=== PATIENT | female | born 1950 | race Hispanic/Latino ===

== ENCOUNTER 2019-09-03 17:10 | Emergency (ER) | payer OTHER ==
--- NOTE | 2019-09-03 18:06 | ER ---
Nurse's Notes [facility] Name: Jill Das Age: 68 yrs Sex: Female : 1950 Arrival Date: 09/03/2019 Time: 17:12 Bed 19 Private MD: Diagnosis: Cellulitis of right upper limb Presentation: 09/02 17:27 Chief complaint: Patient states: cellulitis to RFA X 1 week, started as a small sore on iw her arm, went to urgent care and was given cephalexin and ointment , has gotten worse throughout the day today , no fever. Coronavirus screen: Proceed with normal triage. Patient denies a cough. Patient denies shortness of breath or difficulty breathing. Patient denies measured and/or subjective temperature greater than 100.4F prior to today's visit. Patient denies travel on a cruise ship or to a country the [facility] currently lists as an affected area. Patient denies contact with known and/or suspected case of COVID-19. Ebola Screen: Patient negative for fever greater than or equal to 101.5 degrees Fahrenheit, and additional compatible Ebola Virus Disease symptoms Patient denies exposure to infectious person. Patient denies travel to an Ebola-affected area in the 21 days before illness onset. No symptoms or risks identified at this time. Initial Sepsis Screen: Does the patient meet any 2 criteria? No. Patient's initial sepsis screen is negative. Does the patient have a suspected source of infection? No. Patient's initial sepsis screen is negative. Risk Assessment: Do you want to hurt yourself or someone else? Patient reports no desire to harm self or others. Onset of symptoms was August 27, 2019. 17:27 Method Of Arrival: Ambulatory iw 17:27 Acuity: ZURDO 3 iw Triage Assessment: 18:10 General: Appears in no apparent distress. comfortable, Behavior is calm, cooperative. ls4 Pain: Denies pain. Neuro: No deficits noted. Cardiovascular: No deficits noted. Respiratory: No deficits noted. GI: No deficits noted. : No deficits noted. No signs and/or symptoms were reported regarding the genitourinary system. Derm: Skin is pink, warm \T\ dry. Rash noted that is red, on dorsal aspect of right forearm. Musculoskeletal: No deficits noted. No signs and/or symptoms reported regarding the musculoskeletal system. Historical: - Allergies: 17:31 No Known Allergies; iw - Home Meds: 17:31 metformin 500 mg Oral tab 1 tab 2 times per day [Active]; amlodipine 5 mg tab 1 tab iw once daily [Active]; rosuvastatin 20 mg oral tab 1 tab once daily [Active]; Victoza 2-Brien 0.6 mg/0.1 mL (18 mg/3 mL) subcutaneous pnij 0.2 mL once daily [Active]; - PMHx: 17:31 Anxiety; Depression; Diabetes - NIDDM; GERD; High Cholesterol; Hypertension; Myocardial iw infarction; - PSHx: 17:31 Hysterectomy; iw - Immunization history:: Adult Immunizations not up to date. - Social history:: Smoking status: Patient reports the use of cigarette tobacco products, smokes one-half pack cigarettes per day. Screenin:20 Abuse screen: Denies threats or abuse. Denies injuries from another. Nutritional ls4 screening: No deficits noted. Tuberculosis screening: No symptoms or risk factors identified. Fall Risk None identified. Assessment: 18:11 General: Appears in no apparent distress. comfortable, Behavior is calm, cooperative, . ls4 SEE TRIAGE ASSESSMENT. Vital Signs: 17:27 BP 141 / 77; Pulse 71; Resp 16; Pulse Ox 98% on R/A; Weight 72.57 kg; Height 5 ft. 4 iw in. (162.56 cm); Pain 0/10; 17:54 Temp 98.3(O); rb1 17:27 Body Mass Index 27.46 (72.57 kg, 162.56 cm) iw ED Course: 17:12 Patient arrived in ED. as 17:20 Patient has correct armband on for positive identification. Bed in low position. Call ls4 light in reach. Side rails up X 1. Pulse ox on. NIBP on. Verbal reassurance given. 17:20 No provider procedures requiring assistance completed. IV discontinued, intact, ls4 bleeding controlled, No redness/swelling at site. Pressure dressing applied. 17:21 Jimy Allen PA is PHCP. [facility] 17:21 Jose Trinidad MD is Attending Physician. [facility] 17:29 Triage completed. iw 17:31 Arm band placed on. iw 17:38 Letitia Sibley, MILLI is Primary Nurse. ls4 Administered Medications: No medications were administered Outcome: 18:05 Discharge ordered by MD. boswell 18:16 Patient left the ED. ls4 Signatures: Jimy Allen PA PA jmm Martinez, Amelia as Williams, Irene RN RN iw Edel Najera, RN RN rb1 Letitia Sibley RN RN ls4
--- NOTE | 2019-09-03 18:06 | EDPHYS ---
Physician Documentation [facility] Name: Jill Das Age: 68 yrs Sex: Female : 1950 Arrival Date: 09/03/2019 Time: 17:12 Bed 19 Private MD: ED Physician Jose Trinidad HPI: 09/02 17:33 This 68 yrs old Female presents to ER via Ambulatory with complaints of Wound jmm Check. 17:33 Patient presents to ED for recheck of: cellulitis. The affected area is on the right jmm arm. This is a 68 year old female with a history of DM, depression, that presents to the ED with complaints of right arm pain and swelling beginning approx 1 week ago. Patient states she was prescribed bactrim, cephalexin, and bactroban oint and began taking medication today. Patient is concerned due to increased swelling today. Denies fever. . Historical: - Allergies: 17:31 No Known Allergies; iw - Home Meds: 17:31 metformin 500 mg Oral tab 1 tab 2 times per day [Active]; amlodipine 5 mg tab 1 tab iw once daily [Active]; rosuvastatin 20 mg oral tab 1 tab once daily [Active]; Victoza 2-Brien 0.6 mg/0.1 mL (18 mg/3 mL) subcutaneous pnij 0.2 mL once daily [Active]; - PMHx: 17:31 Anxiety; Depression; Diabetes - NIDDM; GERD; High Cholesterol; Hypertension; Myocardial iw infarction; - PSHx: 17:31 Hysterectomy; iw - Immunization history:: Adult Immunizations not up to date. - Social history:: Smoking status: Patient reports the use of cigarette tobacco products, smokes one-half pack cigarettes per day. ROS: 17:33 Constitutional: Negative for fever, chills, and weight loss, Cardiovascular: Negative jmm for chest pain, palpitations, and edema, Respiratory: Negative for shortness of breath, cough, wheezing, and pleuritic chest pain. 17:33 Skin: Positive for cellulitis, swelling. 17:33 All other systems are negative. Exam: 17:33 Constitutional: This is a well developed, well nourished patient who is awake, alert, jmm and in no acute distress. Head/Face: atraumatic. Eyes: EOMI, no conjunctival erythema appreciated ENT: Moist Mucus Membranes Neck: Trachea midline, Supple Chest/axilla: Normal chest wall appearance and motion. Cardiovascular: Regular rate and rhythm. No edema appreciated Respiratory: Normal respirations, no respiratory distress appreciated Abdomen/GI: Non distended, soft Back: Normal ROM 17:33 Skin: erythema noted to the right forearm, mildly ttp, no streaking. 17:33 Neuro: Orientation: is normal, Mentation: is normal, Memory: is normal. 17:33 Psych: Behavior/mood is pleasant, cooperative. Vital Signs: 17:27 BP 141 / 77; Pulse 71; Resp 16; Pulse Ox 98% on R/A; Weight 72.57 kg; Height 5 ft. 4 iw in. (162.56 cm); Pain 0/10; 17:54 Temp 98.3(O); rb1 17:27 Body Mass Index 27.46 (72.57 kg, 162.56 cm) iw MDM: 17:33 Patient medically screened. [facility] 18:04 Data reviewed: vital signs, nurses notes. Counseling: I had a detailed discussion with andreia the patient and/or guardian regarding: the historical points, exam findings, and any diagnostic results supporting the discharge/admit diagnosis, radiology results, the need for outpatient follow up, to return to the emergency department if symptoms worsen or persist or if there are any questions or concerns that arise at home. ED course: Patient is alert and non toxic in appearance in the ED. Patient advised to continue oral abx. Patient is otherwise given strict return precautions. Patient understood and agrees with the plan of care. . 09/02 17:36 Order name: [facility]. Order: need temp; Complete Time: 17:54 [facility] Administered Medications: No medications were administered Disposition: 18:18 Co-signature as Attending Physician, Jose Trinidad MD. rn Disposition: 09/03/19 18:05 Discharged to Home. Impression: Cellulitis of right upper limb. - Condition is Stable. - Discharge Instructions: Cellulitis, Adult. - Medication Reconciliation Form, Thank You Letter, Antibiotic Education, Prescription Opioid Use form. - Follow up: Private Physician; When: 2 - 3 days; Reason: Recheck today's complaints, Continuance of care, Re-evaluation by your physician. Signatures: Mickail, Jimy, PA PA jmm Glynn, Casie, Jose Meza RN, MD MD rn Stewart, Lisa, RN RN ls4 Corrections: (The following items were deleted from the chart) 18:16 18:05 09/03/2019 18:05 Discharged to Home. Impression: Cellulitis of right upper limb. ls4 Condition is Stable. Forms are Medication Reconciliation Form, Thank You Letter, Antibiotic Education, Prescription Opioid Use. Follow up: Private Physician; When: 2 - 3 days; Reason: Recheck today's complaints, Continuance of care, Re-evaluation by your physician. david
[2019-09-03 18:22] VITALS: BP 141/77; O2SAT 98
[2019-09-03 18:24] VITALS: TEMP 98.3
== END 2019-09-03 18:16 | disposition home or self-care (01) ==
LOC: ER 17:10
DX: L03.113 Cellulitis of right upper limb (principal); I10 Essential (primary) hypertension; E11.9 Type 2 diabetes mellitus without complications; F34.1 Dysthymic disorder; E78.00 Pure hypercholesterolemia, unspecified; I25.2 Old myocardial infarction; F17.210 Nicotine dependence, cigarettes, uncomplicated
CPT/HCPCS: 99282

== ENCOUNTER 2023-11-10 09:41 | Emergency (ER) | payer OTHER ==
--- OUTSIDE RECORDS SUMMARY | 2023-11-10 09:45 | XMS REPORT | Continuity of Care Document ---
Author Name Unknown Address [address] [facility] [place] [address] [facility] Address [address] [facility] [address] [place] [address] Care Team Providers Care Bladder Tier Name Role Phone PCP, PATIENT DOES NOT HAVE A Primary Care Physic lynnette Unavailable Ioana Pineda Attending Clinician Unavailable CHRISTOPH HUITRON Attending Clinician Unavailable IOANA PINEDA Attending Clinician Unavailable MARICHUY ARCOS Attending Clinician Unavailable CONFERENCE, LDC Attending Clinician Unavailable LAB90 Attending Clinician Unavailable SCOT SERNA Attending Clinician Unavailable [email or web address] Attending Clinician UnavailRAFAELA Owens Attending Clinician UnaRADHA Machado Attending Clinician UnavailGRACIE Spivey Attending Clinician Unavailable GREGORIO THOMPSON Attending Clinician Unavailable Radha Mac MD Attending Clinician [phone] Doctor Unassigned, [place] Attending Clinician U Tre Garland MD Attending Clinician [phone] Chely Santiago Attending Clinician Lab, Adc Fam Pob I Attending Clinician Unavailab CHELY Gandhi Attending Clinician Unavailable Ioana Pineda Admitting Clinician Unavailable [email or web address] Admitting Clinician UnavailRADHA Sanchez Admitting Clinician Unavailabl e Payers Payer Name Policy Type Policy Number Effective Date Expirati on Date Source [facility] [id number] 2021 00:00:00 [employer] HMO-POS 16 [id number] 00:00:00 [facility] (MEDICARE REPLACEMENT HMO) [id number] [employer] [place]) [id number] [facility] [place] ([place]IC[place] REPLACEMENT/[place] - HMO) [id number] [facility] [id number] 00:00:00 Problems Condition Name Condition Details Condition Category Status Onset Date Resolution Date Last Treatment Date Treating Clinician Comments Source Tobacco use Tobacco use Disease Active 4-17 00:00: 00 Becca San - Externa catherine Hypothyroi dism Hypothyroi dism Disease Active 2022-05 0-12 00:00: 00 Becca Elizaldeold - Externa l DM type 2 with diabetic mixed hyperlipid emia (multi HCC) DM type 2 with diabetic mixed hyperlipid emia (multi HCC) Disease Active 8-16 00:00: 00 Becca San - Externa l Delayed gastric emptying Delayed gastric emptying Disease Active 816 00:00: 00 Becca San - Externa l Immunodefi ciency due to conditions classified elsewhere (multi HCC) Immunodefi ciency due to conditions classified elsewhere (multi HCC) Disease Active 2-07 00:00: 00 Becca San - Externa l Chronic obstructiv e pulmonary disease, unspecifie d COPD type (multi HCC) Chronic obstructiv e pulmonary disease, unspecifie d COPD type (multi HCC) Disease Active 2021-05 0-26 00:00: 00 Becca Ko Externa catherine Recurrent major depressive disorder, in partial remission Recurrent major depressive disorder, in partial remission Disease Active 2021-05 0- 00:00: 00 Becca alexander Encounter for screening for vascular disease Encounter for screening for vascular disease Disease Active 01-21 00:00: 00 Becca Patela catherine Type 2 diabetes mellitus without complicati on, without long-term current use of insulin (multi HCC) Type 2 diabetes mellitus without complicati on, without long-term current use of insulin (multi HCC) Disease Active 01-21 00:00: 00 Becca alexander Hyperlipid emia Hyperlipid emia Disease Active 01-21 00:00: 00 Becca Patela catherine Primary hypertensi on Primary hypertensi on Disease Active 01-21 00:00: 00 Becca Patela catherine OAB (overactiv e bladder) OAB (overactiv e bladder) Disease Active 01-21 00:00: 00 Becca Patela catherine Gastroesop hageal reflux disease without esophagiti s Gastroesop hageal reflux disease without esophagiti s Disease Active 01-21 00:00: 00 Becca alexander PVD (periphera l vascular disease) PVD (periphera l vascular disease) Disease Active 01-21 00:00: 00 Becca Patela catherine Vitamin D deficiency Vitamin D deficiency Disease Active 01-21 00:00: 00 Becca alexander [id number] Detrusor instabilit y Problem Common [facility] [id number] Urge incontinen ce Problem Common [facility] Urgent desire to urinate Urinary urgency Problem [facility] Spasm of bladder Bladder spasms Problem [facility] [id number] Urinary incontinen ce, unspecifie d type Problem [facility] [id number] Microhemat uria Problem [facility] [id number] Sciatica of left side Problem [facility] [id number] Sciatica of right side Problem [facility] [id number] Piriformis syndrome, right Problem [facility] [id number] Piriformis syndrome of left side Problem [facility] No known active problems No known active problems Disease [facility] Allergies, Adverse Reactions, Alerts Allergy Name Allergy Type Status Severity Reaction(s) Onset Date Inactive Date Treating Clinician Comments Source NO KNOWN ALLERGIE S Drug Class Active [facility] Social History Social Habit Start Date Stop Date Quantity Comments Source Sex Assigned At [facility] History of tobacco use Cigarette Smoker Becca lópez - External Gender identity Claire San - External Sexual orientation Josiah San - External Exposure to SARS-CoV-2 (event) Not sure [facility] Cigarettes smoked current (pack per day) - Reported 2023-09-01 00:00:00 2023-09-01 00:00:00 Becca San - External Cigarette pack-years 2023-09-01 00:00:00 2023-09-01 00:00:00 Becca San - External Tobacco use and exposure 2023-09-01 00:00:00 2023-09-01 00:00:00 Smokeless tobacco non-user Becca San - External Alcoholic beverage intake 2023-09-01 00:00:00 2023-09-01 00:00:00 Lifetime non-drinker (finding) Becca San - External Alcohol intake 2023-06-30 00:00:00 2023-06-30 00:00:00 Lifetime non-drinker (finding) Becca San - External History of Social function 2023-01-21 00:00:00 2023-01-21 00:00:00 Becca San - External Smoking Status Start Date Stop Date Source Smokes tobacco daily 2023-09-01 00:00:00 Becca San - External Unknown if ever smoked [facility] Medications Ordered Medication Name Filled Medication Name Start Date Stop Date Current Medication? Ordering Clinician Indication Dosage Frequency Signature (SIG) Comments Components Source Semaglutide , 2 MG/DOSE, (Ozempic, 2 MG/DOSE,) subcutaneou s 08-31 08:24: 13 08-31 00:00 :00 No 2mg Inject 2 mg into the skin once a week. Becca alexander Nitrofurant oin Monohyd Macro 100 MG oral Capsule 08-31 08:08: 15 08-31 00:00 :00 No 100mg Take 1 capsule (100 mg total) by mouth 2 times daily. Becca alexander Microlet Lancets does not apply Misc 08-31 08:07: 47 Yes [id number] See Admin Instructio ns Becca alexander Nicotine 7 MG/24HR transdermal PATCH 24 HR 08-31 08:07: 47 Yes [id number] 1{patch } Place 1 patch onto the skin every 24 hours. Becca alexander Tirzepatide (Mounjaro) 10 MG/0.5ML subcutaneou s Solution Pen-injecto r 08-31 00:00: 00 Yes [id number] 3 10mg Inject 0.5 mL (10 mg total) into the skin once a week. Becca alexander Propranolol HCl 10 MG oral Tablet 08-31 00:00: 00 Yes [id number] 10mg [id number] 3D Take 1 tablet (10 mg total) by mouth 3 times daily as needed. Becca alexander Tirzepatide (Mounjaro) 10 MG/0.5ML subcutaneou s Solution Pen-injecto r 08-20 00:00: 00 08-31 00:00 :00 No [id number] 3 10mg Inject 0.5 mL (10 mg total) into the skin once a week. Becca alexander Amlodipine Besylate (NORVASC) 5 MG oral Tablet 20 00:00: 00 Yes [id number] 5mg Take 1 tablet (5 mg total) by mouth daily. Becca alexander Bupropion HCL XL 150 MG OR TB24 -14 00:00: 00 08-31 00:00 :00 No 150mg Take 1 tablet (150 mg total) by mouth daily. Becca alexander Fluzone High-Dose Quadrivalen t 0.7 ML Fluzone High-Dose Quadrivalen t 0.7 ML 4-0 3-12 00:00: 00 No Fluzone High-Dose Quadrivale nt 0.7 ML Levothyroxi ne Sodium 50 MCG Levothyroxi ne Sodium 50 MCG 2023-0 3-12 00:00: 00 No QD Levothyrox ine Sodium 50 MCG Constulose 10 GM/15ML Constulose 10 GM/15ML 2023-0 3-12 00:00: 00 No 15{ml_a s_neede d} QD Constulose 10 GM/15ML Lubiproston e 24 MCG Lubiproston e 24 MCG 2023-0 3-12 00:00: 00 No BID Lubiprosto ne 24 MCG Doxycycline Hyclate 100 MG Doxycycline Hyclate 100 MG 2023-0 3-12 00:00: 00 No 1{capsu le} QD Doxycyclin e Hyclate 100 MG Fluzone High-Dose Quadrivalen t 0.7 ML Fluzone High-Dose Quadrivalen t 0.7 ML 2023-0 -12 00:00: 00 No Fluzone High-Dose Quadrivale nt 0.7 ML Levothyroxi ne Sodium 50 MCG Levothyroxi ne Sodium 50 MCG 2023-0 -12 00:00: 00 No QD Levothyrox ine Sodium 50 MCG Constulose 10 GM/15ML Constulose 10 GM/15ML 2023-0 3-12 00:00: 00 No 15{ml_a s_neede d} QD Constulose 10 GM/15ML Lubiproston e 24 MCG Lubiproston e 24 MCG 2023-0 3-12 00:00: 00 No BID Lubiprosto ne 24 MCG Doxycycline Hyclate 100 MG Doxycycline Hyclate 100 MG 2023-0 3-12 00:00: 00 No 1{capsu le} QD Doxycyclin e Hyclate 100 MG Doxycycline Hyclate 100 MG oral Capsule 2023-0 3-12 00:00: 00 08-31 00:00 :00 No 100mg 1 capsule (100 mg total) every 24 hours. Becca alexander Comirnaty 30 MCG/0.3ML intramuscul ar Suspension Prefilled Syringe 3-10 00:00: 00 Yes .3mL Inject 0.3 mL into the muscle once. Becca alexander Amoxicillin -Pot Clavulanate 875-125 MG oral Tablet 3-06 00:00: 00 08-31 00:00 :00 No [id number] 1{tbl} Take 1 tablet by mouth 2 times daily. Becca alexander Microlet Lancets does not apply Misc 14 08:25: 05 Yes [id number] See Admin Instructio ns Becca alexander Tirzepatide (Mounjaro) 10 MG/0.5ML subcutaneou s Solution Pen-injecto r 14 00:00: 00 Yes [id number] 3 10mg Inject 0.5 mL (10 mg total) into the skin once a week. Becca alexander BUPROPION HCL SR 150 MG OR TB12 14 00:00: 00 Yes [id number] 150mg Take 1 tablet (150 mg total) by mouth 2 times daily. Becca alexander Doxycycline Hyclate 100 MG oral Tablet 14 00:00: 00 Yes [id number] 100mg Take 1 tablet (100 mg total) by mouth 2 times daily. Becca alexander Constulose 10 GM/15ML oral Solution 06-17 00:00: 00 Yes 10g Take 15 mL (10 g total) by mouth nightly. Becca alexander Liraglutide (Victoza) 18 MG/3ML subcutaneou s Solution Pen-injecto r -15 16:05: 16 05-31 00:00 :00 No See Admin Instructio ns. Becca alexander Microlet Lancets does not apply Misc -15 15:48: 42 Yes [id number] See Admin Instructio ns Becca alexander Tirzepatide (Mounjaro) 10 MG/0.5ML subcutaneou s Solution Pen-injecto r 05-31 00:00: 00 Yes [id number] 3 10mg Inject 0.5 mL (10 mg total) into the skin once a week. Becca alexander BUPROPION HCL SR 150 MG OR TB12 05-31 00:00: 00 Yes [id number] 150mg Take 1 tablet (150 mg total) by mouth 2 times daily. Becca alexander Lubiproston e 24 MCG oral Capsule 05-31 00:00: 00 08-31 00:00 :00 No [id number] 24ug Take 1 capsule (24 mcg total) by mouth in the morning and 1 capsule (24 mcg total) in the evening. Take with meals. Becca alexander ESTRADIOL VAGINAL 0.1 MG/GM vaginal Cream 2022-05 00:00: [address] 1 g vaginally three times a week. Becca alexander Oxybutynin Chloride 10 MG oral TABLET SR 24 HR 2022-05 00:00: 00 Yes 10mg Take 1 tablet (10 mg total) by mouth daily. Becca alexander linaCLOtide (Linzess) 145 MCG oral Capsule 2022-05 00:00: 00 05-31 00:00 :00 No [id number] 145ug Take 1 capsule (145 mcg total) by mouth daily. Becca alexander Liraglutide (Victoza) 18 MG/3ML subcutaneou s Solution Pen-injecto r 2022-05 09:09: 30 02-25 00:00 :00 No as directed Subcutaneo us Becca alexander Microlet Lancets does not apply Misc 2022-05 08:40: 53 Yes [id number] See Admin Instructio ns Becca alexander Nicotine 21-14-7 MG/24HR transdermal Kit 2022-05 00:00: 00 Yes [id number] 1{patch } Place 1 patch onto the skin every 24 hours. Becca alexander Lubiproston e 24 MCG oral Capsule 2022-05 0-12 00:00: 00 Yes [id number] 24ug Take 1 capsule (24 mcg total) by mouth in the morning and 1 capsule (24 mcg total) in the evening. Take with meals. Becca alexander Microlet Lancets does not apply Misc 01-21 13:27: 00 Yes [id number] See Admin Instructio ns Becca alexander Semaglutide (2 mg/dose) 8 mg/3 mL SQ Solution Pen-Injecto r 01-21 00:00: 00 05-31 00:00 :00 No [id number] 3 2mg Inject 2 mg into the skin once a week. Becca alexander Oxybutynin Chloride 5 MG oral TABLET SR 24 HR 01-17 00:00: 00 05-31 00:00 :00 No 5mg Take 1 tablet (5 mg total) by mouth daily. Becca alexander Rosuvastati n Calcium 20 MG oral Tablet 01-15 00:00: 00 Yes [id number] 20mg TAKE ONE (1) TABLET(S) BY MOUTH ONCE A DAY. Becca alexander TRIMETHOPRI M-SULFAMETH OXAZOLE (BACTRIM DS) 800-160 MG oral Tablet 8-30 00:00: 00 01-21 00:00 :00 No 1{tbl} Take 1 tablet by mouth 2 times daily. Becca alexander OZEMPIC (1 mg/dose) 4 mg/3 mL SQ Solution Pen-Injecto r 5-02 00:00: 00 01-21 00:00 :00 No [id number] INJECT ONE (1) MG INTO THE SKIN ONCE A WEEK. Becca alexander oxyBUTYnin Chloride ER 5 MG oxyBUTYnin Chloride ER 5 MG 09-02 00:00: 00 No 1{table t} BID oxyBUTYnin Chloride ER 5 MG oxyBUTYnin Chloride ER 5 MG oxyBUTYnin Chloride ER 5 MG 09-02 00:00: 00 No 1{table t} BID oxyBUTYnin Chloride ER 5 MG oxyBUTYnin Chloride ER 5 MG oxyBUTYnin Chloride ER 5 MG 4-19 00:00: 00 No 1{table t} BID oxyBUTYnin Chloride ER 5 MG oxyBUTYnin Chloride ER 5 MG oxyBUTYnin Chloride ER 5 MG 0 4-19 00:00: 00 No 1{table t} BID oxyBUTYnin Chloride ER 5 MG oxyBUTYnin Chloride ER 5 MG oxyBUTYnin Chloride ER 5 MG 2022- 4-19 00:00: 00 No 1{table t} BID oxyBUTYnin Chloride ER 5 MG Microlet Lancets does not apply [facility] 07-23 12:54: 06 Yes [id number] See Admin Instructio ns Becca alexander OZEMPIC (1 mg/dose) 4 mg/3 mL SQ Solution Pen-Injecto r 07-23 00:00: 00 Yes [id number] 1mg Inject 1 mg into the skin once a week Becca alexander Pantoprazol e Sodium 40 MG oral Tablet Delayed Response 07-23 00:00: 00 Yes [id number] 40mg Take 1 tablet (40 mg total) by mouth daily Becca alexander Albuterol HFA 108 (90 Base) MCG/ACT IN AERS 07-23 00:00: 00 Yes [id number] 2{puff} Q.25D Inhale 2 puffs into the lungs every 6 hours as needed for wheezing Becca alexander OZEMPIC (0.25 or 0.5 mg/dose) 2 mg/1.5 mL SQ Solution Pen-Injecto r 1-24 00:00: 00 07-23 00:00 :00 No [id number] .5mg Inject 0.5 mg into the skin once a week Becca alexander Sucralfate 1 g oral Tablet 18 00:00: 00 Yes [id number] 1g Take 1 tablet (1 g total) by mouth 4 times daily Becca alexander Pantoprazol e Sodium 20 MG oral Tablet Delayed Response 06-03 00:00: 00 07-23 00:00 :00 No 20mg Take 20 mg by mouth daily Becca alexander Plenvu 140 g oral Recon Soln 2021-05 00:00: 00 07-23 00:00 :00 No TAKE DIRECTED BY PHYSICIAN OFFICE. Becca alexander Microlet Lancets does not apply [facility] 2021-05 10:35: 37 Yes [id number] See Admin Instructio ns Becca alexander OZEMPIC (0.25 or 0.5 mg/dose) 2 mg/1.5 mL SQ Solution Pen-Injecto r 2021-05 00:00: 00 Yes [id number] .5mg Inject 0.5 mg into the skin once a week Becca alexander Microlet Lancets does not apply [facility] 2021-05 08:08: 06 Yes [id number] See Admin Instructio ns Becca alexander Pantoprazol e Sodium 20 MG oral Tablet Delayed Response 2021-05 00:00: 00 Yes [id number] 20mg Take 1 tablet (20 mg total) by mouth daily Becca alexander Albuterol HFA 108 (90 Base) MCG/ACT IN AERS 2021-05 00:00: 00 07-23 00:00 :00 No [id number] 2{puff} Q.25D Inhale 2 puffs into the lungs every 6 hours as needed for wheezing Becca alexander OZEMPIC (0.25 or 0.5 mg/dose) 2 mg/1.5 mL SQ Solution Pen-Injecto r 2021-05 017 00:00: 00 Yes [id number] .25mg Inject 0.25 mg into the skin once a week Becca alexander Escitalopra m Oxalate 5 MG oral Tablet 2021-05 00:00: 00 Yes 5mg Take 1 tablet (5 mg total) by mouth daily. Becca alexander Lisinopril 10 MG oral Tablet 2021-05 00:00: 03-11 00:00 :00 No [id number] 10mg Take 1 tablet (10 mg total) by mouth daily Becca alexander Fluzone High-Dose Quadrivalen t 0.7 ML intramuscul ar Suspension Prefilled Syringe 2021-05 00:00: 00 Yes Becca alexander Fluzone High-Dose Quadrivalen t 0.7 ML intramuscul ar Suspension Prefilled Syringe 2021-05 00:00: 00 08-31 00:00 :00 No Becca alexander Levothyroxi ne Sodium 50 MCG oral Tablet 01-28 00:00: 00 Yes TAKE ONE (1) TABLET(S) BY MOUTH EVERY MORNING ON AN EMPTY STOMACH. Becca alexander Oxybutynin Chloride 5 MG oral Tablet 01-21 00:00: 00 Yes [id number] 5mg Take 1 tablet (5 mg total) by mouth 2 times daily Becca alexander rosuvastati n calcium (CRESTOR ORAL) 09-02 15:39: 05 Yes Take by mouth. [facility] metformin HCl (METFORMIN ORAL) 09-02 15:39: 05 Yes Take by mouth. [facility] liraglutide (VICTOZA 2-GENOVEVA SC) 09-02 15:39: 05 Yes inject under the skin. [facility] amlodipine besylate (AMLODIPINE ORAL) 09-02 15:39: 05 Yes Take by mouth. [facility] metformin HCl (METFORMIN ORAL) 09-02 10:39: 05 Yes Take by mouth. [facility] liraglutide (VICTOZA 2-GENOVEVA SC) 09-02 10:39: 05 Yes inject under the skin. [facility] Lisinopril 40 MG Lisinopril 40 MG No Lisinopril 40 MG metFORMIN HCl 500 MG metFORMIN HCl 500 MG No metFORMIN HCl 500 MG Albuterol Sulfate HFA 108 (90 Base) MCG/ACT Albuterol Sulfate HFA 108 (90 Base) MCG/ACT No Albuterol Sulfate HFA 108 (90 Base) MCG/ACT Estradiol 0.1 MG/GM Estradiol 0.1 MG/GM No Estradiol 0.1 MG/GM Lisinopril 40 MG Lisinopril 40 MG No Lisinopril 40 MG metFORMIN HCl 500 MG metFORMIN HCl 500 MG No metFORMIN HCl 500 MG Nicotine 7 MG/24HR Nicotine 7 MG/24HR No Nicotine 7 MG/24HR Ozempic (2 MG/DOSE) 8 MG/3ML Ozempic (2 MG/DOSE) 8 MG/3ML No Ozempic (2 MG/DOSE) 8 MG/3ML amLODIPine Besylate 5 MG amLODIPine Besylate 5 MG No amLODIPine Besylate 5 MG Pantoprazol e Sodium 40 MG Pantoprazol e Sodium 40 MG No Pantoprazo le Sodium 40 MG buPROPion HCl ER (XL) 150 MG buPROPion HCl ER (XL) 150 MG No buPROPion HCl ER (XL) 150 MG Rosuvastati n Calcium 20 MG Rosuvastati n Calcium 20 MG No Rosuvastat in Calcium 20 MG Sucralfate 1 GM Sucralfate 1 GM No Sucralfate 1 GM Nitrofurant oin Monohyd Macro 100 MG Nitrofurant oin Monohyd Macro 100 MG No Nitrofuran toin Monohyd Macro 100 MG metFORMIN HCl ER 500 MG metFORMIN HCl ER 500 MG No 1{table t_with_ evening _meal} QD metFORMIN HCl ER 500 MG amLODIPine Besylate 5 MG amLODIPine Besylate 5 MG No 1{table t} QD amLODIPine Besylate 5 MG Rosuvastati n Calcium 20 MG Rosuvastati n Calcium 20 MG No 1{table t} QD Rosuvastat in Calcium 20 MG Omeprazole 40 MG Omeprazole 40 MG No QD Omeprazole 40 MG metFORMIN HCl ER 500 MG metFORMIN HCl ER 500 MG No 1{table t_with_ evening _meal} QD metFORMIN HCl ER 500 MG amLODIPine Besylate 5 MG amLODIPine Besylate 5 MG No 1{table t} QD amLODIPine Besylate 5 MG Rosuvastati n Calcium 20 MG Rosuvastati n Calcium 20 MG No 1{table t} QD Rosuvastat in Calcium 20 MG Omeprazole 40 MG Omeprazole 40 MG No QD Omeprazole 40 MG metFORMIN HCl ER 500 MG metFORMIN HCl ER 500 MG No 1{table t_with_ evening _meal} QD metFORMIN HCl ER 500 MG amLODIPine Besylate 5 MG amLODIPine Besylate 5 MG No 1{table t} QD amLODIPine Besylate 5 MG Rosuvastati n Calcium 20 MG Rosuvastati n Calcium 20 MG No 1{table t} QD Rosuvastat in Calcium 20 MG Omeprazole 40 MG Omeprazole 40 MG No QD Omeprazole 40 MG metFORMIN HCl ER 500 MG metFORMIN HCl ER 500 MG No 1{table t_with_ evening _meal} QD metFORMIN HCl ER 500 MG amLODIPine Besylate 5 MG amLODIPine Besylate 5 MG No 1{table t} QD amLODIPine Besylate 5 MG Rosuvastati n Calcium 20 MG Rosuvastati n Calcium 20 MG No 1{table t} QD Rosuvastat in Calcium 20 MG Omeprazole 40 MG Omeprazole 40 MG No QD Omeprazole 40 MG metFORMIN HCl ER 500 MG metFORMIN HCl ER 500 MG No 1{table t_with_ evening _meal} QD metFORMIN HCl ER 500 MG amLODIPine Besylate 5 MG amLODIPine Besylate 5 MG No 1{table t} QD amLODIPine Besylate 5 MG Rosuvastati n Calcium 20 MG Rosuvastati n Calcium 20 MG No 1{table t} QD Rosuvastat in Calcium 20 MG Omeprazole 40 MG Omeprazole 40 MG No QD Omeprazole 40 MG oxyBUTYnin Chloride ER 10 MG oxyBUTYnin Chloride ER 10 MG No oxyBUTYnin Chloride ER 10 MG Albuterol Sulfate HFA 108 (90 Base) MCG/ACT Albuterol Sulfate HFA 108 (90 Base) MCG/ACT No Albuterol Sulfate HFA 108 (90 Base) MCG/ACT Immunizations Ordered Immunization Name Filled Immunization Name Date Status Comments Source Shingles IM (Shingrix) 2022-12-09 00:00:00 Completed Becca San - External Shingles IM (Shingrix) 2022-10-06 00:00:00 Completed Becca Vázquez Pneumococcal Vaccine, Conjugate 20 2022-10-06 00:00:00 Completed Becca Vázquez Influenza Virus Vaccine, Quadrivalent, High Dose, Age 65 And Up 2022-02-15 00:00:00 Completed Becca Ko External Influenza Virus Vaccine, High Dose, Age 65 And Up 2022-02-15 00:00:00 Completed Becca Ko External Influenza Virus Vaccine, Quadrivalent, High Dose, Age 65 And Up 2022-02-15 00:00:00 Completed Becca Seybold - External Influenza Virus Vaccine, High Dose, Age 65 And Up 2022-02-15 00:00:00 Completed Becca Seybold - External Influenza Virus Vaccine, Quadrivalent, High Dose, Age 65 And Up 2022-02-15 00:00:00 Completed Becca Seybold - External Influenza Virus Vaccine, High Dose, Age 65 And Up 2022-02-15 00:00:00 Completed Becca Seybold - External Influenza Virus Vaccine, Quadrivalent, High Dose, Age 65 And Up 2022-02-15 00:00:00 Completed Becca Seybold - External Influenza Virus Vaccine, High Dose, Age 65 And Up 2022-02-15 00:00:00 Completed Becca Seybold - External Covid-19 Vaccine ([employer]), Mrna-lnp, Froilan Protein, Pf, 30mcg/0.3ml,IM 2021-02-12 00:00:00 Completed Becca Seybold - External Covid-19 Vaccine (Pfizer), Mrna-lnp, Froilan Protein, Pf, 30mcg/0.3ml,IM 2021-02-12 00:00:00 Completed Becca Seybold - External Covid-19 Vaccine (Pfizer), Mrna-lnp, Froilan Protein, Pf, 30mcg/0.3ml,IM 2021-02-12 00:00:00 Completed Becca Seybold - External Covid-19 Vaccine (Pfizer), Mrna-lnp, Froilan Protein, Pf, 30mcg/0.3ml,IM 2021-02-12 00:00:00 Completed Becca Seybold - External Covid-19 Vaccine (Pfizer), Mrna-lnp, Froilan Protein, Pf, 30mcg/0.3ml,IM Unknown Completed Becca Elizaldeol d - External Influenza Virus Vaccine, Quadrivalent, High Dose, Age 65 And Up Unknown Completed Becca Cam eybold - External Influenza Virus Vaccine, High Dose, Age 65 And Up Unknown Completed Becca Fairybold - External Shingles IM (Shingrix) Unknown Completed Becca Seybold - External Shingles IM (Shingrix) Unknown Completed Becca ybold - External Pneumococcal Vaccine, Conjugate 20 Unknown Completed Becca Seybold - External COVID-19 Vaccine(Pfizer)(fal l 2022)(12yrs+) Unknown Completed Becca Fairybo ld - External Influenza Virus Vaccine, Quadrivalent, High Dose, Age 65 And Up Unknown Completed Becca S eybold - External RSV, Arexvy Unknown Completed Becca S eybold - External Covid-19 Vaccine (Pfizer), Mrna-lnp, Froilan Protein, Pf, 30mcg/0.3ml,IM Unknown Completed Becca Seybol d - External Influenza Virus Vaccine, Quadrivalent, High Dose, Age 65 And Up Unknown Completed Becca S eybold - External Influenza Virus Vaccine, High Dose, Age 65 And Up Unknown Completed Becca Seybold - External Shingles IM (Shingrix) Unknown Completed Becca Seybold - External Shingles IM (Shingrix) Unknown Completed Becca Seybold - External Pneumococcal Vaccine, Conjugate 20 Unknown Completed Becca Seybold - External COVID-19 Vaccine(Pfizer)([facility] 2022)(12yrs+) Unknown Completed Becca Seybo ld - External Influenza Virus Vaccine, Quadrivalent, High Dose, Age 65 And Up Unknown Completed Becca S eybold - External RSV, Arexvy Unknown Completed Becca S eybold - External Influenza Virus Vaccine, High Dose, Age 65 And Up Unknown Completed Becca Seybold - External Covid-19 Vaccine (Pfizer), Mrna-lnp, Froilan Protein, Pf, 30mcg/0.3ml,IM Unknown Completed Becca Fairybol d - External Influenza Virus Vaccine, Quadrivalent, High Dose, Age 65 And Up Unknown Completed Becca S eybold - External Influenza Virus Vaccine, High Dose, Age 65 And Up Unknown Completed Becca Seybold - External Shingles IM (Shingrix) Unknown Completed Becca Seybold - External Shingles IM (Shingrix) Unknown Completed Becca Seybold - External Pneumococcal Vaccine, Conjugate 20 Unknown Completed Becca Seybold - External COVID-19 Vaccine(Pfizer)([facility] 2022)(12yrs+) Unknown Completed Becca Seybo ld - External Influenza Virus Vaccine, Quadrivalent, High Dose, Age 65 And Up Unknown Completed Becca S eybold - External RSV, Arexvy Unknown Completed Becca S eybold - External Influenza Virus Vaccine, High Dose, Age 65 And Up Unknown Completed Becca Seybold - External Covid-19 Vaccine ([employer]), Mrna-lnp, Froilan Protein, Pf, 30mcg/0.3ml,IM Unknown Completed Becca Soriano d - External Influenza Virus Vaccine, Quadrivalent, High Dose, Age 65 And Up Unknown Completed Becca clarkbold - External Influenza Virus Vaccine, High Dose, Age 65 And Up Unknown Completed Becca Elizaldeold - External Shingles IM (Shingrix) Unknown Completed Becca San - External Shingles IM (Shingrix) Unknown Completed Becca Elizaldeold - External Pneumococcal Vaccine, Conjugate 20 Unknown Completed Becca San - External COVID-19 Vaccine([employer])(fal l 2022)(12yrs+) Unknown Completed Becca Solares ld - External Influenza Virus Vaccine, Quadrivalent, High Dose, Age 65 And Up Unknown Completed Becca clarkbold - External RSV, Arexvy Unknown Completed Becca Cam eybold - External Influenza Virus Vaccine, High Dose, Age 65 And Up Unknown Completed Becca San - External Vital Signs Vital Name Observation Time Observation Value Comments S ource Systolic blood pressure 2023-09-01 13:04:00 136 mm[Hg] Becca Elizaldeo ld - External Diastolic blood pressure 2023-09-01 13:04:00 62 mm[Hg] Becca Elizaldeo ld - External Heart rate 2023-09-01 13:04:00 69 /min Dereck San - External Body temperature 2023-09-01 13:04:00 36 Marina Becca Elizaldeold - External Respiratory rate 2023-09-01 13:04:00 14 /min Becca Fairybold - External Body height 2023-09-01 13:04:00 162.6 cm Claire clark Seybold - External Body weight 2023-09-01 13:04:00 68.947 kg Claire ey Seybold - External BMI 2023-09-01 13:04:00 26.09 kg/m2 Claire ey Seybold - External height 2023-07-29 08:00:00 64 [in_i] Commo n [facility] weight 2023-07-29 08:00:00 153.2 [lb_av] Co mmon [facility] bmi 2023-07-29 08:00:00 26.29 kg/m2 Comm [facility] blood pressure systolic 2023-07-29 08:00:00 132 mm[Hg] [facility] blood pressure diastolic 2023-07-29 08:00:00 68 mm[Hg] [facility] Systolic blood pressure 2023-06-30 14:21:00 132 mm[Hg] Becca Seybo ld - External Diastolic blood pressure 2023-06-30 14:21:00 64 mm[Hg] Becca Seybo ld - External Heart rate 2023-06-30 14:21:00 75 /min Kelse y Seybold - External Body temperature 2023-06-30 14:21:00 36.11 Marina Becca Seybold - External Respiratory rate 2023-06-30 14:21:00 14 /min Becca Seybold - External Body height 2023-06-30 14:21:00 162.6 cm Claire ey Seybold - External Body weight 2023-06-30 14:21:00 73.483 kg Claire ey Seybold - External BMI 2023-06-30 14:21:00 27.81 kg/m2 Claire ey Seybold - External Systolic blood pressure 2023-05-31 21:45:00 132 mm[Hg] Becca Seybo ld - External Diastolic blood pressure 2023-05-31 21:45:00 72 mm[Hg] Becca Seybo ld - External Heart rate 2023-05-31 21:45:00 96 /min Kelse y Seybold - External Body temperature 2023-05-31 21:45:00 35.89 Marina Becca Seybold - External Respiratory rate 2023-05-31 21:45:00 14 /min Becca Seybold - External Body height 2023-05-31 21:45:00 162.6 cm Claire ey Seybold - External Body weight 2023-05-31 21:45:00 71.668 kg Claire ey Seybold - External BMI 2023-05-31 21:45:00 27.12 kg/m2 Claire ey Seybold - External height 2023-03-10 16:15:00 64 [in_i] Commo n [facility] weight 2023-03-10 16:15:00 149.4 [lb_av] Co mmon [facility] temperature 2023-03-10 16:15:00 97.4 [degF] Com mon [facility] bmi 2023-03-10 16:15:00 25.64 kg/m2 Comm on [facility] oximetry 2023-03-10 16:15:00 99 % Commo n [facility] respiratory rate 2023-03-10 16:15:00 18 /min Common [facility] blood pressure systolic 2023-03-10 16:15:00 132 mm[Hg] Common [facility] blood pressure diastolic 2023-03-10 16:15:00 68 mm[Hg] Common [facility] Systolic blood pressure 2023-02-25 13:37:00 146 mm[Hg] Becca Seybo ld - External Diastolic blood pressure 2023-02-25 13:37:00 64 mm[Hg] Becca Seybo ld - External Heart rate 2023-02-25 13:37:00 97 /min Kelse y Seybold - External Body temperature 2023-02-25 13:37:00 35.83 Marina Becca Seybold - External Respiratory rate 2023-02-25 13:37:00 15 /min Becca Seybold - External Body height 2023-02-25 13:37:00 162.6 cm Claire ey Seybold - External Body weight 2023-02-25 13:37:00 68.493 kg Claire ey Seybold - External BMI 2023-02-25 13:37:00 25.92 kg/m2 Claire ey Seybold - External Systolic blood pressure 2023-01-21 18:24:00 128 mm[Hg] Becca Seybo ld - External Diastolic blood pressure 2023-01-21 18:24:00 58 mm[Hg] Becca Seybo ld - External Heart rate 2023-01-21 18:24:00 74 /min Kelse y Seybold - External Body temperature 2023-01-21 18:24:00 36.17 Marina Becca Seybold - External Respiratory rate 2023-01-21 18:24:00 14 /min Becca Seybold - External Body height 2023-01-21 18:24:00 162.6 cm Claire clark Seybold - External Body weight 2023-01-21 18:24:00 68.947 kg Claire clark Seybold - External BMI 2023-01-21 18:24:00 26.09 kg/m2 Claire clark Seybold - External height 2022-10-08 09:15:00 64 [in_i] Commo n [facility] weight 2022-10-08 09:15:00 154 [lb_av] Comm on [facility] temperature 2022-10-08 09:15:00 97.2 [degF] Com [facility] bmi 2022-10-08 09:15:00 26.43 kg/m2 Comm on [facility] oximetry 2022-10-08 09:15:00 99 % Commo n [facility] respiratory rate 2022-10-08 09:15:00 18 /min Common [facility] blood pressure systolic 2022-10-08 09:15:00 132 mm[Hg] Common [facility] blood pressure diastolic 2022-10-08 09:15:00 68 mm[Hg] Common [facility] height 2022-09-02 10:45:00 64 [in_i] Commo n [facility] weight 2022-09-02 10:45:00 155.2 [lb_av] Co mmon [facility] temperature 2022-09-02 10:45:00 97.4 [degF] Com [facility] bmi 2022-09-02 10:45:00 26.64 kg/m2 Comm on [facility] oximetry 2022-09-02 10:45:00 95 % Commo n [facility] respiratory rate 2022-09-02 10:45:00 18 /min [facility] blood pressure systolic 2022-09-02 10:45:00 110 mm[Hg] [facility] blood pressure diastolic 2022-09-02 10:45:00 60 mm[Hg] [facility] Systolic blood pressure 2022-07-23 18:51:00 112 mm[Hg] Becca Seybo ld - External Diastolic blood pressure 2022-07-23 18:51:00 50 mm[Hg] Becca Seybo ld - External Heart rate 2022-07-23 18:51:00 70 /min Kelse y Seybold - External Body temperature 2022-07-23 18:51:00 36.39 Marina Becca Seybold - External Respiratory rate 2022-07-23 18:51:00 14 /min Becca Seybold - External Body height 2022-07-23 18:51:00 162.6 cm Claire ey Seybold - External Body weight 2022-07-23 18:51:00 70.308 kg Claire ey Seybold - External BMI 2022-07-23 18:51:00 26.61 kg/m2 Claire ey Seybold - External Systolic blood pressure 2022-03-25 16:32:00 135 mm[Hg] Becca Seybo ld - External Diastolic blood pressure 2022-03-25 16:32:00 67 mm[Hg] Becca Seybo ld - External Heart rate 2022-03-25 16:32:00 79 /min Kelse y Seybold - External Body temperature 2022-03-25 16:32:00 36.39 Marina Becca Seybold - External Respiratory rate 2022-03-25 16:32:00 14 /min Becca Seybold - External Body height 2022-03-25 16:32:00 162.6 cm Claire ey Seybold - External Body weight 2022-03-25 16:32:00 73.936 kg Claire ey Seybold - External BMI 2022-03-25 16:32:00 27.98 kg/m2 Claire ey Seybold - External Oxygen saturation in Arterial blood by Pulse oximetry 2022-03-25 16:32:00 99 /min Becca Solares ld - External Systolic blood pressure 2022-03-11 13:06:00 159 mm[Hg] Becca Solares ld - External Diastolic blood pressure 2022-03-11 13:06:00 89 mm[Hg] Becca Solares ld - External Heart rate 2022-03-11 13:06:00 73 /min Dereck y ybold - External Body temperature 2022-03-11 13:06:00 36.56 Marina Becca Fairybold - External Respiratory rate 2022-03-11 13:06:00 14 /min Becca Elizaldeold - External Body height 2022-03-11 13:06:00 162.6 cm Claire clark Seybold - External Body weight 2022-03-11 13:06:00 74.39 kg Claire clark Seybold - External BMI 2022-03-11 13:06:00 28.15 kg/m2 Claire clark Seybold - External Oxygen saturation in Arterial blood by Pulse oximetry 2022-03-11 13:06:00 99 /min Becca Solares ld - External Procedures Procedure Date / Time Performed Performing Clinicia n Source ASSIGNMENT OF BENEFITS 2021-08-27 13:47:00 Docto r Unassigned, [place] [facility] Encounters Start Date/Time End Date/Time Encounter Type Admission Type Attending [facility] Care Department Encounter ID Source 2023-10-27 15:07:00 [facility] [id number] [facility] 2023-07-30 07:29:00 [facility] [id number] [facility] 2023-07-14 09:19:00 [facility] [id number] [facility] 2023-07-07 09:57:00 [facility] [id number] [facility] 2022-09-02 10:30:01 [facility] [id number] [facility] 2022-05-01 08:39:03 Outpatient Ioana Pineda STLMLC ST[facility] [id number] [facility] 2022-03-25 14:13:02 Outpatient STLMLC STLMLC [id number] [facility] 2021-12-12 08:36:03 Outpatient STLMLC STLMLC [id number] [facility] 2021-11-07 12:42:56 Outpatient CHRISTOPH HUITRON [facility] [id number] [facility] 2021-10-30 13:19:03 Outpatient STLMLC STLMLC [id number] [facility] 2021-10-01 11:33:08 Outpatient STLMLC STLMLC [id number] [facility] 2021-06-16 13:38:10 Outpatient CHRISTOPH HUITRON [facility] [id number] [facility] 2021-06-11 14:02:42 Outpatient STLMLC STLMLC [id number] [facility] 2024-03-02 08:00:00 2024-03-02 08:00:00 Outpatient EDWIN IOANA WOOD [id number] Becca [facility] 2024-01-14 08:00:00 2024-01-14 08:00:00 Outpatient BECCA WOOD [id number] [facility] 2023-11-04 00:00:00 2023-11-04 00:00:00 Outpatient GIDEONCatherine IOANA WOOD [id number] Becca [facility] 2023-10-22 00:00:00 2023-10-22 00:00:00 Outpatient MARICHUY ARCOS [id number] Becca [facility] 2023-10-22 00:00:00 2023-10-22 00:00:00 Outpatient IOANA PINEDA [id number] [facility] 2023-10-22 00:00:00 2023-10-22 00:00:00 Outpatient IOANA PINEDASEY [id number] Becca Mena 2023-10-21 08:05:00 2023-10-21 08:05:00 Outpatient CONFERENCE, [facility] BECCA WOOD [id number] Becca Mena 2023-10-21 00:00:00 2023-10-21 00:00:00 Outpatient [facility]FERENCE, [facility] BECCA WOOD [id number] Becca Mena 2023-10-14 14:00:00 2023-10-14 14:00:00 Outpatient BECCA WOOD [id number] Becca Mena 2023-10-14 10:30:00 2023-10-14 10:30:00 Outpatient BECCA WOOD [id number] Becca ybmaribel 2023-10-14 00:00:00 2023-10-14 00:00:00 Outpatient IOANA PINEDA [id number] Becca Mena 2023-10-06 00:00:00 2023-10-06 00:00:00 Outpatient IOANA PINEDA [id number] Becca Mena 2023-10-05 00:00:00 2023-10-05 00:00:00 Outpatient IOANA PINEDA [id number] Becca Mena 2023-09-22 00:00:00 2023-09-22 00:00:00 [facility] [id number] [facility] 2023-09-01 08:00:00 2023-09-01 08:00:00 Outpatient IOANA PINEDA [id number] Becca ybmaribel 2023-08-21 00:00:00 2023-08-21 00:00:00 Outpatient IOANA PINEDA [id number] Becca San 2023-08-19 08:05:00 2023-08-19 08:05:00 Outpatient LAB90 BECCA WOOD [id number] Becca Fairybmaribel 2023-08-17 00:00:00 2023-08-17 00:00:00 Outpatient SCOT SERNA [id number] Becca Seybmaribel 2023-08-13 00:00:00 2023-08-13 00:00:00 Outpatient PRESCOT ZAMORA BECCA [id number] Becca Fairmaribel 2023-08-12 08:30:00 2023-08-12 08:30:00 Outpatient LAB90 BECCA BECCA [id number] Becca Fairybmaribel 2023-08-08 00:00:00 2023-08-08 00:00:00 Outpatient SCOT SERNA BECCA BECCA [id number] [facility] 2023-08-03 00:00:00 2023-08-03 00:00:00 Outpatient IOANA PINEDA [id number] Becca [facility] 2023-07-29 15:25:00 2023-07-29 15:25:00 Outpatient LAB90 BECCA WOOD [id number] [facility] 2023-07-29 00:00:00 2023-07-29 00:00:00 Outpatient IOANA PINEDA [id number] [facility] 2023-07-29 00:00:00 2023-07-29 00:00:00 Outpatient IOANA PINEDA [id number] [facility] 2023-07-29 00:00:00 2023-07-29 00:00:00 (TEL) [facility] [id number] [facility] 2023-07-29 00:00:00 2023-07-29 00:00:00 OFFICE V[facility]IT [facility] [id number] [facility] 2023-07-28 00:00:00 2023-07-28 00:00:00 Outpatient PREECTORTutuSCOT BECCA WOOD [id number] [facility] 2023-07-21 00:00:00 2023-07-21 00:00:00 Outpatient IOANA PINEDA [id number] [facility] 2023-07-20 00:00:00 2023-07-20 00:00:00 Outpatient IOANA PINEDA [id number] [facility] 2023-07-19 08:20:00 2023-07-19 08:20:00 Outpatient CONFERENCE, [facility] BECCA WOOD [id number] Becca lexie 2023-07-16 10:30:00 2023-07-16 10:30:00 Outpatient BECCA WOOD [id number] Becca Seybmaribel 2023-07-16 00:00:00 2023-07-16 00:00:00 Outpatient IOANA PINEDA [id number] Becca Seybmaribel 2023-07-07 00:00:00 2023-07-07 00:00:00 (TEL) STLMLC STL[facility]C [id number] [facility] 2023-07-06 00:00:00 2023-07-06 00:00:00 Outpatient HUNDCatherine, IOANA WOOD [id number] Becca Seybmaribel 2023-07-01 00:00:00 2023-07-01 00:00:00 Outpatient EDWIN, IOANA WOOD [id number] Becca Seybmaribel 2023-06-30 08:30:00 2023-06-30 08:30:00 Outpatient HUNDL, IOANA WOOD [id number] Becca Seybold 2023-06-27 00:00:00 2023-06-27 00:00:00 Outpatient SCOT SERNA [id number] Becca Seybmaribel 2023-06-17 00:00:00 2023-06-17 00:00:00 Outpatient IOANA PINEDA [id number] eBcca Seybold 2023-06-03 00:00:00 2023-06-03 00:00:00 Outpatient HUNDIOANA Alexander [id number] Becca Seybold 2023-06-02 00:00:00 2023-06-02 00:00:00 Outpatient IOANA PINEDA [id number] Becca Seybmaribel 2023-05-31 16:00:00 2023-05-31 16:00:00 Outpatient HUNDLIOANA [id number] Becca Seybmaribel 2023-05-29 00:00:00 2023-05-29 00:00:00 Outpatient GC_GCBZW_Ka diyala_S PRIV PRIV [id number] [facility] 2023-05-28 00:00:00 2023-05-28 00:00:00 Outpatient SCOT SERNA BECCA WOOD [id number] [facility] 2023-05-27 09:00:00 2023-05-27 09:00:00 Outpatient GIDEONCatherine IOANA WOOD [id number] [facility] 2023-05-17 00:00:00 2023-05-17 00:00:00 Outpatient SCOT SERNA BECCA WOOD [id number] [facility] 2023-05-06 00:00:00 2023-05-06 00:00:00 Outpatient GIDEONCatherine IOANA WOOD [id number] [facility] 2023-05-01 00:00:00 2023-05-01 00:00:00 Outpatient GC_GCBZW_Ka diyala_S PRIV PRIV [id number] [facility] 2023-04-27 00:00:00 2023-04-27 00:00:00 Outpatient EDWIN IOANA WOOD [id number] [facility] 2023-04-03 00:00:00 2023-04-03 00:00:00 Outpatient GC_GCBZW_Ka diyala_S PRIV PRIV [id number] [facility] 2023-03-31 00:00:00 2023-03-31 00:00:00 Outpatient EDWIN IOANA WOOD [id number] [facility] 2023-03-29 00:00:00 2023-03-29 00:00:00 Outpatient IOANA PINEDA [id number] [facility] 2023-03-11 00:00:00 2023-03-11 00:00:00 Outpatient GC_GCBZW_Ka diyala_S PRIV PRIV [id number] [facility] 2023-03-10 00:00:00 2023-03-10 00:00:00 Outpatient GC_GCBZW_Ka diyala_S PRIV PRIV [id number] [facility] 2023-03-10 00:00:00 2023-03-10 00:00:00 OFFICE VISIT ESTAB PT LEVEL [address] [facility] [facility] [id number] [facility] 2023-03-09 00:00:00 2023-03-09 00:00:00 Outpatient IOANA PINEDA [id number] [facility] 2023-03-07 00:00:00 2023-03-07 00:00:00 Outpatient IOANA PINEDA [id number] Becca [facility] 2023-03-01 00:00:00 2023-03-01 00:00:00 Outpatient IOANA PINEDA [id number] [facility] 2023-02-26 00:00:00 2023-02-26 00:00:00 Outpatient IOANA PINEDA [id number] [facility] 2023-02-25 09:45:00 2023-02-25 09:45:00 Outpatient HEAVEN WOOD [id number] [facility] 2023-02-25 08:30:00 2023-02-25 08:30:00 Outpatient IOANA PINEDA [id number] [facility] 2023-02-23 00:00:00 2023-02-23 00:00:00 Outpatient IOANA PINEDA [id number] [facility] 2023-02-08 00:00:00 2023-02-08 00:00:00 Outpatient GC_GCBZW_Ka diyala_S PRIV PRIV [id number] [facility] 2023-01-21 13:30:00 2023-01-21 13:30:00 Outpatient IOANA PINEDA [id number] [facility] 2023-01-21 00:00:00 2023-01-21 00:00:00 Outpatient RAFAELA HAWTHORNE [id number] Becca [facility] 2023-01-15 00:00:00 2023-01-15 00:00:00 Outpatient HUNDL, IOANA WOOD [id number] [facility] 2023-01-08 00:00:00 2023-01-08 00:00:00 Outpatient GIDEONCatherine IOANA WOOD [id number] [facility] 2023-01-06 00:00:00 2023-01-06 00:00:00 Outpatient EDWIN IOANA WOOD [id number] [facility] 2022-12-30 08:00:00 2022-12-30 08:00:00 Outpatient GIDEONCatherine IOANA WOOD [id number] [facility] 2022-12-22 00:00:00 2022-12-22 00:00:00 Outpatient SCOT SERNA [id number] [facility] 2022-11-19 00:00:00 2022-11-19 00:00:00 Outpatient RADHA MORAN [facility] [id number] [facility] 2022-10-08 00:00:00 2022-10-08 00:00:00 OFFICE VISIT ESTAB PT LEVEL 4 STLMLC STLMLC [id number] [facility] 2022-10-05 08:40:00 2022-10-05 08:40:00 Outpatient LAB90 BECCA WOOD [id number] Becca [facility] 2022-09-30 00:00:00 2022-09-30 00:00:00 Outpatient IOANA PINEDA [id number] Becca [facility] 2022-09-16 00:00:00 2022-09-16 00:00:00 (PROC) Procedure STLMLC STLMLC [id number] [facility] 2022-09-13 00:00:00 2022-09-13 00:00:00 Outpatient IOANA PINEDA [id number] [facility] 2022-09-02 00:00:00 2022-09-02 00:00:00 OFFICE VISIT ESTAB PT LEVEL 3 STLMLC STLMLC [id number] [facility] 2022-08-28 00:00:00 2022-08-28 00:00:00 Outpatient PRESCOT ZAMORA BECCA WOOD [id number] Becca Seybold 2022-07-31 00:00:00 2022-07-31 00:00:00 Outpatient PREZASCOT Cam BECCA WOOD [id number] Becca Seybold 2022-07-23 13:00:00 2022-07-23 13:00:00 Outpatient HUNDL, IOANA WOOD [id number] Becca Seybold 2022-07-08 00:00:00 2022-07-08 00:00:00 Outpatient HUNDL, IOANA WOOD [id number] Becca Seybold 2022-06-26 00:00:00 2022-06-26 00:00:00 Outpatient PREZASCOT Cam BECCA WOOD [id number] Becca Seybold 2022-06-24 12:15:00 2022-06-24 12:15:00 Outpatient GRACIE MENEZES BECCA WOOD [id number] Becca Seybold 2022-06-09 00:00:00 2022-06-09 00:00:00 Outpatient RAFAELA HAWTHORNE BECCA WOOD [id number] Becca Seybold 2022-06-09 00:00:00 2022-06-09 00:00:00 Outpatient HUNDL, IOANA WOOD [id number] Becca Seybold 2022-06-02 00:00:00 2022-06-02 00:00:00 Outpatient HUNDL, IOANA WOOD [id number] Becca Seybold 2022-05-31 00:00:00 2022-05-31 00:00:00 Outpatient HUNDL, IOANA WOOD [id number] Becca Seybold 2022-05-22 00:00:00 2022-05-22 00:00:00 Outpatient HUNDL, IOANA WOOD [id number] Becca Seybold 2022-04-16 00:00:00 2022-04-16 00:00:00 Outpatient HUNDL, IOANA WOOD [id number] Becca Seybold 2022-03-26 00:00:00 2022-03-26 00:00:00 Outpatient IOANA PINEDA BECCA [id number] Becca San 2022-03-25 10:30:00 2022-03-25 10:30:00 Outpatient IOANA PINEDA BECCA [id number] Becca San 2022-03-11 08:00:00 2022-03-11 08:00:00 Outpatient IOANA PINEDA BECCA WOOD [id number] Becca San 2022-03-02 00:00:00 2022-03-02 00:00:00 Outpatient IOANA PINEDA BECCA [id number] Becca San 2022-02-26 00:00:00 2022-02-26 00:00:00 Outpatient IOANA PINEDA BECCA WOOD [id number] Becca San 2022-02-25 09:30:00 2022-02-25 09:30:00 Outpatient LAB90 BECCA WOOD [id number] Becca San 2022-02-25 08:30:00 2022-02-25 08:30:00 Outpatient IOANA PINEDA BECCA WOOD [id number] Becca San 2022-02-19 08:40:00 2022-02-19 08:40:00 Outpatient BECCA WOOD [id number] Becca Fairybmaribel 2022-02-19 08:00:00 2022-02-19 08:00:00 Outpatient BECCA WOOD [id number] Becca ybmaribel 2022-02-18 08:00:00 2022-02-18 08:00:00 Outpatient IOANA PINEDA BECCA WOOD [id number] Becca San 2022-01-21 09:45:00 2022-01-21 09:45:00 Outpatient LAB90 BECCA WOOD [id number] Becca Seybmaribel 2022-01-21 08:30:00 2022-01-21 08:30:00 Office Visit IOANA PINEDA [id number] Becca ybmaribel 2022-01-15 00:00:00 2022-01-15 00:00:00 Outpatient GREGORIO THOMPSON BECCA [id number] [facility] 2022-01-14 08:30:00 2022-01-14 08:30:00 Outpatient SCOT SERNA BECCA [id number] Becca San 2021-08-27 08:50:03 2021-08-27 23:59:[address] [facility] [id number] [facility] 2021-08-27 08:50:03 2021-08-27 23:59:00 [facility] [id number] [id number] [facility] 2021-08-27 00:00:00 2021-08-27 00:00:00 Orders Only Doctor Unassigned, [place] [facility] 1.84.114 [id number] [facility] 2021-08-20 00:00:00 2021-08-20 00:00:00 Outpatient [place] [facility] RAD [id number] [facility] 2020-05-12 00:00:00 2020-05-12 00:00:00 Telephone Tre Baker [facility] 1..114 350.1.13.10 4.2.7.2.686 [id number] [facility] 2020-05-12 00:00:00 2020-05-12 00:00:00 Telephone Chely Valdez [facility] 1.84.114 350.1.13.10 4.2.7.2.686 [id number] [facility] 2020-05-12 00:00:00 2020-05-12 00:00:00 Telephone Lab, Adc Fam Pob I [facility] 1..840.114 350.1.13.10 4.2.7.2.686 [id number] [facility] 2020-05-11 19:00:00 2020-05-11 19:00:00 Outpatient R CHELY VALDEZ [facility] [id number] [facility] 2020-05-11 12:32:24 2020-05-11 12:52:24 Laboratory Only Lab, [facility] I Efra [facility] 1..840.114 350.1.13.10 4.2.7.2.686 [id number] [facility] Notes Date/Time Note Provider Source 2023-09-01 08:08:19 [id number]:08:19F ormatting of this note is different from the original.Chief ComplaintPatient presents withDiabetesDi[place] [address]-3Lovvf GxzqRZ1943-56-53I83:08:54Nurse NoteTXT1.2.840.447464.1.13.131.2.7.2. [id number] for patient jgvz85510-3Rhrhq NoteLNNARRATIVEFormatted C-CDA narrative textADALMarymount Hospital[address] [facility] [id number] 8228-58-77M64:08:541.2.840.212988.1.7 2.3.15|1.2.840.581415.1.13.131.2.7.2. [id number] [facility] 2023-06-30 08:25:10 8428-97-12O38:25:10F ormatting of this note is different from the original.Chief ComplaintPatient presents withNicotine DependenceShe would like to discuss something to help [place] [id number] [id number]:27:18Nurse [id number]. [id number] for patient nclg75623-6Jwkoi NoteLNNARRATIVEFormatted C-CDA narrative textMarissa Ville [id number] [facility] [id number] [id number]:27:181.2.840.128336.1.7 2.3.15|1.2.840.241196.1.13.131.2.7.2. [id number] [facility] 2023-05-31 15:48:44 [id number]:48:44F ormatting of this note is different from the original.Chief ComplaintPatient presents withDiabetes3 month [place] [id number] [id number]:49:00Nurse [id number]. [id number] for patient tova43761-4Wpuqa NoteLNNARRATIVEFormatted C-CDA narrative textRiver [facility]– [place] [facility] [id number] [id number]:49:001.2.840.924969.1.7 2.3.15|1.2.840.634749.1.13.131.2.7.2. [id number] [facility] 2023-01-21 13:27:09 [id number]:27:09F ormatting of this note is different from the original.Chief Complaint Patient presents with Diabetes 6 [place] [id number] MjtoVL3588-67-24E81:27:33Nurse NoteTXT1.2.840.074290.1.13.131.2.7.2. [id number] for patient vzxi33262-8Ofqbz NoteLNRiver Woods Urgent Care Center– [place]2727 [facility].[id number] [id number]:27:331.2.840.552357.1.7 2.3.15|1.2.840.875018.1.13.131.2.7.2. [id number] [facility]"
[2023-11-10] MEDS ORDERED: TRAMADOL HCL 50 MG TAB ONE (10:07)
--- NOTE | 2023-11-10 10:55 | RAD REPORT ---
EXAM DESCRIPTION: RAD - Shoulder Right 2 View - 11/10/2023 10:34 am CLINICAL HISTORY: Right shoulder pain FINDINGS: Comminuted fracture mid right clavicle with marked displacement of fracture fragments. Two of the fragments are vertical No dislocation
--- NOTE | 2023-11-10 10:56 | RAD REPORT ---
EXAM DESCRIPTION: RAD - Humerus Right - 11/10/2023 10:34 am CLINICAL HISTORY: Right arm pain status post fall FINDINGS: No humeral fracture seen
--- NOTE | 2023-11-10 10:56 | RAD REPORT ---
EXAM DESCRIPTION: RAD - Clavicle Right - 11/10/2023 10:34 am CLINICAL HISTORY: Right shoulder pain FINDINGS: Comminuted fracture mid right clavicle with marked displacement of fracture fragments. Two of the fragments are vertical No dislocation
--- NOTE | 2023-11-10 12:16 | EDPHYS ---
Physician Documentation [facility] Name: Jill Newsome Age: 72 yrs Sex: Female : 1950 Arrival Date: 11/10/2023 Time: 09:41 Bed 11 Private MD: Timothy Arambula ED Physician Jose Trinidad HPI: 11/09 10:06 This 72 yrs old Female presents to ER via Ambulatory with complaints of Fall rn Injury, Arm Pain, Shoulder Pain. 10:06 Details of fall: The patient fell from an upright position, while walking. Onset: The rn symptoms/episode began/occurred this morning. Associated injuries: The patient sustained Right arm and shoulder. Severity of symptoms: At their worst the symptoms were moderate, in the emergency department the symptoms are unchanged. The patient has not experienced similar symptoms in the past. The patient has not recently seen a physician. 10:06 Patient reports fall while walking, thinks she tripped. Tried to catch herself and rn injured right shoulder and collarbone. No head injury or LOC. No back pain. No injury of hips or pelvis.. Historical: - Allergies: 09:49 No Known Allergies; iw - PMHx: 09:49 Diabetes - NIDDM; Depression; Anxiety; High Cholesterol; GERD; Hypertension; Myocardial iw infarction; - PSHx: 09:49 cardiac stents; hysterectomy; iw - Immunization history:: Adult Immunizations not up to date. - Infectious Disease History:: Denies. - Family history:: not pertinent. - Hospitalizations: : No recent hospitalization is reported. - Social history:: Smoking status: Patient reports the use of cigarette tobacco products. ROS: 10:07 Constitutional: Negative for fever, chills, and weight loss, Eyes: Negative for injury, rn pain, redness, and discharge, ENT: Negative for injury, pain, and discharge, Neck: Negative for injury, pain, and swelling, Cardiovascular: Negative for chest pain, palpitations, and edema, Respiratory: Negative for shortness of breath, cough, wheezing, and pleuritic chest pain, Abdomen/GI: Negative for abdominal pain, nausea, vomiting, diarrhea, and constipation, Back: Negative for injury and pain, MS/Extremity: Positive for right shoulder and clavicle pain Skin: Negative for injury, rash, and discoloration, Neuro: Negative for headache, weakness, numbness, tingling, and seizure, Exam: 10:07 Constitutional: This is a well developed, well nourished patient who is awake, alert, consumer attorney to triage without assistance or distress. Holding left arm/shoulder with opposite hand Head/Face: Normocephalic, atraumatic. Neck: No midline cervical tenderness Chest/axilla: No rib tenderness or crepitus Cardiovascular: Regular rate and rhythm. No pulse deficits. Respiratory: No increased work of breathing, no retractions or nasal flaring. Abdomen/GI: Soft, non-tender Back: No spinal tenderness. No costovertebral tenderness. Full range of motion. MS/ Extremity: Pulses equal, no cyanosis. Neurovascular intact. Tenderness right mid clavicular shaft with deformity. No open wounds. No skin tenting. Mild tenderness at proximal right shoulder as well. Neuro: Awake and alert, GCS 15, oriented to person, place, time, and situation. Cranial nerves II-XII grossly intact. Motor strength 5/5 in all extremities. Sensory grossly intact. Cerebellar exam normal. Normal gait. Vital Signs: 09:48 BP 140 / 71; Pulse 67; Resp 16; Temp 97.8; Pulse Ox 97% on R/A; Weight 66.68 kg; Height iw 5 ft. 4 in. ; Pain 10/10; 12:24 BP 137 / 82; Pulse 69; Resp 18; Pulse Ox 99% ; as6 09:48 Body Mass Index 25.23 (66.68 kg, 162.56 cm) iw 09:48 Pain Scale: Adult iw MDM: 09:42 Patient medically screened. rn 12:14 Differential diagnosis: contusion, fracture. Data reviewed: vital signs, nurses notes, rn radiologic studies, plain films, and as a result, I will discharge patient. Management of patient was discussed with the following: Yeast Fermentation Attendant: Case discussed with Dr. Slade, states patient can go home and follow-up as an outpatient. No indication for emergent surgery at this time.. Counseling: I had a detailed discussion with the patient and/or guardian regarding the historical points, exam findings, and any diagnostic results supporting the discharge/admit diagnosis, radiology results, the need for outpatient follow up, to return to the emergency department if symptoms worsen or persist or if there are any questions or concerns that arise at home. Special discussion: I discussed with the patient/guardian in detail that at this point there is no indication for admission to the hospital. It is understood, however, that if the symptoms persist or worsen the patient needs to return immediately for re-evaluation. Based on the history and exam findings, there is no indication for further emergent testing or inpatient evaluation. I discussed with the patient/guardian the need to see the orthopedic surgeon for further evaluation of the symptoms. 11/09 09:52 Order name: XRAY Clavicle RIGHT; Complete Time: 10:58 rn 11/09 09:52 Order name: XRAY Shoulder RIGHT 2 view; Complete Time: :58 rn 11/09 09:52 Order name: XRAY Humerus RIGHT; Complete Time: :58 rn 11/09 09:52 Order name: Sling; Complete Time: 10:59 rn Administered Medications: 10:12 Drug: traMADol PO 50 mg PO once Route: PO; iw 12:07 Follow up: Response: No adverse reaction as6 Disposition Summary: 11/10/23 12:15 Discharge Ordered Notes: Location: Home rn Problem: new rn Symptoms: have improved rn Condition: Stable rn Diagnosis - Displaced fracture of shaft of right clavicle rn Followup: rn - With: Brian Slade MD - When: 5 - 6 days - Reason: Recheck today's complaints, Re-evaluation by your physician Discharge Instructions: - Discharge Summary Sheet rn - Clavicle Fracture rn - How to Use a Sling rn Forms: - Work release form iw - Medication Reconciliation Form rn - Antibiotic travel rn or - Prescription Opioid Use rn - Patient Portal Instructions rn - Leadership Thank You Letter rn Prescriptions: - Tramadol 50 mg Oral tablet - take 1 tablet ORAL route every 8 hours As needed as needed; 15 tablet; Refills: rn 0, Product Selection Permitted Signatures: Dispatcher [employer] Casie Florentino RN RN iw Jose Trinidad MD MD rn Slawson, Ashby, RN RN as6 Corrections: (The following items were deleted from the chart) 09:50 09:49 PSHx: hysterectomy (Myocardial infarction);
--- NOTE | 2023-11-10 12:16 | ER ---
Nurse's Notes [facility] Name: Jill Newsome Age: 72 yrs Sex: Female : 1950 Arrival Date: 11/10/2023 Time: 09:41 Bed 11 Private MD: Timothy Arambula Diagnosis: Displaced fracture of shaft of right clavicle Presentation: 11/09 09:47 Chief complaint: Patient states: fall on right shoulder today, pain to collar bone and iw shoulder, swelling noted. 09:47 Acuity: ZURDO 3 iw 09:48 Coronavirus screen: At this time, the client does not indicate any symptoms associated iw with coronavirus-19. Risk Assessment: Do you want to hurt yourself or someone else? Patient reports no desire to harm self or others. Onset of symptoms was November 10, 2023. 09:48 Method Of Arrival: Ambulatory iw 12:17 Ebola Screen: No symptoms or risks identified at this time. Initial Sepsis Screen: Does as6 the patient meet any 2 criteria? No. Patient's initial sepsis screen is negative. Does the patient have a suspected source of infection? No. Patient's initial sepsis screen is negative. Historical: - Allergies: 09:49 No Known Allergies; iw - PMHx: 09:49 Diabetes - NIDDM; Depression; Anxiety; High Cholesterol; GERD; Hypertension; Myocardial iw infarction; - PSHx: 09:49 cardiac stents; hysterectomy; iw - Immunization history:: Adult Immunizations not up to date. - Infectious Disease History:: Denies. - Family history:: not pertinent. - Hospitalizations: : No recent hospitalization is reported. - Social history:: Smoking status: Patient reports the use of cigarette tobacco products. Screenin:16 [facility] ED Fall Risk Assessment (Adult) History of falling in the last 3 months, as6 including since admission Yes- single mechanical fall (1 pt) Confusion or Disorientation No (0 pts) Intoxicated or Sedated No (0 pts) Impaired Gait No (0 pts) Mobility Assist Device Used No (0 pt) Altered Elimination No (0 pt) Score/Fall Risk Level 0 - 2 = Low Risk Oriented to surroundings, Maintained a safe environment, Educated pt \T\ family on fall prevention, incl call for assistance when getting out of bed, Assessed \T\ reinforced patient's understanding of fall precautions. Abuse screen: Denies threats or abuse. Denies injuries from another. Nutritional screening: No deficits noted. Tuberculosis screening: No symptoms or risk factors identified. Assessment: 12:15 General: Appears in no apparent distress. Behavior is calm, cooperative. Pain: as6 Complains of pain in right clavicle. Musculoskeletal: Range of motion: limited in right shoulder. Vital Signs: 09:48 BP 140 / 71; Pulse 67; Resp 16; Temp 97.8; Pulse Ox 97% on R/A; Weight 66.68 kg; Height iw 5 ft. 4 in. ; Pain 10/10; 12:24 BP 137 / 82; Pulse 69; Resp 18; Pulse Ox 99% ; as6 09:48 Body Mass Index 25.23 (66.68 kg, 162.56 cm) iw 09:48 Pain Scale: Adult iw ED Course: 09:42 Patient arrived in ED. am2 09:42 Jose Trinidad MD is Attending Physician. rn 09:42 Timothy Arambula DO is Private Physician. am2 09:48 Triage completed. iw 09:54 Casie Maki, RN is Primary Nurse. iw 10:35 XRAY Clavicle RIGHT In Process Unspecified. EDMS 10:35 XRAY Shoulder RIGHT 2 view In Process Unspecified. EDMS 10:35 XRAY Humerus RIGHT In Process Unspecified. EDMS 12:16 Brian Kennedy MD is Referral Physician. rn 12:16 Bed in low position. Call light in reach. Provided Education on: follow up. as6 12:16 No provider procedures requiring assistance completed. Patient did not have IV access as6 during this emergency room visit. Sling applied to right arm. 12:17 Arm band placed on. as6 Administered Medications: 10:12 Drug: traMADol PO 50 mg PO once Route: PO; iw 12:07 Follow up: Response: No adverse reaction as6 Medication: 12:16 VIS not applicable for this client. as6 Outcome: 12:15 Discharge ordered by . rn 12:16 Discharged to home ambulatory, as6 12:16 Condition: stable 12:24 Discharge instructions given to patient, Instructed on discharge instructions, follow as6 up and referral plans. medication usage, Demonstrated understanding of instructions, follow-up care, medications, Prescriptions given X 1, 12:24 Patient left the ED. as6 Signatures: Dispatcher [employer] EDDaysi Lazone, RN RN iw Jose Trinidad MD MD rn Moreno, Amanda am2 Slawson, Ashby, RN RN as6 Corrections: (The following items were deleted from the chart) 09:50 09:49 PSHx: hysterectomy (Myocardial infarction); [facility]
[2023-11-10 12:41] VITALS: BP 137/82; TEMP 97.8; O2SAT 99
== END 2023-11-10 12:24 | disposition home or self-care (01) ==
LOC: ER 09:41
DX: S42.021A Displaced fracture of shaft of right clavicle, initial encounter for closed fracture (principal); W18.30XA Fall on same level, unspecified, initial encounter
CPT/HCPCS: 99283

== ENCOUNTER 2024-03-28 15:46 | Emergency (ER) | payer MEDICAID ==
--- OUTSIDE RECORDS SUMMARY | 2024-03-28 16:16 | XMS REPORT | Continuity of Care Document ---
Author Name Unknown Address [address] [facility]. [address] [place] [address] [facility] thconnect Address [address] [facility]. [address] [place] [address] Care Team Providers Care Pharmacovigilance Scientist Name Role Phone IOANA PINEDA Primary Care Physician Unavailab Ioana Torres Attending Clinician Unavailable CHRISTOPH HUITRON Attending Clinician Unavailable IOANA PINEDA Attending Clinician Unavailable LAB90 Attending Clinician Unavailable PROVIDER, CAMPAIGNS Attending Clinician UnavailSHANDA Perez Attending Clinician Unavailable Shanda Kauffman Attending Clinician [phone] [facility] Attending Clinician Unavailable MD IVETTE Attending Clinician UnavailTONJA Smith BREWSTER Attending Clinician UnavailCAROLA Pfeiffer Attending Clinician Unavailab ALISON Sosa Attending Clinician Unavailable ASHTYN LINDA Attending Clinician Unavaila bora ARCOS, MARICHUY Attending Clinician Unavailable SCOT SERNA Attending Clinician Unavailable [email or web address] Attending Clinician UnavailRAFAELA Owens Attending Clinician UnaRADHA Machado Attending Clinician Unavailabl GRACIE Hayward Attending Clinician Unavailable GREGORIO THOMPSON Attending Clinician Unavailable Bubba DORSEY, Radha Attending Clinician [phone] Doctor Unassigned, [facility] Attending Clinician U lukasz Baker MD, Tre Brooks Attending Clinician [phone] Chely Santiago Attending Clinician [phone] Lab, Adc Fam Pob I Attending Clinician UnavailCHELY Kimball Attending Clinician Unavailable Ioana Pineda Admitting Clinician Unavailable SHANDA CAPELLAN Admitting Clinician Unavailable [email or web address] Admitting Clinician UnavailRADHA Sanchez Admitting Clinician Unavailrenuka block Payers Payer Name Policy Type Policy Number Effective Date Expirati on Date Source [facility] [id number] 2021 00:00:00 [employer] H[employer]-POS 16 [id number] [facility]:00[id number]22 00:00:[address] [facility] (MEDICARE REPLACEMENT HMO) [id number] [facility] (HMO) [id number] [facility] (MEDICARE REPLACEMENT/[place] [facility] - HMO) [id number] [facility] [id number] 00:00:00 Problems Condition Name Condition Details Condition Category Status Onset Date Resolution Date Last Treatment Date Treating Clinician Comments Source At risk for falls At risk for falls Disease Active 2023-05 0 00:00: 00 Becca alexander Repeated falls Repeated falls Disease Active 2023-05 0 00:00: 00 Becca alexander Hospital discharge follow-up Hospital discharge follow-up Disease Active 8- 00:00: 00 Becca Seybold - Externa l Status post fall Status post fall Disease Active 816 00:00: 00 Becca Elizaldeold - Externa l Fracture of right clavicle Fracture of right clavicle Disease Active 816 00:00: 00 Becca Elizaldeold - Externa l Cellulitis of right arm Cellulitis of right arm Disease Active 816 00:00: 00 Becca Elizaldeold - Externa l Tobacco use Tobacco use Disease Active 4-17 00:00: 00 Becca Elizaldeold - Externa l Hypothyroi dism Hypothyroi dism Disease Active 2022-05 0-12 00:00: 00 Becca Elizaldeold - Externa l DM type 2 with diabetic mixed hyperlipid emia (multi HCC) DM type 2 with diabetic mixed hyperlipid emia (multi HCC) Disease Active 12-30 00:00: 00 Becca Elizaldeold - Externa l Delayed gastric emptying Delayed gastric emptying Disease Active 12-30 00:00: 00 Becca San - Externa l Immunodefi ciency due to conditions classified elsewhere (multi HCC) Immunodefi ciency due to conditions classified elsewhere (multi HCC) Disease Active 06-23 00:00: 00 Becca Elizaldeold - Externa l Chronic obstructiv e pulmonary disease, unspecifie d COPD type (multi HCC) Chronic obstructiv e pulmonary disease, unspecifie d COPD type (multi HCC) Disease Active 2021-05 0 00:00: 00 Becca San - Externa l Recurrent major depressive disorder, in partial remission Recurrent major depressive disorder, in partial remission Disease Active 2021-05 0 00:00: 00 Becca San - Externa l Encounter for screening for vascular disease Encounter for screening for vascular disease Disease Active 01-21 00:00: 00 Becca San - Externa l Type 2 diabetes mellitus without complicati on, without long-term current use of insulin (multi HCC) Type 2 diabetes mellitus without complicati on, without long-term current use of insulin (multi HCC) Disease Active 01-21 00:00: 00 Becca San - Externa catherine Hyperlipid emia Hyperlipid emia Disease Active 01-21 00:00: 00 Becca Elizaldeold - Externa catherine Primary hypertensi on Primary hypertensi on Disease Active 01-21 00:00: 00 Becca San - Externa l Gastroesop hageal reflux disease without esophagiti s Gastroesop hageal reflux disease without esophagiti s Disease Active 01-21 00:00: 00 Becca San - Externa l Atheroscle rotic PVD with intermitte nt claudicati on Atheroscle rotic PVD with intermitte nt claudicati on Disease Active 01-21 00:00: 00 Becca San - Externa catherine Vitamin D deficiency Vitamin D deficiency Disease Active 01-21 00:00: 00 Becca San - Externa catherine No known active problems No known active problems Disease [facility] [id number] Detrusor instabilit y Problem [facility] [id number] Urge incontinen ce Problem [facility] Urgent desire to urinate Urinary urgency Problem [facility] [id number] Closed displaced fracture of shaft of right clavicle, initial encounter Problem [facility] [id number] Pain of right clavicle Problem [facility] Spasm of bladder Bladder spasms Problem [facility] [id number] Urinary incontinen ce, unspecifie d type Problem [facility] Overactive bladder Overactive bladder Problem [facility] OAB (overactiv e bladder) OAB (overactiv e bladder) Problem [facility] [id number] Microhemat uria Problem [facility] [id number] Sciatica of left side Problem [facility] [id number] Sciatica of right side Problem [facility] [id number] Piriformis syndrome, right Problem [facility] [id number] Piriformis syndrome of left side Problem [facility] Allergies, Adverse Reactions, Alerts Allergy Name Allergy Type Status Severity Reaction(s) Onset Date Inactive Date Treating Clinician Comments Source NO KNOWN ALLERGIE S Drug Class Active [facility] Social History Social Habit Start Date Stop Date Quantity Comments Source History of tobacco use 1970-07-26 00:00:00 Cigarette Smoker Bceca San - External Exposure to SARS-CoV-2 (event) Not sure [facility] Sexual orientation [facility] Sex Assigned [facility] Gender identity Claire San - External ASSERTION Not Becca San - External Cigarettes smoked current (pack per day) - Reported 2024-03-02 00:00:00 2024-03-02 00:00:00 Becca San - External Cigarette pack-years 2024-03-02 00:00:00 2024-03-02 00:00:00 Becca San - External Tobacco use and exposure 2024-03-02 00:00:00 2024-03-02 00:00:00 Smokeless tobacco non-user Becca San - External Alcoholic beverage intake 2024-03-02 00:00:00 2024-03-02 00:00:00 Lifetime non-drinker (finding) Becca San - External Alcohol intake 2023-06-30 00:00:00 2023-06-30 00:00:00 Lifetime non-drinker (finding) Becca San - External History of Social function 2023-01-21 00:00:00 2023-01-21 00:00:00 Becca San - External Sex 2022-01-06 07:42:56 2022-01-06 07:42:56 Female (finding) Becca San - External Smoking Status Start Date Stop Date Source Smokes tobacco daily 2024-03-02 00:00:00 Becca San - External Tobacco smoking consumption unknown [facility] Medications Ordered Medication Name Filled Medication Name Start Date Stop Date Current Medication? Ordering Clinician Indication Dosage Frequency Signature (SIG) Comments Components Source Microlet Lancets does not apply [facility] 2023-05 08:07: 30 Yes [id number] See Admin Instructio ns Becca San - Externa l Guaifenesin (Mucinex) 600 MG oral Tablet 12 Hour Sustained Release 2023-05 08:07: 30 Yes 600mg Q.5D Take 1 tablet (600 mg total) by mouth 2 times daily. Becca alexander Cetirizine (ZYRTEC) 10 MG oral Tablet 2023-05 08:06: 26 Yes 10mg QD Take 1 tablet (10 mg total) by mouth daily. Becca alexander Trospium Chloride 20 MG Trospium Chloride 20 MG 2023-05 00:00: 00 No 1{table t_at_be dtime_o n_an_em pty_sto mach} QD Trospium Chloride 20 MG KCL (KLOR-CON M20) tablet 40 mEq 2023-05 21:30: 00 02-26 21:31 :00 No 40meq 40 mEq, Oral, ONCE, 1 dose, On 02/27/24 at 1630, RAUDEL [facility] rosuvastati n calcium (CRESTOR ORAL) 2023-05 15:26: 24 Yes Take by mouth. [facility] Cefdinir 300 MG oral Capsule 2023-05 00:00: 00 03-06 04:59 :00 Yes [id number] 300mg Take 1 capsule (300 mg total) by mouth every 12 hours. Becca alexander Microlet Lancets does not apply [facility] 2023-05 13:55: 43 Yes [id number] See Admin Instructio ns Becca alexander Guaifenesin (Mucinex) 600 MG oral Tablet 12 Hour Sustained Release 2023-05 13:55: 24 Yes 600mg Q.5D Take 1 tablet (600 mg total) by mouth 2 times daily. Becca alexander Cetirizine (ZYRTEC) 10 MG oral Tablet 2023-05 13:55: 24 Yes 10mg QD Take 1 tablet (10 mg total) by mouth daily. Becca alexander Metformin HCl 500 MG oral Tablet 2023-05 13:54: 53 02-23 00:00 :00 No TAKE ONE (1) TABLET(S) BY MOUTH EVERY MORNING AND EVENING WITH MEALS. Oral for 45 Days Becca alexander Albuterol HFA 108 (90 Base) MCG/ACT IN AERS 2023-05 00:00: 00 Yes [id number] 2{puff} Q.25D Inhale 2 puffs into the lungs every 6 hours as needed for wheezing. Becca alexander Semaglutide , 2 MG/DOSE, (Ozempic, 2 MG/DOSE,) subcutane s 2023-05 00:00: 00 Yes [id number] 3 2mg Q1W Inject 2 mg into the skin once a week. Becca alexander Lisinopril 20 MG oral Tablet 2023-05 00:00: 00 02-23 00:00 :00 No 20mg QD Take 1 tablet (20 mg total) by mouth daily. Becca alexander Rosuvastati n Calcium 20 MG oral Tablet 01-16 00:00: 00 Yes [id number] 20mg QD take one (1) tablet(s) by mouth once a day. Becca alexander Semaglutide , 2 MG/DOSE, (Ozempic, 2 MG/DOSE,) [facility] 01-05 00:00: 00 02-23 00:00 :00 No [id number] 3 2mg Q1W Inject 2 mg into the skin once a week. Becca alexander Comirnaty 30 MCG/0.3ML intramuscul ar Suspension Prefilled Syringe 12-30 08:34: 52 No .3mL Inject 0.3 mL into the muscle once. Becca alexander Nicotine 7 MG/24HR transdermal PATCH 24 HR 12-30 08:34: 18 12-30 00:00 :00 No [id number] 1{patch } Place 1 patch onto the skin every 24 hours. Becca alexander Microlet Lancets does not apply Misc 12-29 16:05: 01 Yes [id number] See Admin Instructio ns Becca alexander Guaifenesin (Mucinex) 600 MG oral Tablet 12 Hour Sustained Release 12-29 16:05: 01 Yes 600mg Q.5D Take 1 tablet (600 mg total) by mouth 2 times daily. Becca alexander Cetirizine (ZYRTEC) 10 MG oral Tablet 12-29 16:05: 01 Yes 10mg QD Take 1 tablet (10 mg total) by mouth daily. Becca alexander Metformin HCl 500 MG oral Tablet 12-29 16:05: 01 Yes TAKE ONE (1) TABLET(S) BY MOUTH EVERY MORNING AND EVENING WITH MEALS. Oral for 45 Days Becca alexander Semaglutide , 2 MG/DOSE, (Ozempic, 2 MG/DOSE,) subcutaneou s 12-29 16:05: 01 Yes INJECT 2 MG INTO THE SKIN ONCE A WEEK. Subcutaneo us for 28 Days Becca alexander Doxycycline Hyclate 100 MG oral Tablet 12-29 00:00: 00 03-02 00:00 :00 No [id number] 100mg Q.5D Take 1 tablet (100 mg total) by mouth 2 times daily Please take medication with food. Becca alexander Propranolol HCl 10 MG oral Tablet 12-19 00:00: 00 02-23 00:00 :00 No [id number] 10mg Q.[id number] 3D TAKE ONE (1) TABLET(S) BY MOUTH THREE TIMES A DAY NEEDED. Becca alexander Tramadol HCl (ULTRAM) 50 MG oral Tablet 11-30 00:00: 00 02-23 00:00 :00 No TAKE ONE (1) TABLET(S) BY MOUTH EVERY FOUR HOURS NEEDED. Becca alexander Acetaminoph en (TYLENOL) 325 MG oral Tablet tablet 11-23 00:00: 00 03-02 00:00 :00 No 650mg 2 tablets (650 mg total). Becca alexander HYDROcodone -Acetaminop hen 10-325 MG oral Tablet 11-23 00:00: 00 02-23 00:00 :00 No 1{tbl} 1 tablet. Becca alexander Mounjaro 10 MG/0.5ML subcutaneou s Solution Pen-injecto r 10-23 00:00: 00 Yes [id number] 3 Inject 1 injection into the skin once a week for 4 weeks Becca alexander BUPROPION HCL SR 150 MG OR TB12 10-23 00:00: 00 Yes [id number] 150mg Q.5D TAKE ONE (1) TABLET BY MOUTH 2 TIMES DAILY. Becca alexander Semaglutide , 2 MG/DOSE, (Ozempic, 2 MG/DOSE,) [...] not apply Misc 08-31 08:07: 47 Yes [id number] See Admin Instructio ns Becca alexander Nicotine 7 MG/24HR transdermal PATCH 24 HR 08-31 08:07: 47 Yes [id number] 1{patch } Place 1 patch onto the skin every 24 hours. Becca alexander Tirzepatide (Mounjaro) 10 MG/0.5ML subcutaneou s Solution Pen-injecto r 08-31 00:00: 00 Yes [id number] 3 10mg Inject 0.5 mL (10 mg total) into the skin once a week. Becca alexander Propranolol HCl 10 MG oral Tablet 08-31 00:00: 00 Yes [id number] 10mg Q.[id number] 3D Take 1 tablet (10 mg total) by mouth 3 times daily as needed. Becca alexander Tirzepatide (Mounjaro) 10 MG/0.5ML subcutaneou s Solution Pen-injecto r 4-06 00:00: 00 08-31 00:00 :00 No [id number] 3 10mg Inject 0.5 mL (10 mg total) into the skin once a week. Becca alexander Amlodipine Besylate (NORVASC) 5 MG oral Tablet 20 00:00: 00 12-30 00:00 :00 No [id number] 5mg QD Take 1 tablet (5 mg total) by mouth daily. Becca alexander Bupropion HCL XL 150 MG OR TB24 -14 00:00: 00 08-31 00:00 :00 No 150mg Take 1 tablet (150 mg total) by mouth daily. Becca alexander Levothyroxi ne Sodium 50 MCG Levothyroxi ne Sodium 50 MCG 07-26 00:00: 00 No QD Levothyrox ine Sodium 50 MCG Constulose 10 GM/15ML Constulose 10 GM/15ML 07-26 00:00: 00 No 15{ml_a s_neede d} QD Constulose 10 GM/15ML Lubiproston e 24 MCG Lubiproston e 24 MCG 07-26 00:00: 00 No BID Lubiprosto ne 24 MCG Doxycycline Hyclate 100 MG Doxycycline Hyclate 100 MG 07-26 00:00: 00 No 1{capsu le} QD Doxycyclin e Hyclate 100 MG Fluzone High-Dose Quadrivalen t 0.7 ML Fluzone High-Dose Quadrivalen t 0.7 ML 07-26 00:00: 00 No Fluzone High-Dose Quadrivale nt 0.7 ML Doxycycline Hyclate 100 MG oral Capsule 07-26 00:00: 00 08-31 00:00 :00 No 100mg 1 capsule (100 mg total) every 24 hours. Becca alexander Comirnaty 30 MCG/0.3ML intramuscul ar Suspension Prefilled Syringe 07-24 00:00: 00 Yes .3mL Inject 0.3 mL into the muscle once. Becca alexander Amoxicillin -Pot Clavulanate 875-125 MG oral Tablet 3-06 00:00: 00 08-31 00:00 :00 No [id number] 1{tbl} Take 1 tablet by mouth 2 times daily. Becca alexander Microlet Lancets does not apply Misc 06-30 08:25: 05 Yes [id number] See Admin Instructio ns Becca alexander Tirzepatide (Mounjaro) 10 MG/0.5ML subcutaneou s Solution Pen-injecto r 06-30 00:00: 00 Yes [id number] 3 10mg Inject 0.5 mL (10 mg total) into the skin once a week. Becca alexander BUPROPION HCL SR 150 MG OR TB12 06-30 00:00: 00 Yes [id number] 150mg Take 1 tablet (150 mg total) by mouth 2 times daily. Becca alexander Semaglutide , 2 MG/DOSE, (Ozempic, 2 MG/DOSE,) subcutaneou s 06-30 00:00: 00 Yes [id number] 3 2mg Inject 2 mg into the skin once a week. Becca alexander Metformin HCl 500 MG oral Tablet 06-30 00:00: 00 Yes [id number] 3 TAKE ONE (1) TABLET(S) BY MOUTH EVERY MORNING AND EVENING WITH MEALS.. Becca alexander Doxycycline Hyclate 100 MG oral Tablet 06-30 00:00: 00 Yes [id number] 100mg Take 1 tablet (100 mg total) by mouth 2 times daily. Becca alexander Bupropion HCL XL 150 MG OR TB24 06-28 00:00: 00 06-30 00:00 :00 No 150mg Take 1 tablet (150 mg total) by mouth daily. Becca alexander Lisinopril 40 MG oral Tablet 06-18 00:00: 00 Yes [id number] 40mg QD Take 1 tablet (40 mg total) by mouth daily. Becca alexander Constulose 10 GM/15ML oral Solution 06-17 00:00: 00 12-30 00:00 :00 No 10g QD Take 15 mL (10 g total) by mouth nightly. Becca alexander Semaglutide , 2 MG/DOSE, (Ozempic, 2 MG/DOSE,) subcutaneou s 06-03 00:00: 00 06-30 00:00 :00 No [id number] 3 2mg Inject 2 mg into the skin once a week. Becca alexander Liraglutide (Victoza) 18 MG/3ML subcutaneou s Solution Pen-injecto r 05-31 16:05: 16 05-31 00:00 :00 No See Admin Instructio ns. Becca alexander Microlet Lancets does not apply Misc 05-31 15:48: 42 Yes [id number] See Admin Instructio ns Becca alexander Tirzepatide (Mounjaro) 10 MG/0.5ML subcutaneou s Solution Pen-injecto r 05-31 00:00: 00 Yes [id number] 3 10mg Inject 0.5 mL (10 mg total) into the skin once a week. Becca alexander BUPROPION HCL SR 150 MG OR TB12 05-31 00:00: 00 Yes [id number] 150mg Take 1 tablet (150 mg total) by mouth 2 times daily. Becca alexander Lubiproston e 24 MCG oral Capsule 05-31 00:00: 00 08-31 00:00 :00 No [id number] 24ug Take 1 capsule (24 mcg total) by mouth in the morning and 1 capsule (24 mcg total) in the evening. Take with meals. Becca alexander Bupropion HCL XL 150 MG OR TB24 05-18 00:00: 00 05-31 00:00 :00 No 150mg Take 1 tablet (150 mg total) by mouth daily. Becca alexander Nicotine 7 MG/24HR transdermal PATCH 24 HR 2022-05-15 00:00: 00 05-31 00:00 :00 No 1{patch } Place 1 patch onto the skin every 24 hours. Becca alexander ESTRADIOL VAGINAL 0.1 MG/GM vaginal Cream 2022-05 0-28 00:00: 00 02-23 00:00 :[address] 1 g vaginally three times a week. Becca alexander Oxybutynin Chloride 10 MG oral TABLET SR 24 HR 2022-05 0-26 00:00: 00 Yes 10mg QD Take 1 tablet (10 mg total) by mouth daily. Becca alexander Nitrofurant oin Monohyd Macro (Macrobid) 100 MG oral Capsule 2022-05 0-16 00:00: 00 05-31 00:00 :00 No [id number] 100mg Take 1 capsule (100 mg total) by mouth 2 times daily. Becca alexander Metformin HCl 500 MG oral Tablet 2022-05 00:00: 00 Yes TAKE ONE (1) TABLET(S) BY MOUTH EVERY MORNING AND EVENING WITH MEALS. Becca alexander linaCLOtide (Linzess) 145 MCG oral Capsule 2022-05 0-13 00:00: 00 05-31 00:00 :00 No [id number] 145ug Take 1 capsule (145 mcg total) by mouth daily. Becca alexander Liraglutide (Victoza) 18 MG/3ML subcutaneou s Solution Pen-injecto r 2022-05 012 09:09: 30 02-25 00:00 :00 No as directed Subcutaneo us Becca alexander Microlet Lancets does not apply Misc 2022-05 08:40: 53 Yes [id number] See Admin Instructio ns Becca alexander Metformin HCl 500 MG oral Tablet 2022-05 012 08:40: 53 02-25 00:00 :00 No every 24 hours. Becca alexander Nicotine 21-14-7 MG/24HR transdermal Kit 2022-05 012 00:00: 00 Yes [id number] 1{patch } Place 1 patch onto the skin every 24 hours. Becca alexander Lubiproston e 24 MCG oral Capsule 2022-05 00:00: 00 Yes [id number] 24ug Take 1 capsule (24 mcg total) by mouth in the morning and 1 capsule (24 mcg total) in the evening. Take with meals. Becca alexander Microlet Lancets does not apply Misc 01-21 13:27: 00 Yes [id number] See Admin Instructio ns Becca alexander Semaglutide (2 mg/dose) 8 mg/3 mL SQ Solution Pen-Injecto r 01-21 00:00: 00 05-31 00:00 :00 No [id number] 3 2mg Inject 2 mg into the skin once a week. Becca alexander Oxybutynin Chloride 5 MG oral TABLET SR 24 HR 01-17 00:00: 00 05-31 00:00 :00 No 5mg Take 1 tablet (5 mg total) by mouth daily. Becca alexander Rosuvastati n Calcium 20 MG oral Tablet 01-15 00:00: 00 Yes [id number] 20mg QD TAKE ONE (1) TABLET(S) BY MOUTH ONCE A DAY. Becca alexander TRIMETHOPRI M-SULFAMETH OXAZOLE (BACTRIM DS) 800-160 MG oral Tablet 01-13 00:00: 00 01-21 00:00 :00 No 1{tbl} Take 1 tablet by mouth 2 times daily. Becca alexander Bupropion HCL XL 150 MG OR TB24 12-22 00:00: 00 Yes 150mg TAKE ONE (1) TABLET BY MOUTH DAILY. Becca alexander OZEMPIC (1 mg/dose) 4 mg/3 mL SQ Solution Pen-Injecto r 5-02 00:00: 00 01-21 00:00 :00 No [id number] INJECT ONE (1) MG INTO THE SKIN ONCE A WEEK. Becca alexander Microlet Lancets does not apply Misc 07-23 12:54: 06 Yes [id number] See Admin Instructio ns Becca alexander OZEMPIC (1 mg/dose) 4 mg/3 mL SQ Solution Pen-Injecto r 07-23 00:00: 00 Yes [id number] 1mg Inject 1 mg into the skin once a week Becca alexander Pantoprazol e Sodium 40 MG oral Tablet Delayed Response 07-23 00:00: 00 Yes [id number] 40mg QD Take 1 tablet (40 mg total) by mouth daily Becca alexander Albuterol HFA 108 (90 Base) MCG/ACT IN AERS 07-23 00:00: 00 02-23 00:00 :00 No [id number] 2{puff} Q.25D Inhale 2 puffs into the lungs every 6 hours as needed for wheezing Becca alexander Bupropion HCL XL 150 MG OR TB24 06-26 00:00: 00 Yes TAKE ONE (1) TABLET(S) BY MOUTH ONCE A DAY. Becca alexander OZEMPIC (0.25 or 0.5 mg/dose) 2 mg/1.5 mL SQ Solution Pen-Injecto r 06-09 00:00: 00 07-23 00:00 :00 No [id number] .5mg Inject 0.5 mg into the skin once a week Becca alexander Metformin HCl 500 MG oral Tablet 06-03 00:00: 00 Yes [id number] 500mg Take 1 tablet (500 mg total) by mouth in the morning and 1 tablet (500 mg total) in the evening. Take with meals. Becca alexander Sucralfate 1 g oral Tablet 06-03 00:00: 00 Yes [id number] 1g Q.25D Take 1 tablet (1 g total) by mouth 4 times daily Becca alexander Pantoprazol e Sodium 40 MG oral Tablet Delayed Response 06-03 00:00: 00 07-23 00:00 :00 No [id number] 40mg Take 1 tablet (40 mg total) by mouth daily Becca alexander Pantoprazol e Sodium 20 MG oral Tablet Delayed Response 06-03 00:00: 00 07-23 00:00 :00 No 20mg Take 20 mg by mouth daily Becca alexander Amlodipine Besylate 5 MG oral Tablet 16 00:00: 00 Yes [id number] TAKE ONE (1) TABLET(S) BY MOUTH DAILY. Becca alexander Nitrofurant oin Monohyd Macro 100 MG oral Capsule 2021-05 00:00: 00 07-23 00:00 :00 No 1{capsu le} Take 1 capsule by mouth 2 times daily Becca alexander Plenvu 140 g oral Recon Soln 2021-05 00:00: 00 07-23 00:00 :00 No TAKE DIRECTED BY PHYSICIAN OFFICE. Becca alexander Microlet Lancets does not apply [facility] 2021-05 10:35: 37 Yes [id number] See Admin Instructio ns Becca alexander Lisinopril 40 MG oral Tablet 2021-05 00:00: 00 Yes [id number] 40mg Take 1 tablet (40 mg total) by mouth daily Becca alexander OZEMPIC (0.25 or 0.5 mg/dose) 2 mg/1.5 mL SQ Solution Pen-Injecto r 2021-05 00:00: 00 Yes [id number] .5mg Inject 0.5 mg into the skin once a week Becca alexander Amlodipine Besylate 5 MG oral Tablet 2021-05 00:00: 00 Yes [id number] 5mg Take 1 tablet (5 mg total) by mouth daily Becca alexander Microlet Lancets does not apply [facility] 2021-05 0 08:08: 06 Yes [id number] See Admin Instructio ns Becca alexander Lisinopril 40 MG oral Tablet 2021-05 00:00: 00 Yes [id number] 40mg Take 1 tablet (40 mg total) by mouth daily Becca alexander Pantoprazol e Sodium 20 MG oral Tablet Delayed Response 2021-05 00:00: 00 Yes [id number] 20mg Take 1 tablet (20 mg total) by mouth daily Becca alexander Albuterol HFA 108 (90 Base) MCG/ACT IN AERS 2021-05 00:00: 00 07-23 00:00 :00 No [id number] 2{puff} Q.25D Inhale 2 puffs into the lungs every 6 hours as needed for wheezing Becca alexander OZEMPIC (0.25 or 0.5 mg/dose) 2 mg/1.5 mL SQ Solution Pen-Injecto r 2021-05 00:00: 00 Yes [id number] .25mg Inject 0.25 mg into the skin once a week Becca alexander Amlodipine Besylate 5 MG oral Tablet 2021-05 00:00: 00 Yes [id number] 5mg Take 1 tablet (5 mg total) by mouth daily Becca alexander Bupropion HCL XL 150 MG OR TB24 2021-05 00:00: 00 Yes 150mg Take 1 tablet (150 mg total) by mouth daily Becca alexander Nitrofurant oin Monohyd Macro (Macrobid) 100 MG oral Capsule 2021-05 00:00: 00 Yes [id number] 100mg Take 1 capsule (100 mg total) by mouth 2 times daily Becca alexander Escitalopra m Oxalate 5 MG oral Tablet 2021-05 00:00: 00 02-23 00:00 :00 No 5mg QD Take 1 tablet (5 mg total) by mouth daily. Becca alexander Lisinopril 10 MG oral Tablet 2021-05 00:00: 00 03-11 00:00 :00 No [id number] 10mg Take 1 tablet (10 mg total) by mouth daily Becca alexander Fluzone High-Dose Quadrivalen t 0.7 ML intramuscul ar Suspension Prefilled Syringe 2021-05 00:00: 00 Yes Becca Fairlexie alexander Fluzone High-Dose Quadrivalen t 0.7 ML intramuscul ar Suspension Prefilled Syringe 2021-05 00:00: 00 08-31 00:00 :00 No Becca alexander Levothyroxi ne Sodium 50 MCG oral Tablet 01-28 00:00: 00 Yes TAKE ONE (1) TABLET(S) BY MOUTH EVERY MORNING ON AN EMPTY STOMACH. Becca alexander Oxybutynin Chloride 5 MG oral Tablet 01-21 00:00: 00 Yes [id number] 5mg Take 1 tablet (5 mg total) by mouth 2 times daily Becca alexander Rosuvastati n Calcium 20 MG oral Tablet 01-21 00:00: 00 Yes [id number] 20mg Take 1 tablet (20 mg total) by mouth daily Becca alexander Metformin HCl 500 MG oral Tablet 01-21 00:00: 00 Yes [id number] 500mg Take 1 tablet (500 mg total) by mouth in the morning and 1 tablet (500 mg total) in the evening. Take with meals. Becca alexander rosuvastati n calcium (CRESTOR ORAL) 09-02 15:39: 05 Yes Take by mouth. [facility] metformin HCl (METFORMIN ORAL) 09-02 15:39: 05 Yes Take by mouth. [facility] liraglutide (VICTOZA 2-GENOVEVA SC) 09-02 15:39: 05 Yes inject under the skin. [facility] amlodipine besylate (AMLODIPINE ORAL) 09-02 15:39: 05 Yes Take by mouth. [facility] metformin HCl (METFORMIN ORAL) 09-02 10:39: 05 Yes Take by mouth. [facility] liraglutide (VICTOZA 2-GENOVEVA SC) 09-02 10:39: 05 Yes inject under the skin. [facility] Albuterol Sulfate HFA 108 (90 Base) MCG/ACT Albuterol Sulfate HFA 108 (90 Base) MCG/ACT No Albuterol Sulfate HFA 108 (90 Base) MCG/ACT Cefdinir 300 MG Cefdinir 300 MG No Cefdinir 300 MG Immunizations Ordered Immunization Name Filled Immunization Name Date Status Comments Source Shingles IM (Shingrix) 2022-12-09 00:00:00 Completed Becca Seybold - External Shingles IM (Shingrix) 2022-10-06 00:00:00 Completed Becca Seybold - External Pneumococcal Vaccine, Conjugate 20 2022-10-06 00:00:00 Completed Becca Seybold - External Influenza [...] 65 And Up 2022-02-15 00:00:00 Completed Becca Elizaldeold - External Covid-19 Vaccine (Socialinus), Mrna-lnp, Froilan Protein, Pf, 30mcg/0.3ml,IM 2021-02-12 00:00:00 Completed Becca Seybold - External Covid-19 Vaccine (Socialinus), Mrna-lnp, Froilan Protein, Pf, 30mcg/0.3ml,IM 2021-02-12 00:00:00 [...] Unknown Completed Becca Seybold - External COVID-19 Vaccine(Pfizer)([facility] 2022)(12yrs+) Unknown Completed Becca Seybo ld - External RSV, Arexvy Unknown Completed Becca [...] Unknown Completed Becca Seybold - External COVID-19 Vaccine(Pfizer)([facility] 20[facility])(12yrs+) Unknown Completed Becca Seybo ld - External RSV, Arexvy Unknown Completed Becca S eybold - External Covid-19 Vaccine (Pfizer), Mrna-lnp, Froilan Protein, Pf, 30mcg/0.3ml,IM Unknown Completed Becca Seybol d - External Influenza Virus Vaccine, Quadrivalent, High Dose, Age 65 And Up Unknown Completed Becca S eybold - External Influenza Virus Vaccine, High Dose, Age 65 And Up Unknown Completed Becca Seybold - External Shingles IM (Shingrix) Unknown Completed [facility] - External Pneumococcal Vaccine, Conjugate 20 [facility](Pf[facility] 2022)(12yrs+) Unknown Completed Becca Fairo ld - External RSV, Arexvy Unknown Completed [facility] eybold - External Covid-19 Vaccine (Pfizer), Mrna-lnp, Froilan Protein, Pf, 30mcg/0.3ml,IM Unknown [facility] Influenza Virus Vaccine, Quadrivalent, High Dose, Age 65 And Up Unknown Completed Becca S eybold - External Influenza Virus Vaccine, High Dose, Age 65 And Up Unknown [facility] Shingles IM (Shingrix) Unknown [facility] - External Pneumococcal Vaccine, Conjugate 20 Unknown Completed [facility] - External COVID-19 Vaccine(Pfizer)([facility] 2022)(12yrs+) Unknown [facility] RSV, Arexvy [facility] Cov[facility] Vaccine (Pfizer), Mrna-lnp, Froilan Protein, Pf, 30mcg/0.3ml,IM Unknown [facility] - External Influenza Virus Vaccine, Quadrivalent, High Dose, Age 65 And Up Unknown Completed Becca S bold - External Influenza Virus Vaccine, High Dose, Age 65 And Up Unknown Completed [facility] - External Shingles IM (Shingrix) Unknown Completed [facility] - External Pneumococcal Vaccine, Conjugate 20 Unknown Completed [facility] - External COVID-19 Vaccine(Pfizer)([facility] 2022)(12yrs+) Unknown [facility] RSV, Arexvy Unknown [facility] - External Tdap- (Boostrix, Adacel) Unknown Completed [facility] - External Covid-19 Vaccine (Pfizer), Mrna-lnp, Froilan Protein, Pf, 30mcg/0.3ml,IM Unknown [facility] - External Influenza Virus Vaccine, Quadrivalent, High Dose, Age 65 And Up Unknown Completed Becca S eybold - External Influenza Virus Vaccine, High Dose, Age 65 And Up Unknown Completed Becca Elizaldeold - External Shingles IM (Shingrix) Unknown Completed Becca Fairybold - External Pneumococcal Vaccine, Conjugate 20 Unknown Completed Becca Elizaldeold - External COVID-19 Vaccine(Pfizer)(12y rs+) Unknown Completed Becca San - External RSV, Arexvy Unknown Completed Becca clarkbold - External Tdap- (Boostrix, Adacel) Unknown Completed Becca Fariybold - External Covid-19 Vaccine (Socialinus), Mrna-lnp, Froilan Protein, Pf, 30mcg/0.3ml,IM Unknown Completed Becca Elizaldeol d - External Influenza Virus Vaccine, Quadrivalent, High Dose, Age 65 And Up Unknown Completed Becca Cam eybold - External Influenza Virus Vaccine, High Dose, Age 65 And Up Unknown Completed Becca San - External Shingles IM (Shingrix) Unknown Completed Becca Elizaldeold - External Pneumococcal Vaccine, Conjugate 20 Unknown Completed Becca Fairybold - External COVID-19 Vaccine(Socialinus)(12y rs+) Unknown Completed Becca San - External RSV, Arexvy Unknown Completed Becca clarkbold - External Tdap- (Boostrix, Adacel) Unknown Completed Becca Elizaldeold - External Vital Signs Vital Name Observation Time Observation Value Comments S ource Systolic blood pressure 2024-03-02 13:02:00 144 mm[Hg] Becca Elizaldeo ld - External Diastolic blood pressure 2024-03-02 13:02:00 72 mm[Hg] Becca Fairybo ld - External Heart rate 2024-03-02 13:02:00 86 /min Dereck lewis Seybmaribel - External Body temperature 2024-03-02 13:02:00 35.61 Marina Becca Fairybold - External Respiratory rate 2024-03-02 13:02:00 14 /min Becca Fairybold - External Body height 2024-03-02 13:02:00 162.6 cm Claire clark Seybold - External Body weight 2024-03-02 13:02:00 70.035 kg Claire clark Seybold - External BMI 2024-03-02 13:02:00 26.50 kg/m2 Claire clark Seybold - External height 2024-03-01 08:00:00 64 [in_i] Commo n [facility] weight 2024-03-01 08:00:00 153 [lb_av] Comm on [facility] temperature 2024-03-01 08:00:00 97.6 [degF] Com mon [facility] bmi 2024-03-01 08:00:00 26.26 kg/m2 Comm on [facility] oximetry 2024-03-01 08:00:00 99 % Commo n [facility] respiratory rate 2024-03-01 08:00:00 18 /min Common [facility] blood pressure systolic 2024-03-01 08:00:00 136 mm[Hg] [facility] blood pressure diastolic 2024-03-01 08:00:00 65 mm[Hg] [facility] Systolic blood pressure 2024-02-27 23:00:00 141 mm[Hg] [facility] Diastolic blood pressure 2024-02-27 23:00:00 70 mm[Hg] [facility] Heart rate 2024-02-27 23:00:00 77 /min [facility] Body temperature 2024-02-27 23:00:00 36.94 Marina [facility] Respiratory rate 2024-02-27 23:00:00 18 /min [facility] Oxygen saturation in Arterial blood by Pulse oximetry 2024-02-27 23:00:00 97 /min [facility] Body height 2024-02-27 20:25:00 162.6 cm [facility] Body weight 2024-02-27 20:25:00 69.854 kg [facility] BMI 2024-02-27 20:25:00 26.43 kg/m2 [facility] Systolic blood pressure 2024-02-24 18:52:00 124 mm[Hg] Becca Solares ld - External Diastolic blood pressure 2024-02-24 18:52:00 62 mm[Hg] Becca lo - External Heart rate 2024-02-24 18:52:00 92 /min Kelse y Seybold - External Body temperature 2024-02-24 18:52:00 36.56 Marina Becca Seybold - External Respiratory rate 2024-02-24 18:52:00 14 /min Becca Seybold - External Body height 2024-02-24 18:52:00 162.6 cm Claire ey Seybold - External Body weight 2024-02-24 18:52:00 71.215 kg Claire ey Seybold - External BMI 2024-02-24 18:52:00 26.95 kg/m2 Claire ey Seybold - External Systolic blood pressure 2023-12-30 20:55:00 128 mm[Hg] Becca Seybo ld - External Diastolic blood pressure 2023-12-30 20:55:00 78 mm[Hg] Becca ybo ld - External Heart rate 2023-12-30 20:55:00 68 /min Kelse y Seybold - External Respiratory rate 2023-12-30 20:55:00 20 /min Becca Seybold - External Body height 2023-12-30 20:55:00 162.6 cm Claire ey Seybold - External Body weight 2023-12-30 20:55:00 73.029 kg Claire ey Seybold - External BMI 2023-12-30 20:55:00 27.64 kg/m2 Claire ey Seybold - External Oxygen saturation in Arterial blood by Pulse oximetry 2023-12-30 20:55:00 98 /min Becca Fairybo ld - External height 2023-12-27 08:45:00 64 [in_i] Commo n [facility] weight 2023-12-27 08:45:00 150.2 [lb_av] Co mmon [facility] bmi 2023-12-27 08:45:00 25.78 kg/m2 Comm on [facility] blood pressure systolic 2023-12-27 08:45:00 143 mm[Hg] Common [facility] blood pressure diastolic 2023-12-27 08:45:00 73 mm[Hg] Common [facility] height 2023-12-08 10:00:00 64 [in_i] Commo n [facility] weight 2023-12-08 10:00:00 150.2 [lb_av] Co mmon [facility] temperature 2023-12-08 10:00:00 98.0 [degF] Com mon [facility] bmi 2023-12-08 10:00:00 25.78 kg/m2 Comm on [facility] blood pressure systolic 2023-12-08 10:00:00 120 mm[Hg] [facility] blood pressure diastolic 2023-12-08 10:00:00 64 mm[Hg] [facility] Systolic blood pressure 2023-09-01 13:04:00 136 mm[Hg] Becca Seybo ld - External Diastolic blood pressure 2023-09-01 13:04:00 62 mm[Hg] Becca Seybo ld - External Heart rate 2023-09-01 13:04:00 69 /min Kelse y Seybold - External Body temperature 2023-09-01 13:04:00 36 Marina Becca Seybold - External Respiratory rate 2023-09-01 13:04:00 14 /min Becca Seybold - External Body height 2023-09-01 13:04:00 162.6 cm Claire ey Seybold - External Body weight 2023-09-01 13:04:00 68.947 kg Claire ey Seybold - External BMI 2023-09-01 13:04:00 26.09 kg/m2 Claire ey Seybold - External height 2023-07-29 08:00:00 64 [in_i] Commo n [facility] weight 2023-07-29 08:00:00 153.2 [lb_av] Co mmon [facility] bmi 2023-07-29 08:00:00 26.29 kg/m2 Comm on [facility] blood pressure systolic 2023-07-29 08:00:00 132 mm[Hg] [facility] blood pressure diastolic 2023-07-29 08:00:00 68 mm[Hg] [facility] Systolic blood pressure 2023-06-30 14:21:00 132 mm[Hg] [...] height 2023-03-10 16:15:00 64 [in_i] Commo n [facility] weight 2023-03-10 16:15:00 149.4 [lb_av] Co mmon [facility] temperature 2023-03-10 16:15:00 97.4 [degF] Com mon [facility] bmi 2023-03-10 16:15:00 25.64 kg/m2 Comm on [facility] oximetry 2023-03-10 16:15:00 99 % Commo n [facility] respiratory rate 2023-03-10 16:15:00 18 /min Common [facility] blood pressure systolic 2023-03-10 16:15:00 132 mm[Hg] Common [facility] blood pressure diastolic 2023-03-10 16:15:00 68 mm[Hg] Common [facility] Systolic blood pressure 2023-02-25 13:37:00 146 mm[Hg] [...] Body height 2023-01-21 18:24:00 162.6 cm Claire ey Seybold - External Body weight 2023-01-21 18:24:00 68.947 kg Claire ey Seybold - External BMI 2023-01-21 18:24:00 26.09 kg/m2 Claire eduardo Fairybold - External height 2022-10-08 09:15:00 64 [in_i] Commo n [facility] weight 2022-10-08 09:15:00 154 [lb_av] Comm on [facility] temperature 2022-10-08 09:15:00 97.2 [degF] Com mon [facility] bmi 2022-10-08 09:15:00 26.43 kg/m2 Comm on [facility] oximetry 2022-10-08 09:15:00 99 % Commo n [facility] respiratory rate 2022-10-08 09:15:00 18 /min [facility] blood pressure systolic 2022-10-08 09:15:00 132 mm[Hg] [facility] blood pressure diastolic 2022-10-08 09:15:00 68 mm[Hg] Common [facility] height 2022-09-02 10:45:00 64 [in_i] Commo n [facility] weight 2022-09-02 10:45:00 155.2 [lb_av] Co mmon [facility] temperature 2022-09-02 10:45:00 97.4 [degF] Com mon [facility] bmi 2022-09-02 10:45:00 26.64 kg/m2 Comm on [facility] oximetry 2022-09-02 10:45:00 95 % Commo n [facility] respiratory rate 2022-09-02 10:45:00 18 /min Common [facility] blood pressure systolic 2022-09-02 10:45:00 110 mm[Hg] [facility] blood pressure diastolic 2022-09-02 10:45:00 60 mm[Hg] Common [facility] Systolic blood pressure 2022-07-23 18:51:00 112 mm[Hg] [...] Pulse oximetry 2022-03-25 16:32:00 99 /min Becca Seybo ld - External Systolic blood pressure 2022-03-11 13:06:00 159 mm[Hg] Becca Seybo ld - External Diastolic blood pressure 2022-03-11 13:06:00 89 mm[Hg] Becca Seybo ld - External Heart rate 2022-03-11 13:06:00 73 /min Kelse y Seybold - External Body temperature 2022-03-11 13:06:00 36.56 Marina Becca San - External Respiratory rate 2022-03-11 13:06:00 14 /min Becca San - External Body height 2022-03-11 13:06:00 162.6 cm Claire San - External Body weight 2022-03-11 13:06:00 74.39 kg Claire clark Seybmaribel - External BMI 2022-03-11 13:06:00 28.15 kg/m2 Claire San - External Oxygen saturation in Arterial blood by Pulse oximetry 2022-03-11 13:06:00 99 /min Becca Fairlizajacky ld - External Procedures Procedure Date / Time Performed Performing Clinicia n Source PVR 2024-03-01 00:00:00 Common [facility] URINALYSIS 2024-02-27 22:40:00 Shanda Capellan [facility] XR CHEST 1 VW 2024-02-27 20:58:00 Shanda Capellan [facility] CREATINE KINASE 2024-02-27 20:36:00 Shanda Capellan [facility] LIPASE 2024-02-27 20:36:00 Shanda Capellan [facility] MAGNESIUM 2024-02-27 20:36:00 Marilia [facility] TROPONIN I 2024-02-27 20:36:00 Shanda Capellan [facility] COMP. METABOLIC PANEL ([id number]) 2024-02-27 20:36:00 Shanda Capellan [facility] CBC WITH DIFF 2024-02-27 20:36:00 [facility] ASSIGNMENT OF BENEFITS 2021-08-27 13:47:00 Docto r Unassigned, [facility] Encounters Start Date/Time End Date/Time Encounter Type Admission Type Attending [facility] Care Facility Care Department Encounter ID Source 2023-12-08 13:32:00 Out[facility] [id number] [facility] 2023-10-27 15:07:00 Outpatient Ioana Pineda [facility] [id number] [facility] 2023-07-30 07:29:00 Outpatient Ioana Pineda [facility] [id number] [facility] 2023-07-14 09:19:00 Outpatient Ioana Pineda [facility] [id number] [facility] 2023-07-07 09:57:00 Outpatient Ioana Pineda [facility] [id number] [facility] 2022-09-02 10:30:01 Outpatient Ioana Pineda [facility] [id number] [facility] 2022-05-01 08:39:03 Outpatient Ioana Pineda [facility] [id number] [facility] 2022-03-25 14:13:02 Outpatient [facility] [id number] [facility] 2021-12-12 08:36:03 Outpatient [facility] [id number] [facility] 2021-11-07 12:42:56 Outpatient CHRISTOPH HUITRON [facility] [id number] [facility] 2021-10-30 13:19:03 Outpatient [facility] [id number] [facility] 2021-10-01 11:33:08 Outpatient [facility] [id number] [facility] 2021-06-16 13:38:10 Outpatient CHRISTOPH HUITRON [facility] [id number] [facility] 2021-06-11 14:02:42 Outpatient [facility] [id number] [facility] 2024-07-20 09:00:00 2024-07-20 09:00:00 Outpatient BECCA WOOD [id number] Becca Mena 2024-06-02 08:30:00 2024-06-02 08:30:00 Outpatient IOANA PINEDA [id number] Becca Mena 2024-03-28 15:05:00 2024-03-28 15:05:00 Outpatient LAB90 BECCA WOOD [id number] Becca ybmaribel 2024-03-28 00:00:00 2024-03-28 00:00:00 Outpatient IOANA PINEDA [id number] Becca Seybmaribel 2024-03-27 00:00:00 2024-03-27 00:00:00 Outpatient PROVIDERALFREDO [id number] Becca Fairybmaribel 2024-03-25 00:00:00 2024-03-25 00:00:00 Outpatient EBCCA WOOD [id number] Becca Seybold 2024-03-25 00:00:00 2024-03-25 00:00:00 Outpatient BECCA WOOD [id number] Becca Seybmaribel 2024-03-23 00:00:00 2024-03-23 00:00:00 Outpatient BECCA WOOD [id number] Becca Seybmaribel 2024-03-09 00:00:00 2024-03-09 00:00:00 Outpatient IOANA PINEDA [id number] Becca ybmaribel 2024-03-08 00:00:00 2024-03-08 00:00:00 Outpatient IOANA PINEDA [id number] Becca Seybmaribel 2024-03-07 00:00:00 2024-03-07 00:00:00 Outpatient BECCA WOOD [id number] Becca Seybmaribel 2024-03-03 00:00:00 2024-03-03 00:00:00 Outpatient IOANA PINEDA [id number] Becca Seybmaribel 2024-03-02 09:15:00 2024-03-02 09:15:00 Outpatient LABEren BECCA WOOD [id number] Becca ybmaribel 2024-03-02 08:00:00 2024-03-02 08:00:00 Outpatient TERESSA PINEDAY BECCA WOOD [id number] Becca San 2024-03-01 00:00:00 2024-03-01 00:00:00 Outpatient BECCA WOOD [id number] Becca Mena 2024-03-01 00:00:00 2024-03-01 00:00:00 OFFICE VISIT ESTAB PT LEVEL 4 [facility] [id number] [facility] 2024-02-27 15:18:00 2024-02-27 18:42:00 Emergency X SHANDA CAPELLAN [facility] ERT [id number] [facility] 2024-02-27 15:18:00 2024-02-27 18:42:00 Emergency Shanda Capellan [facility] [id number] [facility] 2024-02-24 13:30:00 2024-02-24 13:30:00 Outpatient EDWIN IOANA [facility] [id number] [facility] 00:00:00 2024-02-20 00:00:00 Outpatient BECCA WOOD [id number] [facility] 2024-02-17 00:00:00 2024-02-17 00:00:00 Outpatient BECCA WOOD [id number] Becca Mena 2024-02-16 08:05:00 2024-02-16 08:05:00 Outpatient LAB90 BECCA WOOD [id number] Becca maribel 2024-02-10 00:00:00 2024-02-10 00:00:00 Outpatient BECCA WOOD [id number] Becca maribel 2024-01-28 00:00:00 2024-01-28 00:00:00 Outpatient BECCA WOOD [id number] Becca maribel 2024-01-18 00:00:00 2024-01-18 00:00:00 Outpatient IOANA PINEDA [id number] [facility] 2024-01-18 00:00:00 2024-01-18 00:00:00 Outpatient DERRICK PANIAGUA BECCA WOOD [id number] Becca Seybmaribel 2024-01-18 00:00:00 2024-01-18 00:00:00 Outpatient MD BECCA QUINTANILLA [id number] Becca Seybmaribel 2024-01-15 00:00:00 2024-01-15 00:00:00 Outpatient IOANA PINED[facility] [id number] [facility] 2024-01-14 08:00:00 2024-01-14 08:00:00 Outpatient BECCA WOOD [id number] Becca ybmaribel 2024-01-14 00:00:00 2024-01-14 00:00:00 Outpatient BECCA WOOD [id number] [facility] 2024-01-06 08:30:00 2024-01-06 08:30:00 Outpatient TONJA ESCOBEDO [id number] [facility] 2024-01-06 00:00:00 2024-01-06 00:00:00 Outpatient CAROLA BRAR [id number] [facility] 2023-12-30 16:45:00 2023-12-30 16:45:00 Outpatient HEAVEN WOOD [id number] [facility] 2023-12-30 16:00:00 2023-12-30 16:00:00 Outpatient CAROLA BRAR [id number] [facility] 2023-12-29 11:00:00 2023-12-29 11:00:00 Outpatient IOANA PINEDA [id number] [facility] 2023-12-29 00:00:00 2023-12-29 00:00:00 Outpatient ALISON COTA [id number] [facility] 2023-12-27 00:00:00 2023-12-27 00:00:00 (F/U) Follow Up Visit [facility] ST[facility] [id number] [facility] 2023-12-22 10:00:00 2023-12-22 10:00:00 Outpatient CAROLA BRAR [id number] [facility] 2023-12-14 00:00:00 2023-12-14 00:00:00 Outpatient IOANA PINEDA [id number] [facility] 2023-12-08 00:00:00 2023-12-08 00:00:00 (ESTPT) Establishe d Patient [facility] [id number] 2023-12-06 00:00:00 2023-12-06 00:00:00 (TEL) [facility] [id number] [facility] 2023-12-02 00:00:00 2023-12-02 00:00:00 Outpatient PROVIDERALFREDO [id number] [facility] 2023-11-17 10:30:00 2023-11-17 10:30:00 Outpatient ASHTYN LINDA [id number] [facility] 2023-11-10 00:00:00 2023-11-10 00:00:00 Outpatient IOANA PINEDA [id number] [facility] 2023-11-04 00:00:00 2023-11-04 00:00:00 Outpatient IOANA PINEDA [id number] [facility] 2023-10-22 00:00:00 2023-10-22 00:00:00 Outpatient MARICHUY ARCOS [id number] [facility] 2023-10-22 00:00:00 2023-10-22 00:00:00 Outpatient IOANA PINEDA [id number] [facility] 2023-10-22 00:00:00 2023-10-22 00:00:00 Outpatient IOANA PINEDA [id number] [facility] 2023-10-21 08:05:00 2023-10-21 08:05:00 Outpatient CONFERENCE, [facility] BECCA WOOD [id number] Becca lexie 2023-10-21 00:00:00 2023-10-21 00:00:00 Outpatient CONFERENCE, [facility] BECCA WOOD [id number] Becca Fairybmaribel 2023-10-14 14:00:00 2023-10-14 14:00:00 Outpatient BECCA WOOD [id number] Becca Fairybmaribel 2023-10-14 10:30:00 2023-10-14 10:30:00 Outpatient BECCA WOOD [id number] Becca Fairybmaribel 2023-10-14 00:00:00 2023-10-14 00:00:00 Outpatient IOANA PINEDA BECCA WOOD [id number] Becca Fairybmaribel 2023-10-06 00:00:00 2023-10-06 00:00:00 Outpatient HUNDCatherine, IOANA BECCA WOOD [id number] Becca Seybmaribel 2023-10-05 00:00:00 2023-10-05 00:00:00 Outpatient HUNDCatherine, IOANACrispin WOOD [id number] Becca Fairybmaribel 2023-09-22 00:00:00 2023-09-22 00:00:00 (TEL) [facility] [id number] [facility] 2023-09-01 08:00:00 2023-09-01 08:00:00 Outpatient EDWIN, IOANA BECCA WOOD [id number] Becca Fairybmaribel 2023-08-21 00:00:00 2023-08-21 00:00:00 Outpatient IOANA PINEDA BECCA WOOD [id number] Becca Fairybmaribel 2023-08-19 08:05:00 2023-08-19 08:05:00 Outpatient LAB90 BECCA WOOD [id number] Becca Seybold 2023-08-17 00:00:00 2023-08-17 00:00:00 Outpatient SCOT SERNA BECCA WOOD [id number] Becca Seybold 2023-08-13 00:00:00 2023-08-13 00:00:00 Outpatient PREZATutu SCOT BECCA WOOD [id number] Becca Seybold 2023-08-12 08:30:00 2023-08-12 08:30:00 Outpatient LAB90 BECCA WOOD [id number] Becca Seybold 2023-08-08 00:00:00 2023-08-08 00:00:00 Outpatient PRESCOT ZAMORA BECCA WOOD [id number] Becca [facility] 2023-08-03 00:00:00 2023-08-03 00:00:00 Outpatient EDWIN IOANA BECCA WOOD [id number] Becca [facility] 2023-07-29 15:25:00 2023-07-29 15:25:00 Outpatient LAB90 BECCA WOOD [id number] [facility] 2023-07-29 00:00:00 2023-07-29 00:00:00 Outpatient EDWIN IOANA WOOD [id number] Becca maribel 2023-07-29 00:00:00 2023-07-29 00:00:00 Outpatient IOANA PINEDA [id number] [facility] 2023-07-29 00:00:00 2023-07-29 00:00:00 (TEL) STLMLC STLMLC [id number] [facility] 2023-07-29 00:00:00 2023-07-29 00:00:00 OFFICE VISIT NEW PT LEVEL 3 STLMLC STLMLC [id number] [facility] 2023-07-28 00:00:00 2023-07-28 00:00:00 Outpatient SCOT SERNA BECCA WOOD [id number] Becca maribel 2023-07-21 00:00:00 2023-07-21 00:00:00 Outpatient EDWIN IOANA WOOD [id number] [facility] 2023-07-20 00:00:00 2023-07-20 00:00:00 Outpatient IOANA PINEDA [id number] Becca ybmaribel 2023-07-19 08:20:00 2023-07-19 08:20:00 Outpatient [facility] BECCA WOOD [id number] Becac ybmaribel 2023-07-16 10:30:00 2023-07-16 10:30:00 Outpatient BECCA WOOD [id number] [facility] San 2023-07-16 00:00:00 2023-07-16 00:00:00 Outpatient EDWIN IOANA WOOD [id number] [facility] 2023-07-07 00:00:00 2023-07-07 00:00:00 (TEL) [facility] [id number] [facility] 2023-07-06 00:00:00 2023-07-06 00:00:00 Outpatient EDWIN IOANA WOOD [id number] [facility] 2023-07-01 00:00:00 2023-07-01 00:00:00 Outpatient HUNDCatherine IOANA WOOD [id number] [facility] 2023-06-30 08:30:00 2023-06-30 08:30:00 Outpatient EDWIN, IOANA WOOD [id number] [facility] 2023-06-27 00:00:00 2023-06-27 00:00:00 Outpatient SCOT SERNA [id number] [facility] 2023-06-17 00:00:00 2023-06-17 00:00:00 Outpatient EDWIN IOANA WOOD [id number] [facility] 2023-06-03 00:00:00 2023-06-03 00:00:00 Outpatient EDWIN IOANA WOOD [id number] [facility] 2023-06-02 00:00:00 2023-06-02 00:00:00 Outpatient EDWIN IOANA WOOD [id number] [facility] 2023-05-31 16:00:00 2023-05-31 16:00:00 Outpatient HUNDL IOANA WOOD [id number] [facility] 2023-05-29 00:00:00 2023-05-29 00:00:00 Outpatient GC_GCBZW_Ka diyala_S [facility] [id number] [facility] 2023-05-28 00:00:00 2023-05-28 00:00:00 Outpatient SCOT SERNA [id number] [facility] 2023-05-27 09:00:00 2023-05-27 09:00:00 Outpatient IOANA PINEDA BECCA WOOD [id number] [facility] 2023-05-17 00:00:00 2023-05-17 00:00:00 Outpatient SCOT SERNA BECCA WOOD [id number] [facility] 2023-05-06 00:00:00 2023-05-06 00:00:00 Outpatient EDWIN IOANA WOOD [id number] [facility] 2023-05-01 00:00:00 2023-05-01 00:00:00 Outpatient GC_GCBZW_Ka diyala_S PRIV PRIV [id number] [facility] 2023-04-27 00:00:00 2023-04-27 00:00:00 Outpatient IOANA PINEDA [id number] [facility] 2023-04-03 00:00:00 2023-04-03 00:00:00 Outpatient GC_GCBZW_Ka diyala_S PRIV PRIV [id number] [facility] 2023-03-31 00:00:00 2023-03-31 00:00:00 Outpatient EDWIN IOANA WOOD [id number] [facility] 2023-03-29 00:00:00 2023-03-29 00:00:00 Outpatient IOANA PINEDA [id number] [facility] 2023-03-11 00:00:00 2023-03-11 00:00:00 Outpatient GC_GCBZW_Ka diyala_S PRIV PRIV [id number] [facility] 2023-03-10 00:00:00 2023-03-10 00:00:00 Outpatient GC_GCBZW_Ka diyala_S PRIV PRIV [id number] [facility] 2023-03-10 00:00:00 2023-03-10 00:00:00 OFFICE VISIT ESTAB PT LEVEL 3 [facility] [id number] [facility] 2023-03-09 00:00:00 2023-03-09 00:00:00 Outpatient HUNDL, IOANA BECCA WOOD [id number] [facility] 2023-03-07 00:00:00 2023-03-07 00:00:00 Outpatient HUNDL, IOANA WOOD [id number] [facility] 2023-03-01 00:00:00 2023-03-01 00:00:00 Outpatient HUNDL, IOANA WOOD [id number] [facility] 2023-02-26 00:00:00 2023-02-26 00:00:00 Outpatient HUNDL, IOANA WOOD [id number] [facility] 2023-02-25 09:45:00 2023-02-25 09:45:00 Outpatient HEAVEN BECCA WOOD [id number] [facility] 2023-02-25 08:30:00 2023-02-25 08:30:00 Outpatient HUNDL, IOANA WOOD [id number] [facility] 2023-02-23 00:00:00 2023-02-23 00:00:00 Outpatient HUNDL, IOANA WOOD [id number] [facility] 2023-02-08 00:00:00 2023-02-08 00:00:00 Outpatient GC_GCBZW_Ka diyala_S PRIV PRIV [id number] [facility] 2023-01-21 13:30:00 2023-01-21 13:30:00 Outpatient HUNDL, IOANA WOOD [id number] [facility] 2023-01-21 00:00:00 2023-01-21 00:00:00 Outpatient RAFAELA HAWTHORNE [id number] [facility] 2023-01-15 00:00:00 2023-01-15 00:00:00 Outpatient HUNDL, IOANA WOOD [id number] [facility] 2023-01-08 00:00:00 2023-01-08 00:00:00 Outpatient HUNDL, IOANA WOOD [id number] [facility] 2023-01-06 00:00:00 2023-01-06 00:00:00 Outpatient HUNDL, IOANA WOOD [id number] [facility] 2022-12-30 08:00:00 2022-12-30 08:00:00 Outpatient EDWIN IOANA WOOD [id number] [facility]cca maribel 2022-12-22 00:00:00 2022-12-22 00:00:00 Outpatient SCOT SERNA [id number] [facility] 2022-11-19 00:00:00 2022-11-19 00:00:00 Outpatient RADHA MORAN [facility] [id number] [facility] 2022-10-08 00:00:00 2022-10-08 00:00:00 OFFICE VISIT ESTAB PT LEVEL 4 STLMLC STLMLC [id number] [facility] 2022-10-05 08:40:00 2022-10-05 08:40:00 Outpatient LAB90 BECCA WOOD [id number] [facility] 2022-09-30 00:00:00 2022-09-30 00:00:00 Outpatient EDWIN IOANA WOOD [id number] [facility] 2022-09-16 00:00:00 2022-09-16 00:00:00 (PROC) Procedure STLMLC STLMLC [id number] [facility] 2022-09-13 00:00:00 2022-09-13 00:00:00 Outpatient IOANA PINEDA [id number] [facility] 2022-09-02 00:00:00 2022-09-02 00:00:00 OFFICE VISIT ESTAB PT LEVEL 3 STLMLC STLMLC [id number] [facility] 2022-08-28 00:00:00 2022-08-28 00:00:00 Outpatient SCOT SERNA [id number] [facility] 2022-07-31 00:00:00 2022-07-31 00:00:00 Outpatient SCOT SERNA [id number] [facility] 2022-07-23 13:00:00 2022-07-23 13:00:00 Outpatient HUNDL, IOANA WOOD [id number] [facility] 2022-07-08 00:00:00 2022-07-08 00:00:00 Outpatient HUNDL, IOANA WOOD [id number] [facility] 2022-06-26 00:00:00 2022-06-26 00:00:00 Outpatient SCOT SERNA BECCA WOOD [id number] [facility] 2022-06-24 12:15:00 2022-06-24 12:15:00 Outpatient GRACIE MENEZES BECCA WOOD [id number] [facility] 2022-06-09 00:00:00 2022-06-09 00:00:00 Outpatient CHRISTOPHRAFAELA BENJAMIN BECCA WOOD [id number] [facility] 2022-06-09 00:00:00 2022-06-09 00:00:00 Outpatient HUNDL, IOANA WOOD [id number] [facility] 2022-06-02 00:00:00 2022-06-02 00:00:00 Outpatient HUNDL, IOANA WOOD [id number] [facility] 2022-05-31 00:00:00 2022-05-31 00:00:00 Outpatient HUNDL, IOANA WOOD [id number] [facility] 2022-05-22 00:00:00 2022-05-22 00:00:00 Outpatient HUNDL, IOANA WOOD [id number] [facility] 2022-04-16 00:00:00 2022-04-16 00:00:00 Outpatient HUNDL, IOANA WOOD [id number] [facility] Seybold 2022-03-26 00:00:00 2022-03-26 00:00:00 Outpatient HUNDL, IOANA WOOD [id number] [facility] Seybold 2022-03-25 10:30:00 2022-03-25 10:30:00 Outpatient HUNDL, IOANA WOOD [id number] [facility] Seybold 2022-03-11 08:00:00 2022-03-11 08:00:00 Outpatient HUNDL, IOANA GALEASSEY BECCA [id number] [facility] 2022-03-02 00:00:00 2022-03-02 00:00:00 Outpatient IOANA PINEDA BECCA [id number] [facility] 2022-02-26 00:00:00 2022-02-26 00:00:00 Outpatient IOANA PINEDA BECCA WOOD [id number] [facility] 2022-02-25 09:30:00 2022-02-25 09:30:00 Outpatient LAB90 BECCA WOOD [id number] [facility] 2022-02-25 08:30:00 2022-02-25 08:30:00 Outpatient IOANA PINEDA BECCA WOOD [id number] [facility] 2022-02-19 08:40:00 2022-02-19 08:40:00 Outpatient BECCA WOOD [id number] [facility] 2022-02-19 08:00:00 2022-02-19 08:00:00 Outpatient BECCA WOOD [id number] [facility] 2022-02-18 08:00:00 2022-02-18 08:00:00 Outpatient IOANA PINEDA BECCA WOOD [id number] [facility] 2022-01-21 09:45:00 2022-01-21 09:45:00 Outpatient LAB90 BECCA WOOD [id number] [facility] 2022-01-21 08:30:00 2022-01-21 08:30:00 Office Visit IOANA PINEDA [facility] [id number] [id number] [id number] [facility]ena 2022-01-15 00:00:00 2022-01-15 00:00:00 Outpatient JAY GREGORIO WOOD [id number] [facility] ybmaribel 2022-01-14 08:30:00 2022-01-14 08:30:00 Outpatient SCOT SERNA [id number] [facility] ybmaribel 2021-08-27 08:50:03 2021-08-27 23:59:00 [facility] [id number] 2021-08-27 08:50:03 2021-08-27 23:59:00 [facility] [id number] 350.1.13.10 [id number] [id number] [facility] 2021-08-27 00:00:00 2021-08-27 00:00:00 Orders Only Doctor Unassigned, [facility] 1.840.114 350.1.13.10 [id number] [id number] [facility] 2021-08-20 00:00:00 2021-08-20 00:00:00 Outpatient R BUBBA [facility] [id number] [facility] 2020-05-12 00:00:00 2020-05-12 00:00:00 Telephone Tre Baker [facility] 1.840.114 350.1.13.10 4.2.7.2.686 [id number] [facility] 2020-05-12 00:00:00 2020-05-12 00:00:00 Telephone Efra Chely [facility] 1.840.114 350.1.13.10 4.2.7.2.686 [id number] [facility] 2020-05-12 00:00:00 2020-05-12 00:00:00 Telephone Lab, Adc Arron Heath I [facility] [id number] 350.1.13.10 4.2.7.2.686 [id number] [facility] 2020-05-11 19:00:00 2020-05-11 19:00:00 Outpatient Akosua [facility] [id number] [facility] 2020-05-11 12:32:24 2020-05-11 12:52:24 Laboratory Only Lab, Adc Fam Pob [facility] [id number] 350.1.13.10 4.2.7.2.686 [id number] [facility] Results Test Description Test Time Test Comments Results Resul t Comments Source XR CHEST 1 VW 2024-02-15 3 22:06:46 XR CHEST 1 VW HISTORY: ?Chest pain after fall COMPARISON: None. Technical quality: adequate TECHNIQUE: 1 view(s) radiographs of the XR CHEST 1 VW FINDINGS: ?Age indeterminate displaced fracture of the mid right clavicle. Theremaining osseous structures appear intact. There are left lung granulomas.No pneumothorax or pleural effusion. The cardiac silhouette is normal.There are aortic knob atherosclerotic calcifications. [facility] Notes Date/Time Note Provider Source 2024-03-02 08:07:31 Chief Complaint Patient presents with Physical Patient is fasting. No other issues to discuss Dahiana Baca MA II T [facility] 2024-02-27 18:41:02 Written/verbal d/c instructions, out of er no distress T [facility] 2024-02-27 17:35:19 Pt ambulatory pushing wheelchair to bathroom without difficulty. Janeth Vazquez RN [facility] 2024-02-27 17:00:00 Resting with eyes closed T [facility] 2024-02-27 15:23:32 Cliofas V Jerod is a 73 year old female c/o walking around at the [facility], states her legs felt weak and fell down, no LOC, no neck or back pain, no chest pain, resp even u/l, lscta, BGL 127 T Cindy Espinal RN [facility] 2024-02-24 13:57:56 Chief Complaint Patient presents with Follow-up Follow up from fall in November. She fell down the stairs at home. Fractured rib, collar bone and stitches in head. She states she's doing well, has some tenderness in head where the stitches were. Dahiana Baca MA II [facility] 2023-12-30 16:05:14 Chief Complaint Patient presents with Follow-up Hospitalization Fell and had a clavicle fracture, Red arm is red a swollen. Lisa Bear LVN [facility] 2023-09-01 08:08:19 Chief Complaint Patient presents with Diabetes Diabetic follow up Dahiana Baca MA II [facility] 2023-06-30 08:25:10 Chief Complaint Patient presents with Nicotine Dependence She would like to discuss something to help her quit. Dahiana Baca MA II [facility] 2023-05-31 15:48:44 Chief Complaint Patient presents with Diabetes 3 month follow up on diabetes Dahiana Baca MA II [facility] [employer] [facility] 2023-01-21 13:27:09 Formatting of this n ote is different from the original. Chief Complaint Patient presents with Diabetes 6 month follow up Dahiana Baca MA II [facility]
[2024-03-28 17:18] LABS: Absolute Basophils 0.1 K/uL (0-0.5); Absolute Eosinophils 0.1 K/uL (0-0.5); Absolute Lymphocytes (CBC) 0.6 K/uL (0.7-4.9); Absolute Monocytes 0.5 K/uL (0.1-1.3); Basophils % 0.7 % (0-1.3); Eosinophils % 0.9 % (0-4.4); Lymphocytes % 7.9 % (15.3-44.8); MCH 27.8 pg (27.0-35.0); MCHC 32.4 g/dL (32.0-36.0); MPV 7.3 fL (7.6-11.3); Monocytes % 6.8 % (3.3-12.3); Neutrophils % 83.7 % (41.7-73.7); Platelets 266 thou/uL (152-406); RBC Red Blood Cell Count 4.31 M/uL (3.86-4.86); Red Cell Distribution Width 16.2 % (12.1-15.2)
[2024-03-28 17:37] LABS: Albumin 3.5 g/dL (3.4-5.0); Albumin/Globulin Ratio 0.9 (1.1-1.8); Anion Gap 10.8 mEq/L (5.0-15.0); Globulin 3.9 g/dL (2.3-3.5); Potassium 3.8 mEq/L (3.5-5.1); Protein, Total 7.4 g/dL (6.4-8.2)
--- NOTE | 2024-03-28 17:43 | RAD REPORT ---
EXAMINATION: CT ABDOMEN AND PELVIS WITHOUT CONTRAST CLINICAL INDICATION: urinary retention TECHNIQUE: CT abdomen and pelvis was performed, without IV contrast, as per department protocol. Axia l, sagittal and coronal reconstructions were obtained. One or more of the following dose reduction techniques were used: Automated exposure control, adjustment of the mA and kV according to the patien t size, and iterative reconstruction. Unless otherwise specified, incidental findings do not require dedicated imaging follow-up. COMPARISON: 05/15/2016 FINDINGS: The lack of intravenous contrast limits the sensitivity of this exam for evaluation of solid visceral organs, vascular structures, and retroperitoneum. LOWER CHEST: The visualized lung bases are clear. LIVER:Normal in size and contour. No focal lesion. Cholecystectomy clips. SPLEEN: Normal size. No focal lesion. PANCREAS: No mass, ductal dilation, or kaleigh-pancreatic fluid. ADRENALS: Normal; no mass. KIDNEYS AND URETERS: Normal size and contour. No hydronephrosis. URINARY BLADDER: Normal contour. GASTROINTESTINAL TRACT: No evidence of bowel obstruction, significant free fluid, free air or abscess . APPENDIX: Normal appendix. LYMPH NODES: No lymphadenopathy. MUSCULOSKELETAL: No acute or suspicious osseous abnormality. ADDITIONAL FINDINGS: There is significant air seen in the wall of the urinary bladder compatible with emphysematous cystitis. IMPRESSION: Emphysematous cystitis.
--- NOTE | 2024-03-28 18:29 | ER ---
Nurse's Notes [facility] Name: Jill Newsome Age: 73 yrs Sex: Female : 1950 Arrival Date: 03/28/2024 Time: 15:46 Bed 25 Private MD: Diagnosis: Cystitis, unspecified with hematuria-Emphysematous Presentation: 03/28 15:55 Chief complaint: Patient states: Difficulty urinating x approx 1 hour, states, " I keep ph feeling like I have to pee and when I do only a little comes out and I still feel like I need to go." States that she went to PCP but was unable to provide urine sample so they instructed her to come to the ED. Coronavirus screen: Vaccine status: Patient reports receiving the 2nd dose of the covid vaccine. Ebola Screen: No symptoms or risks identified at this time. Initial Sepsis Screen: Does the patient meet any 2 criteria? No. Patient's initial sepsis screen is negative. Does the patient have a suspected source of infection? No. Patient's initial sepsis screen is negative. Risk Assessment: Do you want to hurt yourself or someone else? Patient reports no desire to harm self or others. Onset of symptoms was March 28, 2024. 15:55 Method Of Arrival: Ambulatory ph 15:55 Acuity: ZURDO 3 ph Triage Assessment: 15:58 General: Appears in no apparent distress. uncomfortable, Behavior is calm, cooperative. ph Pain: Complains of pain in suprapubic area. Neuro: Level of Consciousness is awake, alert, obeys commands, Oriented to person, place, time, situation. : Reports burning with urination, inability to void, urinary frequency. Historical: - Allergies: 15:57 No Known Allergies; ph - PMHx: 15:57 Anxiety; Depression; Diabetes - NIDDM; GERD; High Cholesterol; Hypertension; Myocardial ph infarction; - PSHx: 15:57 cardiac stents; hysterectomy; ph Screenin:[address] [facility] ED Fall Risk Assessment (Adult) History of falling in the last 3 months, jb4 including since admission No falls in past 3 months (0 pts) Confusion or Disorientation No (0 pts) Intoxicated or Sedated No (0 pts) Impaired Gait No (0 pts) Mobility Assist Device Used No (0 pt) Altered Elimination No (0 pt) Score/Fall Risk Level 0 - 2 = Low Risk. 23:31 Abuse screen: Denies threats or abuse. Nutritional screening: No deficits noted. jb4 Tuberculosis screening: No symptoms or risk factors identified. Assessment: 16:45 General: Appears in no apparent distress. uncomfortable, Behavior is calm, cooperative, jb4 appropriate for age. Pain: Complains of pain in suprapubic area Pain does not radiate. Pain currently is 6 out of 10 on a pain scale. Neuro: Level of Consciousness is awake, alert, obeys commands, Oriented to person, place, time, situation. Cardiovascular: Patient's skin is warm and dry. Respiratory: Airway is patent Respiratory effort is even, unlabored, Respiratory pattern is regular, symmetrical. : Reports inability to void, pain in suprapubic area. Derm: Skin is intact, Skin is pink, warm \\T\\ dry. 18:16 Reassessment: Patient appears in no apparent distress at this time. Patient and/or jb4 family updated on plan of care and expected duration. Pain level reassessed. Patient is alert, oriented x 3, equal unlabored respirations, skin warm/dry/pink. 19:36 Reassessment: Patient appears in no apparent distress at this time. Patient and/or jb4 family updated on plan of care and expected duration. Pain level reassessed. Patient is alert, oriented x 3, equal unlabored respirations, skin warm/dry/pink. Patient states feeling better. Vital Signs: 15:55 BP 163 / 80; Pulse 93; Resp 18; Temp 97.9; Pulse Ox 100% on R/A; Weight 69.4 kg; Height ph 5 ft. 4 in. ; 18:17 BP 144 / 94; Pulse 86; Resp 16; Pulse Ox 96% on R/A; jb4 19:36 BP 144 / 88; Pulse 84; Resp 16; Pulse Ox 100% ; jb4 22:48 BP 125 / 56; Pulse 88; Resp 16; Pulse Ox 98% on R/A; jb4 15:55 Body Mass Index 26.26 (69.40 kg, 162.56 cm) ph ED Course: 15:48 Patient arrived in ED. ra3 15:52 [facility]cos[facility]C [facility] kb 15:52 Latrell Nguyen MD is Attending Physician. kb 15:57 Triage completed. ph 15:58 Arm band placed on Patient placed in waiting room, Patient notified of wait time. ph 17:13 Initial lab(s) drawn, by me, sent to lab. Inserted saline lock: 22 gauge in left tm3 antecubital area, using aseptic technique. 17:28 CT [facility] Protocol In Process Unspecified. EDMS 18:28 Joe Garcia is Hospitalizing Provider. kb 18:40 Zaki Canales, RN is Primary Nurse. jb4 21:45 Initiated transfer with Remigio at [facility]. rv1 22:[address] Hensley to [facility] ER. Report #[id number]. rv1 23:31 Patient has correct armband on for positive identification. Bed in low position. Call jb4 light in reach. Side rails up X 1. Provided Education on: need for transfer. 23:31 No provider procedures requiring assistance completed. Patient transferred, IV remains jb4 in place. Administered Medications: 22:45 Drug: Rocephin IV 1 grams IV at calculated rate once; Given slow IV push per pharmacy jb4 instructions Route: IV; Rate: calculated rate; Site: left antecubital; 22:50 Follow up: Response: No adverse reaction; IV Status: Completed infusion; IV Intake: [id number] Medication: 18:16 VIS not applicable for this client. jb4 Intake: 22:50 IV: 10ml; Total: 10ml. jb4 Outcome: 18:29 Decision to Hospitalize by Provider. kb 22:19 ER care complete, transfer ordered by MD. kb 23:31 Transferred to other acute care facility: [facility]. jb4 23:31 Condition: stable 23:31 Discharge instructions given to patient, family, Instructed on the need for transfer, Demonstrated understanding of instructions, 23:33 Patient left the ED. jb4 Signatures: Dispatcher [employer] EDMT Tricia Moscoso, ELECTRONIC ENGINEERING TECHNICIANCamilo ELECTRONIC ENGINEERING TECHNICIAN-[place] tm3 Melissa Robb RN RN Zaki Canales, MILLI RN jb4 Edel Perez rv1 Mary Montgomery ra3 Corrections: (The following items were deleted from the chart) 18:17 18:16 Reassessment: Patient appears in no apparent distress at this time. Patient jb4 and/or family updated on plan of care and expected duration. Pain level reassessed. Patient is alert/active/playful, equal unlabored respirations, skin warm/dry/pink. jb4
--- NOTE | 2024-03-28 18:29 | EDPHYS ---
Physician Documentation [facility] Name: Jill Newsome Age: 73 yrs Sex: Female : 1950 Arrival Date: 03/28/2024 Time: 15:46 Bed 25 Private MD: ED Physician Latrell Nguyen HPI: 03/28 18:39 This 73 yrs old Female presents to ER via Ambulatory with complaints of kb Urinary Problem. 18:39 Pt is a 73 year old female who presents for difficulty urinating that started kb yesterday. states she is only able to urinate small amounts at a time, but feels like her bladder is full. Denies any precipitating events/symptoms. Denies fever, abd pain. Historical: - Allergies: 15:57 No Known Allergies; ph - PMHx: 15:57 Anxiety; Depression; Diabetes - NIDDM; GERD; High Cholesterol; Hypertension; Myocardial ph infarction; - PSHx: 15:57 cardiac stents; hysterectomy; ph ROS: 18:37 Constitutional: As per HPI kb Exam: 18:37 Constitutional: This is a well developed, well nourished patient who is awake, alert, kb and in no acute distress. Head/Face: Normocephalic, atraumatic. ENT: Moist Mucous membranes Cardiovascular: Regular rate Respiratory: Respirations even and unlabored. No increased work of breathing. Talking in full sentences Abdomen/GI: Soft, non-tender. No distention Skin: Warm, dry with normal turgor. Normal color. MS/ Extremity: Pulses equal, no cyanosis. Neurovascular intact. Full, normal range of motion. Neuro: Awake and alert, GCS 15, oriented to person, place, time, and situation. Vital Signs: 15:55 BP 163 / 80; Pulse 93; Resp 18; Temp 97.9; Pulse Ox 100% on R/A; Weight 69.4 kg; Height ph 5 ft. 4 in. ; 18:17 BP 144 / 94; Pulse 86; Resp 16; Pulse Ox 96% on R/A; jb4 19:36 BP 144 / 88; Pulse 84; Resp 16; Pulse Ox 100% ; jb4 22:48 BP 125 / 56; Pulse 88; Resp 16; Pulse Ox 98% on R/A; jb4 15:55 Body Mass Index 26.26 (69.40 kg, 162.56 cm) ph MDM: 15:53 Medical Screening Exam initiated kb 18:38 Differential diagnosis: uti, pyelonephritis, kidney stone. Data reviewed: vital signs, kb nurses notes. Consideration of Admission/Observation Patient was admitted/placed on observation. Escalation of care including admission/observation considered. 22:16 ED course: Discussed case with hospitalist who saw the patient. Hospitalist request kb consult to cardiology due to recent stent placement, on Wednesday, by Dr. Flores at [facility] and patient is currently on Brilinta and wearing a lifepak. Dr. Flores consulted and recommends transfer back to [facility].. 22:18 Counseling: I had a detailed discussion with the patient and/or guardian regarding the kb historical points, exam findings, and any diagnostic results supporting the discharge/admit diagnosis, lab results, radiology results, the need to transfer to another facility, for higher level of care. ED course: Discussed case with Dr. Hensley, emergency physician at [facility] who accepts patient for transfer. Dr. Hensley wanted urology consulted as well, spoke to urologist who states they are on auto accept. . 03/28 16:58 Order name: CBC with Diff; Complete Time: 17:22 kb 03/28 16:58 Order name: CMP; Complete Time: 17:37 kb 03/28 16:58 Order name: Lipase; Complete Time: 17:37 kb 03/28 16:58 Order name: Urinalysis w/ reflexes; Complete Time: 18:49 kb 03/28 18:50 Order name: Urine Culture EDNH 03/28 16:58 Order name: CT Stone Protocol; Complete Time: 17:44 kb 03/28 16:58 Order name: IV Saline Lock; Complete Time: 17:17 kb 03/28 16:58 Order name: Labs collected and sent; Complete Time: 17:17 kb 03/28 18:20 Order name: Flores; Complete Time: 18:20 jb4 Administered Medications: 22:45 Drug: Rocephin IV 1 grams IV at calculated rate once; Given slow IV push per pharmacy jb4 instructions Route: IV; Rate: calculated rate; Site: left antecubital; 22:50 Follow up: Response: No adverse reaction; IV Status: Completed infusion; IV Intake: [id number] Disposition Summary: 03/28/24 22:19 Transfer Ordered Notes: Transfer Location: [facility] kb Reason: Higher level of care kb Condition: Stable(03/28/24 22:19) kb Problem: new(03/28/24 22:19) kb Symptoms: are unchanged(03/28/24 22:19) kb Accepting Physician: Dr Hensley(03/28/24 23:33) jb4 Diagnosis - Cystitis, unspecified with hematuria - Emphysematous(03/28/24 22:19) kb Forms: - Medication Reconciliation Form kb - SBAR form kb Signatures: Dispatcher [employer] EDMS Tricia Moscoso, PLANT SECURITY GUARD-C Melissa Jesus RN RN Yoly Dick RN RN Zaki Tellez RN RN jb4 Corrections: (The following items were deleted from the chart) 18:20 16:58 Bladder Scanner ordered. estephania jb4 19:35 18:29 Telemetry/MedSurg (Inpatient) kb cg 19:35 18:29 kb cg 21:41 18:38 Management of patient was discussed with the following: Hospitalist: Hospitalistestephania pt accepted for admission under Dr Garcia. kb 21:41 18:38 Counseling: I had a detailed discussion with the patient and/or guardian estephania regarding the historical points, exam findings, and any diagnostic results supporting the discharge/admit diagnosis, lab results, radiology results, the need for further work-up and treatment in the hospital, kb 21:41 18:29 Inpatient Admission kb kb 21:41 18:29 Joe Garcia kb 21:41 18:29 Stable kb kb 21:41 18:29 new kb kb 21:41 18:29 are unchanged kb kb 21:41 18:29 Standard kb kb 21:41 18:29 Cystitis, unspecified with hematuria - Emphysematous kb kb 21:41 19:35 [facility] ER HOLD cg kb 21:41 19:35 ERHOLD- cg kb 23:33 22:19 Dr Hensley kb jb4
[2024-03-28 18:40] LABS: Specific Gravity 1.015 (1.005-1.030); Sqamous Epithelial None Seen /HPF (None Seen); Urine Bacteria <20 /HPF (<20); Urine Bilirubin NEGATIVE (Negative); Urine Blood 3+ (OVER) (Negative); Urine Clarity Extremely Turbid (Clear); Urine Color Light-Red (Yellow); Urine Culture Reflex Order REFLEXED; Urine Glucose 4+ (Over) (Negative); Urine Ketones NEGATIVE (Negative); Urine Microscopic Reflex YN ORDER UMIC; Urine Nitrite NEGATIVE (Negative); Urine Protein 2+ (Negative); Urine RBC >50 /HPF (None Seen); Urine Urobilinogen Normal (Normal); Urine WBC >50 /HPF (<5)
[2024-03-28] MEDS ORDERED: CEFTRIAXONE 1000 MG/VIAL ONE (22:20)
[2024-03-29 00:24] VITALS: TEMP 97.9
[2024-03-29 00:28] VITALS: BP 125/56; O2SAT 98
== END 2024-03-28 23:33 | disposition short-term general hospital (02) ==
LOC: ER 15:46
DX: N30.81 Other cystitis with hematuria (principal); Z95.818 Presence of other cardiac implants and grafts
CPT/HCPCS: 87088; 85025; 81001; 87086; 36415; 83690; 80053; 76377; 74176; J0696

== ENCOUNTER 2024-05-25 10:50 | Day surgery (SDC) | payer MEDICAID ==
[2024-05-23 15:15] LABS: Absolute Eosinophils 0.3 K/uL (0-0.5); Absolute Monocytes 0.4 K/uL (0.1-1.3); Absolute Neutrophil 2.3 K/uL (1.8-8.0); Basophils % 0.9 % (0-1.3); Eosinophils % 6.9 % (0-4.4); Hematocrit 41.9 % (36.0-45.0); Hemoglobin 13.6 g/dL (12.0-15.0); Lymphocytes % 25.6 % (15.3-44.8); MCH 28.6 pg (27.0-35.0); MCHC 32.5 g/dL (32.0-36.0); MCV 88.2 fL (80-100); MPV 6.8 fL (7.6-11.3); Monocytes % 9.4 % (3.3-12.3); Neutrophils % 57.2 % (41.7-73.7); Platelets 245 thou/uL (152-406); RBC Red Blood Cell Count 4.75 M/uL (3.86-4.86); Red Cell Distribution Width 15.7 % (12.1-15.2)
[2024-05-23 15:27] LABS: PT Prothrombin Time 11.5 SECONDS (9.4-12.5); PTT, Activated Partial Thromb 37.9 SECONDS (24.3-36.9); Protime INR 1.03
[2024-05-23 15:30] LABS: Anion Gap 7.8 mEq/L (5.0-15.0); Potassium 3.8 mEq/L (3.5-5.1)
[2024-05-25] MEDS ORDERED: NA CHLORIDE 0.9% 500 ML ONE (11:34)
[2024-05-25] MEDS ORDERED: HEPA 1000U/500MLS 1,000 UNIT/500 ML BAG IV ONE (12:32)
[2024-05-25] MEDS ORDERED: VERAPAMIL HCL 10 MG/4 ML VIAL IV ONE (12:32)
[2024-05-25] MEDS ORDERED: HEPARIN 10,000 UNIT/10 ML VIAL IV ONE (12:32)
[2024-05-25] MEDS ORDERED: MIDAZOLAM HCL 2 MG/2 ML INJ ONE (12:33)
[2024-05-25] MEDS ORDERED: TICAGRELOR 90 MG TABLET PO ONE (12:33)
[2024-05-25] MEDS ORDERED: CLOPIDOGREL 75 MG TABLET ONE (12:33)
[2024-05-25] MEDS ORDERED: HEPARIN 5000 UNIT/ML 1 ML VIAL ONE (12:33)
[2024-05-25] MEDS ORDERED: ATROPINE SULF 1 MG/10 ML SYR IV ONE (12:33)
[2024-05-25] MEDS ORDERED: ASPIRIN 325 MG TAB ONE (12:34)
[2024-05-25] MEDS ORDERED: FENTANYL CITR 100 MCG/2 ML ONE (12:34)
[2024-05-25] MEDS ORDERED: LIDOCAINE 1% 20 ML MDV ONE (12:41)
[2024-05-25 13:17] VITALS: TEMP 97.1
[2024-05-25] MEDS ORDERED: ONDANSETRON 4 MG/2 ML VIAL ONE (14:16)
[2024-05-25 17:36] VITALS: O2SAT 100
[2024-05-25 18:04] VITALS: BP 107/55
--- NOTE | 2024-05-29 11:03 | EKG ---
Test Date: 2024-05-23 Test Time: 15:56:46 Research And Development Researcher: JOHN MEASUREMENT RESULTS: Intervals: Rate: 73 WV: 224 QRSD: 124 QT: 414 QTc: 456 [place]: P: 54 WV: 224 QRS: -38 T: 105 INTERPRETIVE STATEMENTS: Sinus rhythm with 1st degree AV block Left axis deviation Left ventricular hypertrophy with QRS widening and repolarization abnormality Cannot rule out Septal infarct, age undetermined Abnormal ECG Compared to ECG 04/07/2024 10:50:24 First degree AV block now present Left-axis deviation now present Ventricular premature complex(es) no longer present Myocardial infarct finding still present Electronically Signed On 05-29-24 10:57:30 CRATE REPAIRER by Armand Solomon
--- NOTE | 2024-06-12 23:19 | OP ---
Date of Procedure: 05/25/2024 Surgeon: PEMA JENSEN Procedures Performed: 1.Selective coronary angiogram. 2.Left heart catheterization. 3.Shockwave lithotripsy of mid LAD severe stenosis. I used a 3.5 shockwave balloon. 4.PCI of mid LAD severe stenosis. I used a 3.0 x 60 mm Synergy drug-eluting stent. Indication: Unstable angina. Access: 1.Right radial artery 6-Martiniquais closed with TR band. 2.Right common femoral artery 6-Martiniquais closed with Mynx closure device. Complications: None. Bleeding: Less than 50 mL. Anesthesia: Total sedation time was 1 hour and 10 minutes. Used fentanyl and Versed. Description Of Procedure: After risks, benefits, and alternatives were explained, the patient agreed to procedure and signed informed consent. The patient was brought into cardiac catheterization labo ratory, prepped and draped in a sterile fashion. Then, I accessed right radial artery using micropun cture kit and ultrasound guidance, placed 6-Martiniquais Mccracken sheath, and tried to obtain coronary [place] ogram through the radial; however, there was significant tortuosity and could not obtain good view, s o I accessed the right common femoral artery using micropuncture kit, ultrasound guidance, and fluoro scopy and placed 6-Martiniquais Mccracken sheath and took 6-Martiniquais JL4 catheter into the aortic root over J- wire, engaged left main, took standard views, and exchanged for 6-Martiniquais JR4 catheter, engaged the RC A and took standard views, and then gave systemic heparin to assure ACT level above 250 throughout th e procedure and took 6-Martiniquais EBU3.5 guide into the aortic root, engaged left main, took Runthrough w meredith into the left main and the LAD, placed it distally, and we gave systemic heparin to assure ACT le moises above 250 throughout this procedure and took a 3.5 shockwave balloon and did shockwave lithotrips y of the mid LAD severe in-stent restenosis and then subsequently followed by placement of a stent wi 3.0 x 60 mm Synergy drug-eluting stent, excellent results, and then removed the wire. Final angio gram was satisfactory. I removed the guide and the sheath. A Mynx closure device was used for closu re of the groin and the radial sheath was removed and TR band was placed with good hemostasis. Findings: 1.Left main widely patent stent. 2.LAD patent proximal stent and the stent in the midsegment. In the mid LAD, there is 80% stent res tenosis, status post shockwave lithotripsy and PCI as above. Mid LAD free of disease. Distal LAD, t here is 60% to 70% stenosis, but very small diagonal branches with luminal irregularities. 3.Left circumflex ostial 60% and then widely patent stent into the OM. The rest of the circumflex i s normal. 4.RCA; it is a dominant circulation proximal 40%, mid 20%, and the PDA has 90% in 2 consecutive lesi ons, but the vessel is very small less than 1 mm. Conclusion: 1.Severe mid LAD in-stent restenosis, status post successful shockwave lithotripsy and PCI as above. 2.Severe disease of the PDA, which is not amenable to intervention and moderate disease of the dista l LAD. Plan: Aspirin, Plavix, high-dose statin. Follow up with me in the office in 1-2 weeks post procedmj finley SR/CLAUDE Voice ID: [id number] Report ID: [id number]
== END 2024-05-25 18:00 | disposition home or self-care (01) ==
LOC: CCL 10:50
PROVIDERS: ATTEND Internal Medicine
DX: I25.110 Atherosclerotic heart disease of native coronary artery with unstable angina pectoris (principal); T82.855A Stenosis of coronary artery stent, initial encounter; I35.0 Nonrheumatic aortic (valve) stenosis; I70.223 Atherosclerosis of native arteries of extremities with rest pain, bilateral legs; I65.29 Occlusion and stenosis of unspecified carotid artery; I11.0 Hypertensive heart disease with heart failure; I50.20 Unspecified systolic (congestive) heart failure; E11.9 Type 2 diabetes mellitus without complications; E78.5 Hyperlipidemia, unspecified; F17.210 Nicotine dependence, cigarettes, uncomplicated; Z79.02 Long term (current) use of antithrombotics/antiplatelets; Z79.82 Long term (current) use of aspirin; Z79.899 Other long term (current) drug therapy
CPT/HCPCS: 36415; 76937; 80048; 82947; 85025; 85347; 85610; 85730; 92928; 92972; 93005; 93454; 99152; 99153; C1725; C1760; C1893; C9600; J0461; J1644; J2003; J2250; J2405; J3010; J7040; Q9966

== ENCOUNTER 2024-07-08 09:19 | Emergency (ER) | payer MEDICAID, OTHER ==
--- OUTSIDE RECORDS SUMMARY | 2024-07-08 09:26 | XMS REPORT | Continuity of Care Document ---
Author Name Unknown Address [address] [facility] [place] [address] [facility] thconnect Address [address] [facility] [address] [place] [address] Care Team Providers Care Ophthalmic Nurse Name Role Phone IOANA PINEDA Primary Care Physician Unavailab sonia No, PCP Attending Clinician Unavailable Ioana Pineda Attending Clinician Unavailable CHRISTOPH HUITRON Attending Clinician Unavailable IOANA PINEDA Attending Clinician Unavailable LAB90 Attending Clinician Unavailable ALISON COTA Attending Clinician Unavailable JUSTIN GARVIN Attending Clinician Unavailab sonia STEELE MD Attending Clinician Unavailab Errol Erickson Attending Clinician Unavailable PROVIDER, CAMPAIGNS Attending Clinician UnavailBARNEY Perez Attending Clinician Unavailable Kojo NURSE FIRST AID, Barney Attending Clinician [phone] [facility] Attending Clinician Unavailable TONJA ESCOBEDO Attending Clinician Unavailabl CAROLA Acevedo Attending Clinician Unavailab ASHTYN العراقي Attending Clinician Unavaila MARICHUY Espinoza Attending Clinician Unavailable SCOT SERNA Attending Clinician Unavailable [email or web address] Attending Clinician Unavaila RAFAELA Freitas Attending Clinician UnaRADHA Machado Attending Clinician UnavailGRACIE Spivey Attending Clinician Unavailable GREGORIO THOMPSON Attending Clinician Unavailable Briana DORSEY, Radha Attending Clinician [phone] Doctor Unassigned, Tolar Attending Clinician U lukasz Baker MD, Tre Brooks Attending Clinician [phone] Olayinka Santiago Attending Clinician [phone] Lab, Adc Fam Pob I Attending Clinician Unavailab OLAYINKA Gandhi Attending Clinician Unavailable Ioana Pineda Admitting Clinician Unavailable Errol Bautista Admitting Clinician Unavailable Physician, No Primary or Family Admitting Clinic lynnette Unavailable KOJO, BARNEY Admitting Clinician Unavailable [email or web address]_S Admitting Clinician UnavailRADHA Sanchez Admitting Clinician Unavailabl umair Payers Payer Name Policy Type Policy Number Effective Date Expirati on Date Source ERIS [id number] 2021 00:00:00 TREVOR GONZALES HMO-POS 16 [id number] 00:00:00 ERISANA/O 2 [id number] 2024 00:00:00 MORENITA WOODALL [id number] 2022 00:00:00 [facility] SAN IPA - [place] [employer] (MEDICARE REPLACEMENT HMO) [id number] [facility] [place] ([place]) [id number] [facility] (MEDICARE REPLACEMENT/[place] GE - HMO) [id number] [facility] [id number] 00:00:00 Problems Condition Name Condition Details Condition Category Status Onset Date Resolution Date Last Treatment Date Treating Clinician Comments Source Type 2 diabetes mellitus Type 2 Diabetes Mellitus Problem Active 2-20 00:00: 00 [facility] Postmenopa usal osteopenia Postmenopa usal Osteopenia Problem Active 2-20 00:00: 00 [facility] At risk for falls At risk for falls Disease Active 2023-05 0-17 00:00: 00 [facility] - Externa c[facility] Repeated falls Repeated falls Disease Active 2023-05 017 00:00: 00 [facility] - Externa l Hospital discharge follow-up Hospital discharge follow-up Disease Active 8-16 00:00: 00 [facility] - Externa catherine Status post fall Status post fall Disease Active 816 00:00: 00 [facility] - Externa l Fracture of right clavicle Fracture of right clavicle Disease Active 8-16 00:00: 00 [facility] - Externa catherine Cellulitis of right arm Cellulitis of right arm Disease Active 816 00:00: 00 [facility] - Extern[facility] l Tobacco use Tobacco use Disease Active 4-17 00:00: 00 [facility] - [facility] l Atrophic vaginitis Atrophic Vaginitis Problem Active 2022-05 0-26 00:00: 00 [facility] Overactive urinary bladder Overactive Urinary Bladder Problem Active 2022-05 0-26 00:00: 00 [facility] Hypothyroi dism Hypothyroi dism Disease Active 2022-05 0-12 00:00: 00 [facility] Elizaldeold - Externa catherine DM type 2 with diabetic mixed hyperlipid emia (multi HCC) DM type 2 with diabetic mixed hyperlipid emia (multi HCC) Disease Active 8-16 00:00: 00 [facility] - Externa l Delayed gastric emptying Delayed gastric emptying Disease Active 8-16 00:00: 00 [facility] Seybold - Externa l Immunodefi ciency due to conditions classified elsewhere (multi HCC) Immunodefi ciency due to conditions classified elsewhere (multi HCC) Disease Active 06-23 00:00: 00 [facility] - Externa catherine Chronic obstructiv e pulmonary disease, unspecifie d COPD type (multi HCC) Chronic obstructiv e pulmonary disease, unspecifie d COPD type (multi HCC) Disease Active 2021-05 00:00: 00 [facility] Ko Externa catherine Recurrent major depressive disorder, in partial remission Recurrent major depressive disorder, in partial remission Disease Active 2021-05 00:00: 00 [facility] Encounter for screening for vascular disease Encounter for screening for vascular disease Disease Active 01-21 00:00: 00 [facility] - Externa catherine Type 2 diabetes mellitus without complicati on, without long-term current use of insulin (multi HCC) Type 2 diabetes mellitus without complicati on, without long-term current use of insulin (multi HCC) Disease Active 01-21 00:00: 00 [facility] - Externa catherine Hyperlipid emia Hyperlipid emia Disease Active 01-21 00:00: 00 [facility] - Externa catherine Primary hypertensi on Primary hypertensi on Disease Active 01-21 00:00: 00 [facility] - Externa catherine OAB (overactiv e bladder) OAB (overactiv e bladder) Disease Active 01-21 00:00: 00 [facility] - Ex[facility] Gastroesop hageal reflux disease without esophagiti s Gastroesop hageal reflux disease without esophagiti s Disease Active 01-21 00:00: 00 [facility] - Externa catherine Atheroscle rotic PVD with intermitte nt claudicati on Atheroscle rotic PVD with intermitte nt claudicati on Disease Active 01-21 00:00: 00 [facility] - Extern[facility] Vitamin D deficiency Vitamin D deficiency Disease Active 01-21 00:00: 00 [facility] Ex[facility] Superficia l pain on intercours e Superficia l Pain on Intercours e Problem Active 5-11 00:00: 00 [facility] Urge incontinen ce of urine Urge Incontinen ce of Urine Problem Active 2-09 00:00: 00 [facility] Nicotine dependence Nicotine Dependence Problem Active 06-06 00:00: 00 [facility] Essential hypertensi on Essential Hypertensi on Problem Active 06-06 00:00: 00 [facility] Genuine stress incontinen ce Genuine Stress Incontinen ce Problem Active 06-06 00:00: 00 [facility] Family history of breast cancer Family History of Breast Cancer Problem Active 06-06 00:00: 00 [facility] Fibrocysti c change of right breast Fibrocysti c Change of Right Breast Problem Active 06-06 00:00: 00 [facility] Gynecologi joselyn examinatio n abnormal Gynecologi joselyn Examinatio n Abnormal Problem Active 06-06 00:00: 00 [facility] No known active problems No known active problems Disease [facility] [id number] Detrusor instabilit y Problem [facility] Urgent desire to urinate Urinary urgency Problem [facility] [id number] Closed displaced fracture of shaft of right clavicle, initial encounter Problem [facility] [id number] Pain of right clavicle Problem [facility] Spasm of bladder Bladder spasms Problem [facility] [id number] Urinary incontinen ce, unspecifie d type Problem [facility] OAB (overactiv e bladder) OAB (overactiv e bladder) Problem [facility] [id number] Microhemat uria Problem [facility] [id number] Gross hematuria Problem [facility] [id number] Recurrent UTI Problem [facility] [id number] Sciatica of left side Problem [facility] [id number] Sciatica of right side Problem [facility] [id number] Piriformis syndrome, right Problem [facility] [id number] Piriformis syndrome of left side Problem [facility] Allergies, Adverse Reactions, Alerts Allergy Name Allergy Type Status Severity Reaction(s) Onset Date Inactive Date Treating Clinician Comments Source No Known Allergie s DA Active U 2023-05 00:00: 00 [facility] KNOWN ALLERGIE S Drug Class Active [facility] Social History Social Habit Start Date Stop Date Quantity Comments Source Exposure to SARS-CoV-2 (event) Not sure [facility] Sexual orientation U [facility] Sex Assigned At [facility] Gender identity Claire San - External ASSERTION Not [facility] San - External Cigarettes smoked current (pack per day) - Reported 2024-06-02 00:00:00 2024-06-02 00:00:00 [facility] - External Cigarette pack-years 2024-06-02 00:00:00 2024-06-02 00:00:00 [facility] - External Tobacco use and exposure 2024-06-02 00:00:00 2024-06-02 00:00:00 Smokeless tobacco non-user [facility] - External Alcoholic beverage intake 2024-06-02 00:00:00 2024-06-02 00:00:00 Lifetime non-drinker (finding) [facility] - External History of tobacco use 1970-07-26 00:00:00 2023-12-23 00:00:00 Cigarette Smoker [facility] - External Alcohol intake 2023-06-30 00:00:00 2023-06-30 00:00:00 Lifetime non-drinker (finding) [facility] - External History of Social function 2023-01-21 00:00:00 2023-01-21 00:00:00 [facility] - External Sex 2022-01-06 07:42:56 2022-01-06 07:42:56 Female (finding) [facility] - External Smoking Status Start Date Stop Date Source Former Smoker [email or web address] Smokes tobacco daily 2024-03-02 00:00:00 [facility] San - External Tobacco smoking consumption unknown [facility] Medications Ordered Medication Name Filled Medication Name Start Date Stop Date Current Medication? Ordering Clinician Indication Dosage Frequency Signature (SIG) Comments Components Source Nitrofurant oin Monohyd Macro 100 MG Nitrofurant oin Monohyd Macro 100 MG 2- 00:00: 00 No 1{capsu le_with _food} QD Nitrofuran toin Monohyd Macro 100 MG levoFLOXaci n 500 MG levoFLOXaci n 500 MG 2- 00:00: 00 No 1{table t} QD levoFLOXac in 500 MG Amlodipine Besylate (NORVASC) 5 MG oral Tablet 06-02 08:56: 30 06-02 00:00 :00 No 1{tbl} QD Take 1 tablet (5 mg total) by mouth daily. Becca alexander Metformin HCl 500 MG oral Tablet 06-02 08:56: 30 06-02 00:00 :00 No TAKE ONE (1) TABLET(S) BY MOUTH EVERY MORNING AND EVENING WITH MEALS. Becca alexander Tramadol HCl (ULTRAM) 50 MG oral Tablet 06-02 08:56: 30 06-02 00:00 :00 No TAKE ONE (1) TABLET(S) BY MOUTH EVERY FOUR HOURS NEEDED. Becca alexander Lactulose (Constulose ) 10 GM/15ML oral Solution 06-02 08:37: 42 Yes TAKE 30 ML(S) BY MOUTH ONCE DAILY. Becca alexadner linaCLOtide (Linzess) 145 MCG oral Capsule 06-02 08:37: 42 Yes 145ug QD Take 1 capsule (145 mcg total) by mouth daily. Becca alexander Guaifenesin (Mucinex) 600 MG oral Tablet 12 Hour Sustained Release 06-02 08:35: 57 Yes 600mg Q.5D Take 1 tablet (600 mg total) by mouth 2 times daily. Becca alexander Cetirizine (ZYRTEC) 10 MG oral Tablet 06-02 08:35: 57 Yes 10mg QD Take 1 tablet (10 mg total) by mouth daily. Becca alexander Calcium Carb-Cholec alciferol (CALCIUM 500 +D OR) 06-02 08:35: 57 Yes Take by mouth. Becca alexander Tirzepatide (Mounjaro) 10 MG/0.5ML subcutaneou s Solution Auto-inject or 06-02 08:35: 57 06-02 00:00 :00 No Inject 1 injection into the skin once a week for 4 weeks Becca alexander Microlet Lancets does not apply Misc 06-02 08:32: 45 06-02 00:00 :00 No [id number] See Admin Instructio ns Becca alexander Lisinopril 2.5 MG oral Tablet 06-02 00:00: 00 Yes [id number] 2.5mg QD Take 1 tablet (2.5 mg total) by mouth daily. Becca alexander Fluticasone Furoate-Sylvia anterol 100-25 MCG/ACT inhalation AEROSOL POWDER, BREATH ACTIVATED 06-02 00:00: 00 Yes [id number] 1{puff} QD Inhale 1 puff into the lungs daily. Becca alexander Empaglifloz in (Jardiance) 25 MG oral Tablet 06-02 00:00: 00 Yes [id number] 3 25mg QD Take 1 tablet (25 mg total) by mouth daily. Becca alexander Nicotine 7 MG/24HR transdermal PATCH 24 HR 05-26 16:32: [address] ONE (1) PATCH ONTO THE SKIN EVERY 24 HOURS. Becca alexander Lisinopril 2.5 MG oral Tablet 2023-05 00:00: 00 06-02 00:00 :00 No 2.5mg QD Take 1 tablet (2.5 mg total) by mouth daily. Becca alexander Atorvastati n Calcium 40 MG oral Tablet 2023-05 00:00: 00 Yes 40mg QD Take 1 tablet (40 mg total) by mouth daily. Becca alexander Metoprolol Succinate 25 MG oral TABLET SR 24 HR 2023-05 00:00: 00 Yes 25mg QD Take 1 tablet (25 mg total) by mouth daily. Becca alexander Farxiga 10 MG oral Tablet 2023-05 00:00: 00 06-02 00:00 :00 No 1{tbl} QD Take 1 tablet by mouth daily. Becca alexander Brilinta 90 MG oral Tablet 2023-05 00:00: 00 06-02 00:00 :00 No 1{tbl} Take 1 tablet by mouth every 12 hours. Becca alexander Lisinopril 10 MG oral Tablet 2023-05 00:00: 00 06-02 00:00 :00 No 10mg QD Take 1 tablet (10 mg total) by mouth daily. Becca alexander Microlet Lancets does not apply [facility] 2023-05 08:07: 30 Yes [id number] See Admin Instructio ns Becca alexander Guaifenesin (Mucinex) 600 MG oral Tablet 12 Hour Sustained Release 2023-05 08:07: 30 Yes 600mg Q.5D Take 1 tablet (600 mg total) by mouth 2 times daily. Becca alexander Cetirizine (ZYRTEC) 10 MG oral Tablet 2023-05 08:06: 26 Yes 10mg QD Take 1 tablet (10 mg total) by mouth daily. Becca alexander Trospium Chloride 20 MG oral Tablet 2023-0516 00:00: 00 06-02 00:00 :00 No [id number] Becca alexander KCL (KLOR-CON M20) tablet 40 mEq 2023-05 21:30: 00 02-26 21:31 :00 No 40meq 40 mEq, Oral, ONCE, 1 dose, On 02/27/24 at 1630, RAUDEL [facility] rosuvastati n calcium (CRESTOR ORAL) 2023-05 15:26: 24 Yes Take by mouth. [facility] Microlet Lancets does not apply [facility] 2023-05 13:55: 43 Yes [id number] See Admin Instructio ns Becca alexander Guaifenesin [...] 2 MG/DOSE, (Ozempic, 2 MG/DOSE,) subcutaneou s 2023-05 00:00: 00 Yes [id number] 3 2mg Q1W Inject 2 mg into the skin once a week. Becca alexander Rosuvastati n Calcium 20 MG oral Tablet 01-16 00:00: 00 06-02 00:00 :00 No [id number] 20mg QD take one (1) tablet(s) by mouth once a day. Becca alexander Comirnaty 30 MCG/0.3ML intramuscul ar Suspension Prefilled Syringe 12-30 08:34: 52 No .3mL Inject 0.3 mL into the muscle once. Becca alexander Nicotine 7 MG/24HR transdermal PATCH 24 HR 12-30 08:34: 18 12-30 00:00 :00 No [id number] 1{patch } Place 1 patch onto the skin every 24 hours. Becca alexander Microlet Lancets does not apply Misc 12-29 16:05: 01 Yes [id number] See Admin Instructio ns Becca alexander Guaifenesin [...] MEALS. Oral for 45 Days Becca alexander Doxycycline Hyclate 100 MG oral Tablet 12-29 00:00: 00 03-02 00:00 :00 No [id number] 100mg Q.5D Take 1 tablet (100 mg total) by mouth 2 times daily Please take medication with food. Becca alexander Tramadol HCl (ULTRAM) 50 MG [...] Solution Pen-injecto r 10-23 00:00: 00 Yes [id number] 3 Inject 1 injection into the skin once a week for 4 weeks Becca alexander Nitrofurant oin Monohyd Macro 100 MG oral Capsule 17 08:08: 15 08-31 00:00 :00 No 100mg Take 1 capsule (100 mg total) by mouth 2 times daily. Becca alexander Microlet Lancets does not apply Misc 08-31 08:07: 47 Yes [id number] See Admin Instructio ns Becca alexander Nicotine 7 MG/24HR transdermal PATCH 24 HR 08-31 08:07: 47 Yes [id number] 1{patch } Place 1 patch onto the skin every 24 hours. Becca alexander Tirzepatide (Mounjaro) 10 MG/0.5ML subcutaneou s Solution Pen-injecto r 08-31 00:00: 00 Yes [id number] 3 10mg Inject 0.5 mL (10 mg total) into the skin once a week. Becca alexander Tirzepatide (Mounjaro) 10 MG/0.5ML subcutaneou s Solution Pen-injecto r 08-20 00:00: 00 08-31 00:00 :00 No [id number] 3 10mg Inject 0.5 mL (10 mg total) into the skin once a week. Becca alexander Amlodipine Besylate (NORVASC) 5 MG oral Tablet 08-03 00:00: 00 12-30 00:00 :00 No [id number] 5mg QD Take 1 tablet (5 mg total) by mouth daily. Becca alexander Bupropion HCL XL 150 MG OR TB24 14 00:00: 00 08-31 00:00 :00 No 150mg Take 1 tablet (150 mg total) by mouth daily. Becca alexander Levothyroxi ne Sodium 50 MCG Levothyroxi ne Sodium 50 MCG -12 00:00: 00 No QD Levothyrox ine Sodium 50 MCG Constulose 10 GM/15ML Constulose 10 GM/15ML -12 00:00: 00 No 15{ml_a s_neede d} QD Constulose 10 GM/15ML Lubiproston e 24 MCG Lubiproston e 24 MCG 3-12 00:00: 00 No BID Lubiprosto ne [...] Amoxicillin -Pot Clavulanate 875-125 MG oral Tablet 07-20 00:00: 00 08-31 00:00 :00 No [id number] 1{tbl} Take 1 tablet by mouth 2 times daily. Becca alexander Microlet Lancets does not apply Misc 06-30 08:25: 05 Yes [id number] See Admin Instructio ns Becca alexander Tirzepatide (Mounjaro) 10 MG/0.5ML subcutaneou s Solution Pen-injecto r 06-30 00:00: 00 Yes [id number] 3 10mg Inject 0.5 mL (10 mg total) into the skin once a week. Becca alexander Metformin HCl 500 MG oral Tablet 06-30 00:00: 00 Yes [id number] 3 TAKE ONE (1) TABLET(S) BY MOUTH EVERY MORNING AND EVENING WITH MEALS.. Becca alexander Doxycycline Hyclate 100 MG oral Tablet 06-30 00:00: 00 Yes [id number] 100mg Take 1 tablet (100 mg total) by mouth 2 times daily. Becca alexander Bupropion HCL XL 150 MG OR TB24 06-28 00:00: 00 06-30 00:00 :00 No 150mg Take 1 tablet (150 mg total) by mouth daily. Becca alexander Lisinopril 40 MG oral Tablet 06-18 00:00: 00 06-02 00:00 :00 No [id number] 40mg QD Take 1 tablet (40 mg [...] not apply Misc 05-31 15:48: 42 Yes [id number] See Admin Instructio ns Becca alexander Tirzepatide (Mounjaro) 10 MG/0.5ML subcutaneou s Solution Pen-injecto r 05-31 00:00: 00 Yes [id number] 3 10mg Inject 0.5 mL (10 mg total) into the skin once a week. Becca alexander Lubiproston e 24 MCG oral Capsule 05-31 00:00: 00 08-31 00:00 :00 No [id number] 24ug Take 1 capsule (24 mcg total) by mouth in the morning and 1 capsule (24 mcg total) in the evening. Take with meals. Becca alexander Bupropion HCL XL 150 MG OR TB24 - 00:00: 00 05-31 00:00 :00 No 150mg Take 1 tablet (150 mg total) by mouth daily. Becca alexander Nicotine 7 MG/24HR transdermal PATCH 24 HR 2022-05 00:00: 00 05-31 00:00 :00 No 1{patch [...] Macro (Macrobid) 100 MG oral Capsule 2022-05 016 00:00: 00 05-31 00:00 :00 No [id number] 100mg Take 1 capsule (100 mg total) by mouth 2 times daily. Becca alexander Metformin HCl 500 MG oral Tablet 2022-05 00:00: 00 Yes TAKE ONE (1) TABLET(S) BY MOUTH EVERY MORNING AND EVENING WITH MEALS. Becca alexander linaCLOtide (Linzess) 145 MCG oral Capsule 2022-05 00:00: 00 05-31 00:00 :00 No [id number] 145ug Take 1 capsule (145 mcg total) by mouth daily. Becca alexander Liraglutide (Victoza) 18 MG/3ML subcutaneou s Solution Pen-injecto r 2022-05 09:09: 30 02-25 00:00 :00 No as directed Subcutaneo us Becca alexander Microlet Lancets does not apply [facility] 2022-05 08:40: 53 Yes [id number] See Admin Instructio ns Becca alexander Metformin HCl 500 MG oral Tablet 2022-05 08:40: 53 02-25 00:00 :00 No every 24 hours. Becca alexander Nicotine 21-14-7 MG/24HR transdermal Kit 2022-0512 00:00: 00 Yes [id number] 1{patch } Place 1 patch onto the skin every 24 hours. Becca alexander Lubiproston e 24 MCG oral Capsule 2022-05 00:00: 00 Yes [id number] 24ug Take 1 capsule (24 mcg total) by mouth in the morning and 1 capsule (24 mcg total) in the evening. Take with meals. Becca alexander Microlet Lancets does not apply Misc 01-21 13:27: 00 Yes [id number] See Admin Instructio ns Becca alexander Semaglutide (2 mg/dose) 8 mg/3 mL SQ Solution Pen-Injecto r 01-21 00:00: 00 05-31 00:00 :00 No [id number] 3 2mg Inject 2 mg into the skin once a week. Becca alexander Oxybutynin Chloride 5 MG oral TABLET SR 24 HR 01-17 00:00: 00 05-31 00:00 :00 No 5mg Take 1 tablet (5 mg total) by mouth daily. Becca alexander Rosuvastati n Calcium 20 MG oral Tablet 01-15 00:00: 00 Yes [id number] 20mg QD TAKE ONE (1) TABLET(S) BY [...] 4 mg/3 mL SQ Solution Pen-Injecto r 09-15 00:00: 00 01-21 00:00 :00 No [id number] INJECT ONE (1) MG INTO THE SKIN ONCE A WEEK. Becca alexander Microlet Lancets does not apply Misc - 12:54: 06 Yes [id number] See Admin Instructio ns Becca alexander OZEMPIC (1 mg/dose) 4 mg/3 mL SQ Solution Pen-Injecto r 3-09 00:00: 00 Yes [id number] 1mg Inject 1 mg into the skin once a week Becca alexander Pantoprazol e Sodium 40 MG oral Tablet Delayed Response 3- 00:00: 00 Yes [id number] 40mg Take 1 tablet (40 mg total) by mouth daily Becca alexander Bupropion HCL XL 150 MG OR TB24 2-10 00:00: 00 Yes TAKE ONE (1) TABLET(S) BY MOUTH ONCE A DAY. Becca alexander OZEMPIC (0.25 or 0.5 mg/dose) 2 mg/1.5 mL SQ Solution Pen-Injecto r 1-24 00:00: 00 07-23 00:00 :00 No [id number] .5mg Inject 0.5 mg into the skin once a week Becca alexander Metformin HCl 500 MG oral Tablet -18 00:00: 00 Yes [id number] 500mg Take 1 tablet (500 mg total) by mouth in the morning and 1 tablet (500 mg total) in the evening. Take with meals. Becca alexander Sucralfate 1 g oral Tablet -18 00:00: 00 Yes [id number] 1g Take 1 tablet (1 g total) by mouth 4 times daily Becca alexander Pantoprazol e Sodium 20 MG oral Tablet Delayed Response 1-18 00:00: 00 07-23 00:00 :00 No 20mg Take 20 mg by mouth daily Becca alexander Amlodipine Besylate 5 MG oral Tablet 1-16 00:00: 00 Yes [id number] TAKE ONE (1) TABLET(S) BY MOUTH DAILY. Becca alexander Nitrofurant oin Monohyd Macro 100 MG oral Capsule 2021-05 2-14 00:00: 00 07-23 00:00 :00 No 1{capsu le} Take 1 capsule by mouth 2 times daily Becca Seybold - Externa l Plenvu 140 g oral Recon Soln 2021-05 00:00: 00 07-23 00:00 :00 No TAKE DIRECTED BY PHYSICIAN OFFICE. Becca Ko Externa l Microlet Lancets does not apply [facility] 2021-05 10:35: 37 Yes [id number] See Admin Instructio ns Becca San - Externa catherine Lisinopril 40 MG oral Tablet 2021-05 00:00: 00 Yes [id number] 40mg Take 1 tablet (40 mg total) by mouth daily Becca Patela actherine OZEMPIC (0.25 or 0.5 mg/dose) 2 mg/1.5 mL SQ Solution Pen-Injecto r 2021-05 00:00: 00 Yes [id number] .5mg Inject 0.5 mg into the skin once a week Becca Patela catherine Amlodipine Besylate 5 MG oral Tablet 2021-05 00:00: 00 Yes [id number] 5mg Take 1 tablet (5 mg total) by mouth daily Becca Patela catherine Microlet Lancets does not apply [facility] 2021-05 08:08: 06 Yes [id number] See Admin Instructio ns Becca San - Amandaa l Lisinopril 40 MG oral Tablet 2021-05 00:00: 00 Yes [id number] 40mg Take 1 tablet (40 mg total) by mouth daily Becca Patela catherine Pantoprazol e Sodium 20 MG oral Tablet Delayed Response 2021-05 00:00: 00 Yes [id number] 20mg Take 1 tablet (20 mg total) by mouth daily Becca Patela catherine OZEMPIC (0.25 or 0.5 mg/dose) 2 mg/1.5 mL SQ Solution Pen-Injecto r 2021-05 00:00: 00 Yes [id number] .25mg Inject 0.25 mg into the skin once a week Becca Ko Externa catherine Amlodipine Besylate 5 MG oral Tablet 2021-05 012 00:00: 00 Yes [id number] 5mg Take 1 tablet (5 mg total) by mouth daily Becca alexander Bupropion HCL XL 150 MG OR TB24 2021-05 00:00: 00 Yes 150mg Take 1 tablet (150 mg total) by mouth daily Becca alexander Nitrofurant oin Monohyd Macro (Macrobid) 100 MG oral Capsule 2021-05 00:00: 00 Yes [id number] 100mg Take 1 capsule (100 mg total) by mouth 2 times daily Becca alexander Escitalopra m Oxalate 5 MG oral Tablet 2021-05 00:00: 00 02-23 00:00 :00 No 5mg QD Take 1 tablet (5 mg total) by mouth daily. Becca alexander Lisinopril 10 MG oral Tablet 2021-05 00:00: 00 03-11 00:00 :00 No [id number] 10mg Take 1 tablet (10 mg total) [...] MG oral Tablet 01-21 00:00: 00 Yes [id number] 5mg Take 1 tablet (5 mg total) by mouth 2 times daily Becca alexander Rosuvastati n Calcium 20 MG oral Tablet 01-21 00:00: 00 Yes [id number] 20mg Take 1 tablet (20 mg total) by mouth daily Becca alexander Metformin HCl 500 MG oral Tablet 01-21 00:00: 00 Yes [id number] 500mg Take 1 tablet (500 mg total) by mouth in the morning and 1 tablet (500 mg total) in the evening. Take with meals. Becca alexander rosuvastcha n calcium (CRESTOR ORAL) 09-02 15:39: 05 Yes Take by mouth. [facility] metformin HCl (METFORMIN ORAL) 09-02 15:39: 05 Yes Take by mouth. [facility] liraglutide (VICTOZA 2-GENOVEVA SC) 09-02 15:39: 05 Yes inject under the skin. [facility] amlodipine besylate (AMLODIPINE ORAL) 09-02 15:39: 05 Yes Take by mouth. [facility] metformin HCl (METFORMIN ORAL) 09-02 10:39: 05 Yes Take by mouth. [facility] liraglutide (VICTOZA 2-GENOVEVA SC) 09-02 10:39: 05 Yes inject under the skin. [facility] Albuterol Sulfate HFA 108 (90 Base) MCG/ACT Albuterol Sulfate HFA 108 (90 Base) MCG/ACT No Albuterol Sulfate HFA 108 (90 Base) MCG/ACT Cefdinir 300 MG Cefdinir 300 MG No Cefdinir 300 MG albuterol sulfate HFA 90 mcg/actuati on aerosol inhaler INHALE TWO (2) PUFFS INTO THE LUNGS EVERY 6 HOURS NEEDED FOR WHEEZING. albuterol sulfate HFA 90 mcg/actuati on aerosol inhaler INHALE TWO (2) PUFFS INTO THE LUNGS EVERY 6 HOURS NEEDED FOR WHEEZING. No albuterol sulfate HFA 90 mcg/actuat ion aerosol inhaler INHALE TWO (2) PUFFS INTO THE LUNGS EVERY 6 HOURS NEEDED FOR WHEEZING. [facility] bupropion HCl SR 150 mg tablet,12 hr sustained-r elease TAKE ONE (1) TABLET BY MOUTH 2 TIMES DAILY. bupropion HCl SR 150 mg tablet,12 hr sustained-r elease TAKE ONE (1) TABLET BY MOUTH 2 TIMES DAILY. No bupropion HCl SR 150 mg tablet,12 hr sustained- release TAKE ONE (1) TABLET BY MOUTH 2 TIMES DAILY. [facility] cefdinir 300 mg capsule TAKE ONE (1) CAPSULE(S) BY MOUTH EVERY TWELVE HOURS FOR 3 DAYS. cefdinir 300 mg capsule TAKE ONE (1) CAPSULE(S) BY MOUTH EVERY TWELVE HOURS FOR 3 DAYS. No cefdinir 300 mg capsule TAKE ONE (1) CAPSULE(S) BY MOUTH EVERY TWELVE HOURS FOR 3 DAYS. [facility] clopidogrel 75 mg tablet TAKE 1 TABLET AT BEDTIME clopidogrel 75 mg tablet TAKE 1 TABLET AT BEDTIME No clopidogre l 75 mg tablet TAKE 1 TABLET AT BEDTIME [facility] estradiol 0.01% (0.1 mg/gram) vaginal cream Insert 0.5 g 3 times a week by vaginal route at bedtime for 30 days. estradiol 0.01% (0.1 mg/gram) vaginal cream Insert 0.5 g 3 times a week by vaginal route at bedtime for 30 days. No .5g Q56H estradiol 0.01% (0.1 mg/gram) vaginal cream Insert 0.5 g 3 times a week by vaginal route at bedtime for 30 days. [facility] lisinopril 20 mg tablet TAKE ONE (1) TABLET(S) BY MOUTH ONCE A DAY. lisinopril 20 mg tablet TAKE ONE (1) TABLET(S) BY MOUTH ONCE A DAY. No lisinopril 20 mg tablet TAKE ONE (1) TABLET(S) BY MOUTH ONCE A DAY. [facility] metoprolol succinate metoprolol succinate No metoprolol succinate [facility] Ozempic 2 mg/dose (8 mg/3 mL) subcutaneou s pen injector INJECT 2 MG INTO THE SKIN ONCE A WEEK. Ozempic 2 mg/dose (8 mg/3 mL) subcutaneou s pen injector INJECT 2 MG INTO THE SKIN ONCE A WEEK. No Ozempic 2 mg/dose (8 mg/3 mL) subcutaneo us pen injector INJECT 2 MG INTO THE SKIN ONCE A WEEK. [facility] pantoprazol e 40 mg tablet,yoly yed release TAKE ONE (1) TABLET(S) BY MOUTH DAILY. pantoprazol e 40 mg tablet,yoly yed release TAKE ONE (1) TABLET(S) BY MOUTH DAILY. No pantoprazo le 40 mg tablet,del ayed release TAKE ONE (1) TABLET(S) BY MOUTH DAILY. [facility] propranolol 10 mg tablet TAKE ONE (1) TABLET(S) BY MOUTH THREE TIMES A DAY NEEDED. propranolol 10 mg tablet TAKE ONE (1) TABLET(S) BY MOUTH THREE TIMES A DAY NEEDED. No propranolo l 10 mg tablet TAKE ONE (1) TABLET(S) BY MOUTH THREE TIMES A DAY NEEDED. [facility] spironolact one 25 mg tablet TAKE 1 TABLET EVERY DAY spironolact one 25 mg tablet TAKE 1 TABLET EVERY DAY No spironolac tone 25 mg tablet TAKE 1 TABLET EVERY DAY [facility] sucralfate 1 gram tablet TAKE ONE (1) TABLET(S) BY MOUTH AT BEDTIME. sucralfate 1 gram tablet TAKE ONE (1) TABLET(S) BY MOUTH AT BEDTIME. No sucralfate 1 gram tablet TAKE ONE (1) TABLET(S) BY MOUTH AT BEDTIME. [facility] trospium 20 mg tablet TAKE ONE (1) TABLET(S) BY MOUTH DAILY. trospium 20 mg tablet TAKE ONE (1) TABLET(S) BY MOUTH DAILY. No trospium 20 mg tablet TAKE ONE (1) TABLET(S) BY MOUTH DAILY. [facility] Immunizations Ordered Immunization Name Filled Immunization Name Date Status Comments Source Shingles IM (Shingrix) 2022-12-09 00:00:00 Completed Becca Seybold - External Shingles IM (Shingrix) 2022-10-06 00:00:00 Completed Becca San - External Pneumococcal Vaccine, Conjugate 20 2022-10-06 00:00:00 Completed Becca Fairybold - External Influenza Virus Vaccine, Quadrivalent, High Dose, Age 65 And Up 2022-02-15 00:00:00 Completed Becca ybold - External Influenza Virus Vaccine, High Dose, [...] Completed Becca Seybold - External Covid-19 Vaccine (Qinging Weekly Flower Delivery), Mrna-lnp, Froilan Protein, Pf, 30mcg/0.3ml,IM 2021-02-12 00:00:00 Completed Becca Seybold - External Covid-19 Vaccine (Qinging Weekly Flower Delivery), Mrna-lnp, Froilan Protein, Pf, 30mcg/0.3ml,IM 2021-02-12 00:00:00 Completed Becca Seybold - External Covid-19 Vaccine (Qinging Weekly Flower Delivery), Mrna-lnp, Froilan Protein, Pf, 30mcg/0.3ml,IM 2021-02-12 00:00:00 Completed Becca Seybold - External Covid-19 Vaccine (Qinging Weekly Flower Delivery), Mrna-lnp, Froilan Protein, Pf, 30mcg/0.3ml,IM 2021-02-12 00:00:00 Completed Becca Seybold - External Influenza Virus Vaccine, High Dose, Age 65 And Up Unknown [facility] (Shingrix) Unknown Com[facility] External Pneumococcal Vaccine, Conjugate 20 Unknown [facility](Qinging Weekly Flower Delivery)(12y rs+) Unknown Completed [facility] - External RSV, Arexvy Unknown Completed [facility] eybo - External Tdap- (Boostrix, Adacel) Unknown [facility] Vaccine ([facility]), Mrna-lnp, Froilan Protein, Pf, 30mcg/0.3ml,IM Unknown Com[facility] Influenza Virus Vaccine, Quadrivalent, High Dose, Age 65 And Up Unknown Completed Becca S eybold - External Influenza Virus Vaccine, High Dose, Age 65 And Up Unknown Completed Becca ybold - External Shingles IM (Shingrix) Unknown [facility] Pneumococcal Vaccine, Conjugate 20 Unknown [facility] COVID-19 Vaccine([facility])(12y rs+) Unknown Completed Becca Seybold - External RSV, Arexvy Unknown Completed Becca S eybold - External Tdap- (Boostrix, Adacel) Unknown Completed Becca Seybold - External Covid-19 [...] Unknown Completed Becca Seybold - External COVID-19 Vaccine(Pfizer)(12y rs+) Unknown Completed Becca Seybold - External RSV, Arexvy Unknown Completed Becca S eybold - External Tdap- (Boostrix, Adacel) Unknown Completed Becca Fairybold - External Covid-19 Vaccine (Pfizer), Mrna-lnp, Froilan [...] Unknown Completed Becca Fairybold - External COVID-19 Vaccine(Pfizer)(fal l 2022)(12yrs+) Unknown Completed Becca Elizaldeo ld - External RSV, Arexvy Unknown Completed [...] COVID-19 Vaccine(Pfizer)(fal l 2022)(12yrs+) Unknown Completed Becca Seybo ld [...] Unknown Completed Becca Seybold - External COVID-19 Vaccine(Pfizer)([facility] 2022)(12yrs+) Unknown Completed Becca Seybo ld [...] Unknown Completed Becca Seybold - External COVID-19 Vaccine(Pfizer)([facility] 2022)(12yrs+) Unknown Completed Becca Seybo ld [...] Unknown Completed Becca Seybold - External COVID-19 Vaccine(Pfizer)([facility] 2022)(12yrs+) Unknown Completed Becca Seybo ld - External RSV, Arexvy Unknown Completed Becca martinez - External Tdap- (Boostrix, Adacel) Unknown Completed Becca San - External Covid-19 Vaccine (Qinging Weekly Flower Delivery), Mrna-lnp, Froilan Protein, Pf, 30mcg/0.3ml,IM Unknown Completed Becca Soriano d - External Influenza Virus Vaccine, Quadrivalent, High Dose, Age 65 And Up Unknown Completed Becca martinez - External Vital Signs Vital Name Observation Time Observation Value Comments S ource Height 2024-07-06 00:00:00 64 [in_i] [facility] BP Diastolic 2024-07-06 00:00:00 48 mm[Hg] [facility] Weight 2024-07-06 00:00:00 158 [lb_av] [facility] BP Systolic 2024-07-06 00:00:00 92 mm[Hg] [facility] BMI (Body Mass Index) 2024-07-06 00:00:00 27.1 kg/m2 [facility] height 2024-06-14 11:45:00 64 [in_i] [facility] weight 2024-06-14 11:45:00 155 [lb_av] [facility] temperature 2024-06-14 11:45:00 98.6 [degF] Com [facility] bmi 2024-06-14 11:45:00 26.6 kg/m2 [facility] oximetry 2024-06-14 11:45:00 99 % [facility] respiratory rate 2024-06-14 11:45:00 18 /min [facility] blood pressure systolic 2024-06-14 11:45:00 121 mm[Hg] [facility] blood pressure diastolic 2024-06-14 11:45:00 64 mm[Hg] [facility] Systolic blood pressure 2024-06-02 14:27:00 140 mm[Hg] Becca Solares ld - External Diastolic blood pressure 2024-06-02 14:27:00 74 mm[Hg] Becca Seybo ld - External Heart rate 2024-06-02 14:27:00 71 /min Laurise y Seybold - External Body temperature 2024-06-02 14:27:00 35.61 Marina Becca Seybold - External Respiratory rate 2024-06-02 14:27:00 15 /min Becca Fairybold - External Body height 2024-06-02 14:27:00 162.6 cm Claire clark Seybold - External Body weight 2024-06-02 14:27:00 68.947 kg Claire ey Seybold - External BMI 2024-06-02 14:27:00 26.09 kg/m2 Claire ey Seybold - External Oxygen saturation in Arterial blood by Pulse oximetry 2024-06-02 14:27:00 100 /min Becca Elizaldeo ld - External Systolic blood pressure 2024-03-02 13:02:00 144 mm[Hg] Becca Fairybo ld - External Diastolic blood pressure 2024-03-02 13:02:00 72 mm[Hg] Becca Elizaldeo ld - External Heart rate 2024-03-02 13:02:00 86 /min Dereck lewis Seybold - External Body temperature 2024-03-02 13:02:00 35.61 Marina Becca Fairybold - External Respiratory rate 2024-03-02 13:02:00 14 /min Becca Fairybold - External Body height 2024-03-02 13:02:00 162.6 cm Claire clark Seybold - External Body weight 2024-03-02 13:02:00 70.035 kg Claire ey Seybold - External BMI 2024-03-02 13:02:00 26.50 kg/m2 Claire ey Seybold - External height 2024-03-01 08:00:00 64 [in_i] [facility] weight 2024-03-01 08:00:00 153 [lb_av] [facility] temperature 2024-03-01 08:00:00 97.6 [degF] Com [facility] bmi 2024-03-01 08:00:00 26.26 kg/m2 [facility] oximetry 2024-03-01 08:00:00 99 % [facility] respiratory rate 2024-03-01 08:00:00 18 /min [facility] blood pressure systolic 2024-03-01 08:00:00 136 mm[Hg] [facility] blood pressure diastolic 2024-03-01 08:00:00 65 mm[Hg] [facility] Systolic blood pressure 2024-02-27 23:00:00 141 mm[Hg] [facility] Diastolic blood pressure 2024-02-27 23:00:00 70 mm[Hg] [facility] Heart rate 2024-02-27 23:00:00 77 /min [facility] Body temperature 2024-02-27 23:00:00 36.94 Marina [facility] Respiratory rate 2024-02-27 23:00:00 18 /min [facility] Oxygen saturation in Arterial blood by Pulse oximetry 2024-02-27 23:00:00 97 /min [facility] Body height 2024-02-27 20:25:00 162.6 cm [facility] Body weight 2024-02-27 20:25:00 69.854 kg [facility] BMI 2024-02-27 20:25:00 26.43 kg/m2 [facility] Systolic blood pressure 2024-02-24 18:52:00 124 mm[Hg] Becca Seybo ld - External Diastolic blood pressure 2024-02-24 18:52:00 62 mm[Hg] Becca Seybo ld - External Heart rate 2024-02-24 18:52:00 92 [...] blood pressure 2023-12-30 20:55:00 128 mm[Hg] Becca Elizaldeo ld - External Diastolic blood pressure 2023-12-30 20:55:00 78 mm[Hg] Becca Elizaldeo ld - External Heart rate 2023-12-30 20:55:00 68 /min Kel y Seybold - External Respiratory rate 2023-12-30 20:55:00 20 /min Becca Seybold - External Body height 2023-12-30 20:55:00 162.6 cm Claire ey Seybold - External Body weight 2023-12-30 20:55:00 73.029 kg Claire ey Seybold - External BMI 2023-12-30 20:55:00 27.64 kg/m2 Claire clark Seybold - External Oxygen saturation in Arterial blood by Pulse oximetry 2023-12-30 20:55:00 98 /min Becca Elizaldeo ld - External height 2023-12-27 08:45:00 64 [in_i] [facility] weight 2023-12-27 08:45:00 150.2 [lb_av] Co mmon [facility] bmi 2023-12-27 08:45:00 25.78 kg/m2 [facility] blood pressure systolic 2023-12-27 08:45:00 143 mm[Hg] [facility] blood pressure diastolic 2023-12-27 08:45:00 73 mm[Hg] [facility] height 2023-12-08 10:00:00 64 [in_i] [facility] weight 2023-12-08 10:00:00 150.2 [lb_av] Co [facility] temperature 2023-12-08 10:00:00 98.0 [degF] Com mon [facility] bmi 2023-12-08 10:00:00 25.78 kg/m2 [facility] blood pressure systolic 2023-12-08 10:00:00 120 mm[Hg] [facility] blood pressure diastolic 2023-12-08 10:00:00 64 mm[Hg] [facility] Systolic blood pressure 2023-09-01 13:04:00 136 [...] height 2023-07-29 08:00:00 64 [in_i] [facility] weight 2023-07-29 08:00:00 153.2 [lb_av] Co [facility] bmi 2023-07-29 08:00:00 26.29 kg/m2 [facility] blood pressure systolic 2023-07-29 08:00:00 132 mm[Hg] [facility] blood pressure diastolic 2023-07-29 08:00:00 68 mm[Hg] [facility] Systolic blood pressure 2023-06-30 14:21:00 132 [...] External Heart rate 2023-05-31 21:45:00 96 /min Dereck y Seybold - External Body temperature 2023-05-31 21:45:00 35.89 Marina Becca Seybold - External Respiratory rate 2023-05-31 21:45:00 14 /min Becca Seybold - External Body height 2023-05-31 21:45:00 162.6 cm Claire ey Seybold - External Body weight 2023-05-31 21:45:00 71.668 kg Claire ey Seybold - External BMI 2023-05-31 21:45:00 27.12 kg/m2 Claire ey Seybold - External height 2023-03-10 16:15:00 64 [in_i] [facility] weight 2023-03-10 16:15:00 149.4 [lb_av] Co [facility] temperature 2023-03-10 16:15:00 97.4 [degF] Com mon [facility] bmi 2023-03-10 16:15:00 25.64 kg/m2 [facility] oximetry 2023-03-10 16:15:00 99 % [facility] respiratory rate 2023-03-10 16:15:00 18 /min [facility] blood pressure systolic 2023-03-10 16:15:00 132 mm[Hg] Common [facility] blood pressure diastolic 2023-03-10 16:15:00 68 mm[Hg] [facility] Systolic blood pressure 2023-02-25 13:37:00 146 [...] External BMI 2023-01-21 18:24:00 26.09 kg/m2 Claire ey Seybold - External height 2022-10-08 09:15:00 64 [in_i] [facility] weight 2022-10-08 09:15:00 154 [lb_av] [facility] temperature 2022-10-08 09:15:00 97.2 [degF] Com mon [facility] bmi 2022-10-08 09:15:00 26.43 kg/m2 [facility] oximetry 2022-10-08 09:15:00 99 % [facility] respiratory rate 2022-10-08 09:15:00 18 /min [facility] blood pressure systolic 2022-10-08 09:15:00 132 mm[Hg] [facility] blood pressure diastolic 2022-10-08 09:15:00 68 mm[Hg] [facility] height 2022-09-02 10:45:00 64 [in_i] [facility] weight 2022-09-02 10:45:00 155.2 [lb_av] [facility] temperature 2022-09-02 10:45:00 97.4 [degF] Com mon [facility] bmi 2022-09-02 10:45:00 26.64 kg/m2 [facility] oximetry 2022-09-02 10:45:00 95 % [facility] respiratory rate 2022-09-02 10:45:00 18 /min [facility] blood pressure systolic 2022-09-02 10:45:00 110 mm[Hg] [facility] blood pressure diastolic 2022-09-02 10:45:00 60 mm[Hg] [facility] Systolic blood pressure 2022-07-23 18:51:00 112 mm[Hg] Becca Solares ld - External Diastolic blood pressure 2022-07-23 18:51:00 50 mm[Hg] Becca ybo ld - External Heart rate 2022-07-23 18:51:00 70 /min Kelse joshua Elizaldeold - External Body temperature 2022-07-23 18:51:00 36.39 [...] Body temperature 2022-03-11 13:06:00 36.56 Marina Becca Seybold - External Respiratory rate 2022-03-11 13:06:00 14 /min Becca Seybold - External Body height 2022-03-11 13:06:00 162.6 cm Claire ey Seybold - External Body weight 2022-03-11 13:06:00 74.39 kg Claire ey Seybold - External BMI 2022-03-11 13:06:00 28.15 kg/m2 Claire ey Seybold - External Oxygen saturation in Arterial blood by Pulse oximetry 2022-03-11 13:06:00 99 /min Becca Solares ld - External Procedures Procedure Date / Time Performed Performing Clinician Source MAMMO, screening, digital, bilateral 2024-07-06 00:00:00 [facility] PVR 2024-06-14 00:00:00 Common S pirit [facility] [id number] 2024-03-24 00:00:00 [facility] [id number] 2024-03-24 00:00:00 [facility] [id number] 2024-03-24 00:00:00 [facility] [id number] 2024-03-24 00:00:00 [facility] [id number] 2024-03-24 00:00:00 [facility] [id number] 2024-03-22 00:00:00 [facility] [id number] 2024-03-22 00:00:00 [facility] [id number] 2024-03-22 00:00:00 [facility] [id number] 2024-03-22 00:00:00 [facility] PVR 2024-03-01 00:00:00 [facility] S pirit [facility] URINALYSIS 2024-02-27 22:40:00 Barney Varma [facility] XR CHEST 1 VW 2024-02-27 20:58:00 Barney Varma [facility] CREATINE KINASE 2024-02-27 20:36:00 Barney Varma [facility] LIPASE 2024-02-27 20:36:00 Barney Varma [facility] MAGNESIUM 2024-02-27 20:36:00 Barney Varma [facility] TROPONIN I 2024-02-27 20:36:00 Barney Varma [facility] COMP. METABOLIC PANEL ([id number]) 2024-02-27 20:36:00 Barney Varma [facility] CBC WITH DIFF 2024-02-27 20:36:00 Barney Varma [facility] ASSIGNMENT OF BENEFITS 2021-08-27 13:47:00 Docto r Unassigned, [place] [facility] Cardiac - Coronary Artery Stent [facility] Hyste[facility] Encounters Start Date/Time End Date/Time Encounter Type Admission Type Attending Clinicians Care Facility Care Department Encounter ID Source 2024-06-20 15:43:01 Outpatient No, PCP CLS [facility] [id number] [facility] 2024-06-14 11:12:00 Outpatient Edwin Ioana STLMLC STLMLC [id number] [facility] 2023-12-08 13:32:00 Outpatient Hundl Ioana STLMLC STLMLC [id number] [facility] 2023-10-27 15:07:00 Outpatient Hundl, Ioana STLMLC STLMLC [id number] [facility] 2023-07-30 07:29:00 Outpatient Gideonl Ioana STLMLC STLMLC [id number] [facility] 2023-07-14 09:19:00 Outpatient Gideonl Ioana STLMLC STLMLC [id number] [facility] 2023-07-07 09:57:00 Outpatient Gideonl Ioana STLMLC STLMLC [id number] [facility] 2022-09-02 10:30:01 Outpatient Gideonl Ioana STLMLC STLMLC [id number] [facility] 2022-05-01 08:39:03 Outpatient Gideonl Ioana STLMLC STLMLC [id number] [facility] 2022-03-25 14:13:02 Outpatient STLMLC STLMLC [id number] [facility] 2021-12-12 08:36:03 Outpatient STLMLC STLMLC [id number] [facility] 2021-11-07 12:42:56 Outpatient CHRISTOPH HUITRON [facility] [id number] [facility] 2021-10-30 13:19:03 Outpatient STLMLC STLMLC [id number] [facility] 2021-10-01 11:33:08 Outpatient STLMLC STLMLC [id number] [facility] 2021-06-16 13:38:10 Outpatient CHRISTOPH HUITRON [facility] [id number] [facility] 2021-06-11 14:02:42 Outpatient STLMLC STLC [id number] [facility] 2024-07-31 13:00:00 2024-07-31 13:00:00 Outpatient OIANA PINEDA [id number] [facility] 2024-07-20 09:00:00 2024-07-20 09:00:00 Outpatient BECCA WOOD [id number] [facility] 2024-07-06 00:00:00 2024-07-06 00:00:00 Ivy Israel, NURSE FIRST AID: [address], [place] [address], [place] [address] , Ph. [facility] - GC_GCBZW_[facility]* [id number] [facility] 2024-06-29 08:30:00 2024-06-29 08:30:00 Outpatient LAB90 BECCA WOOD [id number] [facility] 2024-06-29 00:00:00 2024-06-29 00:00:00 Outpatient IOANA PINEDA [id number] [facility] 2024-06-28 09:35:00 2024-06-28 09:35:00 Outpatient LAB90 BECCA WOOD [id number] Becca Elizaldeold 2024-06-21 00:00:00 2024-06-21 00:00:00 Outpatient IOANA PINEDA [id number] Becca maribel 2024-06-20 00:00:00 2024-06-20 00:00:00 (TEL) STLMLC STLMLC [id number] [facility] 2024-06-15 00:00:00 2024-06-15 00:00:00 [facility] [id number] [facility]-14 00:00:00 2024-06-14 00:00:00 OFFICE VISIT ESTAB PT LEVEL 4 STLMLC STLC [id number] [facility] 2024-06-13 00:00:00 2024-06-13 00:00:00 Outpatient IOANA PINEDA [id number] [facility] 2024-06-08 00:00:00 2024-06-08 00:00:00 Outpatient ALISON COTA [id number] [facility] 2024-06-07 00:00:00 2024-06-07 00:00:00 Outpatient IOANA PINEDA [id number] [facility] 2024-06-06 00:00:00 2024-06-06 00:00:00 Outpatient IOANA PINEDA [id number] [facility] 2024-06-06 00:00:00 2024-06-06 00:00:00 Outpatient MOTIWJUSTIN DE LA PAZ [id number] [facility] 2024-06-05 00:00:00 2024-06-05 00:00:00 Outpatient IOANA PINEDA [id number] [facility] 2024-06-02 09:15:00 2024-06-02 09:15:00 Outpatient HEAVEN WOOD [id number] Becca Seybmaribel 2024-06-02 08:30:00 2024-06-02 08:30:00 Outpatient IOANA PINEDA [id number] [facility] 2024-05-05 00:00:00 2024-05-05 00:00:00 Outpatient EDWINIOANA BECCA WOOD [id number] [facility] 2024-04-25 00:00:00 2024-04-25 00:00:00 Outpatient SONIAALISON [facility] [id number] [facility] 2024-04-12 00:00:00 2024-04-12 00:00:00 Outpatient BECCA WOOD [id number] [facility] 2024-04-06 00:00:00 2024-04-06 00:00:00 Outpatient BECCA WOOD [id number] [facility] 2024-04-03 00:00:00 2024-04-03 00:00:00 Outpatient MD BECCA QUINTANILLA [id number] [facility] 2024-03-29 01:03:00 2024-04-01 15:28:00 Inpatient Errol Jimenes HCACL MEDI.01 [id number] [facility] 2024-04-01 00:00:00 2024-04-01 00:00:00 Outpatient BECCA WOOD [id number] [facility] 2024-03-31 00:00:00 2024-03-31 00:00:00 Outpatient BECCA WOOD [id number] [facility] 2024-03-28 15:05:00 2024-03-28 15:05:00 Outpatient LAB90 BECCA WOOD [id number] [facility] 2024-03-28 00:00:00 2024-03-28 00:00:00 Outpatient EDWIN IOANA [facility] [id number] [facility] 2024-[facility]-27 00:00:00 2024-03-27 00:00:00 Outpatient ALFREDO MAE [id number] [facility] 12:03:00 2024-03-26 19:00:00 Inpatient Errol Whitley HCACL INTE [id number] [facility] 2024-03-25 00:00:00 2024-03-25 00:00:00 Outpatient BECCA WOOD [id number] [facility] Mena 2024-03-25 00:00:00 2024-03-25 00:00:00 Outpatient BECCA WOOD [id number] [facility] Mena 2024-03-23 00:00:00 2024-03-23 00:00:00 Outpatient BECCA WOOD [id number] [facility] Mena 2024-03-20 08:00:00 2024-03-20 16:00:00 Outpatient Errol Whitley HCACL 3DAY [id number] [facility] 2024-03-09 00:00:00 2024-03-09 00:00:00 Outpatient IOANA PINEDA [id number] [facility]24-03-08 00:00:00 2024-03-08 00:00:00 Outpatient IOANA PINEDA [id number] [facility] 2024-03-07 00:00:00 2024-03-07 00:00:00 Outpatient BECCA WOOD [id number] [facility] San 2024-03-03 00:00:00 2024-03-03 00:00:00 Outpatient IOANA PINEDA [id number] [facility] Mena 2024-03-02 09:15:00 2024-03-02 09:15:00 Outpatient LAB90 BECCA WOOD [id number] [facility] Mena 2024-03-02 08:00:00 2024-03-02 08:00:00 Outpatient IOANA PINEDA [id number] [facility] Mena 2024-03-01 00:00:00 2024-03-01 00:00:00 Outpatient BECCA WOOD [id number] [facility] Mena 2024-03-01 00:00:00 2024-03-01 00:00:00 OFFICE VISIT ESTAB PT LEVEL 4 STLMLC STLMLC [id number] [facility] 2024-02-27 15:18:00 2024-02-27 18:42:00 Emergency X BARNEY VARMA [facility] ERT [id number] [facility] 2024-02-27 15:18:00 2024-02-27 18:42:00 Emergency Barney Varma [facility] CAT [id number] 350.1.13.10 4.2.7.2.686 [id number] [facility] 2024-02-24 13:30:00 2024-02-24 13:30:00 Outpatient IOANA PINEDA [id number] [facility]cca lexie 2024-02-20 00:00:00 2024-02-20 00:00:00 Outpatient BECCA WOOD [id number] [facility]cca lexie 2024-02-17 00:00:00 2024-02-17 00:00:00 Outpatient BECCA WOOD [id number] Becca lxeie 2024-02-16 08:05:00 2024-02-16 08:05:00 Outpatient LAB90 BECCA WOOD [id number] [facility]cca maribel 2024-02-10 00:00:00 2024-02-10 00:00:00 Outpatient BECCA WOOD [id number] [facility]cca maribel 2024-01-28 00:00:00 2024-01-28 00:00:00 Outpatient BECCA WOOD [id number] [facility]cca lexie 2024-01-18 00:00:00 2024-01-18 00:00:00 Outpatient IOANA PINEDA [id number] [facility] lexie 2024-01-18 00:00:00 2024-01-18 00:00:00 Outpatient DARSHAN PANIAGUA [id number] [facility] lexie 2024-01-18 00:00:00 2024-01-18 00:00:00 Outpatient MD BECCA QUINTANILLA [id number] [facility] 2024-01-15 00:00:00 2024-01-15 00:00:00 Outpatient IOANA PINEDA [id number] [facility] 2024-01-14 08:00:00 2024-01-14 08:00:00 Outpatient BECCA WOOD [id number] [facility] 2024-01-14 00:00:00 2024-01-14 00:00:00 Outpatient BECCA WOOD [id number] [facility] 2024-01-06 08:30:00 2024-01-06 08:30:00 Outpatient TONJA ESCOBEDO BECCA WOOD [id number] [facility] 2024-01-06 00:00:00 2024-01-06 00:00:00 Outpatient CAROLA BRAR [id number] [facility] 2023-12-30 16:45:00 2023-12-30 16:45:00 Outpatient HEAVEN BECCA WOOD [id number] [facility] 2023-12-30 16:00:00 2023-12-30 16:00:00 Outpatient CAROLA BRAR [id number] [facility] 2023-12-29 11:00:00 2023-12-29 11:00:00 Outpatient IOANA PINEDA [id number] [facility] 2023-12-29 00:00:00 2023-12-29 00:00:00 Outpatient SONIA ALISON BECCA WOOD [id number] [facility] 2023-12-27 00:00:00 2023-12-27 00:00:00 (F/U) Follow Up Visit STLMLC STLMLC [id number] [facility] 2023-12-22 10:00:00 2023-12-22 10:00:00 Outpatient CAROLA BRAR [id number] [facility] 2023-12-14 00:00:00 2023-12-14 00:00:00 Outpatient IOANA PINEDA [id number] [facility] 2023-12-08 00:00:00 2023-12-08 00:00:00 (ESTPT) Establishe d Patient STLMLC STLMLC [id number] [facility] 2023-12-06 00:00:00 2023-12-06 00:00:00 (TEL) STLMLC STLMLC [id number] [facility] 2023-12-02 00:00:00 2023-12-02 00:00:00 Outpatient ALFREDO MAE [id number] [facility] 2023-11-17 10:30:00 2023-11-17 10:30:00 Outpatient MADDIASHTYN YANG BECCA WOOD [id number] [facility] 2023-11-10 00:00:00 2023-11-10 00:00:00 Outpatient IOANA PINEDA [id number] [facility] 2023-11-04 00:00:00 2023-11-04 00:00:00 Outpatient IOANA PINEDA [id number] [facility] 2023-10-22 00:00:00 2023-10-22 00:00:00 Outpatient MARICHUY ARCOS [id number] [facility] 2023-10-22 00:00:00 2023-10-22 00:00:00 Outpatient IOANA PINEDA [id number] [facility] 2023-10-22 00:00:00 2023-10-22 00:00:00 Outpatient IOANA PINEDA [id number] [facility] 2023-10-21 08:05:00 2023-10-21 08:05:00 Outpatient CONFERENCE, [facility] BECCA WOOD [id number] [facility] 2023-10-21 00:00:00 2023-10-21 00:00:00 Outpatient CONFERENCE, [facility] BECCA WOOD [id number] [facility] 2023-10-14 14:00:00 2023-10-14 14:00:00 Outpatient BECCA WOOD [id number] [facility] 2023-10-14 10:30:00 2023-10-14 10:30:00 Outpatient BECCA WOOD [id number] [facility] 2023-10-14 00:00:00 2023-10-14 00:00:00 Outpatient IOANA PINEDA [id number] [facility] 2023-10-06 00:00:00 2023-10-06 00:00:00 Outpatient IOANA PINEDA BECCA WOOD [id number] [facility] Seybmaribel 2023-10-05 00:00:00 2023-10-05 00:00:00 Outpatient GIDEONCatherine IOANA WOOD [id number] [facility] Seybmaribel 2023-09-22 00:00:00 2023-09-22 00:00:00 [facility] [id number] [facility] 2023-09-01 08:00:00 2023-09-01 08:00:00 Outpatient GIDEONCatherine IOANA WOOD [id number] [facility] Seybold 2023-08-21 00:00:00 2023-08-21 00:00:00 Outpatient EDWIN IOANA WOOD [id number] [facility] Seybmaribel 2023-08-19 08:05:00 2023-08-19 08:05:00 Outpatient LAB90 [facility]CCA WOOD [id number] [facility] 2023-08-17 00:00:00 2023-08-17 00:00:00 Outpatient PRESCOT ZAMORA BECCA WOOD [id number] [facility] Seybold 2023-08-13 00:00:00 2023-08-13 00:00:00 Outpatient PREOSMANY ZAMORAVIKTORIA WOOD [id number] [facility] Seybold 2023-08-12 08:30:00 2023-08-12 08:30:00 Outpatient LAB90 BECCA WOOD [id number] [facility] Seybold 2023-08-08 00:00:00 2023-08-08 00:00:00 Outpatient SCOT SERNA BECCA WOOD [id number] [facility] Seybold 2023-08-03 00:00:00 2023-08-03 00:00:00 Outpatient EDWIN IOANA WOOD [id number] [facility] Seybold 2023-07-29 15:25:00 2023-07-29 15:25:00 Outpatient LAB90 BECCA WOOD [id number] [facility] Seybold 2023-07-29 00:00:00 2023-07-29 00:00:00 Outpatient IOANA PINEDA [id number] [facility] 2023-07-29 00:00:00 2023-07-29 00:00:00 Outpatient IOANA PINEDA [id number] [facility] 2023-07-29 00:00:00 2023-07-29 00:00:00 (TEL) STLMLC STLMLC [id number] [facility] 2023-07-29 00:00:00 2023-07-29 00:00:00 OFFICE VISIT NEW PT LEVEL 3 STLMLC STLMLC [id number] [facility] 2023-07-28 00:00:00 2023-07-28 00:00:00 Outpatient SCOT SERNA [id number] [facility] 2023-07-21 00:00:00 2023-07-21 00:00:00 Outpatient IOANA PINEDA [id number] [facility] 2023-07-20 00:00:00 2023-07-20 00:00:00 Outpatient IOANA PINEDA [id number] [facility] 2023-07-19 08:20:00 2023-07-19 08:20:00 Outpatient SIVA [facility] BECCA WOOD [id number] [facility] 2023-07-16 10:30:00 2023-07-16 10:30:00 Outpatient BECCA WOOD [id number] [facility] 2023-07-16 00:00:00 2023-07-16 00:00:00 Outpatient IO[facility] PINED[facility] [id number] [facility]23-[facility]-07 00:00:00 2023-07-07 00:00:00 (TEL) STLMLC STLC [id number] [facility] 2023-07-06 00:00:00 2023-07-06 00:00:00 Outpatient IOANA PINEDA [id number] [facility] 2023-07-01 00:00:00 2023-07-01 00:00:00 Outpatient IOANA PINEDA [id number] [facility] 2023-06-30 08:30:00 2023-06-30 08:30:00 Outpatient HUNDL, IOANA WOOD [id number] [facility] 2023-06-27 00:00:00 2023-06-27 00:00:00 Outpatient PREZAS, SCOT BECCA WOOD [id number] [facility] 2023-06-17 00:00:00 2023-06-17 00:00:00 Outpatient HUNDL, IOANA WOOD [id number] [facility] 2023-06-03 00:00:00 2023-06-03 00:00:00 Outpatient HUNDL, IOANA WOOD [id number] [facility] 2023-06-02 00:00:00 2023-06-02 00:00:00 Outpatient HUNDL, IOANA WOOD [id number] [facility] 2023-05-31 16:00:00 2023-05-31 16:00:00 Outpatient HUNDL, IOANA WOOD [id number] [facility] 2023-05-29 00:00:00 2023-05-29 00:00:00 Outpatient GC_GCBZW_Ka diyala_S [facility] [id number] [facility] 2023-05-28 00:00:00 2023-05-28 00:00:00 Outpatient PREZAS SCOT WOOD [id number] [facility] 2023-05-27 09:00:00 2023-05-27 09:00:00 Outpatient HUNDL, IOANA WOOD [id number] [facility] 2023-05-17 00:00:00 2023-05-17 00:00:00 Outpatient PREZAS SCOT WOOD [id number] [facility] 2023-05-06 00:00:00 2023-05-06 00:00:00 Outpatient HUNDL, IOANA WOOD [id number] [facility] 2023-05-01 00:00:00 2023-05-01 00:00:00 Outpatient GC_GCBZW_Ka diyala_S PRIV PRIV [id number] [facility] 2023-04-27 00:00:00 2023-04-27 00:00:00 Outpatient IOANA PINEDA [id number] [facility] 2023-04-03 00:00:00 2023-04-03 00:00:00 Outpatient GC_GCBZW_Ka diyala_S PRIV PRIV [id number] [facility] 2023-03-31 00:00:00 2023-03-31 00:00:00 Outpatient IOANA PINEDA [id number] [facility] 2023-03-29 00:00:00 2023-03-29 00:00:00 Outpatient IOANA PINEDA [id number] [facility] 2023-03-11 00:00:00 2023-03-11 00:00:00 Outpatient GC_GCBZW_Ka diyala_S PRIV PRIV [id number] [facility] 2023-03-10 00:00:00 2023-03-10 00:00:00 Outpatient GC_GCBZW_Ka diyala_S PRIV PRIV [id number] [facility] 2023-03-10 00:00:00 2023-03-10 00:00:00 OFFICE VISIT ESTAB PT LEVEL 3 [facility] [id number] [facility] 2023-03-09 00:00:00 2023-03-09 00:00:00 Outpatient IOANA PINEDA [id number] [facility] 2023-03-07 00:00:00 2023-03-07 00:00:00 Outpatient IOANA PINEDA [id number] [facility] 2023-03-01 00:00:00 2023-03-01 00:00:00 Outpatient IOANA PINEDA [id number] [facility] 2023-02-26 00:00:00 2023-02-26 00:00:00 Outpatient IOANA PINEDA [id number] [facility] 2023-02-25 09:45:00 2023-02-25 09:45:00 Outpatient LAB90 BECCA WOOD [id number] [facility] 2023-02-25 08:30:00 2023-02-25 08:30:00 Outpatient HUNDL, IOANA WOOD [id number] [facility] 2023-02-23 00:00:00 2023-02-23 00:00:00 Outpatient HUNDL, IOANA WOOD [id number] [facility] 2023-02-08 00:00:00 2023-02-08 00:00:00 Outpatient GC_GCBZW_Ka diyala_S PRIV [facility] [id number] [facility] 2023-01-21 13:30:00 2023-01-21 13:30:00 Outpatient HUNDL, IOANA WOOD [id number] [facility] 2023-01-21 00:00:00 2023-01-21 00:00:00 Outpatient RAFAELA HAWTHORNE [id number] [facility] 2023-01-15 00:00:00 2023-01-15 00:00:00 Outpatient HUNDL, IOANA WOOD [id number] [facility] 2023-01-08 00:00:00 2023-01-08 00:00:00 Outpatient HUNDL, IOANA WOOD [id number] [facility] 2023-01-06 00:00:00 2023-01-06 00:00:00 Outpatient HUNDL, IOANA WOOD [id number] [facility] 2022-12-30 08:00:00 2022-12-30 08:00:00 Outpatient HUNDL, IOANA WOOD [id number] [facility] 2022-12-22 00:00:00 2022-12-22 00:00:00 [facility] SCOT SERNA [id number] [facility]-19 00:00:00 2022-11-19 00:00:00 Outpatient RADHA MORAN [facility] [id number] [facility] 2022-10-08 00:00:00 2022-10-08 00:00:00 OFFICE VISIT ESTAB PT LEVEL 4 STLMLC STLMLC [id number] [facility] 2022-10-05 08:40:00 2022-10-05 08:40:00 Outpatient LAB90 BECCA WOOD [id number] [facility] 2022-09-30 00:00:00 2022-09-30 00:00:00 Outpatient IOANA PINEDA [id number] [facility] 2022-09-16 00:00:00 2022-09-16 00:00:00 (PROC) Procedure STLMLC STLMLC [id number] [facility] 2022-09-13 00:00:00 2022-09-13 00:00:00 Outpatient IOANA PINEDA [id number] [facility] 2022-09-02 00:00:00 2022-09-02 00:00:00 OFFICE VISIT ESTAB PT LEVEL 3 STLMLC STLMLC [id number] [facility] 2022-08-28 00:00:00 2022-08-28 00:00:00 Outpatient SCOT SERNA [id number] [facility] 2022-07-31 00:00:00 2022-07-31 00:00:00 Outpatient SCOT SERNA [id number] [facility] 2022-07-23 13:00:00 2022-07-23 13:00:00 Outpatient IOANA PINEDA [id number] [facility] 2022-07-08 00:00:00 2022-07-08 00:00:00 Outpatient IOANA PINEDA [id number] [facility] 2022-06-26 00:00:00 2022-06-26 00:00:00 Outpatient SCOT SERNA [id number] [facility]-24 12:15:00 2022-06-24 12:15:00 Outpatient GRACIE MENEZES [id number] [facility] Sey[facility] 2022-06-09 00:00:00 2022-06-09 00:00:00 Outpatient RAFAELA HAWTHORNE BECCA WOOD [id number] [facility] 2022-06-09 00:00:00 2022-06-09 00:00:00 Outpatient HUNDL, IOANA WOOD [id number] [facility] 2022-06-02 00:00:00 2022-06-02 00:00:00 Outpatient HUNDL, IOANA WOOD [id number] [facility] 2022-05-31 00:00:00 2022-05-31 00:00:00 Outpatient HUNDL, IOANA WOOD [id number] [facility] 2022-05-22 00:00:00 2022-05-22 00:00:00 Outpatient HUNDL, IOANA WOOD [id number] [facility] 2022-04-16 00:00:00 2022-04-16 00:00:00 Outpatient HUNDL, IOANA WOOD [id number] [facility] 2022-03-26 00:00:00 2022-03-26 00:00:00 Outpatient HUNDL, IOANA WOOD [id number] [facility] 2022-03-25 10:30:00 2022-03-25 10:30:00 Outpatient HUNDL, IOANA WOOD [id number] [facility] 2022-03-11 08:00:00 2022-03-11 08:00:00 Outpatient HUNDL, IOANA WOOD [id number] [facility] 2022-03-02 00:00:00 2022-03-02 00:00:00 Outpatient HUNDL, IOANA WOOD [id number] [facility] 2022-02-26 00:00:00 2022-02-26 00:00:00 Outpatient HUNDL, IOANA WOOD [id number] [facility] 2022-02-25 09:30:00 2022-02-25 09:30:00 Outpatient LAB90 BECCA WOOD [id number] [facility] 2022-02-25 08:30:00 2022-02-25 08:30:00 Outpatient IOANA PINEDA [facility] [id number] [facility] 2022-02-19 08:40:00 2022-02-19 08:40:00 Outpatient BECCA BECCA [id number] [facility] 2022-02-19 08:00:00 2022-02-19 08:00:00 Outpatient BECCA BECCA [id number] [facility] 2022-02-18 08:00:00 2022-02-18 08:00:00 Outpatient IOANA PINEDA [facility] [id number] [facility] 2022-01-21 09:45:00 2022-01-21 09:45:00 Outpatient HEAVEN WOOD [facility]CCA [id number] [facility] 2022-01-21 08:30:00 2022-01-21 08:30:00 Office Visit IOANA PINEDA [place] [id number] 350.1.13.13 [id number] [id number] [facility] 2022-01-15 00:00:00 2022-01-15 00:00:00 Outpatient GREGORIO THOMPSON BECCA WOOD [id number] [facility] 2022-01-14 08:30:00 2022-01-14 08:30:00 Outpatient SCOT SERNA BECCA WOOD [id number] [facility] 2021-08-27 08:50:03 2021-08-27 23:59:00 Outpatient R RADHA WARREN [facility] [id number] [facility] 2021-08-27 08:50:03 2021-08-27 23:59:00 Hospital Encounter Radha [facility] 1.2.840.114 350.1.13.10 4.2.7.2.686 [id number] [facility] 2021-08-27 00:00:00 2021-08-27 00:00:00 Orders Only Doctor Unassigned, Tolar [facility] 1.20.114 350.1.13.10 4.2.7.2.686 [id number] [facility] 2021-08-20 00:00:00 2021-08-20 00:00:00 Outpatient Akosua RADHA WARREN [facility] RAD [id number] [facility] 2020-05-12 00:00:00 2020-05-12 00:00:00 Telephone Samuel Tre Brooks [facility] 1..114 350.1.13.10 4.2.7.2.686 [id number] [facility] 2020-05-12 00:00:00 2020-05-12 00:00:00 Telephone Efra [facility] 1..114 350.1.13.10 4.2.7.2.686 [id number] [facility] 2020-05-12 00:00:00 2020-05-12 00:00:00 Telephone Lab, Adc Fam Ivana Mayco [facility] 1.2.114 350.1.13.10 4.2.7.2.686 [id number] [facility] 2020-05-11 19:00:00 2020-05-11 19:00:00 Outpatient Akosua [facility] [id number] [facility] 2020-05-11 12:32:24 2020-05-11 12:52:24 Laboratory Only Lab, Adc Fam Pob I [facility] 1..114 350.1.13.10 4.2.7.2.686 [id number] [facility] Results Test Description Test Time Test Comments Results Result Co mments Source [facility] [id number] 00:00:00* Test Item Value Reference Range Interpretation Comme nts CULTURE, URINE (test code = 630-4) SPECIMEN NUMBER: [id number] GLUCOSE [id number] 12:19:00* Test Item Value Reference Range Interpretation Comme nts GLUCOSE BEDSIDE (test code = GLUBED) 98 MG/DL 70-110 N Performed by cer tified decker operator at [facility] GLUCOSE [id number] 08:10:00* Test Item Value Reference Range Interpretation Comme nts GLUCOSE BEDSIDE (test code = GLUBED) 102 MG/DL 70-110 N Performed by cer tified decker operator at [facility] BASIC METABOLIC [id number] 06:45:00* Test Item Value Reference Range Interpretation Comme nts SODIUM (test code = NA) 143 mEq/L 134-147 N POTASSIUM (test code = K) 4.0 mEq/L 3.4-5.0 N CHLORIDE (test code = CL) 109 mEq/L 100-108 H CARBON DIOXIDE (test code = CO2) 24 mEq/l 21-33 N ANION GAP (test code = GAP) 14 0-20 N GLUCOSE (test code = GLU) 96 mg/dL 77-141 BLOOD UREA NITROGEN (test code = BUN) 18 mg/dL 7-25 N GLOMERULAR FILTRATION RATE (test code = GFR) 66.7 70-80 L The Glomerular Filtration Rate is a calculated parameterbased on serum Creatinine, patient age and sex. GFR valuesless than 60 mL/min/1.73 square meters are indicative ofChronic Kidney Disease. Values less than 15 mL/min/1.73square meters indicate Kidney failure. The calculation forGFR is based on the CKD-EPI (202) calculation. This formulais race indifferent and is the recommended formula for GFRby the National Kidney Foundation for Adults.The GFR will not calculate if the sex is unknown or if thepatient's age is <18 years. CREATININE (test code = CREAT) 0.9 mg/dL 0.6-1.3 N CALCIUM (test code = CA) 9.3 mg/dL 8.0-10.5 N CBC W/AUTO [id number] 06:13:00* Test Item Value Reference Range Interpretation Comme nts WHITE BLOOD CELL (test code = WBC) 4.4 x10 3/uL 4.5-11.0 L RED BLOOD CELL (test code = RBC) 3.73 x10 6/uL 3.54-5.02 N HEMOGLOBIN (test code = HGB) 10.3 g/dL 11.0-15.0 L HEMATOCRIT (test code = HCT) 32.7 % 33.0-45.0 L MEAN CELL VOLUME (test code = MCV) 87.7 fL 81.0-99.0 N MEAN CELL HGB (test code = MCH) 27.6 pg 27.0-33.0 N MEAN CELL HGB CONCETRATION (test code = MCHC) 31.5 g/dL 33.0-37.0 L RED CELL DISTRIBUTION WIDTH CV (test code = RDW) 15.5 % 11.5-14.5 H RED CELL DISTRIBUTION WIDTH SD (test code = RDW-SD) 49.4 fL 37.0-54.0 N PLATELET COUNT (test code = PLT) 279 x10 3/uL 150-400 N MEAN PLATELET VOLUME (test c ode = MPV) 9.3 fL 7.0-9.0 H NEUTROPHIL % (test code = NT%) 57.9 % 56.0-77.0 N IMMATURE GRANULOCYTE % (test code = IG%) 0.5 % 0.0-2.0 N LYMPHOCYTE % (test code = LY%) 25.5 % 14.0-32.0 N MONOCYTE % (test code = MO%) 9.2 % 4.8-9.0 H EOSINOPHIL % (test code = EO%) 6.2 % 0.3-3.7 H BASOPHIL % (test code = BA%) 0.7 % 0.0-2.0 N NUCLEATED RBC % (test code = NRBC%) 0.0 % 0-0 N NEUTROPHIL # (test code = NT#) 2.53 x10 3/uL 2.0-7.6 N IMMATURE GRANULOCYTE # (test code = IG#) 0.02 x10 3/uL 0.00-0.03 N LYMPHOCYTE # (test code = LY#) 1.11 x10 3/uL 1.0-3.8 N MONOCYTE # (test code = MO#) 0.40 x10 3/uL 0.1-0.8 N EOSINOPHIL # (test code = EO#) 0.27 x10 3/uL 0.0-0.2 H BASOPHIL # (test code = BA#) 0.03 x10 3/uL 0.0-0.2 N NUCLEATED RBC # (test code = NRBC#) 0.00 x10 3/uL 0.0-0.1 N GLUCOSE [id number] 20:14:00* Test Item Value Reference Range Interpretation Comme nts GLUCOSE BEDSIDE (test code = GLUBED) 110 MG/DL 70-110 N Performed by cer tified decker operator at [facility] GLUCOSE [id number] 17:35:00* Test Item Value Reference Range Interpretation Comme nts GLUCOSE BEDSIDE (test code = GLUBED) 101 MG/DL 70-110 N Performed by cer tified decker operator at [facility] GLUCOSE [id number] 12:07:00* Test Item Value Reference Range Interpretation Comme nts GLUCOSE BEDSIDE (test code = GLUBED) 118 MG/DL 70-110 H Performed by cer tified decker operator at [facility] GLUCOSE [id number] 20:30:00* Test Item Value Reference Range Interpretation Comme nts GLUCOSE BEDSIDE (test code = GLUBED) 134 MG/DL 70-110 H Performed by cer tified decker operator at [facility] GLUCOSE [id number] 17:06:00* Test Item Value Reference Range Interpretation Comme nts GLUCOSE BEDSIDE (test code = GLUBED) 102 MG/DL 70-110 N Performed by cer tified decker operator at [facility] GLUCOSE [id number] 12:41:00* Test Item Value Reference Range Interpretation Comme nts GLUCOSE BEDSIDE (test code = GLUBED) 115 MG/DL 70-110 H Performed by cer tified decker operator at [facility] GLUCOSE [id number] 10:09:00* Test Item Value Reference Range Interpretation Comme nts GLUCOSE BEDSIDE (test code = GLUBED) 113 MG/DL 70-110 H Performed by cer tified decker operator at [facility] BASIC METABOLIC [id number] 07:49:00* Test Item Value Reference Range Interpretation Comme nts SODIUM (test code = NA) 143 mEq/L 134-147 N POTASSIUM (test code = K) 4.0 mEq/L 3.4-5.0 N CHLORIDE (test code = CL) 108 mEq/L 100-108 N CARBON DIOXIDE (test code = CO2) 27 mEq/l 21-33 N ANION GAP (test code = GAP) 12 0-20 N GLUCOSE (test code = GLU) 70 mg/dL 77-141 L BLOOD UREA NITROGEN (test code = BUN) 23 mg/dL 7-25 N GLOMERULAR FILTRATION RATE (test code = GFR) 76.8 70-80 N The Glomerular Filtration Rate is a calculated parameterbased on serum Creatinine, patient age and sex. GFR valuesless than 60 mL/min/1.73 square meters are indicative ofChronic Kidney Disease. Values less than 15 mL/min/1.73square meters indicate Kidney failure. The calculation forGFR is based on the CKD-EPI (2020) calculation. This formulais race indifferent and is the recommended formula for GFRby the National Kidney Foundation for Adults.The GFR will not calculate if the sex is unknown or if thepatient's age is <18 years. CREATININE (test code = CREAT) 0.8 mg/dL 0.6-1.3 N CALCIUM (test code = CA) 9.6 mg/dL 8.0-10.5 N [id number] 07:49:00* Test Item Value Reference Range Interpretation Comme nts MAGNESIUM (test code = MAG) 2.11 mg/dL 1.6-2.6 N CBC W/AUTO [id number] 07:40:00* Test Item Value Reference Range Interpretation Comme nts WHITE BLOOD CELL (test code = WBC) 5.1 x10 3/uL 4.5-11.0 N RED BLOOD CELL (test code = RBC) 3.53 x10 6/uL 3.54-5.02 L HEMOGLOBIN (test code = HGB) 9.7 g/dL 11.0-15.0 L HEMATOCRIT (test code = HCT) 31.1 % 33.0-45.0 L MEAN CELL VOLUME (test code = MCV) 88.1 fL 81.0-99.0 N MEAN CELL HGB (test code = MCH) 27.5 pg 27.0-33.0 N MEAN CELL HGB CONCETRATION (test code = MCHC) 31.2 g/dL 33.0-37.0 L RED CELL DISTRIBUTION WIDTH CV (test code = RDW) 15.9 % 11.5-14.5 H RED CELL DISTRIBUTION WIDTH SD (test code = RDW-SD) 50.2 fL 37.0-54.0 N PLATELET COUNT (test code = PLT) 240 x10 3/uL 150-400 N MEAN PLATELET VOLUME (test c ode = MPV) 9.6 fL 7.0-9.0 H NEUTROPHIL % (test code = NT%) 60.8 % 56.0-77.0 N IMMATURE GRANULOCYTE % (test code = IG%) 0.4 % 0.0-2.0 N LYMPHOCYTE % (test code = LY%) 23.5 % 14.0-32.0 N MONOCYTE % (test code = MO%) 10.6 % 4.8-9.0 H EOSINOPHIL % (test code = EO%) 4.3 % 0.3-3.7 H BASOPHIL % (test code = BA%) 0.4 % 0.0-2.0 N NUCLEATED RBC % (test code = NRBC%) 0.0 % 0-0 N NEUTROPHIL # (test code = NT#) 3.11 x10 3/uL 2.0-7.6 N IMMATURE GRANULOCYTE # (test code = IG#) 0.02 x10 3/uL 0.00-0.03 N LYMPHOCYTE # (test code = LY#) 1.20 x10 3/uL 1.0-3.8 N MONOCYTE # (test code = MO#) 0.54 x10 3/uL 0.1-0.8 N EOSINOPHIL # (test code = EO#) 0.22 x10 3/uL 0.0-0.2 H BASOPHIL # (test code = BA#) 0.02 x10 3/uL 0.0-0.2 N NUCLEATED RBC # (test code = NRBC#) 0.00 x10 3/uL 0.0-0.1 N COAGULATION TIME [id number] 22:48:00* Test Item Value Reference Range Interpretation Comme nts COAGULATION TIME ACTIVATED (test code = ACT) 350 SECONDS Performed by certified decker operator at [facility] COAGULATION TIME [id number] 22:48:00* Test Item Value Reference Range Interpretation Comme nts COAGULATION TIME ACTIVATED (test code = ACT) 244 SECONDS Performed by certified decker operator at [facility] COAGULATION TIME [id number] 22:48:00* Test Item Value Reference Range Interpretation Comme nts COAGULATION TIME ACTIVATED (test code = ACT) 239 SECONDS Performed by certified decker operator at [facility] COAGULATION TIME [id number] 22:48:00* Test Item Value Reference Range Interpretation Comme nts COAGULATION TIME ACTIVATED (test code = ACT) 380 SECONDS Performed by certified decker operator at [facility] COAGULATION TIME [id number] 22:48:00* Test Item Value Reference Range Interpretation Comme nts COAGULATION TIME ACTIVATED (test code = ACT) 170 SECONDS Performed by certified decker operator at [facility] GLUCOSE [id number] 20:24:00* Test Item Value Reference Range Interpretation Comme nts GLUCOSE BEDSIDE (test code = GLUBED) 153 MG/DL 70-110 H Performed by cer tified decker operator at [facility] GLUCOSE [id number] 11:16:00* Test Item Value Reference Range Interpretation Comme nts GLUCOSE BEDSIDE (test code = GLUBED) 74 MG/DL 70-110 N Performed by cer tified decker operator at [facility] CBC W/AUTO [id number] 11:15:00* Test Item Value Reference Range Interpretation Comme nts WHITE BLOOD CELL (test code = WBC) 5.7 x10 3/uL 4.5-11.0 N RED BLOOD CELL (test code = RBC) 3.41 x10 6/uL 3.54-5.02 L HEMOGLOBIN (test code = HGB) 9.5 g/dL 11.0-15.0 L HEMATOCRIT (test code = HCT) 29.7 % 33.0-45.0 L MEAN CELL VOLUME (test code = MCV) 87.1 fL 81.0-99.0 N MEAN CELL HGB (test code = MCH) 27.9 pg 27.0-33.0 N MEAN CELL HGB CONCETRATION (test code = MCHC) 32.0 g/dL 33.0-37.0 L RED CELL DISTRIBUTION WIDTH CV (test code = RDW) 15.7 % 11.5-14.5 H RED CELL DISTRIBUTION WIDTH SD (test code = RDW-SD) 49.8 fL 37.0-54.0 N PLATELET COUNT (test code = PLT) 225 x10 3/uL 150-400 N MEAN PLATELET VOLUME (test c ode = MPV) 9.7 fL 7.0-9.0 H NEUTROPHIL % (test code = NT%) 73.1 % 56.0-77.0 N IMMATURE GRANULOCYTE % (test code = IG%) 0.2 % 0.0-2.0 N LYMPHOCYTE % (test code = LY%) 16.1 % 14.0-32.0 N MONOCYTE % (test code = MO%) 6.8 % 4.8-9.0 N EOSINOPHIL % (test code = EO%) 3.3 % 0.3-3.7 N BASOPHIL % (test code = BA%) 0.5 % 0.0-2.0 N NUCLEATED RBC % (test code = NRBC%) 0.0 % 0-0 N NEUTROPHIL # (test code = NT#) 4.19 x10 3/uL 2.0-7.6 N IMMATURE GRANULOCYTE # (test code = IG#) 0.01 x10 3/uL 0.00-0.03 N LYMPHOCYTE # (test code = LY#) 0.92 x10 3/uL 1.0-3.8 L MONOCYTE # (test code = MO#) 0.39 x10 3/uL 0.1-0.8 N EOSINOPHIL # (test code = EO#) 0.19 x10 3/uL 0.0-0.2 N BASOPHIL # (test code = BA#) 0.03 x10 3/uL 0.0-0.2 N NUCLEATED RBC # (test code = NRBC#) 0.00 x10 3/uL 0.0-0.1 N GLUCOSE [id number] 02:46:00* Test Item Value Reference Range Interpretation Comme nts GLUCOSE BEDSIDE (test code = GLUBED) 84 MG/DL 70-110 N Performed by cer tified decker operator at [facility] UA RFLX MICR CULT IF [id number] 02:31:00* Test Item Value Reference Range Interpretation Comme nts UA COLOR (test code = COLU) SHIRIN YEL/STRAW A UA APPEARANCE (test code = APPU) SL CLOUDY CLEAR UA GLUCOSE DIPSTICK (test co de = DGLUU) 3+ NEGATIVE A UA BILIRUBIN DIPSTICK (test code = BILU) NEGATIVE NEGATIVE UA KETONE DIPSTICK (test cod e = KETU) 1+ NEGATIVE A UA SPECIFIC GRAVITY (test co de = SGU) 1.016 1.005-1.030 N UA BLOOD DIPSTICK (test code = KANDI) 3+ NEGATIVE A UA PH DIPSTICK (test code = JEANETTE) 7.0 5.0-7.0 N UA PROTEIN DIPSTICK (test co de = PROU) 3+ NEGATIVE A UA UROBILINIOGEN DIPSTICK (test code = URO) 2.0 mg/dL 0.2-1.0 A UA NITRITE DIPSTICK (test co de = SHMUEL) NEGATIVE NEGATIVE UA LEUKOCYTE ESTERASE DIPSTI CK (test code = LEUU) TRACE NEGATIVE A UA WBC (test code = WBCU) 4-9 WBC/HPF 0-3 A UA RBC (test code = RBCU) >50 RBC/HPF 0-3 A UA WBC NO REFLEX (test code = WBCUCL) 4-9 WBC/HPF 0-3 A UA BACTERIA (test code = BACU) 1+ /HPF NONE SEEN A UA SQUAMOUS CELLS (test code = SQU) NONE SEEN /HPF NONE SEEN UA CALCIUM OXALATE CRYSTALS (test code = CAOXU) 2+ /HPF NONE SEEN A Indication for culture: Dysuria/Frequency Gross HematuriaSpecimen Description: CLEAN CATCHB-TYPE NATRIURETIC [id number] 05:01:00* Test Item Value Reference Range Interpretation Comme nts B-TYPE NATRIURETIC PEPTIDE ( test code = BNP) 100.0 PG/ML 0-100 N BASIC METABOLIC [id number] 04:38:00* Test Item Value Reference Range Interpretation Comme nts SODIUM (test code = NA) 141 mEq/L 134-147 N POTASSIUM (test code = K) 3.4 mEq/L 3.4-5.0 N CHLORIDE (test code = CL) 111 mEq/L 100-108 H CARBON DIOXIDE (test code = CO2) 26 mEq/l 21-33 N ANION GAP (test code = GAP) 8 0-20 N GLUCOSE (test code = GLU) 95 mg/dL 77-141 N BLOOD UREA NITROGEN (test code = BUN) 30 mg/dL 7-25 H GLOMERULAR FILTRATION RATE (test code = GFR) 76.8 70-80 N The Glomerular Filtration Rate is a calculated parameterbased on serum Creatinine, patient age and sex. GFR valuesless than 60 mL/min/1.73 square meters are indicative ofChronic Kidney Disease. Values less than 15 mL/min/1.73square meters indicate Kidney failure. The calculation forGFR is based on the CKD-EPI (202) calculation. This formulais race indifferent and is the recommended formula for GFRby the National Kidney Foundation for Adults.The GFR will not calculate if the sex is unknown or if thepatient's age is <18 years. CREATININE (test code = CREAT) 0.8 mg/dL 0.6-1.3 N CALCIUM (test code = CA) 8.7 mg/dL 8.0-10.5 N [id number] 04:38:00* Test Item Value Reference Range Interpretation Comme nts MAGNESIUM (test code = MAG) 2.11 mg/dL 1.6-2.6 N CBC W/AUTO [id number] 04:25:00* Test Item Value Reference Range Interpretation Comme nts WHITE BLOOD CELL (test code = WBC) 5.8 x10 3/uL 4.5-11.0 N RED BLOOD CELL (test code = RBC) 3.91 x10 6/uL 3.54-5.02 N HEMOGLOBIN (test code = HGB) 10.9 g/dL 11.0-15.0 L HEMATOCRIT (test code = HCT) 34.4 % 33.0-45.0 N MEAN CELL VOLUME (test code = MCV) 88.0 fL 81.0-99.0 N MEAN CELL HGB (test code = MCH) 27.9 pg 27.0-33.0 N MEAN CELL HGB CONCETRATION (test code = MCHC) 31.7 g/dL 33.0-37.0 L RED CELL DISTRIBUTION WIDTH CV (test code = RDW) 15.8 % 11.5-14.5 H RED CELL DISTRIBUTION WIDTH SD (test code = RDW-SD) 50.8 fL 37.0-54.0 N PLATELET COUNT (test code = PLT) 172 x10 3/uL 150-400 N MEAN PLATELET VOLUME (test c ode = MPV) 9.8 fL 7.0-9.0 H NEUTROPHIL % (test code = NT%) 68.5 % 56.0-77.0 N IMMATURE GRANULOCYTE % (test code = IG%) 0.3 % 0.0-2.0 N LYMPHOCYTE % (test code = LY%) 19.9 % 14.0-32.0 N MONOCYTE % (test code = MO%) 8.2 % 4.8-9.0 N EOSINOPHIL % (test code = EO%) 2.6 % 0.3-3.7 N BASOPHIL % (test code = BA%) 0.5 % 0.0-2.0 N NUCLEATED RBC % (test code = NRBC%) 0.0 % 0-0 N NEUTROPHIL # (test code = NT#) 4.00 x10 3/uL 2.0-7.6 N IMMATURE GRANULOCYTE # (test code = IG#) 0.02 x10 3/uL 0.00-0.03 N LYMPHOCYTE # (test code = LY#) 1.16 x10 3/uL 1.0-3.8 N MONOCYTE # (test code = MO#) 0.48 x10 3/uL 0.1-0.8 N EOSINOPHIL # (test code = EO#) 0.15 x10 3/uL 0.0-0.2 N BASOPHIL # (test code = BA#) 0.03 x10 3/uL 0.0-0.2 N NUCLEATED RBC # (test code = NRBC#) 0.00 x10 3/uL 0.0-0.1 N GLUCOSE [id number] 12:53:00* Test Item Value Reference Range Interpretation Comme nts GLUCOSE BEDSIDE (test code = GLUBED) 106 MG/DL 70-110 N Performed by cer diptiied decker operator at [facility] BASIC METABOLIC [id number] 06:47:00* Test Item Value Reference Range Interpretation Comme nts SODIUM (test code = NA) 144 mEq/L 134-147 N POTASSIUM (test code = K) 3.9 mEq/L 3.4-5.0 N CHLORIDE (test code = CL) 110 mEq/L 100-108 H CARBON DIOXIDE (test code = CO2) 24 mEq/l 21-33 N ANION GAP (test code = GAP) 14 0-20 N GLUCOSE (test code = GLU) 88 mg/dL 77-141 N BLOOD UREA NITROGEN (test code = BUN) 22 mg/dL 7-25 N GLOMERULAR FILTRATION RATE (test code = GFR) 90.1 70-80 H The Glomerular Filtration Rate is a calculated parameterbased on serum Creatinine, patient age and sex. GFR valuesless than 60 mL/min/1.73 square meters are indicative ofChronic Kidney Disease. Values less than 15 mL/min/1.73square meters indicate Kidney failure. The calculation forGFR is based on the CKD-EPI (202) calculation. This formulais race indifferent and is the recommended formula for GFRby the National Kidney Foundation for Adults.The GFR will not calculate if the sex is unknown or if thepatient's age is <18 years. CREATININE (test code = CREAT) 0.7 mg/dL 0.6-1.3 N CALCIUM (test code = CA) 9.1 mg/dL 8.0-10.5 N [id number] 06:47:00* Test Item Value Reference Range Interpretation Comme nts MAGNESIUM (test code = MAG) 1.97 mg/dL 1.6-2.6 N CBC W/AUTO [id number] 06:23:00* Test Item Value Reference Range Interpretation Comme nts WHITE BLOOD CELL (test code = WBC) 6.7 x10 3/uL 4.5-11.0 N RED BLOOD CELL (test code = RBC) 4.19 x10 6/uL 3.54-5.02 N HEMOGLOBIN (test code = HGB) 11.6 g/dL 11.0-15.0 N HEMATOCRIT (test code = HCT) 36.5 % 33.0-45.0 N MEAN CELL VOLUME (test code = MCV) 87.1 fL 81.0-99.0 N MEAN CELL HGB (test code = MCH) 27.7 pg 27.0-33.0 N MEAN CELL HGB CONCETRATION (test code = MCHC) 31.8 g/dL 33.0-37.0 L RED CELL DISTRIBUTION WIDTH CV (test code = RDW) 15.8 % 11.5-14.5 H RED CELL DISTRIBUTION WIDTH SD (test code = RDW-SD) 49.6 fL 37.0-54.0 N PLATELET COUNT (test code = PLT) 185 x10 3/uL 150-400 N MEAN PLATELET VOLUME (test c ode = MPV) 9.9 fL 7.0-9.0 H NEUTROPHIL % (test code = NT%) 80.1 % 56.0-77.0 H IMMATURE GRANULOCYTE % (test code = IG%) 0.4 % 0.0-2.0 N LYMPHOCYTE % (test code = LY%) 12.5 % 14.0-32.0 L MONOCYTE % (test code = MO%) 6.3 % 4.8-9.0 N EOSINOPHIL % (test code = EO%) 0.4 % 0.3-3.7 N BASOPHIL % (test code = BA%) 0.3 % 0.0-2.0 N NUCLEATED RBC % (test code = NRBC%) 0.0 % 0-0 N NEUTROPHIL # (test code = NT#) 5.36 x10 3/uL 2.0-7.6 N IMMATURE GRANULOCYTE # (test code = IG#) 0.03 x10 3/uL 0.00-0.03 N LYMPHOCYTE # (test code = LY#) 0.84 x10 3/uL 1.0-3.8 L MONOCYTE # (test code = MO#) 0.42 x10 3/uL 0.1-0.8 N EOSINOPHIL # (test code = EO#) 0.03 x10 3/uL 0.0-0.2 N BASOPHIL # (test code = BA#) 0.02 x10 3/uL 0.0-0.2 N NUCLEATED RBC # (test code = NRBC#) 0.00 x10 3/uL 0.0-0.1 N GLUCOSE [id number] 08:34:00* Test Item Value Reference Range Interpretation Comme nts GLUCOSE BEDSIDE (test code = GLUBED) 99 MG/DL 70-110 N Performed by cer tified decker operator at [facility] BASIC METABOLIC [id number] 07:29:00* Test Item Value Reference Range Interpretation Comme nts SODIUM (test code = NA) 144 mEq/L 134-147 N POTASSIUM (test code = K) 3.9 mEq/L 3.4-5.0 CHLORIDE (test code = CL) 112 mEq/L 100-108 H CARBON DIOXIDE (test code = CO2) 26 mEq/l 21-33 N ANION GAP (test code = GAP) 10 0-20 N GLUCOSE (test code = GLU) 92 mg/dL 77-141 N BLOOD UREA NITROGEN (test code = BUN) 15 mg/dL 7-25 N GLOMERULAR FILTRATION RATE (test code = GFR) 90.1 70-80 H The Glomerular Filtration Rate is a calculated parameterbased on serum Creatinine, patient age and sex. GFR valuesless than 60 mL/min/1.73 square meters are indicative ofChronic Kidney Disease. Values less than 15 mL/min/1.73square meters indicate Kidney failure. The calculation forGFR is based on the CKD-EPI (202) calculation. This formulais race indifferent and is the recommended formula for GFRby the National Kidney Foundation for Adults.The GFR will not calculate if the sex is unknown or if thepatient's age is <18 years. CREATININE (test code = CREAT) 0.7 mg/dL 0.6-1.3 N CALCIUM (test code = CA) 9.0 mg/dL 8.0-10.5 N PROTHROMBIN [id number] 06:24:00* Test Item Value Reference Range Interpretation Comme nts PROTHROMBIN TIME PATIENT (test code = PTP) 12.6 SECONDS 9.3-12.9 N INTERNATIONAL NORMAL RATIO (test code = INR) 1.1 0.8-1.2 N TARGET INR BY INDICATION Indication INR1. Prophylaxis of venous thrombosis 2.0 - 3.0 (orthopedic surgery), Prophylaxis of venous thrombosis (other than high-risk surgery), Treatment of Deep Vein Thrombosis/Pulmonary Embolism, Prevention of systemic embolism - Tissue heart valves, Acute Myocardial Infarction (to prevent systemic embolism), Valvular heart disease, Atrial Fibrillation, Bileaflet mechanical valve in aortic position.2. Mechanical prosthetic valves (high risk), 2.5 - 3.5 Presence of Lupus Anticoagulant or Antiphospholipid Antibodies, Prevention of systemic embolism - Acute Myocardial Infarction (to prevent recurrent infarct). CBC W/AUTO [id number] 06:22:00* Test Item Value Reference Range Interpretation Comme nts WHITE BLOOD CELL (test code = WBC) 5.8 x10 3/uL 4.5-11.0 N RED BLOOD CELL (test code = RBC) 4.70 x10 6/uL 3.54-5.02 N HEMOGLOBIN (test code = HGB) 13.0 g/dL 11.0-15.0 N HEMATOCRIT (test code = HCT) 41.4 % 33.0-45.0 N MEAN CELL VOLUME (test code = MCV) 88.1 fL 81.0-99.0 N MEAN CELL HGB (test code = MCH) 27.7 pg 27.0-33.0 N MEAN CELL HGB CONCETRATION (test code = MCHC) 31.4 g/dL 33.0-37.0 L RED CELL DISTRIBUTION WIDTH CV (test code = RDW) 15.4 % 11.5-14.5 H RED CELL DISTRIBUTION WIDTH SD (test code = RDW-SD) 49.1 fL 37.0-54.0 N PLATELET COUNT (test code = PLT) 174 x10 3/uL 150-400 N MEAN PLATELET VOLUME (test c ode = MPV) 9.7 fL 7.0-9.0 H NEUTROPHIL % (test code = NT%) 74.0 % 56.0-77.0 N IMMATURE GRANULOCYTE % (test code = IG%) 0.3 % 0.0-2.0 N LYMPHOCYTE % (test code = LY%) 15.7 % 14.0-32.0 N MONOCYTE % (test code = MO%) 6.7 % 4.8-9.0 N EOSINOPHIL % (test code = EO%) 2.6 % 0.3-3.7 N BASOPHIL % (test code = BA%) 0.7 % 0.0-2.0 N NUCLEATED RBC % (test code = NRBC%) 0.0 % 0-0 N NEUTROPHIL # (test code = NT#) 4.30 x10 3/uL 2.0-7.6 N IMMATURE GRANULOCYTE # (test code = IG#) 0.02 x10 3/uL 0.00-0.03 N LYMPHOCYTE # (test code = LY#) 0.91 x10 3/uL 1.0-3.8 L MONOCYTE # (test code = MO#) 0.39 x10 3/uL 0.1-0.8 N EOSINOPHIL # (test code = EO#) 0.15 x10 3/uL 0.0-0.2 N BASOPHIL # (test code = BA#) 0.04 x10 3/uL 0.0-0.2 N NUCLEATED RBC # (test code = NRBC#) 0.00 x10 3/uL 0.0-0.1 N GLUCOSE [id number] 19:31:00* Test Item Value Reference Range Interpretation Comme nts GLUCOSE BEDSIDE (test code = GLUBED) 157 MG/DL 70-110 H Performed by cer tified decker operator at [facility] GLUCOSE [id number] 16:02:00* Test Item Value Reference Range Interpretation Comme nts GLUCOSE BEDSIDE (test code = GLUBED) 104 MG/DL 70-110 N Performed by cer tified decker operator at [facility] GLUCOSE [id number] 11:47:00* Test Item Value Reference Range Interpretation Comme nts GLUCOSE BEDSIDE (test code = GLUBED) 129 MG/DL 70-110 H Performed by cer tified decker operator at [facility] GLUCOSE [id number] 08:34:00* Test Item Value Reference Range Interpretation Comme nts GLUCOSE BEDSIDE (test code = GLUBED) 113 MG/DL 70-110 H Performed by cer tified decker operator at [facility] BASIC METABOLIC [id number] 07:16:00* Test Item Value Reference Range Interpretation Comme nts SODIUM (test code = NA) 141 mEq/L 134-147 N POTASSIUM (test code = K) 3.1 mEq/L 3.4-5.0 L CHLORIDE (test code = CL) 107 mEq/L 100-108 N CARBON DIOXIDE (test code = CO2) 25 mEq/l 21-33 N ANION GAP (test code = GAP) 12 0-20 N GLUCOSE (test code = GLU) 117 mg/dL 77-141 N BLOOD UREA NITROGEN (test code = BUN) 14 mg/dL 7-25 N GLOMERULAR FILTRATION RATE (test code = GFR) 90.1 70-80 H The Glomerular Filtration Rate is a calculated parameterbased on serum Creatinine, patient age and sex. GFR valuesless than 60 mL/min/1.73 square meters are indicative ofChronic Kidney Disease. Values less than 15 mL/min/1.73square meters indicate Kidney failure. The calculation forGFR is based on the CKD-EPI (202) calculation. This formulais race indifferent and is the recommended formula for GFRby the National Kidney Foundation for Adults.The GFR will not calculate if the sex is unknown or if thepatient's age is <18 years. CREATININE (test code = CREAT) 0.7 mg/dL 0.6-1.3 N CALCIUM (test code = CA) 9.0 mg/dL 8.0-10.5 N CBC W/AUTO [id number] 07:12:00* Test Item Value Reference Range Interpretation Comme nts WHITE BLOOD CELL (test code = WBC) 7.2 x10 3/uL 4.5-11.0 N RED BLOOD CELL (test code = RBC) 4.77 x10 6/uL 3.54-5.02 N HEMOGLOBIN (test code = HGB) 13.2 g/dL 11.0-15.0 N HEMATOCRIT (test code = HCT) 41.1 % 33.0-45.0 N MEAN CELL VOLUME (test code = MCV) 86.2 fL 81.0-99.0 N MEAN CELL HGB (test code = MCH) 27.7 pg 27.0-33.0 N MEAN CELL HGB CONCETRATION (test code = MCHC) 32.1 g/dL 33.0-37.0 L RED CELL DISTRIBUTION WIDTH CV (test code = RDW) 15.6 % 11.5-14.5 H RED CELL DISTRIBUTION WIDTH SD (test code = RDW-SD) 48.5 fL 37.0-54.0 N PLATELET COUNT (test code = PLT) 170 x10 3/uL 150-400 N MEAN PLATELET VOLUME (test c ode = MPV) 9.7 fL 7.0-9.0 H NEUTROPHIL % (test code = NT%) 79.4 % 56.0-77.0 H IMMATURE GRANULOCYTE % (test code = IG%) 0.4 % 0.0-2.0 N LYMPHOCYTE % (test code = LY%) 12.8 % 14.0-32.0 L MONOCYTE % (test code = MO%) 5.7 % 4.8-9.0 N EOSINOPHIL % (test code = EO%) 1.3 % 0.3-3.7 N BASOPHIL % (test code = BA%) 0.4 % 0.0-2.0 N NUCLEATED RBC % (test code = NRBC%) 0.0 % 0-0 N NEUTROPHIL # (test code = NT#) 5.72 x10 3/uL 2.0-7.6 N IMMATURE GRANULOCYTE # (test code = IG#) 0.03 x10 3/uL 0.00-0.03 N LYMPHOCYTE # (test code = LY#) 0.92 x10 3/uL 1.0-3.8 L MONOCYTE # (test code = MO#) 0.41 x10 3/uL 0.1-0.8 N EOSINOPHIL # (test code = EO#) 0.09 x10 3/uL 0.0-0.2 N BASOPHIL # (test code = BA#) 0.03 x10 3/uL 0.0-0.2 N NUCLEATED RBC # (test code = NRBC#) 0.00 x10 3/uL 0.0-0.1 N COAGULATION TIME [id number] 22:49:00* Test Item Value Reference Range Interpretation Comme nts COAGULATION TIME ACTIVATED (test code = ACT) 247 SECONDS Performed by certified decker operator at [facility] COAGULATION TIME [id number] 22:49:00* Test Item Value Reference Range Interpretation Comme nts COAGULATION TIME ACTIVATED (test code = ACT) 326 SECONDS Performed by certified decker operator at [facility] GLUCOSE [id number] 19:32:00* Test Item Value Reference Range Interpretation Comme nts GLUCOSE BEDSIDE (test code = GLUBED) 157 MG/DL 70-110 H Performed by cer tified decker operator at [facility] GLUCOSE [id number] 17:52:00* Test Item Value Reference Range Interpretation Comme nts GLUCOSE BEDSIDE (test code = GLUBED) 126 MG/DL 70-110 H Performed by cer tified decker operator at [facility] GLUCOSE [id number] 08:56:00* Test Item Value Reference Range Interpretation Comme nts GLUCOSE BEDSIDE (test code = GLUBED) 83 MG/DL 70-110 N Performed by cer tified decker operator at [facility] PROTHROMBIN [id number] 17:04:00* Test Item Value Reference Range Interpretation Comme nts PROTHROMBIN TIME PATIENT (test code = PTP) 12.1 SECONDS 9.3-12.9 N INTERNATIONAL NORMAL RATIO (test code = INR) 1.1 0.8-1.2 N TARGET INR BY INDICATION Indication INR1. Prophylaxis of venous thrombosis 2.0 - 3.0 (orthopedic surgery), Prophylaxis of venous thrombosis (other than high-risk surgery), Treatment of Deep Vein Thrombosis/Pulmonary Embolism, Prevention of systemic embolism - Tissue heart valves, Acute Myocardial Infarction (to prevent systemic embolism), Valvular heart disease, Atrial Fibrillation, Bileaflet mechanical valve in aortic position.2. Mechanical prosthetic valves (high risk), 2.5 - 3.5 Presence of Lupus Anticoagulant or Antiphospholipid Antibodies, Prevention of systemic embolism - Acute Myocardial Infarction (to prevent recurrent infarct). BASIC METABOLIC [id number] 17:01:00* Test Item Value Reference Range Interpretation Comme nts SODIUM (test code = NA) 144 mEq/L 134-147 N POTASSIUM (test code = K) 3.8 mEq/L 3.4-5.0 N CHLORIDE (test code = CL) 107 mEq/L 100-108 N CARBON DIOXIDE (test code = CO2) 30 mEq/l 21-33 N ANION GAP (test code = GAP) 11 0-20 N GLUCOSE (test code = GLU) 85 mg/dL 77-141 N BLOOD UREA NITROGEN (test code = BUN) 17 mg/dL 7-25 N GLOMERULAR FILTRATION RATE (test code = GFR) 58.8 70-80 L The Glomerular Filtration Rate is a calculated parameterbased on serum Creatinine, patient age and sex. GFR valuesless than 60 mL/min/1.73 square meters are indicative ofChronic Kidney Disease. Values less than 15 mL/min/1.73square meters indicate Kidney failure. The calculation forGFR is based on the CKD-EPI (2020) calculation. This formulais race indifferent and is the recommended formula for GFRby the National Kidney Foundation for Adults.The GFR will not calculate if the sex is unknown or if thepatient's age is <18 years. CREATININE (test code = CREAT) 1.0 mg/dL 0.6-1.3 N CALCIUM (test code = CA) 9.7 mg/dL 8.0-10.5 N CBC W/AUTO [id number] 16:38:00* Test Item Value Reference Range Interpretation Comme nts WHITE BLOOD CELL (test code = WBC) 5.2 x10 3/uL 4.5-11.0 N RED BLOOD CELL (test code = RBC) 5.09 x10 6/uL 3.54-5.02 H HEMOGLOBIN (test code = HGB) 14.0 g/dL 11.0-15.0 N HEMATOCRIT (test code = HCT) 45.0 % 33.0-45.0 N MEAN CELL VOLUME (test code = MCV) 88.4 fL 81.0-99.0 N MEAN CELL HGB (test code = MCH) 27.5 pg 27.0-33.0 N MEAN CELL HGB CONCETRATION (test code = MCHC) 31.1 g/dL 33.0-37.0 L RED CELL DISTRIBUTION WIDTH CV (test code = RDW) 15.2 % 11.5-14.5 H RED CELL DISTRIBUTION WIDTH SD (test code = RDW-SD) 49.5 fL 37.0-54.0 N PLATELET COUNT (test code = PLT) 208 x10 3/uL 150-400 N MEAN PLATELET VOLUME (test c ode = MPV) 9.6 fL 7.0-9.0 H NEUTROPHIL % (test code = NT%) 61.1 % 56.0-77.0 N IMMATURE GRANULOCYTE % (test code = IG%) 0.2 % 0.0-2.0 N LYMPHOCYTE % (test code = LY%) 27.9 % 14.0-32.0 N MONOCYTE % (test code = MO%) 7.5 % 4.8-9.0 N EOSINOPHIL % (test code = EO%) 2.3 % 0.3-3.7 N BASOPHIL % (test code = BA%) 1.0 % 0.0-2.0 N NUCLEATED RBC % (test code = NRBC%) 0.0 % 0-0 N NEUTROPHIL # (test code = NT#) 3.16 x10 3/uL 2.0-7.6 N IMMATURE GRANULOCYTE # (test code = IG#) 0.01 x10 3/uL 0.00-0.03 N LYMPHOCYTE # (test code = LY#) 1.44 x10 3/uL 1.0-3.8 N MONOCYTE # (test code = MO#) 0.39 x10 3/uL 0.1-0.8 N EOSINOPHIL # (test code = EO#) 0.12 x10 3/uL 0.0-0.2 N BASOPHIL # (test code = BA#) 0.05 x10 3/uL 0.0-0.2 N NUCLEATED RBC # (test code = NRBC#) 0.00 x10 3/uL 0.0-0.1 N XR CHEST 1 [id number] 22:06:46XR CHEST 1 VW HISTORY: ?Chest pain after fall COMPARISON: None. Technical quality: adequate TECHNIQUE: 1 view(s) radiographs of the XR CHEST 1 VW FINDINGS: ?Age indeterminate displaced fracture of the mid right clavicle. Theremaining osseous structures appear intact. There are left lung granulomas.No pneumothorax or pleural effusion. The cardiac silhouette is normal.There are aortic knob atherosclerotic calcifications.[facility] Notes Date/Time Note Provider Source 2024-06-02 08:32:33 Chief Complaint Patient presents with Hospital F/U Hospital follow up [facility] and [facility] for heart issues. 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) Controlled- Due to COPD [facility] 2024-04-01 10:31:00 [facility] ([facility]) Hospitalist Discharge Summary REPORT#:[id number] REPORT STATUS: Signed REPORT INITIALIZATION DATE:04/01/24 TIME: 103 PATIENT: CALVIN NEWSOME V UNIT #: [id number] ROOM/BED: [place] [id number] : 48 AGE: 73 SEX: F ATTEND: Errol Bautista MD ADM AUTHOR: Kelsey Saini MD REPT SERVICE DT/TIME: 04/01/24 1031 * ALL edits or amendments must be made on the electronic/computer document * General Information Date of admission: Observation Start Date: Date of admission: 03/29/24 Discharge date: 04/01/24 Admission diagnosis: hematuria acute cystitis CAD DM HTN Discharge diagnosis: hematuria acute cystitis CAD DM HTN Hospital course: hematuria acute cystitis CAD DM HTN urology consult rocephin iv DM- hold home med sliding scale HTN- well control CAD- continue home med ASA 03/30- flores in place -- urine is clear now -- HB -- stable -- cardiology on board --continue iv antibiotic 03/31- less abdominal pain -- urine is clear -- dc flores -- continue iv antibiotic -- lab am she void after dc flores. urine is clear . she is stable to discharge home with oral antibiotic . she will follow up with pcp in 1 week. Consultants: cardiology, urology Free Text DxA P Notes Free text DxA P notes: 73 years old female with PMH of CAD with stents , DM, HTN hematuria acute cystitis CAD DM HTN urology consult rocephin iv DM- hold home med sliding scale HTN- well control CAD- continue home med ASA 03/30- flores in place -- urine is clear now -- HB -- stable -- cardiology on board --continue iv antibiotic 03/31- less abdominal pain -- urine is clear -- dc flores -- continue iv antibiotic -- lab am Med Rec Med Rec Discharge meds: Continue taking these medications: SEMAGLUTIDE (OZEMPIC PEN (4 MG/3mL)) 1 MG/0.75 ML (4 MG/3 ML) PEN.INJCTR 1 MILLIGRAM SUBCUTANEOUS EVERY 7 DAYS. ASPIRIN (ASPIRIN) 81 MG TAB.CHEW 81 MILLIGRAM ORAL DAILY. CALCIUM CARBONATE/VIT D3 (CALCIUM CARB/VIT D3 500 MG/200 UNITS) 500 MG CALCIUM-5 MCG (200 UNIT) TAB 600 MILLIGRAM ORAL DAILY. TROSPIUM (SANCTURA) 20 MG TAB 20 MILLIGRAM ORAL DAILY. SUCRALFATE (CARAFATE) 1 GRAM TAB 1 GRAM ORAL BEFORE MEALS. OXYBUTYNIN CHLORIDE (OXYBUTYNIN CHLORIDE ER) 10 MG TAB.SR.24H 10 MILLIGRAM ORAL DAILY. buPROPion HCL (WELLBUTRIN) 75 MG TAB 15 MILLIGRAM ORAL DAILY. PANTOPRAZOLE DR (PROTONIX) 40 MG TAB.DR 40 MILLIGRAM ORAL DAILY. Start taking the following new medications: CLOPIDOGREL (PLAVIX) 75 MG TAB 75 MILLIGRAM ORAL BEDTIME. Days = 30 Qty = 30 Refills = 3 ATORVASTATIN (LIPITOR) 40 MG TAB 40 MILLIGRAM ORAL 2100 Qty = 30 No Refills METOPROLOL SUCC XL (TOPROL XL) 25 MG TAB.SR.24H 25 MILLIGRAM ORAL DAILY. Qty = 30 No Refills SPIRONOLACTONE (ALDACTONE) 25 MG TAB 25 MILLIGRAM ORAL DAILY. Qty = 30 No Refills LISINOPRIL (ZESTRIL) 2.5 MG TAB 2.5 MILLIGRAM ORAL DAILY. Qty = 30 No Refills Dapagliflozin Propanediol (FARXIGA) 10 MG TAB 10 MILLIGRAM ORAL DAILY. Qty = 30 No Refills CEFDINIR (OMNICEF) 300 MG CAP 300 MILLIGRAM ORAL EVERY 12 HOURS. Qty = 6 No Refills Objective VS/I O Last Documented: Result Date Time Pulse Ox 98 04/01 1108 B/P 124/71 04/01 1108 B/P Mean 88.7 04/01 1108 O2 Delivery Room air 04/01 110 Pulse 68 04/01 110 Resp 15 04/01 1108 Temp 36.7 04/01 07 24 hour I O ending at 0700: 04/01 0700 03/31 1900 Intake Total 130.00 Output Total Balance 130.00 Intake, IV 5.00 Intake, Oral 125 Number 1 Bowel Movements Number Voids 3 General appearance: alert, awake, oriented Head/Eyes: atraumatic, normal conjunctiva/sclera, normal eyelids/periorb. Neck: full range of motion, non-tender, no JVD Cardiovascular: normal heart sounds, regular rate rhythm Respiratory: aerating well, clear to auscultation Abdomen: non-tender, normal bowel sounds, soft, no distention Genitourinary: urinary catheter Extremities: moves all, no calf tenderness, no edema Neuro/SLEEP TECHNICIAN: alert, oriented X 3, CNII-XII intact, normal speech, no motor deficits, no sensory deficits Skin: dry, intact Results Findings/Data: Laboratory Tests: 04/01 04/01 04/01 03/31 03/31 1107 [id number] 1959 1716 Chemistry Sodium (134 - 147 mEq/L) 143 Potassium (3.4 - 5.0 mEq/L) 4.0 Chloride (100 - 108 mEq/L) 109 H Carbon Dioxide (21 - 33 mEq/l) 24 Anion Gap (0 - 20) 14 BUN (7 - 25 mg/dL) 18 Creatinine (0.6 - 1.3 mg/dL) 0.9 Glomerular Filtr Rate (70 - 80) 66.7 L Glucose (77 - 141 mg/dL) 96 POC Glucose (70 - 110 MG/DL) 98 102 110 101 Calcium (8.0 - 10.5 mg/dL) 9.3 Hematology WBC (4.5 - 11.0 x10 3/uL) 4.4 L RBC (3.54 - 5.02 x10 6/uL) 3.73 Hgb (11.0 - 15.0 g/dL) 10.3 L Hct (33.0 - 45.0 %) 32.7 L MCV (81.0 - 99.0 fL) 87.7 MCH (27.0 - 33.0 pg) 27.6 MCHC (33.0 - 37.0 g/dL) 31.5 L RDW (11.5 - 14.5 %) 15.5 H Plt Count (150 - 400 x10 3/uL) 279 MPV (7.0 - 9.0 fL) 9.3 H Neut % (Auto) (56.0 - 77.0 %) 57.9 Lymph % (Auto) (14.0 - 32.0 %) 25.5 [place] % (Auto) (4.8 - 9.0 %) 9.2 H Eos % (Auto) (0.3 - 3.7 %) 6.2 H Baso % (Auto) (0.0 - 2.0 %) 0.7 Neut # (Auto) (2.0 - 7.6 x10 3/uL) 2.53 Lymph # (Auto) (1.0 - 3.8 x10 3/uL) 1.11 [place] # (Auto) (0.1 - 0.8 x10 3/uL) 0.40 Eos # (Auto) (0.0 - 0.2 x10 3/uL) 0.27 H Baso # (Auto) (0.0 - 0.2 x10 3/uL) 0.03 Abs Immat Gran (auto) (0.00 - 0.03 0.02 x10 3/uL) Immature Gran % (0.0 - 2.0 %) 0.5 Nucleated RBC % (0 - 0 %) 0.0 Nucleated RBCs # (Man) (0.0 - 0.1 0.00 x10 3/uL) Discharge Instructions PCP Discharge to: Home/Self Care Additional Discharge Routines: Attending Follow-Up Diet: Resume Home Diet/Feeds Fluid restriction(mls/day): 1200 Weight monitoring: Three Times a Week Activity: As Tolerated Follow-up Appointments PCP follow-up: PCP: No Primary or Family Physician PCP follow up timeframe: In 1-2 weeks Attending Physician: Attending Physician: Errol Bautista MD Quality: Discharge Current Medications Current medication review: Current Medications Sig/Josephine Start time Last Medication Dose Route Stop Time Status Admin Aspirin 81 MG DAILY 03/30 09 UNV PO 06/28 0859 Pantoprazole 40 MG DAILY 03/30 09 UNV PO 06/28 0859 Insulin Human Lispro 0 AC HS 03/29 1130 UNV SUBQ 06/27 1129 Sucralfate 1 GM AC 03/29 1130 UNV PO 06/27 1129 Acetaminophen 650 MG Q6H PRN PRN 03/29 0930 UNV PO 06/27 0929 Ceftriaxone Sodium 1,000 MG Q24H 03/29 0930 UNV Sodium Chloride 10 ML IV 04/05 0929 Dextrose/Water 125 ML ASDIR PRN 03/29 0930 UNV IV 06/27 0929 Dextrose/Water 250 ML ASDIR PRN 03/29 0930 UNV IV 06/27 0929 Glucagon 1 MG ASDIR PRN 03/29 0930 UNV IM 06/27 0929 Hydrocodone Bitart/ 1 TAB Q6H PRN PRN 03/29 0930 UNV Acetaminophen PO 04/03 09 Ondansetron HCl 4 MG Q4H PRN PRN 03/29 0930 UNV IV 06/27 0929 Morphine Sulfate 2 MG X1ED STA 03/29 0041 DC 03/29 IV 03/29 0042 0056 Ondansetron HCl 4 MG X1ED STA 03/29 0041 DC 03/29 IV 03/29 0042 0057 Piperacillin Sod/ 3.375 GM X1ED STA 03/29 0040 DC 03/29 Tazobactam Sod IV 03/29 0109 0057 Sodium Chloride 100 ML Home Medications: SEMAGLUTIDE (OZEMPIC PEN (4 MG/3mL)) 1 MG SUBQ Q7D ASPIRIN 81 MG PO DAILY CALCIUM CARBONATE/VIT D3 (CALCIUM CARB/VIT D3 500 MG/200 UNITS) 600 MG PO DAILY TROSPIUM (SANCTURA) 20 MG PO DAILY SUCRALFATE (CARAFATE) 1 GM PO AC OXYBUTYNIN CHLORIDE (OXYBUTYNIN CHLORIDE ER) 10 MG PO DAILY buPROPion HCL (WELLBUTRIN) 15 MG PO DAILY PANTOPRAZOLE DR (PROTONIX) 40 MG PO DAILY I attest that the foregoing medication list in the medical record is true, accurate, and complete to the best of my knowledge. at 1331 RPT #:[id number] END OF REPORT [facility] 2024-03-31 17:10:00 [facility]) Cardiology Progress Note REPORT#:[id number] REPORT STATUS: Signed REPORT INITIALIZATION DATE:03/31/24 TIME: 1709 PATIENT: CALVIN NEWSOME V UNIT #: [id number] ROOM/BED: 6615-1 : 48 AGE: 73 SEX: F ATTEND: Errol Bautista MD ADM AUTHOR: Gregoria Carrera AGACNP REPT SERVICE DT/TIME: 03/31/24 171 * ALL edits or amendments must be made on the electronic/computer document * Subjective Patient reports: No: complaints. Objective General VS/I O: 24 hour I O ending at 0700: 03/31 0700 03/30 1900 Intake Total Output Total 1500 Balance -1500 Output, Urine 1500 Vital Signs: Date Time Temp Pulse Resp B/P B/P Pulse O2 O2 Flow FiO2 Mean Ox Delivery Rate 03/31 1653 36.5 63 16 108/65 79.0 97 Room air 03/31 1533 36.7 60 16 119/69 85.4 95 Room air 03/31 1154 36.8 64 16 125/70 88.3 97 03/31 0754 36.7 62 15 116/65 82.1 97 03/31 0555 36.6 64 14 94/54 67.4 95 03/31 0009 36.6 74 16 108/69 81.9 97 03/30 2013 37.0 74 18 117/68 84.2 95 PATIENT WEIGHT: Weight (lb): Weight (oz): Weight (kg): 69.540 Medications: Active Meds + DC'd Last 24 Hrs Clopidogrel Bisulfate (Plavix) 75 MG BEDTIME PO Dapagliflozin (FARXIGA) 10 MG DAILY PO Lisinopril (ZESTRIL) 2.5 MG DAILY PO Metoprolol Succinate (TOPROL XL) 25 MG DAILY PO Spironolactone (ALDACTONE) 25 MG DAILY PO Atorvastatin Calcium (LIPITOR) 40 MG 2100 PO Aspirin (ASPIRIN) 81 MG DAILY PO Insulin Human Lispro (HUMALOG) 0 AC HS SUBQ Pantoprazole (PROTONIX) 40 MG DAILY 0600 PO Sucralfate (CARAFATE) 1 GM AC PO Ceftriaxone Sodium (ROCEPHIN 1000MG VIAL) 1,000 MG Q24H IV Sodium Chloride (SODIUM CHLORIDE) 10 ML Acetaminophen (TYLENOL) 650 MG Q6H PRN PRN PO Dextrose/Water (DEXTROSE 10% IN WATER) 125 ML ASDIR PRN IV (CKD) Dextrose/Water (DEXTROSE 10% IN WATER) 250 ML ASDIR PRN IV (CKD) Glucagon (GLUCAGON) 1 MG ASDIR PRN IM Hydrocodone Bitart/Acetaminophen (NORCO 5/325) 1 TAB Q6H PRN PRN PO Ondansetron HCl (ZOFRAN) 4 MG Q4H PRN PRN IV Physical Exam General appearance: alert, awake Neck: non-tender, no JVD Cardiovascular: CV assessment: regular rate and rhythm Respiratory: clear to auscultation, no distress Abdomen: soft, non-tender Genitourinary: no flank pain, no urinary catheter Lower extremity: LE assessment: no calf tenderness, no edema Musculoskeletal: normal inspection Neuro/SLEEP TECHNICIAN: alert, oriented X 3, normal speech Skin: dry, intact, normal color Psychiatry: normal affect, normal judgment/insight, normal mood Results Findings/Data: Laboratory Tests 03/31 03/30 1151 2010 Chemistry POC Glucose (70 - 110 MG/DL) 118 H 134 H Results: no new labs, vital signs reviewed Diagnosis, Assessment Plan Plan discussed with: patient, collaborating MD Free Text DxA P Notes Free Text DxA P Notes: 73 YO female with MH of CAD, HFrEF d/t ICMP with EF of 25-29% on wearable external defibrillator, HLD, HTN, DM. She was sent to ED at [facility] by her PCP due to urinary retention and suprapubc pain. Flores catheter was inserted and has hematuria. She is transferred to our facility for urology service and cardiology evaluation. The patient had fresh stent to LAD, LM, LCX, and balloon angioplasty to RI on 03/24/2024 and was discharged home on 03/26/24. 1. Hematuria/UTI - resolved * HH stable * urology on board 2. CAD with PCI/BIJAN to LAD, LM, LCX, PTCA to RI (03/24/24) * stable, no chest pain * continue ASA * fresh stent to LAD, LM, LCX, and balloon angioplasty to RI on 03/24/2024 * Hematuria cleared up, Plavix started today. instructed patient to stop taking Brilinta 3. HFrEF d/t ICMP - LVEF 25-29% * stable, no CHF symptoms * continue external defibrillator * GDMT: metoprolol, lisinopril, Aldactone, Farxiga 4. Hypertension * BP stable * continue HF meds Discharge planning per attending and other consults. MDM by Dr. Camejo. at 1713 at 1713 RPT #:[id number] END OF REPORT [facility] 2024-03-31 09:53:00 [facility] ([facility]) Hospitalist Progress Note REPORT#:[id number] REPORT STATUS: Signed REPORT INITIALIZATION DATE:03/31/24 TIME: 952 PATIENT: CALVIN NEWSOME V UNIT #: [id number] ROOM/BED: [place] [address] : 48 AGE: 73 SEX: F ATTEND: Errol Bautista MD ADM AUTHOR: Kelsey Saini MD REPT SERVICE DT/TIME: 03/31/24 0953 * ALL edits or amendments must be made on the electronic/computer document * Subjective Chief complaint: less abdominal pain . urine is clear . HPI: 73 years old female with PMH of CAD with stents , DM, HTN transferred to the hospital due to lower abdominal pain and hematuria. she also complaint of difficult urinating . she had flores placed in the ER. Pt recently had PCI for CAD, was started on Brilinta, and a Lifepak was initiated. no fever no cp no sob no nausea no vomiting no diarrhea no dizziness . Review of Systems GI: Reports: abdominal pain. All systems rev neg: except as noted Objective General VS/I O: Vital Signs: Date Time Temp Pulse Resp B/P B/P Pulse O2 O2 Flow FiO2 Mean Ox Delivery Rate 03/31 0754 36.7 62 15 116/65 82.1 97 03/31 0555 36.6 64 14 94/54 67.4 95 03/31 0009 36.6 74 16 108/69 81.9 97 03/30 2013 37.0 74 18 117/68 84.2 95 03/30 1645 37.0 67 105/62 76.6 96 03/30 1211 36.7 69 103/62 75.9 98 24 hour I O ending at 0700: 03/31 0700 03/30 1900 Intake Total Output Total 1500 Balance -1500 Output, Urine 1500 PATIENT WEIGHT: Weight (lb): Weight (oz): Weight (kg): 69.540 Medications: Active Meds + DC'd Last 24 Hrs Clopidogrel Bisulfate (Plavix) 75 MG BEDTIME PO Dapagliflozin (FARXIGA) 10 MG DAILY PO Lisinopril (ZESTRIL) 2.5 MG DAILY PO Metoprolol Succinate (TOPROL XL) 25 MG DAILY PO Spironolactone (ALDACTONE) 25 MG DAILY PO Atorvastatin Calcium (LIPITOR) 40 MG 2100 PO Aspirin (ASPIRIN) 81 MG DAILY PO Insulin Human Lispro (HUMALOG) 0 AC HS SUBQ Pantoprazole (PROTONIX) 40 MG DAILY 0600 PO Sucralfate (CARAFATE) 1 GM AC PO Ceftriaxone Sodium (ROCEPHIN 1000MG VIAL) 1,000 MG Q24H IV Sodium Chloride (SODIUM CHLORIDE) 10 ML Acetaminophen (TYLENOL) 650 MG Q6H PRN PRN PO Dextrose/Water (DEXTROSE 10% IN WATER) 125 ML ASDIR PRN IV (CKD) Dextrose/Water (DEXTROSE 10% IN WATER) 250 ML ASDIR PRN IV (CKD) Glucagon (GLUCAGON) 1 MG ASDIR PRN IM Hydrocodone Bitart/Acetaminophen (NORCO 5/325) 1 TAB Q6H PRN PRN PO Ondansetron HCl (ZOFRAN) 4 MG Q4H PRN PRN IV Physical Exam General appearance: alert, awake, oriented Head/Eyes: atraumatic, normal conjunctiva/sclera, normal eyelids/periorb. Neck: full range of motion, non-tender, no JVD Cardiovascular: normal heart sounds, regular rate rhythm Respiratory: aerating well, clear to auscultation Abdomen: non-tender, normal bowel sounds, soft, no distention Genitourinary: urinary catheter Extremities: moves all, no calf tenderness, no edema Neuro/SLEEP TECHNICIAN: alert, oriented X 3, CNII-XII intact, normal speech, no motor deficits, no sensory deficits Skin: dry, intact Results Findings/Data: Laboratory Tests 03/30 1640 1209 Chemistry POC Glucose (70 - 110 MG/DL) 134 H 102 115 H Diagnosis, Assessment Plan Consultants: cardiology, urology Free Text DxA P Notes Free text DxA P notes: 73 years old female with PMH of CAD with stents , DM, HTN hematuria acute cystitis CAD DM HTN urology consult rocephin iv DM- hold home med sliding scale HTN- well control CAD- continue home med ASA 03/30- flores in place -- urine is clear now -- HB -- stable -- cardiology on board --continue iv antibiotic 03/31- less abdominal pain -- urine is clear -- dc flores -- continue iv antibiotic -- lab am Quality: Gen Med Crit Care Current Medications Current medication review: Current Medications Sig/Josephine Start time Last Medication Dose Route Stop Time Status Admin Aspirin 81 MG DAILY 03/30 0900 UNV PO 06/28 0859 Pantoprazole 40 MG DAILY 03/30 0900 UNV PO 06/28 0859 Insulin Human Lispro 0 AC HS 03/29 1130 UNV SUBQ 06/27 1129 Sucralfate 1 GM AC 03/29 1130 UNV PO 06/27 1129 Acetaminophen 650 MG Q6H PRN PRN 03/29 0930 UNV PO 06/27 0929 Ceftriaxone Sodium 1,000 MG Q24H 03/29 0930 UNV Sodium Chloride 10 ML IV 04/05 0929 Dextrose/Water 125 ML ASDIR PRN 03/29 0930 UNV IV 06/27 0929 Dextrose/Water 250 ML ASDIR PRN 03/29 0930 UNV IV 06/27 0929 Glucagon 1 MG ASDIR PRN 03/29 0930 UNV IM 06/27 0929 Hydrocodone Bitart/ 1 TAB Q6H PRN PRN 03/29 0930 UNV Acetaminophen PO 04/03 0929 Ondansetron HCl 4 MG Q4H PRN PRN 03/29 0930 UNV IV 06/27 0929 Morphine Sulfate 2 MG X1ED STA 03/29 0041 DC 03/29 IV 03/29 0042 0056 Ondansetron HCl 4 MG X1ED STA 03/29 0041 DC 03/29 IV 03/29 0042 0057 Piperacillin Sod/ 3.375 GM X1ED STA 03/29 0040 DC 03/29 Tazobactam Sod IV 03/29 010 0057 Sodium Chloride 100 ML Home Medications: SEMAGLUTIDE (OZEMPIC PEN (4 MG/3mL)) 1 MG SUBQ Q7D ASPIRIN 81 MG PO DAILY CALCIUM CARBONATE/VIT D3 (CALCIUM CARB/VIT D3 500 MG/200 UNITS) 600 MG PO DAILY TROSPIUM (SANCTURA) 20 MG PO DAILY SUCRALFATE (CARAFATE) 1 GM PO AC OXYBUTYNIN CHLORIDE (OXYBUTYNIN CHLORIDE ER) 10 MG PO DAILY buPROPion HCL (WELLBUTRIN) 15 MG PO DAILY PANTOPRAZOLE DR (PROTONIX) 40 MG PO DAILY I attest that the foregoing medication list in the medical record is true, accurate, and complete to the best of my knowledge. at 0955 RPT #:[id number] END OF REPORT [facility] 2024-03-30 12:07:00 [facility] Hospitalist Progress Note REPORT#:[id number] REPORT STATUS: Signed REPORT INITIALIZATION DATE:03/30/24 TIME: 1206 PATIENT: CALVIN NEWSOME V UNIT #: [id number] ROOM/BED: [place] [address] : 48 AGE: 73 SEX: F ATTEND: Errol Bautista MD ADM AUTHOR: Kelsey Saini MD REPT SERVICE DT/TIME: 03/30/24 1207 * ALL edits or amendments must be made on the electronic/computer document * Subjective Chief complaint: lower abdominal pain. flores in place HPI: 73 years old female with PMH of CAD with stents , DM, HTN transferred to the hospital due to lower abdominal pain and hematuria. she also complaint of difficult urinating . she had flores placed in the ER. Pt recently had PCI for CAD, was started on Brilinta, and a Lifepak was initiated. no fever no cp no sob no nausea no vomiting no diarrhea no dizziness . Review of Systems GI: Reports: abdominal pain. All systems rev neg: except as noted Objective General VS/I O: Vital Signs: Date Time Temp Pulse Resp B/P B/P Pulse O2 O2 Flow FiO2 Mean Ox Delivery Rate 03/30 0741 37.0 67 118/66 83.5 96 03/30 0520 36.6 67 18 117/62 80.7 96 03/29 2327 36.7 67 17 94/55 67.9 95 Room air 03/29 2009 36.9 73 17 103/61 74.7 96 Room air 03/29 1619 36.9 63 92/55 67.3 100 PATIENT WEIGHT: Weight (lb): Weight (oz): Weight (kg): 69.540 Medications: Active Meds + DC'd Last 24 Hrs Clopidogrel Bisulfate (Plavix) 75 MG BEDTIME PO Dapagliflozin (FARXIGA) 10 MG DAILY PO Lisinopril (ZESTRIL) 2.5 MG DAILY PO Metoprolol Succinate (TOPROL XL) 25 MG DAILY PO Spironolactone (ALDACTONE) 25 MG DAILY PO Atorvastatin Calcium (LIPITOR) 40 MG 2100 PO Aspirin (ASPIRIN) 81 MG DAILY PO Insulin Human Lispro (HUMALOG) 0 AC HS SUBQ Pantoprazole (PROTONIX) 40 MG DAILY 0600 PO Sucralfate (CARAFATE) 1 GM AC PO Ceftriaxone Sodium (ROCEPHIN 1000MG VIAL) 1,000 MG Q24H IV Sodium Chloride (SODIUM CHLORIDE) 10 ML Acetaminophen (TYLENOL) 650 MG Q6H PRN PRN PO Dextrose/Water (DEXTROSE 10% IN WATER) 125 ML ASDIR PRN IV (CKD) Dextrose/Water (DEXTROSE 10% IN WATER) 250 ML ASDIR PRN IV (CKD) Glucagon (GLUCAGON) 1 MG ASDIR PRN IM Hydrocodone Bitart/Acetaminophen (NORCO 5/325) 1 TAB Q6H PRN PRN PO Ondansetron HCl (ZOFRAN) 4 MG Q4H PRN PRN IV Physical Exam General appearance: alert, awake, oriented Head/Eyes: atraumatic, normal conjunctiva/sclera, normal eyelids/periorb. Neck: full range of motion, non-tender, no JVD Cardiovascular: normal heart sounds, regular rate rhythm Respiratory: aerating well, clear to auscultation Abdomen: non-tender, normal bowel sounds, soft, no distention Genitourinary: urinary catheter Extremities: moves all, no calf tenderness, no edema Neuro/SLEEP TECHNICIAN: alert, oriented X 3, CNII-XII intact, normal speech, no motor deficits, no sensory deficits Skin: dry, intact Results Findings/Data: Laboratory Tests 03/30 03/30 03/29 0947 0502 2010 Chemistry Sodium (134 - 147 mEq/L) 143 Potassium (3.4 - 5.0 mEq/L) 4.0 Chloride (100 - 108 mEq/L) 108 Carbon Dioxide (21 - 33 mEq/l) 27 Anion Gap (0 - 20) 12 BUN (7 - 25 mg/dL) 23 Creatinine (0.6 - 1.3 mg/dL) 0.8 Glomerular Filtr Rate (70 - 80) 76.8 Glucose (77 - 141 mg/dL) 70 L POC Glucose (70 - 110 MG/DL) 113 H 153 H Calcium (8.0 - 10.5 mg/dL) 9.6 Magnesium (1.6 - 2.6 mg/dL) 2.11 Laboratory Tests 03/30 0502 Hematology WBC (4.5 - 11.0 x10 3/uL) 5.1 RBC (3.54 - 5.02 x10 6/uL) 3.53 L Hgb (11.0 - 15.0 g/dL) 9.7 L Hct (33.0 - 45.0 %) 31.1 L MCV (81.0 - 99.0 fL) 88.1 MCH (27.0 - 33.0 pg) 27.5 MCHC (33.0 - 37.0 g/dL) 31.2 L RDW (11.5 - 14.5 %) 15.9 H Plt Count (150 - 400 x10 3/uL) 240 MPV (7.0 - 9.0 fL) 9.6 H Neut % (Auto) (56.0 - 77.0 %) 60.8 Lymph % (Auto) (14.0 - 32.0 %) 23.5 [place] % (Auto) (4.8 - 9.0 %) 10.6 H Eos % (Auto) (0.3 - 3.7 %) 4.3 H Baso % (Auto) (0.0 - 2.0 %) 0.4 Neut # (Auto) (2.0 - 7.6 x10 3/uL) 3.11 Lymph # (Auto) (1.0 - 3.8 x10 3/uL) 1.20 [place] # (Auto) (0.1 - 0.8 x10 3/uL) 0.54 Eos # (Auto) (0.0 - 0.2 x10 3/uL) 0.22 H Baso # (Auto) (0.0 - 0.2 x10 3/uL) 0.02 Abs Immat Gran (auto) (0.00 - 0.03 x10 3/uL) 0.02 Immature Gran % (0.0 - 2.0 %) 0.4 Nucleated RBC % (0 - 0 %) 0.0 Nucleated RBCs # (Man) (0.0 - 0.1 x10 3/uL) 0.00 Diagnosis, Assessment Plan Consultants: cardiology, urology Free Text DxA P Notes Free text DxA P notes: 73 years old female with PMH of CAD with stents , DM, HTN hematuria acute cystitis CAD DM HTN urology consult rocephin iv DM- hold home med sliding scale HTN- well control CAD- continue home med ASA 03/30- flores in place -- urine is clear now -- HB -- stable -- cardiology on board --continue iv antibiotic Quality: Gen Med Crit Care Current Medications Current medication review: Current Medications Sig/Josephine Start time Last Medication Dose Route Stop Time Status Admin Aspirin 81 MG DAILY 03/30 0900 UNV PO 06/28 0859 Pantoprazole 40 MG DAILY 03/30 0900 UNV PO 06/28 0859 Insulin Human Lispro 0 AC HS 03/29 1130 UNV SUBQ 06/27 1129 Sucralfate 1 GM AC 03/29 1130 UNV PO 06/27 1129 Acetaminophen 650 MG Q6H PRN PRN 03/29 0930 UNV PO 06/27 0929 Ceftriaxone Sodium 1,000 MG Q24H 03/29 0930 UNV Sodium Chloride 10 ML IV 04/05 0929 Dextrose/Water 125 ML ASDIR PRN 03/29 0930 UNV IV 06/27 0929 Dextrose/Water 250 ML ASDIR PRN 03/29 0930 UNV IV 06/27 0929 Glucagon 1 MG ASDIR PRN 03/29 0930 UNV IM 06/27 0929 Hydrocodone Bitart/ 1 TAB Q6H PRN PRN 03/29 0930 UNV Acetaminophen PO 04/03 0929 Ondansetron HCl 4 MG Q4H PRN PRN 03/29 0930 UNV IV 06/27 0929 Morphine Sulfate 2 MG X1ED STA 03/29 0041 DC 03/29 IV 03/29 42 0056 Ondansetron HCl 4 MG X1ED STA 03/29 004 DC 03/29 IV 03/29 42 005 Piperacillin Sod/ 3.375 GM X1ED STA 03/29 0040 DC 03/29 Tazobactam Sod IV 03/29 109 0057 Sodium Chloride 100 ML Home Medications: SEMAGLUTIDE (OZEMPIC PEN (4 MG/3mL)) 1 MG SUBQ Q7D ASPIRIN 81 MG PO DAILY CALCIUM CARBONATE/VIT D3 (CALCIUM CARB/VIT D3 500 MG/200 UNITS) 600 MG PO DAILY TROSPIUM (SANCTURA) 20 MG PO DAILY SUCRALFATE (CARAFATE) 1 GM PO AC OXYBUTYNIN CHLORIDE (OXYBUTYNIN CHLORIDE ER) 10 MG PO DAILY buPROPion HCL (WELLBUTRIN) 15 MG PO DAILY PANTOPRAZOLE DR (PROTONIX) 40 MG PO DAILY I attest that the foregoing medication list in the medical record is true, accurate, and complete to the best of my knowledge. at 1210 RPT #:[id number] END OF REPORT [facility] 2024-03-30 09:33:00 [facility]) Urology Progress Note REPORT#:[id number] REPORT STATUS: Signed REPORT INITIALIZATION DATE:03/30/24 TIME: 932 PATIENT: CALVIN NEWSOME V UNIT #: [id number] ROOM/BED: [place] [address] : 48 AGE: 73 SEX: F ATTEND: Errol Bautista MD ADM AUTHOR: Bi Rogers MD REPT SERVICE DT/TIME: 03/30/24932 * ALL edits or amendments must be made on the electronic/computer document * Subjective Patient reports: no complaints Objective General VS/I O: Last Documented: Result Date Time Pulse Ox 96 03/30 741 B/P 118/66 03/30 741 B/P Mean 83.5 03/30 741 Temp 37.0 03/30 741 Pulse 67 03/30 741 Resp 18 03/30 0520 O2 Delivery Room air 03/29 5578 PATIENT WEIGHT: Weight (lb): Weight (oz): Weight (kg): 69.540 Physical Exam General appearance: alert, awake, oriented Abdomen: soft Genitourinary: urinary catheter in place Results Findings/Data: Laboratory Tests: 03/30 1029 Chemistry Sodium (134 - 147 mEq/L) 143 Potassium (3.4 - 5.0 mEq/L) 4.0 Chloride (100 - 108 mEq/L) 108 Carbon Dioxide (21 - 33 mEq/l) 27 Anion Gap (0 - 20) 12 BUN (7 - 25 mg/dL) 23 Creatinine (0.6 - 1.3 mg/dL) 0.8 Glomerular Filtr Rate (70 - 80) 76.8 Glucose (77 - 141 mg/dL) 70 L POC Glucose (70 - 110 MG/DL) 153 H 74 Calcium (8.0 - 10.5 mg/dL) 9.6 Magnesium (1.6 - 2.6 mg/dL) 2.11 Hematology WBC (4.5 - 11.0 x10 3/uL) 5.1 5.7 RBC (3.54 - 5.02 x10 6/uL) 3.53 L 3.41 L Hgb (11.0 - 15.0 g/dL) 9.7 L 9.5 L Hct (33.0 - 45.0 %) 31.1 L 29.7 L MCV (81.0 - 99.0 fL) 88.1 87.1 MCH (27.0 - 33.0 pg) 27.5 27.9 MCHC (33.0 - 37.0 g/dL) 31.2 L 32.0 L RDW (11.5 - 14.5 %) 15.9 H 15.7 H Plt Count (150 - 400 x10 3/uL) 240 225 MPV (7.0 - 9.0 fL) 9.6 H 9.7 H Neut % (Auto) (56.0 - 77.0 %) 60.8 73.1 Lymph % (Auto) (14.0 - 32.0 %) 23.5 16.1 [place] % (Auto) (4.8 - 9.0 %) 10.6 H 6.8 Eos % (Auto) (0.3 - 3.7 %) 4.3 H 3.3 Baso % (Auto) (0.0 - 2.0 %) 0.4 0.5 Neut # (Auto) (2.0 - 7.6 x10 3/uL) 3.11 4.19 Lymph # (Auto) (1.0 - 3.8 x10 3/uL) 1.20 0.92 L [place] # (Auto) (0.1 - 0.8 x10 3/uL) 0.54 0.39 Eos # (Auto) (0.0 - 0.2 x10 3/uL) 0.22 H 0.19 Baso # (Auto) (0.0 - 0.2 x10 3/uL) 0.02 0.03 Abs Immat Gran (auto) (0.00 - 0.03 x10 3/uL) 0.02 0.01 Immature Gran % (0.0 - 2.0 %) 0.4 0.2 Nucleated RBC % (0 - 0 %) 0.0 0.0 Nucleated RBCs # (Man) (0.0 - 0.1 x10 3/uL) 0.00 0.00 Recent Impressions: ULTRASOUND - US RETROPERITONEAL COM 03/29 1219 Report Impression - Status: SIGNED Entered: 03/29/2024 1244 IMPRESSION: No hydronephrosis bilaterally. Poorly visualized bladder is likely due to intramural gas. Impression By: Alondra Horta M.D. Diagnosis, Assessment Plan Free Text A P: Emphysematous cystitis, retention, hematuria - continue IV abx - F/U cultures - urine is clearing at 0934 [facility] #:[id number] END OF REPORT [facility] 2024-03-30 05:42:00 [facility] ([facility]) Cardiology Progress Note REPORT#:[id number] REPORT STATUS: Signed REPORT INITIALIZATION DATE:03/30/24 TIME: 0542 PATIENT: CALVIN NEWSOME V UNIT #: [id number] ROOM/BED: [place] [id number] : 48 AGE: 73 SEX: F ATTEND: Errol Bautista MD ADM AUTHOR: Gregoria Carrera AGACNP REPT SERVICE DT/TIME: 03/30/24 0542 * ALL edits or amendments must be made on the electronic/computer document * Subjective Patient reports: No: chest pain, palpitations, shortness of breath. Objective General VS/I O: Vital Signs: Date Time Temp Pulse Resp B/P B/P Pulse O2 O2 Flow FiO2 Mean Ox Delivery Rate 03/30 0520 36.6 67 18 117/62 80.7 96 03/29 2327 36.7 67 17 94/55 67.9 95 Room air 03/29 2009 36.9 73 17 103/61 74.7 96 Room air 03/29 1619 36.9 63 92/55 67.3 100 03/29 1030 36.8 68 100/62 74.7 97 03/29 0749 36.7 63 96/52 67.0 96 PATIENT WEIGHT: Weight (lb): Weight (oz): Weight (kg): 69.540 Medications: Active Meds + DC'd Last 24 Hrs Dapagliflozin (FARXIGA) 10 MG DAILY PO Lisinopril (ZESTRIL) 2.5 MG DAILY PO Metoprolol Succinate (TOPROL XL) 25 MG DAILY PO Spironolactone (ALDACTONE) 25 MG DAILY PO Atorvastatin Calcium (LIPITOR) 40 MG 2100 PO Aspirin (ASPIRIN) 81 MG DAILY PO Insulin Human Lispro (HUMALOG) 0 AC HS SUBQ Pantoprazole (PROTONIX) 40 MG DAILY 0600 PO Sucralfate (CARAFATE) 1 GM AC PO Ceftriaxone Sodium (ROCEPHIN 1000MG VIAL) 1,000 MG Q24H IV Sodium Chloride (SODIUM CHLORIDE) 10 ML Acetaminophen (TYLENOL) 650 MG Q6H PRN PRN PO Dextrose/Water (DEXTROSE 10% IN WATER) 125 ML ASDIR PRN IV (CKD) Dextrose/Water (DEXTROSE 10% IN WATER) 250 ML ASDIR PRN IV (CKD) Glucagon (GLUCAGON) 1 MG ASDIR PRN IM Hydrocodone Bitart/Acetaminophen (NORCO 5/325) 1 TAB Q6H PRN PRN PO Ondansetron HCl (ZOFRAN) 4 MG Q4H PRN PRN IV Physical Exam General appearance: alert, awake Neck: non-tender, no JVD Cardiovascular: CV assessment: regular rate and rhythm Respiratory: clear to auscultation, no distress Abdomen: tenderness (suprapubic) Genitourinary: urinary catheter, urine (hematuria) Lower extremity: LE assessment: no calf tenderness, no edema Musculoskeletal: normal inspection Neuro/SLEEP TECHNICIAN: alert, oriented X 3, normal speech Skin: dry, intact, normal color Psychiatry: normal affect, normal judgment/insight, normal mood Results Findings/Data: Laboratory Tests 03/29 1029 Chemistry POC Glucose (70 - 110 MG/DL) 153 H 74 Laboratory Tests 03/29 1044 Hematology WBC (4.5 - 11.0 x10 3/uL) 5.7 RBC (3.54 - 5.02 x10 6/uL) 3.41 L Hgb (11.0 - 15.0 g/dL) 9.5 L Hct (33.0 - 45.0 %) 29.7 L MCV (81.0 - 99.0 fL) 87.1 MCH (27.0 - 33.0 pg) 27.9 MCHC (33.0 - 37.0 g/dL) 32.0 L RDW (11.5 - 14.5 %) 15.7 H Plt Count (150 - 400 x10 3/uL) 225 MPV (7.0 - 9.0 fL) 9.7 H Neut % (Auto) (56.0 - 77.0 %) 73.1 Lymph % (Auto) (14.0 - 32.0 %) 16.1 [place] % (Auto) (4.8 - 9.0 %) 6.8 Eos % (Auto) (0.3 - 3.7 %) 3.3 Baso % (Auto) (0.0 - 2.0 %) 0.5 Neut # (Auto) (2.0 - 7.6 x10 3/uL) 4.19 Lymph # (Auto) (1.0 - 3.8 x10 3/uL) 0.92 L [place] # (Auto) (0.1 - 0.8 x10 3/uL) 0.39 Eos # (Auto) (0.0 - 0.2 x10 3/uL) 0.19 Baso # (Auto) (0.0 - 0.2 x10 3/uL) 0.03 Abs Immat Gran (auto) (0.00 - 0.03 x10 3/uL) 0.01 Immature Gran % (0.0 - 2.0 %) 0.2 Nucleated RBC % (0 - 0 %) 0.0 Nucleated RBCs # (Man) (0.0 - 0.1 x10 3/uL) 0.00 Radiology data: Recent Impressions: ULTRASOUND - US RETROPERITONEAL COM 03/29 1219 Report Impression - Status: SIGNED Entered: 03/29/2024 1244 IMPRESSION: No hydronephrosis bilaterally. Poorly visualized bladder is likely due to intramural gas. Impression By: Alondra Horta M.D. Results: labs reviewed, vital signs reviewed, rhythm personally rev'd Diagnosis, Assessment Plan Plan discussed with: patient, collaborating MD Free Text DxA P Notes Free Text DxA P Notes: 73 YO female with MH of CAD, HFrEF d/t ICMP with EF of 25-29% on wearable external defibrillator, HLD, HTN, DM. She was sent to ED at [facility] by her PCP due to urinary retention and suprapubc pain. Flores catheter was inserted and has hematuria. She is transferred to our facility for urology service and cardiology evaluation. The patient had fresh stent to LAD, LM, LCX, and balloon angioplasty to RI on 03/24/2024 and was discharged home on 03/26/24. She has no cardiopulmonary symptoms. 1. Hematuria/UTI * on flores cath - hematuria appear to be clearing up * HH stable * urology on board 2. CAD with PCI/BIJAN to LAD, LM, LCX, PTCA to RI (03/24/24) * stable, no chest pain * continue ASA * Brilinta on hold * fresh stent to LAD, LM, LCX, and balloon angioplasty to RI on 03/24/2024 * hematuria clearing up, HH stable, once OK with urology need to restart antiplatelet as soon as possible to prevent acute stent thrombosis, will switch to Plavix instead of Brilinta 3. HFrEF d/t ICMP - LVEF 25-29% * stable, no CHF symptoms * continue external defibrillator * GDMT: metoprolol, lisinopril, Aldactone, Farxiga 4. Hypertension * BP stable * continue HF meds MDM by Dr. Camejo. at 1640 at 1715 [facility] #:[id number] END OF REPORT [facility] 2024-03-29 10:47:00 [id number] [address] PATIENT NAME: CALVIN NEWSOME V ADMIT DATE: 03/29/24 ACCOUNT NO: [id number] ROOM NO: [id number] AGE: 73 REPORT TYPE: CONSULTATION REPORT SEX: F ADMITTING PHYSICIAN:Errol Bautista MD ATTENDING PHYSICIAN:Errol Bautista MD CONSULTATION DATE:03/29/2024 REASON FOR CONSULTATION: Hematuria, UTI and emphysematous cystitis. HISTORY OF PRESENT ILLNESS: A 73-year-old female with multiple medical problems, recently had a cardiac procedure at [place]. She is on Brilinta. She is also on the Lifepak. She was diagnosed with emphysematous cystitis, urinary retention, hematuria. She has a Flores catheter in place. PAST MEDICAL HISTORY: Diabetes, hypertension, depression, coronary artery disease. PAST SURGICAL HISTORY: Cardiac stents. ALLERGIES: NO KNOWN DRUG ALLERGIES. HOME MEDICATIONS: Reviewed, include Brilinta. REVIEW OF SYSTEMS: A 14-point review of system was obtained, negative other than the HPI. PHYSICAL EXAMINATION: VITAL SIGNS: Afebrile. Vital signs stable. GENERAL: Alert. No acute distress, nontoxic. HEENT: Normocephalic, atraumatic. NECK: Supple. HEART: Regular rate and rhythm. LUNGS: Respirations unlabored. EXTREMITIES: Moving all extremities well. LABORATORY DATA: Reviewed. Cultures pending. IMAGING STUDIES: CT scan report apparently shows emphysematous cystitis, although we have not seen this. ASSESSMENT AND PLAN: A 73-year-old female with a Lifepak, recent stents, on blood thinners, diagnosed with emphysematous cystitis, hematuria. Irrigate catheter as needed. Follow up cultures, treat with IV antibiotics. Thank you for the consult. Dictated By: Bi Rogers MD PATIENT NAME: CALVIN NEWSOME V Date Dictated: 03/29/2024 10:47:36 Date Transcribed: 03/29/2024 10:56:54 /AMY Receipt ID: [id number] Authenticated and Edited by Bi Rogers MD On 04/11/24 5:12:24 PM at 0513 PATIENT NAME: CALVIN NEWSOME V [facility] 2024-03-29 07:31:00 [facility] ([facility]) Hospitalist History Physical REPORT#:[id number] REPORT STATUS: Signed REPORT INITIALIZATION DATE:03/29/24 TIME: 730 PATIENT: CALVIN NEWSOME V UNIT #: [id number] ROOM/BED: [place] [id number] : 48 AGE: 73 SEX: F ATTEND: Errol Bautista MD ADM AUTHOR: Kelsey Saini MD REPT SERVICE DT/TIME: 03/29/24730 * ALL edits or amendments must be made on the electronic/computer document * History of Present Illness HPI Chief complaint: lower abdominal pain HPI: 73 years old female with PMH of CAD with stents , DM, HTN transferred to the hospital due to lower abdominal pain and hematuria. she also complaint of difficult urinating . she had flores placed in the ER. Pt recently had PCI for CAD, was started on Brilinta, and a Lifepak was initiated. no fever no cp no sob no nausea no vomiting no diarrhea no dizziness . History Past Medical Surgical Hx Additional medical history: OAB Family History Additional family history: n/c Social History Alcohol use: Denies EtOH use Drug use: Denies recreational drugs Smoking status for patients 13 years old or older: Former Smoker Date last smoked: 03/28/24 Medication/Allergy-Vaccine Hx Allergies: Coded Allergies: No Known Allergies (03/20/24) Review of Systems Constitutional: Denies: fatigue, fever, generalized weakness, lethargy. Respiratory: Denies: productive cough (sputum), SOB, wheezing. Cardiovascular: Denies: chest pain, WALKER (dyspnea on exertion), edema, orthopnea. GI: Reports: abdominal pain. Denies: diarrhea, nausea, vomiting. : Reports: dysuria, hematuria, urinary retention. Denies: flank pain. Neuro: Denies: confusion, dizziness, focal weakness, numbness. OBJECTIVE VS/I O: Vital Signs Date Temp Pulse Resp B/P B/P Mean Pulse Ox FiO2 03/29 36.6-37.2 72-84 16-17 106-129/52-64 72-89 95-99 Last Documented: Result Date Time Pulse Ox 95 03/29 223 B/P 106/61 03/29 223 B/P Mean 76.4 03/29 223 O2 Delivery Room air 03/29 223 Temp 36.6 03/29 223 Pulse 73 03/29 223 Resp 16 03/29 223 24 hour I O ending at 0700: 03/29 0700 03/28 1900 Intake Total Output Total Balance Patient 69.54 kg Weight Weight Stated/Reported Measurement Method Patient Weight and BMI Weight (kg): 69.540 BMI: 26.3 Medications: Active Meds + DC'd Last 24 Hrs Morphine Sulfate (morphine SULFATE) 2 MG X1ED STA IV (DC) Ondansetron HCl (ZOFRAN) 4 MG X1ED STA IV (DC) Piperacillin Sod/Tazobactam Sod (ZOSYN 3.375GM) 3.375 GM X1ED STA IV (DC ) Sodium Chloride (SODIUM CHLORIDE 0.9% 100 ML) 100 ML General appearance: alert, awake, oriented Head/Eyes: atraumatic, normal conjunctiva/sclera, normal eyelids/periorb. Neck: full range of motion, non-tender, no JVD Cardiovascular: normal heart sounds, regular rate rhythm Respiratory: aerating well, clear to auscultation Abdomen: non-tender, normal bowel sounds, soft, no distention Genitourinary: urinary catheter Extremities: moves all, no calf tenderness, no edema Neuro/SLEEP TECHNICIAN: alert, oriented X 3, CNII-XII intact, normal speech, no motor deficits, no sensory deficits Skin: dry, intact Results Findings/Data: Laboratory Tests: 03/292 0113 Chemistry POC Glucose (70 - 110 MG/DL) 84 Urines Urine Color (YEL/STRAW) SHIRIN H Urine Appearance (CLEAR) SL CLOUDY Urine pH (5.0 - 7.0) 7.0 Ur Specific [place] (1.005 - 1.030) 1.016 Urine Protein (NEGATIVE) 3+ H Urine Glucose (UA) (NEGATIVE) 3+ H Urine Ketones (NEGATIVE) 1+ H Urine Blood (NEGATIVE) 3+ H Urine Nitrite (NEGATIVE) NEGATIVE Urine Bilirubin (NEGATIVE) NEGATIVE Urine Urobilinogen (0.2 - 1.0 mg/dL) 2.0 H Ur Leukocyte Esterase (NEGATIVE) TRACE H Urine RBC (0 - 3 RBC/HPF) >50 H Urine WBC (0 - 3 WBC/HPF) 4-9 H Ur Squamous Epith Cells (NONE SEEN /HPF) NONE SEEN Calcium Oxalate Crystal (NONE SEEN /HPF) 2+ H Urine Bacteria (NONE SEEN /HPF) 1+ H Diagnosis, Assessment Plan Free Text A P: 73 years old female with PMH of CAD with stents , DM, HTN hematuria acute cystitis CAD DM HTN urology consult rocephin iv DM- hold home med sliding scale HTN- well control CAD- continue home med ASA Consultants: cardiology, urology Quality: Gen Med Crit Care Current Medications Current medication review: Current Medications Sig/Josephine Start time Last Medication Dose Route Stop Time Status Admin Aspirin 81 MG DAILY 03/30 0900 UNV PO 06/28 0859 Pantoprazole 40 MG DAILY 03/30 0900 UNV PO 06/28 0859 Insulin Human Lispro 0 AC HS 03/29 1130 UNV SUBQ 06/27 1129 Sucralfate 1 GM AC 03/29 1130 UNV PO 06/27 1129 Acetaminophen 650 MG Q6H PRN PRN 03/29 0930 UNV PO 06/27 0929 Ceftriaxone Sodium 1,000 MG Q24H 03/29 0930 UNV Sodium Chloride 10 ML IV 04/05 0929 Dextrose/Water 125 ML ASDIR PRN 03/29 0930 UNV IV 06/27 0929 Dextrose/Water 250 ML ASDIR PRN 03/29 0930 UNV IV 06/27 0929 Glucagon 1 MG ASDIR PRN 03/29 0930 UNV IM 06/27 0929 Hydrocodone Bitart/ 1 TAB Q6H PRN PRN 03/29 0930 UNV Acetaminophen PO 04/03 0929 Ondansetron HCl 4 MG Q4H PRN PRN 03/29 0930 UNV IV 06/27 0929 Morphine Sulfate 2 MG X1ED STA 03/29 41 DC 03/29 IV 03/296 Ondansetron HCl 4 MG X1ED STA 03/29 004 DC 03/29 IV 03/29 Piperacillin Sod/ 3.375 GM X1ED STA 03/29 0040 DC 03/29 Tazobactam Sod IV 03/29 109 0057 Sodium Chloride 100 ML Home Medications: SEMAGLUTIDE (OZEMPIC PEN (4 MG/3mL)) 1 MG SUBQ Q7D ASPIRIN 81 MG PO DAILY CALCIUM CARBONATE/VIT D3 (CALCIUM CARB/VIT D3 500 MG/200 UNITS) 600 MG PO DAILY TROSPIUM (SANCTURA) 20 MG PO DAILY SUCRALFATE (CARAFATE) 1 GM PO AC OXYBUTYNIN CHLORIDE (OXYBUTYNIN CHLORIDE ER) 10 MG PO DAILY buPROPion HCL (WELLBUTRIN) 15 MG PO DAILY PANTOPRAZOLE DR (PROTONIX) 40 MG PO DAILY I attest that the foregoing medication list in the medical record is true, accurate, and complete to the best of my knowledge. at 1250 RPT #:[id number] END OF REPORT [facility] 2024-03-29 07:27:00 [facility] ([facility] Cardiology Consultation REPORT#:[id number] REPORT STATUS: Signed REPORT INITIALIZATION DATE:03/29/24 TIME: 726 PATIENT: CALVIN NEWSOME V UNIT #: [id number] ROOM/BED: [place] [address] : 48 AGE: 73 SEX: F ATTEND: Errol Bautista MD ADM AUTHOR: Gregoria CarreraCNMuna REPT SERVICE DT/TIME: 03/29/24726 * ALL edits or amendments must be made on the electronic/computer document * History of Present Illness HPI Reason for consult: CAD, hematuria on antiplalelet Chief complaint: suprapubic pain, urine retention HPI: 73 YO female with MH of CAD, HFrEF d/t ICMP with EF of 25-29% on wearable external defibrillator, HLD, HTN. She was sent to ED at [facility] by her PCP due to urinary retention and suprapubc pain. Flores catheter was inserted and has hematuria. She is transferred to our facility for urology service and cardiology evaluation. The patient had fresh stent to LAD, LM, LCX, and balloon angioplasty to RI on 03/24/2024 and was discharged home on 03/26/24. She has no cardiopulmonary symptoms. Hx Obtained From Patient, Prior medical records History - Adult longitudinal Past medical history: Reports: Congestive heart failure, Coronary artery disease, Diabetes mellitus, Hypertension, Dyslipidemia. Additional medical history: 1. CAD with stent to LM, LAD, LCX, and ballon angio to RI 2. HFrEF/ICMP - on external defibrillator Assure 3. HTN Past surgical history: Reports: Hysterectomy (partial), PCI. Additional surgical history: 1. PCI with stents Additional family history: n/c Alcohol use: Denies EtOH use Drug use: Denies recreational drugs Smoking status for patients 13 years old or older: Former Smoker Date last smoked: 03/28/24 Home medications: Home Medications: SEMAGLUTIDE (OZEMPIC PEN (4 MG/3mL)) 1 MG SUBQ Q7D ASPIRIN 81 MG PO DAILY CALCIUM CARBONATE/VIT D3 (CALCIUM CARB/VIT D3 500 MG/200 UNITS) 600 MG PO DAILY TROSPIUM (SANCTURA) 20 MG PO DAILY SUCRALFATE (CARAFATE) 1 GM PO AC OXYBUTYNIN CHLORIDE (OXYBUTYNIN CHLORIDE ER) 10 MG PO DAILY buPROPion HCL (WELLBUTRIN) 15 MG PO DAILY PANTOPRAZOLE DR (PROTONIX) 40 MG PO DAILY Brilinta 90 mg BID Lisinopril 40 mg daily Farxiga 10 mg daily Aldactone 25 mg daily Allergies: Coded Allergies: No Known Allergies (03/20/24) Review of Systems Additional notes: As stated in HPI Objective General VS/I O: Vital Signs: Date Time Temp Pulse Resp B/P B/P Pulse O2 O2 Flow FiO2 Mean Ox Delivery Rate 03/29 223 36.6 73 16 106/61 76.4 95 Room air 03/29 223 36.6 73 16 106/61 76.4 95 Room air 03/29 0200 72 125/64 89 97 03/29 0130 76 113/59 80 99 03/29 0045 81 129/61 88 98 03/29 0027 37.2 84 17 112/52 72 98 Room air 24 hour I O ending at 0700: 03/29 0700 03/28 1900 Intake Total Output Total Balance Patient 69.54 kg Weight Weight Stated/Reported Measurement Method PATIENT WEIGHT: Weight (lb): Weight (oz): Weight (kg): 69.540 Medications: Active Meds + DC'd Last 24 Hrs Morphine Sulfate (morphine SULFATE) 2 MG X1ED STA IV (DC) Ondansetron HCl (ZOFRAN) 4 MG X1ED STA IV (DC) Piperacillin Sod/Tazobactam Sod (ZOSYN 3.375GM) 3.375 GM X1ED STA IV (DC ) Sodium Chloride (SODIUM CHLORIDE 0.9% 100 ML) 100 ML Physical Exam General appearance: alert, awake, oriented Neck: non-tender, no JVD Cardiovascular: CV assessment: regular rate and rhythm Respiratory: clear to auscultation, no distress Abdomen: tenderness (suprapubic) Genitourinary: urinary catheter, urine (hematuria) Lower extremity: LE assessment: no calf tenderness, no edema Musculoskeletal: normal inspection Neuro/SLEEP TECHNICIAN: alert, oriented X 3, normal speech Skin: dry, intact, normal color Psychiatry: normal affect, normal judgment/insight, normal mood Results Findings/Data: Laboratory Tests 03/29 0232 Chemistry POC Glucose (70 - 110 MG/DL) 84 Laboratory Tests 03/29 0113 Urines Urine Color (YEL/STRAW) SHIRIN H Urine Appearance (CLEAR) SL CLOUDY Urine pH (5.0 - 7.0) 7.0 Ur Specific [place] (1.005 - 1.030) 1.016 Urine Protein (NEGATIVE) 3+ H Urine Glucose (UA) (NEGATIVE) 3+ H Urine Ketones (NEGATIVE) 1+ H Urine Blood (NEGATIVE) 3+ H Urine Nitrite (NEGATIVE) NEGATIVE Urine Bilirubin (NEGATIVE) NEGATIVE Urine Urobilinogen (0.2 - 1.0 mg/dL) 2.0 H Ur Leukocyte Esterase (NEGATIVE) TRACE H Urine RBC (0 - 3 RBC/HPF) >50 H Urine WBC (0 - 3 WBC/HPF) 4-9 H Ur Squamous Epith Cells (NONE SEEN /HPF) NONE SEEN Calcium Oxalate Crystal (NONE SEEN /HPF) 2+ H Urine Bacteria (NONE SEEN /HPF) 1+ H Radiology Data: Recent Impressions: ULTRASOUND - US RETROPERITONEAL COM 03/29 1219 Report Impression - Status: SIGNED Entered: 03/29/2024 1244 IMPRESSION: No hydronephrosis bilaterally. Poorly visualized bladder is likely due to intramural gas. Impression By: Alondra Horta M.D. Results: labs reviewed, vital signs reviewed, rhythm personally rev'd Telemetry Interpretation: NSR Diagnosis, Assessment Plan Plan discussed with: patient, consultants (Dr. Rogers), nurse Free Text DxA P Notes Free Text DxA P Notes: 73 YO female with MH of CAD, HFrEF d/t ICMP with EF of 25-29% on wearable external defibrillator, HLD, HTN, DM. She was sent to ED at [facility] by her PCP due to urinary retention and suprapubc pain. Flores catheter was inserted and has hematuria. She is transferred to our facility for urology service and cardiology evaluation. The patient had fresh stent to LAD, LM, LCX, and balloon angioplasty to RI on 03/24/2024 and was discharged home on 03/26/24. She has no cardiopulmonary symptoms. 1. Hematuria/UTI * on flores cath -still with hematuria * urology on board 2. CAD with PCI/BIJAN to LAD, LM, LCX, PTCA to RI (03/24/24) * stable, no chest pain * continue ASA * Brilinta on hold * fresh stent to LAD, LM, LCX, and balloon angioplasty to RI on 03/24/2024 * once OK with urology will restart antiplatelet, will switch to Plavix instead of Brilinta 3. HFrEF d/t ICMP - LVEF 25-29% * stable, no CHF symptoms * continue external defibrillator * resume GDMT: metoprolol, lisinopril, Aldactone, Farxiga 4. Hypertension * BP stable * resume HF meds Appreciate the referral. MDM by Dr. Camejo. at 1502 at 1718 RPT #:[id number] END OF REPORT [facility] 2024-03-29 00:34:00 [facility] ([facility]) EMERGENCY PROVIDER REPORT REPORT#:[id number] REPORT STATUS: Signed DATE:03/29/24 TIME: 33 PATIENT: CALVIN NEWSOME V UNIT #: [id number] [facility] AGE: 73 SEX:F PCP PHYS: No Primary or Family Physician SERVICE AUTHOR: Skinny Wilkerson MD REP SRV REP SRV TM: 0034 * ALL edits or amendments must be made on the electronic/computer document * HPI- Female Free Text HPI Notes Free Text HPI Notes 73-year-old female history of CAD sp PCI, [id number] diabetes, hypertension, depression presented to the ED via EMS as a continuity of care, urology and cardiology consultation. 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 Imaging disc brought of CT abdomen pelvis without contrast performed due to concern for urinary retention this showed emphysematous cystitis, Patient had received 1 g of ceftriaxone. lab work obtained at approximately 5 PM, on the , Patient had a BUN/ creatinine of 24/0.9, otherwise normal electrolytes which is reassuring. normal hb/hct and wbc. 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 urology also informed. General Confirmed Patient Yes Patient Type New patient Initial Greet Date/Time 03/29/24 0028 PCP evaristo recently for similar medicare Presentation Chief Complaint Abdominal pain, Dysuria Hx Obtained From Patient, EMS, Prior medical records )( Sudden in Onset? No Onset Occurred Today, Hours ago, Yesterday Symptom Duration Since onset, Waxes and wanes Progression since Onset Intermittent, Waxes and wanes Pain/Sev: Onset Mild Pain/Sev: Current Mild Review of Systems ROS Statements All systems rev neg except as marked. Free Text ROS Notes Free Text ROS Notes Review of systems was performed, pertinent positives and negatives noted in HPI. Past Medical History - Adult Stated Complaint EMPHYSEMA, CYSTITIS, HEMATRUIA Allergies Coded Allergies: No Known Allergies (03/20/24) Home Medications Active Scripts TICAGRELOR (BRILINTA) 90 MG PO Q12HR TICAGRELOR (BRILINTA) 90 MG PO Q12HR #60 TAB Prov: 03/26/24 LISINOPRIL (ZESTRIL) 10 MG PO DAILY LISINOPRIL (ZESTRIL) 10 MG PO DAILY #30 TAB Prov: 03/26/24 ATORVASTATIN (LIPITOR) 40 MG PO 2100 ATORVASTATIN (LIPITOR) 40 MG PO 2100 #30 TAB Prov: 03/26/24 METOPROLOL SUCC XL (TOPROL XL) 25 MG PO DAILY METOPROLOL SUCC XL (TOPROL XL) 25 MG PO DAILY #30 TAB Prov: 03/26/24 SPIRONOLACTONE (ALDACTONE) 25 MG PO DAILY SPIRONOLACTONE (ALDACTONE) 25 MG PO DAILY #30 TAB Prov: 03/26/24 Dapagliflozin Propanediol (FARXIGA) 10 MG PO DAILY Dapagliflozin Propanediol (FARXIGA) 10 MG PO DAILY #30 TAB Prov: 03/26/24 Reported Medications SEMAGLUTIDE (OZEMPIC PEN (4 MG/3mL)) 1 MG SUBQ Q7D ASPIRIN 81 MG PO DAILY CALCIUM CARBONATE/VIT D3 (CALCIUM CARB/VIT D3 500 MG/200 UNITS) 600 MG PO DAILY TROSPIUM (SANCTURA) 20 MG PO DAILY SUCRALFATE (CARAFATE) 1 GM PO AC OXYBUTYNIN CHLORIDE (OXYBUTYNIN CHLORIDE ER) 10 MG PO DAILY buPROPion HCL (WELLBUTRIN) 15 MG PO DAILY PANTOPRAZOLE DR (PROTONIX) 40 MG PO DAILY Discontinued Reported Medications LISINOPRIL (ZESTRIL) 40 MG PO DAILY ROSUVASTATIN 20 MG PO DAILY Review of Nursing Notes Rapid assess notes rev Past Medical History: Reports: Diabetes mellitus, Hypertension, Dyslipidemia. Additional Medical History OAB Past Surgical History: Reports: Hysterectomy (partial), PCI. Additional Family History n/c Alcohol Use Denies EtOH use Drug Use Denies recreational drugs Smoking status for patients 13 years old or older: Former Smoker Physical Exam Vital Signs Vital Signs First Documented: Result Date Time Pulse Ox 98 03/29 27 B/P 112/52 03/29 27 B/P Mean 72 03/29 27 O2 Delivery Room air 03/29 27 Temp 37.2 03/29 27 Pulse 84 03/29 27 Resp 17 03/29 27 Last Documented: Result Date Time Pulse Ox 98 03/29 27 B/P 112/52 03/29 27 B/P Mean 72 03/29 27 O2 Delivery Room air 03/29 27 Temp 37.2 03/29 27 Pulse 84 03/29 27 Resp 03/29 Review of Vital Signs Reviewed Free Text PE Notes Free Text PE Notes GEN/CONST: awake, alert, no acute distress, frail-appearing back at bedside MS HEAD: normocephalic EYES: EOMI, no scleral icterus EARS/NOSE/THROAT: airway patent, mucous membranes moist MS NECK: supple, full range of motion RESPIRATORY/CHEST: No respiratory distress, no increased work of breathing, without audible wheezing CARDIOVASCULAR: normal rate and regular rhythm ABDOMEN/GI: no distension, soft a, suprapubic discomfort MS BACK: painless range of motion, non-tender MS UPPER EXT: no deformity or sigificant swelling MS LOWER EXT: no deformity or sigificant swelling SKIN: warm, intact NEURO: normal speech, moves all extremities Interpretation Diagnostics Lab Results Interpretation Considerations Independ review imaging, Reviewed prior records Re-Evaluation MDM Free Text MDM Notes Free Text MDM Notes -I reviewed medical records and imaging studies if available in EMR; Hx obtained from patient as able -Independent history also from EMS, required given medical condition of patient may limit full history -PMH most significant for elements in HPI above Patient was transferred here from outside facility for continued care, continuity of care. Patient with mild suprapubic discomfort on arrival, otherwise hemodynamically stable and afebrile. No acute distress. I personally reviewed the workup and imaging from outside facility hospital, as discussed in the HPI above. Will plan to upload CD with the imaging as able. Will broaden coverage with his antibiotic. Plan for redraw and urine sample. Pain control. Will admit patient, for cardiology and urology consultation. I informed the hospitalist team (see disposition section for time and specific provider/team) and discussed the patient presentation, history, workup, and need for admission. The hospitalist team is aware and agrees to admission for further care and evaluation. ED Course Medication(s) Ordered Medication(s) Ordered: Anti-Infective Agents Sig/Josephine Start time Last Medication Dose Route Stop Time Status Admin Piperacillin Sod/ 3.375 GM X1ED STA 03/29 0040 DC 03/29 Tazobactam Sod IV 03/29 0109 0057 Sodium Chloride 100 ML Central Nervous System Agents Sig/Josephine Start time Last Medication Dose Route Stop Time Status Admin Morphine Sulfate 2 MG X1ED STA 03/29 0041 DC 03/29 IV 03/29 0042 0056 Gastrointestinal Drugs Sig/Josephine Start time Last Medication Dose Route Stop Time Status Admin Ondansetron HCl 4 MG X1ED STA 03/29 0041 DC 03/29 IV 03/29 0042 0057 Patient Discharge Departure Vital Signs/Condition Vital Signs First Documented: Result Date Time Pulse Ox 98 03/29 0027 B/P 112/52 03/29 0027 B/P Mean 72 03/29 0027 O2 Delivery Room air 03/29 0027 Temp 37.2 03/29 0027 Pulse 84 03/29 0027 Resp 17 03/29 0027 Last Documented: Result Date Time Pulse Ox 98 03/29 0027 B/P 112/52 03/29 0027 B/P Mean 72 03/29 0027 O2 Delivery Room air 03/29 0027 Temp 37.2 03/29 0027 Pulse 84 03/29 0027 Resp 17 03/29 0027 All vital signs available at the time of this entry have been reviewed. Condition Guarded Clinical Impression Clinical Impression Primary Impression: Emphysematous cystitis Secondary Impressions: Hematuria Disposition Decision Hospitalize Hosp Physician Name SandritaclemenciaErrol Maureen DORSEY Hosp Physician Hospitalist Request Time 43 Request Date 03/29/24 )( Accepts Hospitalization Yes )( Reason for Hospitalization cystitis, hematuria )( Accepted Time 43 )( Accepted Date 03/29/24 Call Information will see patient, agrees with eval, agrees with plan Discharge/Care Plan Counseled Regarding Diagnosis, Lab results, Imaging studies, Need for admission Admit Note I have spoken with the patient and/or caregivers. I have explained the patient's condition, diagnoses and treatment plan based on the information available to me at this time. I have answered the patient's and/or caregiver's questions and addressed any concerns. The patient and/or caregivers have as good an understanding of the patient's diagnosis, condition and treatment plan as can be expected at this point. The patient has been stabilized within the capability of the emergency department. The patient will be transported for further care and management or will be moved to an observation or inpatient service. I have communicated with the staff or medical practitioner taking over this patient's care. at 0112 RPT #:[id number] END OF REPORT [facility] 2024-03-26 11:34:00 [facility] ([facility]) Discharge Summary REPORT#:[id number] REPORT STATUS: Signed REPORT INITIALIZATION DATE:03/26/24 TIME: 1133 PATIENT: MATTIE NEWSOME UNIT #: [id number] ROOM/BED: [place] [id number] : 48 AGE: 73 SEX: F ATTEND: Errol Bautista MD ADM AUTHOR: Shirin Diaz APRN REPT SERVICE DT/TIME: 03/26/24 1134 * ALL edits or amendments must be made on the electronic/computer document * PCP PCP Discharge to: home General Information Discharge date: 03/26/24 Discharge diagnosis: - CAD s/p stent - Hypertensive heart disease - HLD - DM2 - OAB - Tobacco user Hospital course: 03/22 Cardiology following. Stage PCI Wednesday. Continue ASA/brilinta/statin. Cardiac monitoring. Cardiac diet. Resume outpatient medications. Smoking cessation advised. DVT ppx SCDs. 03/23 PCI planned tomorrow. Replace K. Labs in AM. 03/25 S/P cardiac stent. Continue cardiac meds. To tele if ok with cardio. 03/26 Meds adjusted by cardio. Home today with outpatient FU. Pt. condition on discharge: stable Allergies: Allergies: No Known Allergies (Coded, 03/20/24) Med Rec Med Rec Discharge meds: Stop taking the following medications: LISINOPRIL (ZESTRIL) 40 MG TAB 40 MILLIGRAM ORAL DAILY. ROSUVASTATIN (ROSUVASTATIN) 20 MG TAB 20 MILLIGRAM ORAL DAILY. Continue taking these medications: SEMAGLUTIDE (OZEMPIC PEN (4 MG/3mL)) 1 MG/0.75 ML (4 MG/3 ML) PEN.INJCTR 1 MILLIGRAM SUBCUTANEOUS EVERY 7 DAYS. ASPIRIN (ASPIRIN) 81 MG TAB.CHEW 81 MILLIGRAM ORAL DAILY. CALCIUM CARBONATE/VIT D3 (CALCIUM CARB/VIT D3 500 MG/200 UNITS) 500 MG CALCIUM-5 MCG (200 UNIT) TAB 600 MILLIGRAM ORAL DAILY. TROSPIUM (SANCTURA) 20 MG TAB 20 MILLIGRAM ORAL DAILY. SUCRALFATE (CARAFATE) 1 GRAM TAB 1 GRAM ORAL BEFORE MEALS. OXYBUTYNIN CHLORIDE (OXYBUTYNIN CHLORIDE ER) 10 MG TAB.SR.24H 10 MILLIGRAM ORAL DAILY. buPROPion HCL (WELLBUTRIN) 75 MG TAB 15 MILLIGRAM ORAL DAILY. PANTOPRAZOLE DR (PROTONIX) 40 MG TAB.DR 40 MILLIGRAM ORAL DAILY. Start taking the following new medications: TICAGRELOR (BRILINTA) 90 MG TAB 90 MILLIGRAM ORAL EVERY 12 HOURS. Qty = 60 No Refills ATORVASTATIN (LIPITOR) 40 MG TAB 40 MILLIGRAM ORAL 2100 Qty = 30 No Refills METOPROLOL SUCC XL (TOPROL XL) 25 MG TAB.SR.24H 25 MILLIGRAM ORAL DAILY. Qty = 30 No Refills SPIRONOLACTONE (ALDACTONE) 25 MG TAB 25 MILLIGRAM ORAL DAILY. Qty = 30 No Refills LISINOPRIL (ZESTRIL) 10 MG TAB 10 MILLIGRAM ORAL DAILY. Qty = 30 No Refills Dapagliflozin Propanediol (FARXIGA) 10 MG TAB 10 MILLIGRAM ORAL DAILY. Qty = 30 No Refills Objective VS/I O Last Documented: Result Date Time B/P 112/53 03/26 1100 B/P Mean 77 03/26 1100 Pulse 60 03/26 1100 Resp 16 03/26 1100 Temp 36.7 03/26 0400 Pulse Ox 98 03/26 0000 O2 Delivery Room air 03/26 0000 24 hour I O ending at 0700: 03/26 0700 03/25 1900 Intake Total 530 Output Total 500 Balance 30 Intake, Oral 530 Number 1 Bowel Movements Output, Urine 500 PATIENT WEIGHT: Weight (lb): 153 Weight (oz): 5.13 Weight (kg): 69.545 Results Findings/Data: Laboratory Tests: 03/26 03/26 03/25 0355 0355 1241 Chemistry Sodium (134 - 147 mEq/L) 141 Potassium (3.4 - 5.0 mEq/L) 3.4 Chloride (100 - 108 mEq/L) 111 H Carbon Dioxide (21 - 33 mEq/l) 26 Anion Gap (0 - 20) 8 BUN (7 - 25 mg/dL) 30 H Creatinine (0.6 - 1.3 mg/dL) 0.8 Glomerular Filtr Rate (70 - 80) 76.8 Glucose (77 - 141 mg/dL) 95 POC Glucose (70 - 110 MG/DL) 106 Calcium (8.0 - 10.5 mg/dL) 8.7 Magnesium (1.6 - 2.6 mg/dL) 2.11 B-Natriuretic Peptide (0 - 100 PG/ML) 100.0 Hematology WBC (4.5 - 11.0 x10 3/uL) 5.8 RBC (3.54 - 5.02 x10 6/uL) 3.91 Hgb (11.0 - 15.0 g/dL) 10.9 L Hct (33.0 - 45.0 %) 34.4 MCV (81.0 - 99.0 fL) 88.0 MCH (27.0 - 33.0 pg) 27.9 MCHC (33.0 - 37.0 g/dL) 31.7 L RDW (11.5 - 14.5 %) 15.8 H Plt Count (150 - 400 x10 3/uL) 172 MPV (7.0 - 9.0 fL) 9.8 H Neut % (Auto) (56.0 - 77.0 %) 68.5 Lymph % (Auto) (14.0 - 32.0 %) 19.9 [place] % (Auto) (4.8 - 9.0 %) 8.2 Eos % (Auto) (0.3 - 3.7 %) 2.6 Baso % (Auto) (0.0 - 2.0 %) 0.5 Neut # (Auto) (2.0 - 7.6 x10 3/uL) 4.00 Lymph # (Auto) (1.0 - 3.8 x10 3/uL) 1.16 [place] # (Auto) (0.1 - 0.8 x10 3/uL) 0.48 Eos # (Auto) (0.0 - 0.2 x10 3/uL) 0.15 Baso # (Auto) (0.0 - 0.2 x10 3/uL) 0.03 Abs Immat Gran (auto) (0.00 - 0.03 x10 3/uL) 0.02 Immature Gran % (0.0 - 2.0 %) 0.3 Nucleated RBC % (0 - 0 %) 0.0 Nucleated RBCs # (Man) (0.0 - 0.1 x10 3/uL) 0.00 Discharge Instructions PCP )( Discharge to: Home/Self Care Discharge Instructions Additional Discharge Routines: PCP Follow-Up )( Diet: Cardiac Follow-up Appointments PCP follow up: PCP: No Primary or Family Physician PCP follow up timeframe: In 1-2 weeks Consulting provider 1: Provider 1: Bob Camejo MD Specialty: CardiologyInterventional Consult follow up timeframe: In 1-2 weeks at 1743 at 1810 RPT #:[id number] END OF REPORT [facility] 2024-03-26 08:13:00 [facility] ([facility]) Cardiology Progress Note REPORT#:[id number] REPORT STATUS: Signed REPORT INITIALIZATION DATE:03/26/24 TIME: 812 PATIENT: CALVIN NEWSOME V UNIT #: [id number] ROOM/BED: [place] [address] : 48 AGE: 73 SEX: F ATTEND: Errol Bautista MD ADM AUTHOR: Bob Camejo MD REPT SERVICE DT/TIME: 03/26/24812 * ALL edits or amendments must be made on the electronic/computer document * Objective General VS/I O: 24 hour I O ending at 0700: 03/26 0700 03/25 1900 Intake Total 530 Output Total 500 Balance 30 Intake, Oral 530 Number 1 Bowel Movements Output, Urine 500 Vital Signs: Date Time Temp Pulse Resp B/P B/P Pulse O2 O2 Flow FiO2 Mean Ox Delivery Rate 03/26 0601 69 18 118/58 83 03/26 0500 66 16 125/64 92 03/26 0447 65 21 143/66 95 03/26 0400 98.0 03/26 0400 64 20 111/64 82 03/26 0301 63 14 113/54 78 03/26 0200 64 16 97/52 72 03/26 0100 64 15 103/53 76 03/26 0000 98.5 03/26 0000 64 16 102/52 75 03/26 0000 98 Room air 03/25 2300 65 17 117/58 84 03/25 2200 65 21 125/59 85 03/25 2000 68 22 114/53 77 03/25 2000 98 Room air 03/25 1938 98.1 03/25 1901 72 23 124/60 87 03/25 1800 71 20 99/48 69 03/25 1700 68 21 100/45 65 03/25 1601 98.0 63 19 97/46 67 03/25 1500 60 21 03/25 1400 63 21 03/25 1301 64 20 113/52 75 03/25 1200 97.8 63 14 97/53 72 03/25 1100 64 12 114/56 81 03/25 1000 65 21 118/51 74 03/25 0900 71 18 119/57 82 99 PATIENT WEIGHT: Weight (lb): 153 Weight (oz): 5.13 Weight (kg): 69.545 Medications: Active Meds + DC'd Last 24 Hrs Dapagliflozin (FARXIGA) 10 MG DAILY PO Mupirocin (BACTROBAN 2% 22 GM OINTMENT) 1 APPLIC BID NASAL Spironolactone (ALDACTONE) 25 MG DAILY PO Ondansetron HCl (ZOFRAN) 4 MG Q4H PRN PRN IV Acetaminophen (TYLENOL) 650 MG Q4H PRN PRN PO Hydrocodone Bitart/Acetaminophen (NORCO 5/325) 1 TAB Q4H PRN PRN PO Atropine Sulfate (ATROPINE SULFATE 0.1MG/ML SYR) 0.5 MG ASDIR PRN IV Metoprolol Succinate (TOPROL XL) 50 MG DAILY PO Aspirin (ASPIRIN) 81 MG DAILY PO Bupropion HCl (WELLBUTRIN) 75 MG DAILY PO Lisinopril (ZESTRIL) 40 MG DAILY PO Oxybutynin Chloride (DITROPAN XL) 10 MG DAILY PO Pantoprazole (PROTONIX) 40 MG DAILY PO Atorvastatin Calcium (LIPITOR) 40 MG 2100 PO Ticagrelor (BRILINTA) 90 MG Q12HR PO Sucralfate (CARAFATE) 1 GM AC PO Atropine Sulfate (ATROPINE SULFATE 0.1MG/ML SYR) 0.5 MG ASDIR PRN IV Physical Exam General appearance: alert, awake, oriented Neck: full range of motion, non-tender, no JVD Cardiovascular: CV assessment: regular rate and rhythm Respiratory: clear to auscultation, no distress Abdomen: soft, non-tender, normal bowel sounds Upper extremity: Right radial site: hematoma, no bleeding Lower extremity: LE assessment: no edema Musculoskeletal: normal inspection Neuro/SLEEP TECHNICIAN: alert, oriented X 3, normal speech Psychiatry: normal affect, normal judgment/insight, normal mood Results Findings/Data: Laboratory Tests 03/26 03/26 03/25 0355 0355 1241 Chemistry Sodium (134 - 147 mEq/L) 141 Potassium (3.4 - 5.0 mEq/L) 3.4 Chloride (100 - 108 mEq/L) 111 H Carbon Dioxide (21 - 33 mEq/l) 26 Anion Gap (0 - 20) 8 BUN (7 - 25 mg/dL) 30 H Creatinine (0.6 - 1.3 mg/dL) 0.8 Glomerular Filtr Rate (70 - 80) 76.8 Glucose (77 - 141 mg/dL) 95 POC Glucose (70 - 110 MG/DL) 106 Calcium (8.0 - 10.5 mg/dL) 8.7 Magnesium (1.6 - 2.6 mg/dL) 2.11 B-Natriuretic Peptide (0 - 100 PG/ML) 100.0 Laboratory Tests 03/26 0355 Hematology WBC (4.5 - 11.0 x10 3/uL) 5.8 RBC (3.54 - 5.02 x10 6/uL) 3.91 Hgb (11.0 - 15.0 g/dL) 10.9 L Hct (33.0 - 45.0 %) 34.4 MCV (81.0 - 99.0 fL) 88.0 MCH (27.0 - 33.0 pg) 27.9 MCHC (33.0 - 37.0 g/dL) 31.7 L RDW (11.5 - 14.5 %) 15.8 H Plt Count (150 - 400 x10 3/uL) 172 MPV (7.0 - 9.0 fL) 9.8 H Neut % (Auto) (56.0 - 77.0 %) 68.5 Lymph % (Auto) (14.0 - 32.0 %) 19.9 [place] % (Auto) (4.8 - 9.0 %) 8.2 Eos % (Auto) (0.3 - 3.7 %) 2.6 Baso % (Auto) (0.0 - 2.0 %) 0.5 Neut # (Auto) (2.0 - 7.6 x10 3/uL) 4.00 Lymph # (Auto) (1.0 - 3.8 x10 3/uL) 1.16 [place] # (Auto) (0.1 - 0.8 x10 3/uL) 0.48 Eos # (Auto) (0.0 - 0.2 x10 3/uL) 0.15 Baso # (Auto) (0.0 - 0.2 x10 3/uL) 0.03 Abs Immat Gran (auto) (0.00 - 0.03 x10 3/uL) 0.02 Immature Gran % (0.0 - 2.0 %) 0.3 Nucleated RBC % (0 - 0 %) 0.0 Nucleated RBCs # (Man) (0.0 - 0.1 x10 3/uL) 0.00 Laboratory Tests 03/26 03/26 0355 0355 Chemistry Magnesium (1.6 - 2.6 mg/dL) 2.11 B-Natriuretic Peptide (0 - 100 PG/ML) 100.0 Diagnosis, Assessment Plan Free Text DxA P Notes Free Text DxA P Notes: 1. Coronary artery disease: S/p PCI with drug-eluting stent into the LAD, left main and left circumflex and balloon angioplasty into the ramus intermedius Impella assisted and IVUS optimized. Patient remained hemodynamically stable overnight, okay to transition to stepdown unit. * Continue Brilinta, ASA, and atorvastatin, BB. 2. Acute systolic CHF/post [place] cardiomyopathy/had VT during PCI * echo LVEF 25-29% * need wearable external defibrillator prior to discharge - d/w case supervisor * start GDMT: change BB to metoprolol succinate 50 mg daily, add aldactone 25 mg daily, Fargixa 10 mg daily, continue Lisinopril 3. Hyperlipidemia * Continue statin 4. Hypertension * BP stable * Continue lisinopril and metoprolol at 1721 RPT #:[id number] END OF REPORT [facility] 2024-03-25 11:31:00 [facility] ([facility]) Cardiology Progress Note REPORT#:[id number] REPORT STATUS: Signed REPORT INITIALIZATION DATE:03/25/24 TIME: 1131 PATIENT: MATTIE NEWSOME UNIT #: [id number] ROOM/BED: [place] [address] : 48 AGE: 73 SEX: F ATTEND: Errol Bautista MD ADM AUTHOR: Bob Camejo MD REPT SERVICE DT/TIME: 03/25/24 1131 * ALL edits or amendments must be made on the electronic/computer document * Subjective Free Text Subj Notes Free Text Subj Notes: Doing well, status post multivessel PCI with Impella assistance yesterday. Remained hemodynamically stable overnight. Objective General VS/I O: 24 hour I O ending at 0700: 03/25 0703/24 1900 Intake Total 240 Output Total 500 Balance -500 240 Intake, Oral 240 Number 1 Incontinent Voids Output, 100 Emesis Output, Urine 400 Patient 69.545 kg Weight Weight Stated/Reported Measurement Method Vital Signs: Date Time Temp Pulse Resp B/P B/P Pulse O2 O2 Flow FiO2 Mean Ox Delivery Rate 03/25 1100 64 12 114/56 81 03/25 1000 65 21 118/51 74 03/25 09 71 18 119/57 82 99 03/25 0800 74 14 125/60 87 98 03/25 0700 75 14 118/56 80 96 03/25 0613 98.1 03/25 0600 73 16 116/58 83 96 03/25 0501 76 15 104/57 78 95 03/25 0400 76 14 112/60 80 98 03/25 0300 77 15 97/53 70 96 03/25 0200 77 16 95/53 70 95 03/25 0100 79 19 113/60 81 98 03/25 0000 71 20 110/63 80 97 03/24 2300 71 17 122/58 83 99 03/24 2201 72 20 103/57 74 98 03/24 2200 71 16 98 03/24 2100 73 18 158/68 98 100 03/24 2000 97.8 03/24 2000 66 17 162/70 101 98 03/24 1900 65 33 168/70 101 100 03/24 1800 63 13 140/86 105 100 03/24 1745 61 18 145/87 109 99 03/24 1731 63 29 141/90 109 100 03/24 1715 63 23 162/74 107 99 03/24 1700 62 24 156/67 97 99 03/24 1645 64 28 150/81 107 100 03/24 1634 64 8 155/70 101 99 PATIENT WEIGHT: Weight (lb): 153 Weight (oz): 5.13 Weight (kg): 69.545 Medications: Active Meds + DC'd Last 24 Hrs Dapagliflozin (FARXIGA) 10 MG DAILY PO Mupirocin (BACTROBAN 2% 22 GM OINTMENT) 1 APPLIC BID NASAL Spironolactone (ALDACTONE) 25 MG DAILY PO Ondansetron HCl (ZOFRAN) 4 MG Q4H PRN PRN IV Acetaminophen (TYLENOL) 650 MG Q4H PRN PRN PO Hydrocodone Bitart/Acetaminophen (NORCO 5/325) 1 TAB Q4H PRN PRN PO Atropine Sulfate (ATROPINE SULFATE 0.1MG/ML SYR) 0.5 MG ASDIR PRN IV Sodium Chloride (SODIUM CHLORIDE 0.9%) 1,000 ML .[id number] ONE IV (DC) Fentanyl Citrate (SUBLIMAZE) 0 .STK-MED ONE IV (DC) Midazolam HCl (VERSED) 0 .STK-MED ONE IV (DC) Heparin Sodium/Sodium Chloride (HEPARIN 1,000 UNITS/NS 500ML) 500 ML .STK- MED ONE IV (DC) Fentanyl Citrate (SUBLIMAZE) 0 .STK-MED ONE .ROUTE (DC) Midazolam HCl (VERSED) 0 .STK-MED ONE .ROUTE (DC) Heparin Sodium/Sodium Chloride (HEPARIN 1,000 UNITS/NS 500ML) 1,500 ML .STK- MED ONE IV (DC) Iopamidol (ISOVUE-370 100ML) 0 .STK-MED ONE IV (DC) Nitroglycerin/Dextrose (NITROGLYCERIN 50,000MCG/D5W 250ML) 250 ML .STK-MED ONE IV (DC) Verapamil HCl (ISOPTIN) 0 .STK-MED ONE IV (DC) Heparin Sodium (HEPARIN SODIUM) 0 .STK-MED ONE .ROUTE (DC) Lidocaine HCl (LIDOCAINE HCL/PF) 0 .STK-MED ONE .ROUTE (DC) Metoprolol Succinate (TOPROL XL) 50 MG DAILY PO Aspirin (ASPIRIN) 81 MG DAILY PO Bupropion HCl (WELLBUTRIN) 75 MG DAILY PO Lisinopril (ZESTRIL) 40 MG DAILY PO Oxybutynin Chloride (DITROPAN XL) 10 MG DAILY PO Pantoprazole (PROTONIX) 40 MG DAILY PO Atorvastatin Calcium (LIPITOR) 40 MG 2100 PO Ticagrelor (BRILINTA) 90 MG Q12HR PO Sucralfate (CARAFATE) 1 GM AC PO Atropine Sulfate (ATROPINE SULFATE 0.1MG/ML SYR) 0.5 MG ASDIR PRN IV Physical Exam General appearance: alert, awake, oriented Neck: full range of motion, non-tender, no JVD Cardiovascular: CV assessment: regular rate and rhythm Respiratory: clear to auscultation, no distress Abdomen: soft, non-tender, normal bowel sounds Upper extremity: Right radial site: hematoma, no bleeding Lower extremity: LE assessment: no edema Musculoskeletal: normal inspection Neuro/SLEEP TECHNICIAN: alert, oriented X 3, normal speech Psychiatry: normal affect, normal judgment/insight, normal mood Results Findings/Data: Laboratory Tests 03/25 504 Chemistry Sodium (134 - 147 mEq/L) 144 Potassium (3.4 - 5.0 mEq/L) 3.9 Chloride (100 - 108 mEq/L) 110 H Carbon Dioxide (21 - 33 mEq/l) 24 Anion Gap (0 - 20) 14 BUN (7 - 25 mg/dL) 22 Creatinine (0.6 - 1.3 mg/dL) 0.7 Glomerular Filtr Rate (70 - 80) 90.1 H Glucose (77 - 141 mg/dL) 88 Calcium (8.0 - 10.5 mg/dL) 9.1 Magnesium (1.6 - 2.6 mg/dL) 1.97 Laboratory Tests 03/25 504 Hematology WBC (4.5 - 11.0 x10 3/uL) 6.7 RBC (3.54 - 5.02 x10 6/uL) 4.19 Hgb (11.0 - 15.0 g/dL) 11.6 Hct (33.0 - 45.0 %) 36.5 MCV (81.0 - 99.0 fL) 87.1 MCH (27.0 - 33.0 pg) 27.7 MCHC (33.0 - 37.0 g/dL) 31.8 L RDW (11.5 - 14.5 %) 15.8 H Plt Count (150 - 400 x10 3/uL) 185 MPV (7.0 - 9.0 fL) 9.9 H Neut % (Auto) (56.0 - 77.0 %) 80.1 H Lymph % (Auto) (14.0 - 32.0 %) 12.5 L [place] % (Auto) (4.8 - 9.0 %) 6.3 Eos % (Auto) (0.3 - 3.7 %) 0.4 Baso % (Auto) (0.0 - 2.0 %) 0.3 Neut # (Auto) (2.0 - 7.6 x10 3/uL) 5.36 Lymph # (Auto) (1.0 - 3.8 x10 3/uL) 0.84 L [place] # (Auto) (0.1 - 0.8 x10 3/uL) 0.42 Eos # (Auto) (0.0 - 0.2 x10 3/uL) 0.03 Baso # (Auto) (0.0 - 0.2 x10 3/uL) 0.02 Abs Immat Gran (auto) (0.00 - 0.03 x10 3/uL) 0.03 Immature Gran % (0.0 - 2.0 %) 0.4 Nucleated RBC % (0 - 0 %) 0.0 Nucleated RBCs # (Man) (0.0 - 0.1 x10 3/uL) 0.00 Laboratory Tests 03/25 0504 Chemistry Magnesium (1.6 - 2.6 mg/dL) 1.97 Diagnosis, Assessment Plan Free Text DxA P Notes Free Text DxA P Notes: 1. Coronary artery disease: S/p PCI with drug-eluting stent into the LAD, left main and left circumflex and balloon angioplasty into the ramus intermedius Impella assisted and IVUS optimized. Patient remained hemodynamically stable overnight, okay to transition to stepdown unit. * Continue Brilinta, ASA, and atorvastatin, BB. 2. Acute systolic CHF/post [place] cardiomyopathy/had VT during PCI * echo LVEF 25-29% * need wearable external defibrillator prior to discharge - d/w case supervisor * start GDMT: change BB to metoprolol succinate 50 mg daily, add aldactone 25 mg daily, Fargixa 10 mg daily, continue Lisinopril 3. Hyperlipidemia * Continue statin 4. Hypertension * BP stable * Continue lisinopril and metoprolol Okay to transition to stepdown unit. at 1134 RPT #:[id number] END OF REPORT [facility] 2024-03-25 10:12:00 [facility] ([facility]) Hospitalist Progress Note REPORT#:[id number] REPORT STATUS: Signed REPORT INITIALIZATION DATE:03/25/24 TIME: 1011 PATIENT: MATTIE NEWSOME UNIT #: [id number] ROOM/BED: [place] [address] : 48 AGE: 73 SEX: F ATTEND: Errol Bautista MD ADM AUTHOR: Shirin Diaz APRN REPT SERVICE DT/TIME: 03/25/24 1012 * ALL edits or amendments must be made on the electronic/computer document * Subjective Chief complaint: resting, left groin pain from HC HPI: 73 year old female with history of HTN, HLD, DM2, and CAD with prior stents who presented for PCI. Pre-op labs stable. Patient seen status post heart cath/PCI. Denies any chest pain or shortness of breath at time of exam. Reports long-time tobacco use 1 PPD down to 1/2 PPD recently. Now admitted for staged PCI later this week. Review of Systems All systems rev neg: except as noted Objective General VS/I O: Vital Signs: Date Time Temp Pulse Resp B/P B/P Pulse O2 O2 Flow FiO2 Mean Ox Delivery Rate 03/25 613 36.7 03/25 600 73 16 116/58 83 96 03/25 0501 76 15 104/57 78 95 03/25 0400 76 14 112/60 80 98 03/25 0300 77 15 97/53 70 96 03/25 0200 77 16 95/53 70 95 03/25 0100 79 19 113/60 81 98 03/25 0000 71 20 110/63 80 97 03/24 2300 71 17 122/58 83 99 03/24 2201 72 20 103/57 74 98 03/240 71 16 98 03/24 2100 73 18 158/68 98 100 03/24 2000 36.6 03/24 2000 66 17 162/70 101 98 03/24 1900 65 33 168/70 101 100 03/24 1800 63 13 140/86 105 100 03/24 1745 61 18 145/87 109 99 03/24 1731 63 29 141/90 109 100 03/24 1715 63 23 162/74 107 99 03/24 1700 62 24 156/67 97 99 03/24 1645 64 28 150/81 107 100 03/24 1634 64 8 155/70 101 99 24 hour I O ending at 0700: 03/25 0700 03/24 1900 Intake Total 240 Output Total 500 Balance -500 240 Intake, Oral 240 Number 1 Incontinent Voids Output, 100 Emesis Output, Urine 400 Patient 69.545 kg Weight Weight Stated/Reported Measurement Method PATIENT WEIGHT: Weight (lb): 153 Weight (oz): 5.13 Weight (kg): 69.545 Medications: Active Meds + DC'd Last 24 Hrs Dapagliflozin (FARXIGA) 10 MG DAILY PO Mupirocin (BACTROBAN 2% 22 GM OINTMENT) 1 APPLIC BID NASAL Spironolactone (ALDACTONE) 25 MG DAILY PO Ondansetron HCl (ZOFRAN) 4 MG Q4H PRN PRN IV Acetaminophen (TYLENOL) 650 MG Q4H PRN PRN PO Hydrocodone Bitart/Acetaminophen (NORCO 5/325) 1 TAB Q4H PRN PRN PO Atropine Sulfate (ATROPINE SULFATE 0.1MG/ML SYR) 0.5 MG ASDIR PRN IV Sodium Chloride (SODIUM CHLORIDE 0.9%) 1,000 ML .[id number] ONE IV (DC) Fentanyl Citrate (SUBLIMAZE) 0 .STK-MED ONE IV (DC) Midazolam HCl (VERSED) 0 .STK-MED ONE IV (DC) Heparin Sodium/Sodium Chloride (HEPARIN 1,000 UNITS/NS 500ML) 500 ML .STK- MED ONE IV (DC) Fentanyl Citrate (SUBLIMAZE) 0 .STK-MED ONE .ROUTE (DC) Midazolam HCl (VERSED) 0 .STK-MED ONE .ROUTE (DC) Heparin Sodium/Sodium Chloride (HEPARIN 1,000 UNITS/NS 500ML) 1,500 ML .STK- MED ONE IV (DC) Iopamidol (ISOVUE-370 100ML) 0 .STK-MED ONE IV (DC) Nitroglycerin/Dextrose (NITROGLYCERIN 50,000MCG/D5W 250ML) 250 ML .STK-MED ONE IV (DC) Verapamil HCl (ISOPTIN) 0 .STK-MED ONE IV (DC) Heparin Sodium (HEPARIN SODIUM) 0 .STK-MED ONE .ROUTE (DC) Lidocaine HCl (LIDOCAINE HCL/PF) 0 .STK-MED ONE .ROUTE (DC) Metoprolol Succinate (TOPROL XL) 50 MG DAILY PO Aspirin (ASPIRIN) 81 MG DAILY PO Bupropion HCl (WELLBUTRIN) 75 MG DAILY PO Lisinopril (ZESTRIL) 40 MG DAILY PO Oxybutynin Chloride (DITROPAN XL) 10 MG DAILY PO Pantoprazole (PROTONIX) 40 MG DAILY PO Atorvastatin Calcium (LIPITOR) 40 MG 2100 PO Ticagrelor (BRILINTA) 90 MG Q12HR PO Sucralfate (CARAFATE) 1 GM AC PO Atropine Sulfate (ATROPINE SULFATE 0.1MG/ML SYR) 0.5 MG ASDIR PRN IV Physical Exam General appearance: alert, awake, oriented, no acute distress Head/Eyes: atraumatic, normocephalic Neck: supple/no meningismus Cardiovascular: normal heart sounds, regular rate rhythm Abdomen: non-tender, soft Extremities: no clubbing, no cyanosis, no edema Musculoskeletal: normal inspection Neuro/SLEEP TECHNICIAN: alert, oriented X 3, normal speech Skin: normal color, normal temperature Psychiatry: normal affect, normal judgment/insight, normal mood Results Findings/Data: Laboratory Tests 03/25 0504 Chemistry Sodium (134 - 147 mEq/L) 144 Potassium (3.4 - 5.0 mEq/L) 3.9 Chloride (100 - 108 mEq/L) 110 H Carbon Dioxide (21 - 33 mEq/l) 24 Anion Gap (0 - 20) 14 BUN (7 - 25 mg/dL) 22 Creatinine (0.6 - 1.3 mg/dL) 0.7 Glomerular Filtr Rate (70 - 80) 90.1 H Glucose (77 - 141 mg/dL) 88 Calcium (8.0 - 10.5 mg/dL) 9.1 Magnesium (1.6 - 2.6 mg/dL) 1.97 Laboratory Tests 03/25 0504 Hematology WBC (4.5 - 11.0 x10 3/uL) 6.7 RBC (3.54 - 5.02 x10 6/uL) 4.19 Hgb (11.0 - 15.0 g/dL) 11.6 Hct (33.0 - 45.0 %) 36.5 MCV (81.0 - 99.0 fL) 87.1 MCH (27.0 - 33.0 pg) 27.7 MCHC (33.0 - 37.0 g/dL) 31.8 L RDW (11.5 - 14.5 %) 15.8 H Plt Count (150 - 400 x10 3/uL) 185 MPV (7.0 - 9.0 fL) 9.9 H Neut % (Auto) (56.0 - 77.0 %) 80.1 H Lymph % (Auto) (14.0 - 32.0 %) 12.5 L [place] % (Auto) (4.8 - 9.0 %) 6.3 Eos % (Auto) (0.3 - 3.7 %) 0.4 Baso % (Auto) (0.0 - 2.0 %) 0.3 Neut # (Auto) (2.0 - 7.6 x10 3/uL) 5.36 Lymph # (Auto) (1.0 - 3.8 x10 3/uL) 0.84 L [place] # (Auto) (0.1 - 0.8 x10 3/uL) 0.42 Eos # (Auto) (0.0 - 0.2 x10 3/uL) 0.03 Baso # (Auto) (0.0 - 0.2 x10 3/uL) 0.02 Abs Immat Gran (auto) (0.00 - 0.03 x10 3/uL) 0.03 Immature Gran % (0.0 - 2.0 %) 0.4 Nucleated RBC % (0 - 0 %) 0.0 Nucleated RBCs # (Man) (0.0 - 0.1 x10 3/uL) 0.00 Diagnosis, Assessment Plan Free Text DxA P Notes Free text DxA P notes: Impression/Plan: - CAD s/p stent - Hypertensive heart disease - HLD - DM2 - OAB - Tobacco user 03/22 Cardiology following. Stage PCI Wednesday. Continue ASA/brilinta/statin. Cardiac monitoring. Cardiac diet. Resume outpatient medications. Smoking cessation advised. DVT ppx SCDs. 03/23 PCI planned tomorrow. Replace K. Labs in AM. 03/25 S/P cardiac stent. Continue cardiac meds. To tele if ok with cardio. at 1707 at 1340 RPT #:[id number] END OF REPORT [facility] 2024-03-25 05:39:00 [id number] [place] [address] PATIENT NAME: MATTIE NEWSOME ADMIT DATE: 03/24/24 ACCOUNT NO: [id number] ROOM NO: [facility] AGE: 73 REPORT TYPE: eELECTROCARDIOGRAM REPORT SEX: F ADMITTING PHYSICIAN:Errol Bautista MD ATTENDING PHYSICIAN:Errol Bautista MD Order: [id number] Test Reason : stents Test Date/Time Stamp: [facility] Mar 25 2024 05:39:54 Blood Pressure : / mmHG Vent. Rate : 074 BPM Atrial Rate : 074 BPM P-R Int : 228 ms QRS Dur : 118 ms QT Int : 446 ms P-R-T Axes : 039 -36 092 degrees QTc Int : 495 ms Sinus rhythm with 1st degree AV block Left axis deviation Left ventricular hypertrophy with QRS widening and repolarization abnormality ( R in aVL , [place]t product ) Cannot rule out Septal infarct (cited on or before 24-MAR-2024) Abnormal ECG When compared with ECG of 24-MAR-2024 16:26, No changes Confirmed by MD LANZA GERARD ([id number]) on 03/26/2024 1:22:48 PM Referred By: Mega Flores Confirmed by:JEAN LANZA MD at 1322 PATIENT NAME: MATTIE NEWSOME [facility] 2024-03-24 16:43:00 [id number] [address] PATIENT NAME: CALVIN NEWSOME V ADMIT DATE: 03/24/24 ACCOUNT NO: [id number] ROOM NO: [facility] AGE: 73 REPORT TYPE: CARDIAC CATHETERIZATION REPORT SEX: F ADMITTING PHYSICIAN:Errol Bautista MD ATTENDING PHYSICIAN:Errol Bautista MD PROCEDURE DATE: 03/24/2024 INDICATION FOR PROCEDURE: Severe coronary artery disease, severely reduced ejection fraction and wall motion abnormalities by echo. The patient underwent PCI to the mid LAD with good amount of contrast used and had VT at the end of the procedure. She also found to have severe left circumflex disease and [id number] proximal LAD and proximal left main disease. She was brought in today for PCI of the left circumflex, IVUS of the left main and proximal LAD, and possible intervention of both lesions. Risks and benefits explained to the patient and the family and they agreed to proceed. PROCEDURES PERFORMED: 1. Ultrasound-guided vascular access of the right common femoral artery. 2. Insertion of contineous flow pump Impella CP. 3. IVUS of the LAD. 4. IVUS of the left main. 5. IVUS of the ramus intermedius. 6. Stent to the proximal LAD. 7. Stent to the left main. 8. Stent to the mid left circumflex. 9. Aortogram. 10. Moderate sedation. 11. First order catheterization of the left common iliac arteries. 12. Bilateral lower extremity angiogram. 13. Perclose closure device to the right common femoral artery and left common femoral artery. DESCRIPTION OF PROCEDURE: After informed consent was obtained, the patient was brought into the technical laboratory asst. The patient was prepped and draped in sterile fashion. Right common femoral artery was accessed using ultrasound guidance and micropuncture technique. Then, a 6-Danish sheath was inserted. Then, I went up with XB 3.5 guide, engaged the left main and obtained multiple pictures. The left main appeared to be severely diseased in addition to the proximal LAD. I went with Runthrough wire, placed in the distal LAD. Then, I went with IVUS and I could not advance it beyond the ostium of the LAD. There was severe disease in the distal left main, as well as in the ostium of the LAD. At this time, decision was to intervene on the left main and LAD, but given the severely reduced ejection fraction and disease in the left circumflex and ramus intermedius, the patient needed Impella insertion. So, I accessed the left common femoral artery with ultrasound guidance and micropuncture technique and I placed a 6-Danish sheath and I placed 2 Percloses devices then I went and placed the Impella sheath. Then, I went with a pigtail across the aortic valve, obtained LVEDP, which was about 16 mmHg. Then, I went with the Impella wire and PATIENT NAME: CALVIN NEWSOME V advanced the Impella CP into the left ventricle. The family were updated about the plans, post I took my pictures and prior to Impella insertion, and they agreed to proceed. Then, I went with a BMW wire and placed it in the ramus intermedius. Then, I went with a 2.5 NC balloon and advanced it to the proximal LAD and I did ballooning of proximal LAD and left main. Then, I wanted to evaluate the ostium of the ramus intermedius and distal left main, so I went with IVUS into the ramus intermedius, into the left main. The ostium of the ramus intermedius was severely diseased, so I decided to balloon it. I went with 2.5 balloon and I did predilation of the ostial ramus intermedius and proximal ramus intermedius into the left main. Then, I went with a 3.0 balloon into the proximal LAD and left main and I did predilation. Then, I obtained further pictures. The mid left circumflex was severely diseased into the OM with a good size vessel and given I am going to residential the left circumflex after counseling with my colleagues in the technical laboratory asst, Dr. Ritter and [TIME: 04:52]. We decided to intervene on the left circumflex. I went with 2.5 balloon. I did predilation of the mid left circumflex into the OM2 and then I ballooned the proximal left circumflex. Then, I went with Synergy drug-eluting stent, 2.5 x 24 mm and deployed it across the mid left circumflex into the OM2 jailing the OM1. Then, I pulled the stent balloon and I ballooned the ostium of the proximal left circumflex into the left main. Then, I removed the ramus intermedius wire and I went with Megatron drug-eluting stent and I deployed it from the proximal LAD overlapping the mid LAD stent and I placed the stent into the ostial left main. Then, I removed the left circumflex wire and I rewired it into the left circumflex. Then, I went with 4.0 balloon and I did post-dilation of the proximal LAD and the left main and then I went with a 2.5 balloon and I did predilation into the stent strut into the left circumflex. Then, I went with 3.5 balloon into the LAD and left circumflex, and I did simultaneous kissing balloons into the left circumflex, LAD into the left main. Then, I went back with IVUS and the stent was well opposed, well expanded and covered the ostium. Then, removed the wires and obtained final pictures. It showed excellent results. Then, the guide removed. There was hematoma in the left groin after Impella removal. I went with Omniflush and did aortogram. It showed patent iliacs and the Impella sheath was occlusive, so I went up and over with the Omniflush and placed it in the left common iliac artery and then I removed the Impella sheath and we deployed the 2 Percloses with good hemostasis. Then, I did angiogram with the Omniflush and showed no extravasation. Then, the wire was removed and the Perclose was deployed, then the Omniflush removed and the right common femoral artery sheath was secured with Perclose closure device. IMPRESSION: Severe proximal left anterior descending artery, left main, proximal ramus intermedius and mid left circumflex disease status post percutaneous coronary intervention with drug-eluting stent into the left anterior descending artery, left main and left circumflex, and balloon angioplasty into the left circumflex. PLAN: Continue aspirin, Brilinta, statin, beta goldie. Dictated By: Bob Camejo MD Date Dictated: 03/24/2024 16:43:43 Date Transcribed: 03/24/2024 18:19:32 [facility] PATIENT NAME: CALVIN NEWSOME V Receipt ID: [id number] Authenticated and Edited by Bob Camejo MD On 05/03/24 6:59:17 PM at 0701 PATIENT NAME: CALVIN NEWSOME V [facility] 2024-03-24 16:26:00 [id number] [place] [address] PATIENT NAME: MATTIE NEWSOME ADMIT DATE: 03/24/24 ACCOUNT NO: [id number] ROOM NO: [id number] AGE: 73 REPORT TYPE: eELECTROCARDIOGRAM REPORT SEX: F ADMITTING PHYSICIAN:Errol Bautista MD ATTENDING PHYSICIAN:Errol Bautista MD Order: [id number] Test Reason : PCI Postprocedure Test Date/Time Stamp: WedMar 24 2024 16:26:30 Blood Pressure : / mmHG Vent. Rate : 067 BPM Atrial Rate : 067 BPM P-R Int : 226 ms QRS Dur : 126 ms QT Int : 458 ms P-R-T Axes : 052 -41 103 degrees QTc Int : 483 ms Sinus rhythm with 1st degree AV block Left axis deviation Left ventricular hypertrophy with QRS widening and repolarization abnormality ( R in aVL , Unruly product ) Cannot rule out Septal infarct , age undetermined Abnormal ECG When compared with ECG of 23-MAR-2024 07:17, Significant changes have occurred Confirmed by MD POOL, JEAN ([id number]) on 03/26/2024 1:22:32 PM Referred By: Mega Flores Confirmed by:JEAN LANZA MD at 1322 PATIENT NAME: MATTIE NEWSOME [facility] 2024-03-24 13:51:00 [facility] ([facility]) Clinical Note REPORT#:[id number] REPORT STATUS: Signed REPORT INITIALIZATION DATE:03/24/24 TIME: 1351 PATIENT: MATTIE NEWSOME UNIT #: [id number] ROOM/BED: G4433-1 : 48 AGE: 73 SEX: F ATTEND: Errol Bautista MD ADM AUTHOR: Shirin Diaz APRN REPT SERVICE DT/TIME: 03/24/24 1351 * ALL edits or amendments must be made on the electronic/computer document * Clinical Note Note: Patient out of room for PCI during rounds, will see in AM. at 1351 RPT #:[id number] END OF REPORT [facility] 2024-03-24 07:43:00 [facility] ([facility] Cardiology Progress Note REPORT#:[id number] REPORT STATUS: Signed REPORT INITIALIZATION DATE:03/24/24 TIME: 07 PATIENT: MATTIE NEWSOME UNIT #: [id number] ROOM/BED: 3314-1 : 48 AGE: 73 SEX: F ATTEND: Errol Bautista MD ADM AUTHOR: Gregoria Carrera AGACNP REPT SERVICE DT/TIME: 03/24/24 0743 * ALL edits or amendments must be made on the electronic/computer document * Gregoria Carrera 03/24/24 0743: Subjective Patient reports: No: complaints, abdominal pain, chest pain, confused, cough, dizziness, fatigue, fever, headache, nausea, palpitations, shortness of breath, swelling. Objective General VS/I O: 24 hour I O ending at 0700: 03/24 0700 03/23 1900 Intake Total Output Total Balance Patient 63.9 kg Weight Weight Bed scale Measurement Method Vital Signs: Date Time Temp Pulse Resp B/P B/P Pulse O2 O2 Flow FiO2 Mean Ox Delivery Rate 03/24 357 36.9 62 16 126/63 84.2 97 Room air 03/237 36.8 66 16 136/71 92.6 96 Room air 03/23 1911 36.6 71 15 143/73 96.1 95 Room air 03/23 1639 36.9 71 137/73 94.3 95 03/23 1553 36.9 70 14 136/72 93.5 95 03/23 1129 36.7 69 14 136/72 93.1 97 03/23 0808 36.8 68 14 144/74 97.6 96 PATIENT WEIGHT: Weight (lb): 140 Weight (oz): 14.01 Weight (kg): 63.900 Medications: Active Meds + DC'd Last 24 Hrs Metoprolol Tartrate (LOPRESSOR) 25 MG Q12HR PO Sodium Chloride (SODIUM CHLORIDE 0.9%) 1,000 ML .[id number] ONE IV (DC) Potassium Chloride (POTASSIUM CHLORIDE 20MEQ TAB.ER) 40 MEQ ONCE ONE PO (DC) Aspirin (ASPIRIN) 81 MG DAILY PO Bupropion HCl (WELLBUTRIN) 75 MG DAILY PO Lisinopril (ZESTRIL) 40 MG DAILY PO Oxybutynin Chloride (DITROPAN XL) 10 MG DAILY PO Pantoprazole (PROTONIX) 40 MG DAILY PO Atorvastatin Calcium (LIPITOR) 40 MG 2100 PO Ticagrelor (BRILINTA) 90 MG Q12HR PO Sucralfate (CARAFATE) 1 GM AC PO Atropine Sulfate (ATROPINE SULFATE 0.1MG/ML SYR) 0.5 MG ASDIR PRN IV Physical Exam General appearance: alert, awake, oriented Neck: full range of motion, non-tender, no JVD Cardiovascular: CV assessment: regular rate and rhythm Respiratory: clear to auscultation, no distress Abdomen: soft, non-tender, normal bowel sounds Upper extremity: Right radial site: hematoma, no bleeding Lower extremity: LE assessment: no edema Musculoskeletal: normal inspection Neuro/SLEEP TECHNICIAN: alert, oriented X 3, normal speech Psychiatry: normal affect, normal judgment/insight, normal mood Results Findings/Data: Laboratory Tests 03/24 03/23 03/23 03/23 03/23 0539 1910 1549 1122 0807 Chemistry Sodium (134 - 147 mEq/L) 144 Potassium (3.4 - 5.0 mEq/L) 3.9 Chloride (100 - 108 mEq/L) 112 H Carbon Dioxide (21 - 33 mEq/l) 26 Anion Gap (0 - 20) 10 BUN (7 - 25 mg/dL) 15 Creatinine (0.6 - 1.3 mg/dL) 0.7 Glomerular Filtr Rate (70 - 80) 90.1 H Glucose (77 - 141 mg/dL) 92 POC Glucose (70 - 110 MG/DL) 157 H 104 129 H 113 H Calcium (8.0 - 10.5 mg/dL) 9.0 Laboratory Tests 03/24 0539 Coagulation INR (0.8 - 1.2) 1.1 PT Patient/Control Mix (9.3 - 12.9 SECONDS) 12.6 Laboratory Tests 03/24 0539 Hematology WBC (4.5 - 11.0 x10 3/uL) 5.8 RBC (3.54 - 5.02 x10 6/uL) 4.70 Hgb (11.0 - 15.0 g/dL) 13.0 Hct (33.0 - 45.0 %) 41.4 MCV (81.0 - 99.0 fL) 88.1 MCH (27.0 - 33.0 pg) 27.7 MCHC (33.0 - 37.0 g/dL) 31.4 L RDW (11.5 - 14.5 %) 15.4 H Plt Count (150 - 400 x10 3/uL) 174 MPV (7.0 - 9.0 fL) 9.7 H Neut % (Auto) (56.0 - 77.0 %) 74.0 Lymph % (Auto) (14.0 - 32.0 %) 15.7 [place] % (Auto) (4.8 - 9.0 %) 6.7 Eos % (Auto) (0.3 - 3.7 %) 2.6 Baso % (Auto) (0.0 - 2.0 %) 0.7 Neut # (Auto) (2.0 - 7.6 x10 3/uL) 4.30 Lymph # (Auto) (1.0 - 3.8 x10 3/uL) 0.91 L [place] # (Auto) (0.1 - 0.8 x10 3/uL) 0.39 Eos # (Auto) (0.0 - 0.2 x10 3/uL) 0.15 Baso # (Auto) (0.0 - 0.2 x10 3/uL) 0.04 Abs Immat Gran (auto) (0.00 - 0.03 x10 3/uL) 0.02 Immature Gran % (0.0 - 2.0 %) 0.3 Nucleated RBC % (0 - 0 %) 0.0 Nucleated RBCs # (Man) (0.0 - 0.1 x10 3/uL) 0.00 Results: labs reviewed, vital signs reviewed Telemetry Interpretation: NSR Diagnosis, Assessment Plan Plan discussed with: patient, collaborating MD, nurse Free Text DxA P Notes Free Text DxA P Notes: 1. Coronary artery disease s/p PCI to the mid LAD * she has intermediate disease in the proximal LAD and severe disease in the left circumflex. * Staged PCI today * Patient had brief VT post PCI * Continue Brilinta, ASA, and atorvastatin, BB. 2. Acute systolic CHF/post [place] cardiomyopathy/had VT during PCI * echo LVEF 25-29% * need wearable external defibrillator prior to discharge - d/w case supervisor * start GDMT: change BB to metoprolol succinate 50 mg daily, add aldactone 25 mg daily, Fargixa 10 mg daily, continue Lisinopril 3. Hyperlipidemia * Continue statin 4. Hypertension * BP stable * Continue lisinopril and metoprolol MDM by Dr. Camejo. Bob Camejo 03/25/24 1130: Attestations Physician Attestation Agree w/findings plan: I have seen and examined the pt, I Agree with the findings and plan as documented by Gregoria Carrera. S/p PCI of the proximal LAD left main and mid left circumflex and balloon angioplasty to the ramus intermedius. Impella assistance was used and IVUS was used to optimize PCI. Patient tolerated procedure well, continue with aspirin, Brilinta, high intensity statin and beta-goldie. at 1241 at 1131 RPT #:[id number] END OF REPORT [facility] 2024-03-23 21:18:00 [id number] [address] PATIENT NAME: MATTIE NEWSOME ADMIT DATE: 03/22/24 ACCOUNT NO: [id number] ROOM NO: [facility] AGE: 73 REPORT TYPE: eECHOCARDIOGRAM REPORT SEX: F ADMITTING PHYSICIAN:Errol Bautista MD ATTENDING PHYSICIAN:Errol Bautista MD *[address] [address] Transthoracic Echocardiogram Patient: Mattie Newsome Study Date: 03/23/2024 BP: 137 / 73 URN: [id number] Location: : 1950 Age: 73 Gender: F Height: 64 in / 162.6 cm Weight: 151 lb / 68.5 kg BMI/BSA: 25.9 kg/m 2 / 1.77 m 2 *Ordering Physician: * Gregoria Carrera *Interpreting Physician: * Bob Camejo MD *Treadle Cut Off Saw Operator: Liz Taylor Indications: CHF. CAD. Study data: Transthoracic echocardiogram. Procedure: A transthoracic echocardiogram was performed. Image quality was adequate. Complete 2D, complete spectral Doppler, and color Doppler. Location: Bedside. Patient status: Inpatient. Patient room number: 4433. Study status: Routine. Heart rate: 71 bpm. Findings Left ventricle: The cavity size is normal. Wall thickness is mildly increased. Systolic function is severely reduced. The estimated ejection fraction is 25-29%. There is severe diffuse hypokinesis. Diastolic dysfunction present but unable to assess severity. PATIENT NAME: MATTIE NEWSOME Right ventricle: The cavity size is normal. Systolic function is normal. The RV pressure during systole is 37 mm Hg. Left atrium: The atrium is dilated. Right atrium: The atrium is normal in size. Aorta: Aortic root: The root is normal-sized. Aortic valve: The valve is trileaflet. The leaflets are moderately thickened and moderately calcified. The findings are consistent with stenosis. There is no regurgitation. Mitral valve: The annulus is mildly calcified and mildly thickened. There is no evidence of stenosis. There is mild regurgitation. Tricuspid valve: The valve is structurally normal. There is trace regurgitation. Pulmonic valve: The valve is structurally normal. There is no regurgitation. Pericardium: Not well visualized. There is no pericardial effusion. Pulmonary arteries: The main pulmonary artery is normal-sized. Systemic veins: Inferior vena cava: The IVC is not visualized. Measurements Left ventricle Value Ref MICHAEL, LAX 4.9 cm 3.8 - 5.2 ESD, LAX 4.5 cm 2.2 - 3.5 FS, LAX 10 % 27 - 45 MICHAEL major ax, A2C 8.0 cm --------- IVS, ED 1.1 cm 0.6 - 0.9 PW, ED 1.1 cm 0.6 - 0.9 IVS/PW, ED 1.01 --------- EF 21 % 54 - 74 IVRT 97 ms --------- E', lat hai, TDI 7.7 cm/sec >=10.0 E/e', lat hai, TDI 13 <=13 E', med hai, TDI 4.3 cm/sec >=7.0 E/e', med hai, TDI 23 --------- E', avg, TDI 6.0 cm/sec --------- E/e', avg, TDI 16 <=14 LVOT Value Ref Diam, S 1.99 cm --------- Area 3.1 cm 2 --------- Peak moises, S 0.82 m/sec --------- Mean moises, S 0.6 m/sec --------- VTI, S 16.9 cm --------- Peak grad, S 3 mm Hg --------- Mean grad, S 2 mm Hg --------- SV 52 ml --------- Qs 3.71 L/min --------- Qs/bsa 2.1 L/(min-m 2) --------- SV/bsa 29 ml/m 2 --------- Right ventricle Value Ref TAPSE, MM 1.8 cm >=1.7 PATIENT NAME: MATTIE NEWSOME Pressure, S 37 mm Hg --------- RVOT Value Ref Peak v, S 0.99 m/sec --------- Peak grad, S 4 mm Hg --------- Left atrium Value Ref Vol/bsa, S 36 ml/m 2 16 - 34 Vol/bsa, ES, 1-p A4C 34 ml/m 2 11 - 40 Vol, ES, 2-p 64 ml --------- Vol/bsa, ES, 2-p 36 ml/m 2 16 - 34 Vol/bsa, ES, A/L 36 ml/m 2 16 - 34 AP dim, ES MM 4.6 cm 2.7 - 3.8 LA/Ao root ratio, MM 1.59 --------- Aortic valve Value Ref Leaflet sep, MM 1.33 cm --------- Peak v, S 1.8 m/sec --------- Mean v, S 1.23 m/sec --------- VTI, S 35.6 cm --------- Mean grad, S 7 mm Hg --------- Peak grad, S 12.5 mm Hg --------- LVOT/AV, VTI ratio 0.47 --------- ARTIE, VTI 1.46 cm 2 --------- LVOT/AV, Vpeak ratio 0.47 --------- ARTIE, Vmax 1.45 cm 2 --------- Mitral valve Value Ref Peak E 0.97 m/sec --------- Peak A 0.53 m/sec --------- Decel time 223 ms --------- PHT 70 ms --------- Peak grad, D 3.8 mm Hg --------- Peak E/A ratio 1.83 --------- MVA, PHT 3.2 cm 2 --------- MR peak v 3.7 m/sec --------- Tricuspid valve Value Ref TR peak v 2.6 m/sec <=2.8 Peak RV-RA grad, S 27 mm Hg --------- Aortic root Value Ref Root diam, ED MM 2.9 cm --------- Ascending aorta Value Ref AAo AP diam, S 2.8 cm --------- Pulmonary artery Value Ref Pressure, S 31.3 mm Hg --------- Systemic veins Value Ref Estimated CVP 10 mm Hg --------- PATIENT NAME: MATTIE NEWSOME Conclusions Summary: 1. Left ventricle: The cavity size is normal. Wall thickness is mildly increased. Systolic function is severely reduced. The estimated ejection fraction is 25-29%. There is severe diffuse hypokinesis. Diastolic dysfunction present but unable to assess severity. 2. Right ventricle: The RV pressure during systole is 37 mm Hg. 3. Left atrium: The atrium is dilated. 4. Mitral valve: The annulus is mildly calcified and mildly thickened. Electronically signed by Bob Camejo MD 03/23/2024 21:18 at 2118 PATIENT NAME: MATTIE NEWSOME [facility] 2024-03-23 17:39:00 [facility] Cardiology Progress Note REPORT#:[id number] REPORT STATUS: Signed REPORT INITIALIZATION DATE:03/23/24 TIME: 1738 PATIENT: MATTIE NEWSOME UNIT #: [id number] ROOM/BED: [place] [address] : 48 AGE: 73 SEX: F ATTEND: Errol Bautista MD ADM AUTHOR: Gregoria Carrera [facility] REPT SERVICE DT/TIME: 03/23/241738 * ALL edits or amendments must be made on the electronic/computer document * Gregoria Carrera 03/23/241738: Subjective Patient reports: No: complaints. Objective General VS/I O: 24 hour I O ending at 0700: 03/23 0700 03/22 1900 Intake Total Output Total Balance Patient 68.8 kg Weight Weight Bed scale Measurement Method Vital Signs: Date Time Temp Pulse Resp B/P B/P Pulse O2 O2 Flow FiO2 Mean Ox Delivery Rate 03/23 1639 36.9 71 137/73 94.3 95 03/23 1553 36.9 70 14 136/72 93.5 95 03/23 1129 36.7 69 14 136/72 93.1 97 03/23 0808 36.8 68 14 144/74 97.6 96 03/23 0441 36.8 73 15 152/70 97.5 95 Room air 03/22 2328 36.8 74 16 147/82 103.7 94 Room air 03/22 1911 36.8 79 19 158/77 104.0 93 Room air 03/22 1808 37.1 Room air PATIENT WEIGHT: Weight (lb): 151 Weight (oz): 10.85 Weight (kg): 68.800 Medications: Active Meds + DC'd Last 24 Hrs Sodium Chloride (SODIUM CHLORIDE 0.9%) 1,000 ML .[id number] ONE IV Potassium Chloride (POTASSIUM CHLORIDE 20MEQ TAB.ER) 40 MEQ ONCE ONE PO (DC) Aspirin (ASPIRIN) 81 MG DAILY PO Bupropion HCl (WELLBUTRIN) 75 MG DAILY PO Lisinopril (ZESTRIL) 40 MG DAILY PO Oxybutynin Chloride (DITROPAN XL) 10 MG DAILY PO Pantoprazole (PROTONIX) 40 MG DAILY PO Atorvastatin Calcium (LIPITOR) 40 MG 2100 PO Ticagrelor (BRILINTA) 90 MG Q12HR PO Sucralfate (CARAFATE) 1 GM AC PO Atropine Sulfate (ATROPINE SULFATE 0.1MG/ML SYR) 0.5 MG ASDIR PRN IV Sodium Chloride (SODIUM CHLORIDE 0.9%) 1,000 ML .[id number] ONE IV (DC) Physical Exam General appearance: alert, awake, oriented Neck: full range of motion, non-tender, no JVD Cardiovascular: CV assessment: regular rate and rhythm Respiratory: clear to auscultation, no distress Abdomen: soft, non-tender, normal bowel sounds Upper extremity: Right radial site: hematoma, no bleeding Lower extremity: LE assessment: no edema Musculoskeletal: normal inspection Neuro/SLEEP TECHNICIAN: alert, oriented X 3, normal speech Psychiatry: normal affect, normal judgment/insight, normal mood Results Findings/Data: Laboratory Tests 03/23 03/23 03/23 03/23 03/22 1549 1122 0807 0505 1911 Chemistry Sodium (134 - 147 mEq/L) 141 Potassium (3.4 - 5.0 mEq/L) 3.1 L Chloride (100 - 108 mEq/L) 107 Carbon Dioxide (21 - 33 mEq/l) 25 Anion Gap (0 - 20) 12 BUN (7 - 25 mg/dL) 14 Creatinine (0.6 - 1.3 mg/dL) 0.7 Glomerular Filtr Rate (70 - 80) 90.1 H Glucose (77 - 141 mg/dL) 117 POC Glucose (70 - 110 MG/DL) 104 129 H 113 H 157 H Calcium (8.0 - 10.5 mg/dL) 9.0 Laboratory Tests 03/23 0505 Hematology WBC (4.5 - 11.0 x10 3/uL) 7.2 RBC (3.54 - 5.02 x10 6/uL) 4.77 Hgb (11.0 - 15.0 g/dL) 13.2 Hct (33.0 - 45.0 %) 41.1 MCV (81.0 - 99.0 fL) 86.2 MCH (27.0 - 33.0 pg) 27.7 MCHC (33.0 - 37.0 g/dL) 32.1 L RDW (11.5 - 14.5 %) 15.6 H Plt Count (150 - 400 x10 3/uL) 170 MPV (7.0 - 9.0 fL) 9.7 H Neut % (Auto) (56.0 - 77.0 %) 79.4 H Lymph % (Auto) (14.0 - 32.0 %) 12.8 L [place] % (Auto) (4.8 - 9.0 %) 5.7 Eos % (Auto) (0.3 - 3.7 %) 1.3 Baso % (Auto) (0.0 - 2.0 %) 0.4 Neut # (Auto) (2.0 - 7.6 x10 3/uL) 5.72 Lymph # (Auto) (1.0 - 3.8 x10 3/uL) 0.92 L [place] # (Auto) (0.1 - 0.8 x10 3/uL) 0.41 Eos # (Auto) (0.0 - 0.2 x10 3/uL) 0.09 Baso # (Auto) (0.0 - 0.2 x10 3/uL) 0.03 Abs Immat Gran (auto) (0.00 - 0.03 x10 3/uL) 0.03 Immature Gran % (0.0 - 2.0 %) 0.4 Nucleated RBC % (0 - 0 %) 0.0 Nucleated RBCs # (Man) (0.0 - 0.1 x10 3/uL) 0.00 Results: labs reviewed, vital signs reviewed, rhythm personally rev'd Diagnosis, Assessment Plan Plan discussed with: patient, collaborating MD, nurse Free Text DxA P Notes Free Text DxA P Notes: 1. Coronary artery disease: S/p PCI to the mid LAD, she has intermediate disease in the proximal LAD and severe disease in the left circumflex and would need staged intervention. Patient had brief VT post PCI and admitted for observation. Staged PCI tomorrow. Continue Brilinta, ASA, and atorvastatin. Add metoprolol tartrate 25 mg BID. 2. CHF: Likely ischemic. Repeat echocardiogram. 3. Hyperlipidemia: Continue statin 4. Hypertension: BP stable. Continue lisinopril. Add metoprolol for CAD. MDM by Dr. Camejo. Bob Camejo 03/25/24 1129: Attestations Physician Attestation Agree w/findings plan: I have seen and examined the pt, I Agree with the findings and plan as documented by Gregoria Carrera. Patient is hemodynamically stable, has severe left circumflex disease and intermediate left main and proximal LAD disease plan for IVUS of the LAD left main plus minus PCI and PCI of the left circumflex. at 1746 at 1130 RPT #:[id number] END OF REPORT [facility] 2024-03-23 14:37:00 [facility] Hospitalist Progress Note REPORT#:[id number] REPORT STATUS: Signed REPORT INITIALIZATION DATE:03/23/24 TIME: 1436 PATIENT: MATTIE NEWSOME UNIT #: [id number] ROOM/BED: [place] [address] : 48 AGE: 73 SEX: F ATTEND: Errol Bautista MD ADM AUTHOR: Shirin Diaz APRN REPT SERVICE DT/TIME: 03/23/24 1437 * ALL edits or amendments must be made on the electronic/computer document * Subjective Chief complaint: resting, denies CP and SOB HPI: 73 year old female with history of HTN, HLD, DM2, and CAD with prior stents who presented for PCI. Pre-op labs stable. Patient seen status post heart cath/PCI. Denies any chest pain or shortness of breath at time of exam. Reports long-time tobacco use 1 PPD down to 1/2 PPD recently. Now admitted for staged PCI later this week. Review of Systems All systems rev neg: except as noted Objective General VS/I O: Vital Signs: Date Time Temp Pulse Resp B/P B/P Pulse O2 O2 Flow FiO2 Mean Ox Delivery Rate 03/23 1129 36.7 69 14 136/72 93.1 97 03/23 0808 36.8 68 14 144/74 97.6 96 03/23 0441 36.8 73 15 152/70 97.5 95 Room air 03/22 2328 36.8 74 16 147/82 103.7 94 Room air 03/22 1911 36.8 79 19 158/77 104.0 93 Room air 03/22 1808 37.1 Room air 24 hour I O ending at 0700: 03/23 0700 03/22 1900 Intake Total Output Total Balance Patient 68.8 kg Weight Weight Bed scale Measurement Method PATIENT WEIGHT: Weight (lb): 151 Weight (oz): 10.85 Weight (kg): 68.800 Medications: Active Meds + DC'd Last 24 Hrs Sodium Chloride (SODIUM CHLORIDE 0.9%) 1,000 ML .[id number] ONE IV Potassium Chloride (POTASSIUM CHLORIDE 20MEQ TAB.ER) 40 MEQ ONCE ONE PO (DC) Aspirin (ASPIRIN) 81 MG DAILY PO Bupropion HCl (WELLBUTRIN) 75 MG DAILY PO Lisinopril (ZESTRIL) 40 MG DAILY PO Oxybutynin Chloride (DITROPAN XL) 10 MG DAILY PO Pantoprazole (PROTONIX) 40 MG DAILY PO Atorvastatin Calcium (LIPITOR) 40 MG 2100 PO Ticagrelor (BRILINTA) 90 MG Q12HR PO Sucralfate (CARAFATE) 1 GM AC PO Atropine Sulfate (ATROPINE SULFATE 0.1MG/ML SYR) 0.5 MG ASDIR PRN IV Sodium Chloride (SODIUM CHLORIDE 0.9%) 1,000 ML .[id number] ONE IV (DC) Physical Exam General appearance: alert, awake, oriented, no acute distress Head/Eyes: atraumatic, normocephalic Neck: supple/no meningismus Cardiovascular: normal heart sounds, regular rate rhythm Abdomen: non-tender, soft Extremities: no clubbing, no cyanosis, no edema Musculoskeletal: normal inspection Neuro/SLEEP TECHNICIAN: alert, oriented X 3, normal speech Skin: normal color, normal temperature Psychiatry: normal affect, normal judgment/insight, normal mood Results Findings/Data: Laboratory Tests 03/23 03/23 03/23 03/22 1122 0807 0505 1911 Chemistry Sodium (134 - 147 mEq/L) 141 Potassium (3.4 - 5.0 mEq/L) 3.1 L Chloride (100 - 108 mEq/L) 107 Carbon Dioxide (21 - 33 mEq/l) 25 Anion Gap (0 - 20) 12 BUN (7 - 25 mg/dL) 14 Creatinine (0.6 - 1.3 mg/dL) 0.7 Glomerular Filtr Rate (70 - 80) 90.1 H Glucose (77 - 141 mg/dL) 117 POC Glucose (70 - 110 MG/DL) 129 H 113 H 157 H Calcium (8.0 - 10.5 mg/dL) 9.0 Laboratory Tests 03/23 0505 Hematology WBC (4.5 - 11.0 x10 3/uL) 7.2 RBC (3.54 - 5.02 x10 6/uL) 4.77 Hgb (11.0 - 15.0 g/dL) 13.2 Hct (33.0 - 45.0 %) 41.1 MCV (81.0 - 99.0 fL) 86.2 MCH (27.0 - 33.0 pg) 27.7 MCHC (33.0 - 37.0 g/dL) 32.1 L RDW (11.5 - 14.5 %) 15.6 H Plt Count (150 - 400 x10 3/uL) 170 MPV (7.0 - 9.0 fL) 9.7 H Neut % (Auto) (56.0 - 77.0 %) 79.4 H Lymph % (Auto) (14.0 - 32.0 %) 12.8 L [place] % (Auto) (4.8 - 9.0 %) 5.7 Eos % (Auto) (0.3 - 3.7 %) 1.3 Baso % (Auto) (0.0 - 2.0 %) 0.4 Neut # (Auto) (2.0 - 7.6 x10 3/uL) 5.72 Lymph # (Auto) (1.0 - 3.8 x10 3/uL) 0.92 L [place] # (Auto) (0.1 - 0.8 x10 3/uL) 0.41 Eos # (Auto) (0.0 - 0.2 x10 3/uL) 0.09 Baso # (Auto) (0.0 - 0.2 x10 3/uL) 0.03 Abs Immat Gran (auto) (0.00 - 0.03 x10 3/uL) 0.03 Immature Gran % (0.0 - 2.0 %) 0.4 Nucleated RBC % (0 - 0 %) 0.0 Nucleated RBCs # (Man) (0.0 - 0.1 x10 3/uL) 0.00 Diagnosis, Assessment Plan Free Text DxA P Notes Free text DxA P notes: Impression/Plan: - CAD s/p stent - Hypertensive heart disease - HLD - DM2 - OAB - Tobacco user 03/22 Cardiology following. Stage PCI Wednesday. Continue ASA/brilinta/statin. Cardiac monitoring. Cardiac diet. Resume outpatient medications. Smoking cessation advised. DVT ppx SCDs. 03/23 PCI planned tomorrow. Replace K. Labs in AM. at 1527 at 0201 RPT #:[id number] END OF REPORT [facility] 2024-03-23 08:10:00 [facility] ([facility]) Cardiology Consultation REPORT#:[id number] REPORT STATUS: Signed REPORT INITIALIZATION DATE:03/23/24 TIME: 809 PATIENT: MATTIE NEWSOME UNIT #: [id number] ROOM/BED: [place] [address] : 48 AGE: 73 SEX: F ATTEND: Errol Bautista MD ADM AUTHOR: Bob Camejo MD REPT SERVICE DT/TIME: 03/22/24 1520 * ALL edits or amendments must be made on the electronic/computer document * History of Present Illness HPI Requesting Clinician: Dr. Bautista Reason for consult: CAD Chief complaint: CP HPI: This is a 73-year-old female with past medical history of hypertension, diabetes , hyperlipidemia and coronary artery disease, CHF who was admitted post PCI to the LAD. Patient had brief SVT post PCI, she was also had intermediate disease in the proximal LAD and severe disease in the left circumflex and was admitted for observation and staged PCI to the circumflex and IVUS of the LAD. Currently patient hemodynamically stable was seen in PACU. History - Adult longitudinal Past medical history: Reports: Diabetes mellitus, Hypertension, Dyslipidemia. Additional medical history: OAB Past surgical history: Reports: Hysterectomy (partial), PCI. Additional family history: n/c Alcohol use: Denies EtOH use Drug use: Denies recreational drugs Smoking status for patients 13 years old or older: Current every day smoker Home medications: Home Medications: SEMAGLUTIDE (OZEMPIC PEN (4 MG/3mL)) 1 MG SUBQ Q7D ASPIRIN 81 MG PO DAILY CALCIUM CARBONATE/VIT D3 (CALCIUM CARB/VIT D3 500 MG/200 UNITS) 600 MG PO DAILY TROSPIUM (SANCTURA) 20 MG PO DAILY SUCRALFATE (CARAFATE) 1 GM PO AC OXYBUTYNIN CHLORIDE (OXYBUTYNIN CHLORIDE ER) 10 MG PO DAILY buPROPion HCL (WELLBUTRIN) 15 MG PO DAILY LISINOPRIL (ZESTRIL) 40 MG PO DAILY ROSUVASTATIN 20 MG PO DAILY PANTOPRAZOLE DR (PROTONIX) 40 MG PO DAILY Allergies: Coded Allergies: No Known Allergies (03/20/24) Review of Systems Additional notes: As per HPI otherwise -12 system point Objective General VS/I O: Vital Signs: Date Time Temp Pulse Resp B/P B/P Pulse O2 O2 Flow FiO2 Mean Ox Delivery Rate 03/228 98.2 74 16 147/82 103.7 94 Room air 03/22 1911 98.2 79 19 158/77 104.0 93 Room air 03/22 1808 98.8 Room air 03/22 1042 98.6 Room air Medications: Active Meds + DC'd Last 24 Hrs Sodium Chloride (SODIUM CHLORIDE 0.9%) 1,000 ML .[id number] ONE IV (UNV) Aspirin (ASPIRIN) 81 MG DAILY PO Bupropion HCl (WELLBUTRIN) 75 MG DAILY PO Lisinopril (ZESTRIL) 40 MG DAILY PO Oxybutynin Chloride (DITROPAN XL) 10 MG DAILY PO Pantoprazole (PROTONIX) 40 MG DAILY PO Trospium (SANCTURA) 20 MG DAILY PO (CAN) Atorvastatin Calcium (LIPITOR) 40 MG 2100 PO Ticagrelor (BRILINTA) 90 MG Q12HR PO Sucralfate (CARAFATE) 1 GM AC PO Ondansetron HCl (ZOFRAN) 4 MG PACU ONCE ONE IV (DC) Atropine Sulfate (ATROPINE SULFATE 0.1MG/ML SYR) 0.5 MG ASDIR PRN IV Sodium Chloride (SODIUM CHLORIDE 0.9%) 1,000 ML .[id number] ONE IV (DC) Ondansetron HCl (ZOFRAN) 0 .STK-MED ONE IV (DC) Ticagrelor (BRILINTA) 0 .STK-MED ONE .ROUTE (DC) Fentanyl Citrate (SUBLIMAZE) 0 .STK-MED ONE .ROUTE (DC) Midazolam HCl (VERSED) 0 .STK-MED ONE .ROUTE (DC) Nitroglycerin/Dextrose (NITROGLYCERIN 50,000MCG/D5W 250ML) 250 ML .STK-MED ONE IV (DC) Verapamil HCl (ISOPTIN) 0 .STK-MED ONE IV (DC) Aspirin (ASPIRIN) 0 .STK-MED ONE PO (DC) Aspirin (ASPIRIN) 81 MG ONCE ONE PO (DC) General appearance: alert, awake, oriented Head/Eyes: PERRLA ENT: normal nose Neck: no JVD Cardiovascular: CV assessment: regular rate and rhythm, normal heart sounds Respiratory: clear to auscultation, no distress Abdomen: soft Lower extremity: LE assessment: no cyanosis, no edema Neuro/SLEEP TECHNICIAN: alert, oriented X 3, normal speech Skin: dry, intact Psychiatry: normal affect, normal judgment/insight, normal mood, no hallucinations Physical Exam General appearance: alert, awake, oriented Results Results: labs reviewed, vital signs reviewed Diagnosis, Assessment Plan Free Text DxA P Notes Free Text DxA P Notes: 1. Coronary artery disease: S/p PCI to the mid LAD, she has intermediate disease in the proximal LAD and severe disease in the left circumflex and would need staged intervention. Patient had brief VT post PCI and admitted for observation. Will monitor the patient on telemetry, hydrate and plan for staged PCI on Wednesday. Continue DAPT, statin and beta-goldie. 2. CHF: Likely ischemic, will get repeat echocardiogram. 3. Hyperlipidemia: Continue statin 4. Hypertension: Resume home meds and adjust doses as needed. DOS 03/22/2024 at 0817 RPT #:[id number] END OF REPORT [facility] 2024-03-23 07:17:00 [phone] [place] [address] PATIENT NAME: MATTIE NEWSOME ADMIT DATE: 03/22/24 ACCOUNT NO: [id number] ROOM NO: [facility] AGE: 73 REPORT TYPE: eELECTROCARDIOGRAM REPORT SEX: F ADMITTING PHYSICIAN:Errol Bautista MD ATTENDING PHYSICIAN:Errol Bautista MD Order: [id number] Test Reason : POST PCI Test Date/Time Stamp: WedMar 23 2024 07:17:19 Blood Pressure : / mmHG Vent. Rate : 067 BPM Atrial Rate : 067 BPM P-R Int : 222 ms QRS Dur : 132 ms QT Int : 450 ms P-R-T Axes : 043 -44 107 degrees QTc Int : 475 ms Sinus rhythm with 1st degree AV block Left axis deviation Left ventricular hypertrophy with QRS widening and repolarization abnormality Abnormal ECG When compared with ECG of 22-MAR-2024 10:46, No changes Confirmed by MD POOL, JEAN ([id number]) on 03/23/2024 5:11:09 PM Referred By: Mega Flores Confirmed by:JEAN LANZA MD at 1711 PATIENT NAME: MATTIE NEWSOME [facility] 2024-03-22 15:08:00 [facility] ([facility]) Hospitalist History Physical REPORT#:[id number] REPORT STATUS: Signed REPORT INITIALIZATION DATE:03/22/24 TIME: 1508 PATIENT: MATTIE NEWSOME UNIT #: [id number] ROOM/BED: [facility]-1 : 48 AGE: 73 SEX: F ATTEND: Errol Bautista MD ADM AUTHOR: Shirin Diaz APRN REPT SERVICE DT/TIME: 03/22/24 1501 * ALL edits or amendments must be made on the electronic/computer document * History of Present Illness HPI Chief complaint: admission for PCI HPI: 73 year old female with history of HTN, HLD, DM2, and CAD with prior stents who presented for PCI. Pre-op labs stable. Patient seen status post heart cath/PCI. Denies any chest pain or shortness of breath at time of exam. Reports long-time tobacco use 1 PPD down to 1/2 PPD recently. Now admitted for staged PCI later this week. History Past medical history: Reports: Diabetes mellitus, Hypertension, Dyslipidemia. Additional medical history: OAB Past surgical history: Reports: Hysterectomy (partial), PCI. Additional family history: n/c Alcohol use: Denies EtOH use Drug use: Denies recreational drugs Smoking status for patients 13 years old or older: Current every day smoker Medication/Allergy-Vaccine Hx Medications: Home Medications: Medication Dose/Rte/Freq Days Qty Entered Last Max Daily Dose Reviewed SEMAGLUTIDE 1 MG SUBQ Q7D 03/20/24 03/22/24 (OZEMPIC PEN (4 MG/3mL)) 1636 0828 Strength: 1 MG/0.75 ML (4 MG/3 ML) PEN.INJCTR ASPIRIN 81 MG PO DAILY 03/20/24 03/22/24 Strength: 81 MG TAB.CHEW 1653 0828 CALCIUM CARBONATE/VIT 600 MG PO DAILY 03/22/24 03/22/24 D3 0819 0828 (CALCIUM CARB/VIT D3 500 MG/200 UNITS) Strength: 500 MG CALCIUM-5 MCG (200 UNIT) TAB TROSPIUM (SANCTURA) 20 MG PO DAILY 03/22/24 03/22/24 Strength: 20 MG TAB 0821 0828 SUCRALFATE (CARAFATE) 1 GM PO AC 03/22/24 03/22/24 Strength: 1 GRAM TAB 0822 0828 OXYBUTYNIN CHLORIDE 10 MG PO DAILY 03/22/24 03/22/24 (OXYBUTYNIN CHLORIDE 0823 0828 ER) Strength: 10 MG TAB.SR.24H buPROPion HCL 15 MG PO DAILY 03/22/24 03/22/24 (WELLBUTRIN) 825 08 Strength: 75 MG TAB LISINOPRIL (ZESTRIL) 40 MG PO DAILY 03/22/24 03/22/24 Strength: 40 MG TAB 825 08 ROSUVASTATIN 20 MG PO DAILY 03/22/24 03/22/24 Strength: 20 MG TAB [address] 40 MG PO DAILY 03/22/24 03/22/24 (PROTONIX) 827 827 Strength: 40 MG TAB.DR Current Hospital Medications: Autonomic Drugs Sig/Josephine Start time Last Medication Dose Route Stop Time Status Admin Atropine Sulfate 0.5 MG ASDIR PRN 03/22 1045 AC (ATROPINE SULFATE IV 06/20 104 0.1MG/ML SYR) Blood Formation,Coagulation Sig/Josephine Start time Last Medication Dose Route Stop Time Status Admin Ticagrelor 90 MG Q12HR 03/22 2100 AC (BRILINTA) PO 06/20 2058 Ticagrelor 0 .STK-MED ONE 03/22 0951 DC 03/22 (BRILINTA) .ROUTE 0956 Heparin Sodium 0 .STK-MED ONE 03/22 075 DC 03/22 (HEPARIN SODIUM) .ROUTE 0928 Heparin Sodium/ 500 ML .STK-MED ONE 03/220 DC 03/22 Sodium Chloride IV 0928 (HEPARIN 1,000 UNITS/ NS 500ML) Heparin Sodium/ 1,000 ML .STK-MED ONE 03/22 0749 DC 03/22 Sodium Chloride IV 0928 (HEPARIN 2,000 UNITS/ NS 1,000mL) Cardiovascular Drugs Sig/Josephine Start time Last Medication Dose Route Stop Time Status Admin Lisinopril 40 MG DAILY 03/23 900 AC (ZESTRIL) PO 06/21 0859 Atorvastatin Calcium 40 MG 2100 03/22 2100 AC (LIPITOR) PO 04/21 2059 Nitroglycerin/ 250 ML .STK-MED ONE 03/22 902 DC 03/22 Dextrose IV 0928 (NITROGLYCERIN 50,000MCG/D5W 250ML) Verapamil HCl 0 .STK-MED ONE 03/22 902 DC 03/22 (ISOPTIN) IV 09 Lidocaine HCl 0 .STK-MED ONE 03/22 750 DC 03/22 (LIDOCAINE HCL/PF) .ROUTE 0928 Central Nervous System Agents Sig/Josephine Start time Last Medication Dose Route Stop Time Status Admin Aspirin 81 MG DAILY 03/23 900 AC (ASPIRIN) PO 06/21 858 Bupropion HCl 75 MG DAILY 03/23 900 AC (WELLBUTRIN) PO 06/21 858 Fentanyl Citrate 0 .STK-MED ONE 03/22 903 DC 03/22 (SUBLIMAZE) .ROUTE 09 Midazolam HCl 0 .STK-MED ONE 03/22 903 DC 03/22 (VERSED) .ROUTE 0928 Aspirin 0 .STK-MED ONE 03/22 0850 DC (ASPIRIN) PO Aspirin 81 MG ONCE ONE 03/22 830 DC 03/22 (ASPIRIN) PO 03/22 831 0852 Electrolytic, Caloric, And Maria Alejandra Sig/Josephine Start time Last Medication Dose Route Stop Time Status Admin Sodium Chloride 1,000 ML .[id number] ONE 03/22 1045 AC (SODIUM CHLORIDE IV 03/23 0004 0.9%) Gastrointestinal Drugs Sig/Josephine Start time Last Medication Dose Route Stop Time Status Admin Pantoprazole 40 MG DAILY 03/23 900 AC (PROTONIX) PO 06/21 0759 Sucralfate 1 GM AC 03/22 1130 AC (CARAFATE) PO 06/20 1129 Ondansetron HCl 4 MG PACU ONCE ONE 03/22 1100 DC 03/22 (ZOFRAN) IV 03/22 1101 1054 Ondansetron HCl 0 .STK-MED ONE 03/22 1042 DC (ZOFRAN) IV Smooth Muscle Relaxants Sig/Josephine Start time Last Medication Dose Route Stop Time Status Admin Oxybutynin Chloride 10 MG DAILY 03/23 900 AC (DITROPAN XL) PO 06/21 858 Trospium 20 MG DAILY 03/23 900 CAN (SANCTURA) PO 06/21 0759 Allergies: Coded Allergies: No Known Allergies (03/20/24) Review of Systems Constitutional: Denies: chills, fever. Skin: Denies: itching, rash. Respiratory: Denies: productive cough (sputum), SOB. Cardiovascular: Denies: chest pain, edema. GI: Denies: nausea, vomiting. : Denies: dysuria, hematuria. Neuro: Denies: dizziness, headache. All systems rev neg: except as marked Objective General VS/I O: Vital Signs: Date Time Temp Pulse Resp B/P B/P Pulse O2 O2 Flow FiO2 Mean Ox Delivery Rate 03/22 1042 37.0 Room air PATIENT WEIGHT: Weight (lb): 153 Weight (oz): 10.6 Weight (kg): 69.700 Medications: Active Meds + DC'd Last 24 Hrs Aspirin (ASPIRIN) 81 MG DAILY PO Bupropion HCl (WELLBUTRIN) 75 MG DAILY PO Lisinopril (ZESTRIL) 40 MG DAILY PO Oxybutynin Chloride (DITROPAN XL) 10 MG DAILY PO Pantoprazole (PROTONIX) 40 MG DAILY PO Trospium (SANCTURA) 20 MG DAILY PO (CAN) Atorvastatin Calcium (LIPITOR) 40 MG 2100 PO Ticagrelor (BRILINTA) 90 MG Q12HR PO Sucralfate (CARAFATE) 1 GM AC PO Ondansetron HCl (ZOFRAN) 4 MG PACU ONCE ONE IV (DC) Atropine Sulfate (ATROPINE SULFATE 0.1MG/ML SYR) 0.5 MG ASDIR PRN IV Sodium Chloride (SODIUM CHLORIDE 0.9%) 1,000 ML .[id number] ONE IV Ondansetron HCl (ZOFRAN) 0 .STK-MED ONE IV (DC) Ticagrelor (BRILINTA) 0 .STK-MED ONE .ROUTE (DC) Fentanyl Citrate (SUBLIMAZE) 0 .STK-MED ONE .ROUTE (DC) Midazolam HCl (VERSED) 0 .STK-MED ONE .ROUTE (DC) Nitroglycerin/Dextrose (NITROGLYCERIN 50,000MCG/D5W 250ML) 250 ML .STK-MED ONE IV (DC) Verapamil HCl (ISOPTIN) 0 .STK-MED ONE IV (DC) Aspirin (ASPIRIN) 0 .STK-MED ONE PO (DC) Aspirin (ASPIRIN) 81 MG ONCE ONE PO (DC) Heparin Sodium (HEPARIN SODIUM) 0 .STK-MED ONE .ROUTE (DC) Heparin Sodium/Sodium Chloride (HEPARIN 1,000 UNITS/NS 500ML) 500 ML .STK- MED ONE IV (DC) Lidocaine HCl (LIDOCAINE HCL/PF) 0 .STK-MED ONE .ROUTE (DC) Heparin Sodium/Sodium Chloride (HEPARIN 2,000 UNITS/NS 1,000mL) 1,000 ML .STK-MED ONE IV (DC) Physical Exam General appearance: alert, awake, oriented Head/Eyes: atraumatic, normocephalic Neck: supple/no meningismus Cardiovascular: normal heart sounds, regular rate rhythm Abdomen: non-tender, soft Extremities: no clubbing, no cyanosis, no edema Musculoskeletal: normal inspection Neuro/SLEEP TECHNICIAN: alert, oriented X 3, normal speech Skin: normal color, normal temperature Psychiatry: normal affect, normal judgment/insight, normal mood Results Findings/Data: Laboratory Tests 03/22 837 Chemistry POC Glucose (70 - 110 MG/DL) 83 Diagnosis, Assessment Plan Free Text DxA P Notes Free Text DxA P Notes: Impression/Plan: - CAD s/p stent - Hypertensive heart disease - HLD - DM2 - OAB - Tobacco user Cardiology following. Stage PCI Wednesday. Continue ASA/brilinta/statin. Cardiac monitoring. Cardiac diet. Resume outpatient medications. Smoking cessation advised. DVT ppx SCDs. at 1536 at 2246 RPT #:[id number] END OF REPORT [facility] 2024-03-22 14:55:00 [id number] [place] [address] PATIENT NAME: CALVIN NEWSOME V ADMIT DATE: 03/24/24 ACCOUNT NO: [id number] ROOM NO: [facility] AGE: 73 REPORT TYPE: OPERATIVE REPORT SEX: F ADMITTING PHYSICIAN:Errol Bautista MD ATTENDING PHYSICIAN:Errol Bautista MD OPERATION DATE: 03/22/2024 PREOPERATIVE DIAGNOSIS: POSTOPERATIVE DIAGNOSIS: PROCEDURES PERFORMED: 1. Coronary angiogram. 2. Shockwave lithotripsy of mid LAD and severe stenosis, I used 3.0 x 10 mm shockwave balloon. 3. PCI of mid LAD severe stenosis, used 2.75 x 12 mm Synergy drug-eluting stent. SURGEON: Mega Flores MD FOOD BAGGING MACHINE OPERATOR: ANESTHESIA: Fentanyl and Versed. INDICATION: Unstable angina with abnormal stress test and drop in ejection fraction, EF was in the mid 30s. ACCESS: Right radial artery 6-Danish, closed with TR band. COMPLICATIONS: None. BLEEDING: Less than 50 mL. TOTAL SEDATION TIME: 1 hour. DESCRIPTION OF PROCEDURE: After risks, benefits and alternatives were explained, the patient agreed to proceed and signed informed consent. The patient was brought into cardiac catheterization laboratory, prepped and draped in sterile fashion. Then, I accessed the right radial artery using a pediatric micropuncture kit, a 6-Danish slender sheath and took JL4 catheter into the aortic root to engage the left main, took standard views and then the RCA and took standard views and then exchanged for 6-Danish EBU 3.5 guide to engage the left main. We gave systemic heparin to assure ACT level above 250 throughout the procedure. A dual antiplatelet therapy was given and took a Runthrough wire into the LAD passing the area of stenosis and placed it distally. Then, I took a 2.5 balloon and predilated the lesion very well and then I took 3.0 x 10 mm shockwave balloon and performed shockwave lithotripsy and then I took a 2.75 x 12 mm Synergy drug-eluting stent and placed it across PATIENT NAME: CALVIN NEWSOME V the area of stenosis overlapping with the previous stent and the overlap area was postdilated to high pressure with the same stent balloon and then final angiogram was satisfactory. Wire was removed. Final angiogram was satisfactory. I removed the guide and the sheath and placed TR band with good hemostasis. FINDINGS: 1. Left main diffuse 20 to 30% stenosis. 2. LAD proximal 40 to 50% stenosis, mid LAD stent with 50% ISR. Distal to the stent, there is focal 90% stenosis, status post successful shockwave lithotripsy and PCI as above and then the LAD mid segment has diffuse 20 to 30% and distally diffuse 50 to 60% stenosis. Diagonal 1 branch is with luminal irregularities. 3. Left circumflex, proximal 50% stenosis. Then, the OM1 has 70% stenosis proximally and the circuit itself had 80% stenosis, which will be staged at a later time. 4. RCA, proximal 40% and then luminal irregularities. The PDA is very small with diffuse 80 to 90% stenosis. The PLB is acting like a PDA and has 40% stenosis. CONCLUSION: 1. Severe mid LAD stenosis, status post successful shockwave lithotripsy and PCI as above. 2. Severe left circumflex disease, which will be staged at a later time. PLAN: Continue dual antiplatelet therapy and staged PCI of the left circumflex which can be done in about 2 days. The patient will be admitted for observation. After PCI of the LAD, she had a short turn of sustained monomorphic V-tach successfully converted to sinus rhythm with 300 joules and synchronized shock. Dictated By: Mega Flores MD Date Dictated: 03/22/2024 14:55:28 Date Transcribed: 03/22/2024 16:15:16 SR/BOB/HEM/NAG Receipt ID: [id number] Authenticated by Mega Flores MD On 03/30/2024 08:32:40 PM at 0832 PATIENT NAME: CALVIN NEWSOME V [facility] 2024-03-22 10:46:00 [id number] [place] [address] PATIENT NAME: MATTIE NEWSOME ADMIT DATE: 03/22/24 ACCOUNT NO: [id number] ROOM NO: [facility] AGE: 73 REPORT TYPE: eELECTROCARDIOGRAM REPORT SEX: F ADMITTING PHYSICIAN:Errol Bautista MD ATTENDING PHYSICIAN:Errol Bautista MD Order: [id number] Test Reason : S/P PCI Test Date/Time Stamp: WedMar 22 2024 10:46:53 Blood Pressure : / mmHG Vent. Rate : 088 BPM Atrial Rate : 088 BPM P-R Int : 222 ms QRS Dur : 138 ms QT Int : 420 ms P-R-T Axes : 073 -45 102 degrees QTc Int : 508 ms Sinus rhythm with 1st degree AV block Left axis deviation Left ventricular hypertrophy with QRS widening and repolarization abnormality Cannot rule out Septal infarct (cited on or before 20-MAR-2024) Abnormal ECG When compared with ECG of 20-MAR-2024 16:01, Significant changes have occurred Confirmed by NEHA DORSEY [facility] ([id number]) on 03/22/2024 7:14:25 PM Referred By: Mega Flores Confirmed by:HIRA NAVAS MD at 1914 PATIENT NAME: MATTIE NEWSOME [facility] 2024-03-20 16:01:00 [id number] [address] PATIENT NAME: MATTEI NEWSOME ADMIT DATE: ACCOUNT NO: [id number] ROOM NO: AGE: 73 REPORT TYPE: eELECTROCARDIOGRAM REPORT SEX: F ADMITTING PHYSICIAN: ATTENDING PHYSICIAN:Mega Flores MD Order: [id number] Test Reason : PREOP Test Date/Time Stamp: WedMar 20 2024 16:01:19 Blood Pressure : / mmHG Vent. Rate : 081 BPM Atrial Rate : 081 BPM P-R Int : 216 ms QRS Dur : 128 ms QT Int : 414 ms P-R-T Axes : 064 -13 119 degrees QTc Int : 480 ms Sinus rhythm with 1st degree AV block with occasional premature ventricular complexes Left ventricular hypertrophy with QRS widening and repolarization abnormality Cannot rule out Septal infarct , age undetermined Abnormal ECG No previous ECGs available Confirmed by HIRA NAVAS MD ([id number]) on 03/20/2024 4:46:54 PM Referred By: Mega Flores Confirmed by:HIRA NAVAS MD at 1646 PATIENT NAME: MATTIE NEWSOME [facility] 2024-03-02 08:07:31 Chief Complaint Patient presents with Physical Patient is fasting. No other issues to discuss Dahiana Baca MA II [facility] 2024-02-27 18:41:02 Written/verbal d/c instructions, out of er no distress [facility] 2024-02-27 17:35:19 Pt ambulatory pushing wheelchair to bathroom without difficulty. Janeth Vazquez RN [facility] 2024-02-27 17:00:00 Resting with eyes closed [facility] 2024-02-27 15:23:32 Calvin Newsome is a 73 year old female c/o walking around at the [facility], states her legs felt weak and fell down, no LOC, no neck or back pain, no chest pain, resp even u/l, lscta, BGL 127 Cindy Espinal RN [facility] 2024-02-24 13:57:56 Chief Complaint Patient presents with Follow-up Follow up from fall in November. She fell down the stairs at home. Fractured rib, collar bone and stitches in head. She states she's doing well, has some tenderness in head where the stitches were. Dahiana Baca MA II [facility] 2023-12-30 16:05:14 Chief Complaint Patient presents with Follow-up Hospitalization Fell and had a clavicle fracture, Red arm is red a swollen. Lisa Bear LVN [facility] 2023-09-01 08:08:19 Chief Complaint Patient presents with Diabetes Diabetic follow up Dahiana Baca MA II [facility] 2023-06-30 08:25:10 Chief Complaint Patient presents with Nicotine Dependence She would like to discuss something to help her quit. Dahiana Baca MA II [facility] 2023-05-31 15:48:44 Chief Complaint Patient presents with Diabetes 3 month follow up on diabetes Dahiana Baca MA II [facility] 2023-01-21 13:27:09 Formatting of this n ote is different from the original. Chief Complaint Patient presents with Diabetes 6 month follow up Dahiana Baca MA II [facility]
[2024-07-08 10:39] LABS: Absolute Lymphocytes (CBC) 0.7 K/uL (0.7-4.9); Absolute Monocytes 0.3 K/uL (0.1-1.3); Absolute Neutrophil 4.7 K/uL (1.8-8.0); Basophils % 0.6 % (0-1.3); Eosinophils % 0.5 % (0-4.4); Hematocrit 42.4 % (36.0-45.0); Hemoglobin 13.5 g/dL (12.0-15.0); Lymphocytes % 12.1 % (15.3-44.8); MCH 27.5 pg (27.0-35.0); MCHC 31.7 g/dL (32.0-36.0); MCV 86.8 fL (80-100); MPV 6.9 fL (7.6-11.3); Monocytes % 5.8 % (3.3-12.3); Platelets 216 thou/uL (152-406); RBC Red Blood Cell Count 4.89 M/uL (3.86-4.86); Red Cell Distribution Width 15.4 % (12.1-15.2)
[2024-07-08 10:46] LABS: Sqamous Epithelial <5 /HPF (None Seen); Urine Bacteria None Seen /HPF (<20); Urine Bilirubin NEGATIVE (Negative); Urine Blood 2+ (Negative); Urine Clarity Clear (Clear); Urine Color Light-Yellow (Yellow); Urine Culture Reflex Order NOT NEEDED; Urine Glucose 4+ (Over) (Negative); Urine Ketones NEGATIVE (Negative); Urine Microscopic Reflex YN ORDER UMIC; Urine Mucus Slight /HPF (None Seen); Urine Nitrite NEGATIVE (Negative); Urine Protein NEGATIVE (Negative); Urine Urobilinogen Normal (Normal); Urine WBC <5 /HPF (<5); Urine Yeast (Budding) Trace /HPF (None Seen); Urine pH 5.5 (5.0-7.0)
[2024-07-08 10:58] LABS: Albumin 3.3 g/dL (3.4-5.0); Albumin/Globulin Ratio 0.8 (1.1-1.8); Anion Gap 9.9 mEq/L (5.0-15.0); Bilirubin Total 0.3 mg/dL (0.2-1.0); Potassium 3.9 mEq/L (3.5-5.1); Protein, Total 7.3 g/dL (6.4-8.2)
--- NOTE | 2024-07-08 12:45 | RAD REPORT ---
EXAMINATION: CT Abdomen Pelvis W Contrast CLINICAL INDICATION: Female, 73 years old. urinary retention TECHNIQUE: CT abdomen and pelvis was performed, after the administration of IV contrast, as per [facility] protocol. Axial, sagittal and coronal reconstructions were obtained. One or more of the following dose reduction techniques were used: Automated exposure control, adjustment of the mA and k V according to patient size, and iterative reconstruction. Unless otherwise specified, incidental findings do not require dedicated imaging follow-up. COMPARISON: No prior exam. FINDINGS: LOWER CHEST: The visualized lung bases are clear. LIVER: Normal in size and contour. No focal lesion. BILIARY SYSTEM: Status post cholecystectomy. Mild prominence of the common bile duct up to 1 cm, like ly related to postcholecystectomy status SPLEEN: Normal size. No focal lesion. PANCREAS: No mass, ductal dilation, or kaleigh-pancreatic fluid. ADRENALS: Normal; no mass. KIDNEYS: Normal size and contour. No hydronephrosis. URINARY BLADDER: Compressed with Flores catheter in place. Mild apparent wall prominence could be rela alla to underdistention.. GASTROINTESTINAL TRACT: No evidence of free air, significant intra-abdominal free fluid, bowel obstru ction or abscess. Duodenal diverticulum present. Large stool burden within the sigmoid colon and rectum. APPENDIX: Normal appendix. LYMPH NODES: No lymphadenopathy. MUSCULOSKELETAL: No acute or suspicious osseous abnormality. ADDITIONAL FINDINGS: Right groin fat stranding with no appreciable fluid collections. IMPRESSION: No acute abnormalities seen in the abdomen or pelvis. Large stool burden within the sigmoid colon and rectum. Nonspecific stranding in the right groin subcutaneous soft tissues, could relate to cellulitis, or po stprocedural changes of recent vascular access. Other incidental findings as above.
--- NOTE | 2024-07-08 13:27 | ER ---
Nurse's Notes [facility] Name: Jill Newsome Age: 73 yrs Sex: Female : 1950 Arrival Date: 07/08/2024 Time: 09:19 Bed 15 Private MD: Diagnosis: Retention of urine, unspecified Presentation: 07/08 09:58 Chief complaint: Patient states: she has been unable to urinate since last night. ap3 patient states she recently completed antibiotics for a UTI, and states her pain is currently a 10/10 on the pain scale. Coronavirus screen: At this time, the client does not indicate any symptoms associated with coronavirus-19. Ebola Screen: No symptoms or risks identified at this time. Initial Sepsis Screen: Does the patient meet any 2 criteria? No. Patient's initial sepsis screen is negative. Does the patient have a suspected source of infection? No. Patient's initial sepsis screen is negative. Risk Assessment: Do you want to hurt yourself or someone else? Patient reports no desire to harm self or others. Onset of symptoms was July 07, 2024. 09:58 Method Of Arrival: Ambulatory ap3 09:58 Acuity: ZURDO 2 ap3 Triage Assessment: 10:00 General: Appears uncomfortable, Behavior is cooperative, restless. Pain: Complains of ap3 pain in suprapubic area Pain currently is 10 out of 10 on a pain scale. Neuro: Level of Consciousness is awake, alert, obeys commands, Oriented to person, place, time, situation. Cardiovascular: Patient's skin is warm and dry. Respiratory: Airway is patent Respiratory effort is even, unlabored, Respiratory pattern is regular, symmetrical. : Reports inability to void, since yesterday. Historical: - Allergies: 09:59 No Known Allergies; ap3 - PMHx: 09:59 Anxiety; Depression; Diabetes - NIDDM; GERD; High Cholesterol; Hypertension; Myocardial ap3 infarction; - PSHx: 09:59 cardiac stents; hysterectomy; ap3 - Immunization history:: Client reports having NOT received the Covid vaccine. Flu vaccine is up to date. - Infectious Disease History:: Denies. - Social history:: Smoking status: Patient denies any tobacco usage or history of. Screenin:00 Abuse screen: Denies threats or abuse. Nutritional screening: No deficits noted. ap3 Tuberculosis screening: No symptoms or risk factors identified. 10:35 [facility] ED Fall Risk Assessment (Adult) History of falling in the last 3 months, ph including since admission No falls in past 3 months (0 pts) Confusion or Disorientation No (0 pts) Intoxicated or Sedated No (0 pts) Impaired Gait No (0 pts) Mobility Assist Device Used Yes (1 pt) Altered Elimination Yes (1 pt) Score/Fall Risk Level 0 - 2 = Low Risk Oriented to surroundings, Maintained a safe environment, Hourly rounding (assess needs \T\ fall precautionary measures) done. Assessment: 10:34 General: Appears in no apparent distress. uncomfortable, well groomed, Behavior is ph calm, cooperative, appropriate for age. Pain: Complains of pain in suprapubic area. Neuro: Level of Consciousness is awake, alert, obeys commands, Oriented to person, place, time, situation. Cardiovascular: Capillary refill < 3 seconds in bilateral fingers Patient's skin is warm and dry. Respiratory: Airway is patent Respiratory effort is even, unlabored. : Reports inability to void, since LAST NIGHT. : Reports pain in suprapubic area. Derm: Skin is pink, warm \T\ dry. 10:36 Reassessment: Pt states that abdominal pain has improve after Flores insertion. ph 11:20 Reassessment: Patient appears in no apparent distress at this time. Patient and/or ph family updated on plan of care and expected duration. Pain level reassessed. Patient is alert, oriented x 3, equal unlabored respirations, skin warm/dry/pink. 12:24 Reassessment: Patient appears in no apparent distress at this time. Patient and/or kj2 family updated on plan of care and expected duration. Pain level reassessed. Patient is alert, oriented x 3, equal unlabored respirations, skin warm/dry/pink. 14:19 Reassessment: Patient appears in no apparent distress at this time. Patient and/or ph family updated on plan of care and expected duration. Pain level reassessed. Patient is alert, oriented x 3, equal unlabored respirations, skin warm/dry/pink. Pt d/c home w/ Flores in place, leg bag applied to pt. Vital Signs: 09:58 BP 176 / 93; Pulse 70; Resp 18; Pulse Ox 100% ; Weight 65.77 kg; Height 5 ft. 4 in. ; ap3 Pain 10/10; 10:36 BP 159 / 98; Pulse 72; Resp 18; Pulse Ox 99% on R/A; ph 11:20 BP 135 / 60; Pulse 70; Resp 18; Pulse Ox 97% on R/A; ph 12:27 BP 134 / 68; Pulse 72; Resp 18; kj2 14:18 BP 133 / 58; Pulse 71; Resp 18; Temp 97.8; Pulse Ox 98% on R/A; ph 09:58 Body Mass Index 24.89 (65.77 kg, 162.56 cm) ap3 09:58 Pain Scale: Adult ap3 ED Course: 09:21 Patient arrived in ED. mr 09:26 Tricia Moscoso, LILY is PHCP. kb 09:26 Kevin Bragg MD is Attending Physician. kb 09:59 Triage completed. ap3 10:00 Melissa Robb RN is Primary Nurse. ph 10:00 Patient has correct armband on for positive identification. Placed in gown. Bed in low ap3 position. Call light in reach. Side rails up X 1. Adult w/ patient. Door closed. Noise minimized. Warm blanket given. 10:01 Arm band placed on right wrist. ap3 10:15 Flores cath inserted, using sterile technique, 16 Fr., by me, balloon inflated, to ph gravity drainage, urine specimen collected. returned eliezer urine. Patient tolerated well. 10:25 Initial lab(s) drawn, by me, sent to lab. Urine collected: Flores catheter specimen, ph eliezer colored, Amount Returned: 1200mL. Inserted saline lock: 22 gauge in right antecubital area, using aseptic technique. Blood collected. Flushed with 10 mL NS. 10:37 CBC with Diff Sent. ph 10:37 CMP Sent. ph 10:37 Urinalysis w/ reflexes Sent. ph 11:40 CT Abd/Pelvis - IV Contrast Only In Process Unspecified. EDMS 12:00 Provided Education on: call light. Report received from MILLI Torres. kj2 14:18 No provider procedures requiring assistance completed. IV discontinued, intact, ph bleeding controlled, No redness/swelling at site. Pressure dressing applied. Administered Medications: 14:17 Drug: Dulcolax PO Delayed Release Tablet 5 mg PO once Route: PO; ph 14:18 Follow up: Response: No adverse reaction; Medication administered at discharge. ph Medication: 10:36 VIS not applicable for this client. ph Outcome: 13:26 Discharge ordered by . estephania 14:18 Discharged to home via wheelchair, with family, Flores catheter in place ph 14:18 Condition: good 14:18 Discharge instructions given to patient, family, Instructed on discharge instructions, follow up and referral plans. catheter care Demonstrated understanding of instructions, follow-up care, 14:22 Patient left the ED. ph Signatures: Dispatcher [employer] EDMS Tricia Moscoso, DIRECTOR OF PEDIATRIC REHABILITATION-C DIRECTOR OF PEDIATRIC REHABILITATION-Ckb Ann Marie Olmedo, Reg Reg mr Melissa Robb RN RN ph Pita Angulo RN RN erica3 Nanci Aguero RN RN kj2 Corrections: (The following items were deleted from the chart) 12:24 12:00 Reassessment: Patient appears in no apparent distress at this time. Patient kj2 and/or family updated on plan of care and expected duration. Pain level reassessed. Patient is alert, oriented x 3, equal unlabored respirations, skin warm/dry/pink. kj2 12:25 12:24 Reassessment: patient just returned from CT kj2 kj2
--- NOTE | 2024-07-08 13:27 | EDPHYS ---
Physician Documentation [facility] Name: Jill Newsome Age: 73 yrs Sex: Female : 1950 Arrival Date: 07/08/2024 Time: 09:19 Bed 15 Private MD: SHI Physician Kevin Bragg HPI: 07/08 09:32 This 73 yrs old Female presents to ER via Unassigned with complaints of kb Urinary Problem. 09:32 Pt is a 73 year old female who presents for urinary retention that started last night. kb States this happened before, about 4 months ago. Daughter states when they put the catheter in at that time the urine output was all blood. States they never really figured out what the cause was. States last urination was sometime during the day yesterday. Denies burning with urination, fever, pain, frequency prior to this happening. Was diagnosed with a UTI a week or two ago and completed antibiotics yesterday. States she hasn't had urinary symptoms since a few days after starting antibiotics and she was feeling good. . Historical: - Allergies: 09:59 No Known Allergies; ap3 - PMHx: 09:59 Anxiety; Depression; Diabetes - NIDDM; GERD; High Cholesterol; Hypertension; Myocardial ap3 infarction; - PSHx: 09:59 cardiac stents; hysterectomy; ap3 - Immunization history:: Client reports having NOT received the Covid vaccine. Flu vaccine is up to date. - Infectious Disease History:: Denies. - Social history:: Smoking status: Patient denies any tobacco usage or history of. ROS: 09:36 Constitutional: As per HPI kb Exam: 09:37 Constitutional: This is a well developed, well nourished patient who is awake, alert, kb and in no acute distress. Head/Face: Normocephalic, atraumatic. ENT: Moist Mucous membranes Cardiovascular: Regular rate Respiratory: Respirations even and unlabored. No increased work of breathing. Talking in full sentences Skin: Warm, dry with normal turgor. Normal color. MS/ Extremity: Pulses equal, no cyanosis. Neurovascular intact. Full, normal range of motion. Neuro: Awake and alert, GCS 15, oriented to person, place, time, and situation. 09:37 Abdomen/GI: Inspection: abdomen appears normal, Bowel sounds: normal, Palpation: soft, in all quadrants, moderate abdominal tenderness, in the suprapubic area, Vital Signs: 09:58 BP 176 / 93; Pulse 70; Resp 18; Pulse Ox 100% ; Weight 65.77 kg; Height 5 ft. 4 in. ; ap3 Pain 10/10; 10:36 BP 159 / 98; Pulse 72; Resp 18; Pulse Ox 99% on R/A; ph 11:20 BP 135 / 60; Pulse 70; Resp 18; Pulse Ox 97% on R/A; ph 12:27 BP 134 / 68; Pulse 72; Resp 18; kj2 14:18 BP 133 / 58; Pulse 71; Resp 18; Temp 97.8; Pulse Ox 98% on R/A; ph 09:58 Body Mass Index 24.89 (65.77 kg, 162.56 cm) ap3 09:58 Pain Scale: Adult ap3 MDM: 09:26 Medical Screening Exam initiated kb 13:25 Data reviewed: vital signs, nurses notes. kb 13:25 Differential diagnosis: UTI, urinary retention. Historians other than the Patient: estephania Daughter/Son: daughter. Counseling: I had a detailed discussion with the patient and/or guardian regarding the historical points, exam findings, and any diagnostic results supporting the discharge/admit diagnosis, lab results, radiology results, the need for outpatient follow up, a urologist, to return to the emergency department if symptoms worsen or persist or if there are any questions or concerns that arise at home. 07/08 09:37 Order name: CBC with Diff; Complete Time: 10:42 kb 07/08 09:37 Order name: CMP; Complete Time: 11:01 kb 07/08 09:37 Order name: Urinalysis w/ reflexes; Complete Time: 10:52 kb 07/08 09:37 Order name: CT Abd/Pelvis - IV Contrast Only; Complete Time: 12:52 kb 07/08 09:37 Order name: IV Start; Complete Time: 10:37 kb 07/08 09:37 Order name: Flores; Complete Time: 10:37 kb 07/08 13:26 Order name: Leg Bag; Complete Time: 14:17 kb Administered Medications: 14:17 Drug: Dulcolax PO Delayed Release Tablet 5 mg PO once Route: PO; ph 14:18 Follow up: Response: No adverse reaction; Medication administered at discharge. ph Disposition Summary: 07/08/24 13:26 Discharge Ordered Notes: Location: Home kb Condition: Stable kb Diagnosis - Retention of urine, unspecified kb Followup: kb - With: Emergency Department - When: As needed - Reason: Worsening of condition Followup: kb - With: Private Physician - When: 2 - 3 days - Reason: Recheck today's complaints, Continuance of care, Re-evaluation by your physician Discharge Instructions: - Discharge Summary Sheet kb - Acute Urinary Retention, Female, [id number] kb - Indwelling Urinary Catheter Care, Adult, [id number]-Tcso kb Forms: - Medication Reconciliation Form kb - Antibiotic Education kb - Prescription Opioid Use kb - Patient Portal Instructions kb - Leadership Thank You Letter kb Addendum: 07/10/2024 12:43 Co-signature as Attending Physician, Kevin Bragg MD I agree with the assessment and c taveras plan of care. Signatures: Dispatcher [employer] Tricia Dasilva, HOG RIBBER-C HOG RIBBER-Kevin Kothari MD MD cha Hall, Patricia, RN RN Pita Angulo RN RN ap3 Corrections: (The following items were deleted from the chart) 07/08 09:36 09:32 Pt is a 73 year old female who presents for urinary retention that started last kb night. States this happened before, about 4 months ago. Daughter states when they put the catheter in at that time the urine output was all blood. States they never really figured out what the cause was. . kb 09:37 09:37 CBC+H.LAB.BRZ ordered. EDMS EDMS 09:37 09:37 COMPREHENSIVE METABOLIC PANEL+C.LAB.BRZ ordered. EDMS EDMS 09:37 09:37 Urinalysis+U.LAB.BRZ ordered. EDMS EDMS 09:38 09:38 Abdomen Pelvis W Con+CT.RAD.BRZ ordered. EDMS EDMS
[2024-07-08] MEDS ORDERED: BISACODYL E.C. 5 MG TAB PO ONE (14:06)
[2024-07-08 16:42] VITALS: BP 133/58; TEMP 97.8; O2SAT 98
== END 2024-07-08 14:22 | disposition home or self-care (01) ==
LOC: ER 09:19
DX: R33.9 Retention of urine, unspecified (principal); R10.819 Abdominal tenderness, unspecified site
CPT/HCPCS: 85025; 81001; 36415; 80053; 74177; 51702; 99284; Q9967

== ENCOUNTER 2025-02-21 12:30 | Day surgery (SDC) | payer OTHER ==
[2025-02-16 15:48] LABS: Absolute Lymphocytes (CBC) 1.2 K/uL (0.7-4.9); Hematocrit 42.7 % (36.0-45.0); Hemoglobin 14.3 g/dL (12.0-15.0); MCH 29.4 pg (27.0-35.0); MCHC 33.6 g/dL (32.0-36.0); MCV 87.6 fL (80-100); MPV 6.8 fL (7.6-11.3); Nucleated RBC Absolute Count 0.0 (0-0); Nucleated Red Blood Cells % 0.1 % (0-0); RBC Red Blood Cell Count 4.87 M/uL (3.86-4.86); White Blood Count 4.10 thou/uL (4.3-10.9)
[2025-02-16 15:57] LABS: PT Prothrombin Time 11.9 SECONDS (10-13.0); PTT, Activated Partial Thromb 34.9 SECONDS (27.2-37.4); Protime INR 1.05
[2025-02-16 16:02] LABS: Anion Gap 8.9 mEq/L (5.0-15.0); BUN Blood Urea Nitrogen 34.0 mg/dL (7-18); Glucose Level 114.0 mg/dL (74-106); Potassium 3.9 mEq/L (3.5-5.1)
== END 2025-02-21 12:47 | disposition home health service (06) ==
LOC: PRE 12:30 → CCL 12:47
PROVIDERS: ATTEND Internal Medicine
DX: I25.10 Atherosclerotic heart disease of native coronary artery without angina pectoris (principal); I65.29 Occlusion and stenosis of unspecified carotid artery; Z53.9 Procedure and treatment not carried out, unspecified reason
CPT/HCPCS: 36415; 80048; 85025; 85610; 85730; 93005